=== PATIENT | female | born 1940 | race Caucasian/White ===

== ENCOUNTER 2016-07-13 15:08 | Emergency (ER) | payer MEDICARE ==
[~2016-07-13] VITALS: Ht 165.1 cm; Wt 66.0 kg
[~2016-07-13 15:08] MED LIST: AUGM875T PO; CALTTAB PO; CENTTAB9 PO; CYMB30CA PO; LEVA250T PO; LEVO50TA51 PO; METO50 PO; OXYC1SOL5 PO; PERC5TAB12 PO; PRED5PAK PO; ROBIACUDC PO
[2016-07-13 15:09] VITALS: BP 108/46; PULSE 79; RESP 15; TEMP 98.2; O2SAT 98
--- NOTE | 2016-07-13 16:03 | PD ---
HPI Chief Complaint: Injury Time Seen by Provider: 15:52 Travel History International Travel<30 days: No Contact w/Intl Traveler<30days: No Traveled to known affect area: No History of Present Illness HPI The patient is a 76-year-old female who presents to the emergency department for right arm pain. 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 The patient was getting out of shower last night, tripped and fell, landing on her right hip and injuring her right shoulder. The patient states she is sore over the lateral aspect of the right hip as well as painful over the right humerus. The patient states the pain radiates to the right shoulder down into the right mid humeral area, is worse with extension of the right shoulder, abduction of the right upper extremity, and supination/pronation. The patient is right-hand dominant. She denies any numbness or tingling of the right upper extremity. The patient is able to ambulate after falling, states she is sore to palpation of the lateral aspect of the right hip but is able to bear weight. The patient denies any loss of consciousness with the fall denies any current headache or neck pain. PFSH Past Medical History Cancer: Yes (UTERINE, OVARIAN) Cardiovascular Problems: Yes (LEAKY AORTIC VALVE) Chemotherapy: Yes (last chemo 05/04/15) Diabetes: No Diminished Hearing: No Endocrine: No Genitourinary: No Hepatitis: No Hiatal Hernia: No Hypertension: Yes Immune Disorder: No Musculoskeletal: No Neurologic: Yes (NEUROPATHY FEET AND HANDS, FOOT DROP FROM CHEMO, WEARS FOOT BRACES) Psychiatric: No Respiratory: No Immunizations Current: Yes Thyroid Disease: Yes (HYPOTHYROIDISM) Tetanus Vaccination: > 5 Years Influenza Vaccination: No ?: Not Menopausal: Yes Past Surgical History Abdominal Surgery: No Body Medical Devices: RIGHT EAR, RIGHT CHEST IMPLANTED PORT Cardiac Surgery: No Ear Surgery: Yes (RIGHT EAR STAINLESS STEEL -- REPLACED STIRRUP) Endocrine Surgery: No Eye Surgery: No Genitourinary Surgery: No Gynecologic Surgery: Yes (D AND C, LAPARSCOPIC BIOPSY OF PELVIC AND UTERINE MASS) Neurologic Surgery: Yes (LOWER BACK SURGERY WITH INSTRUMENTATION) Oral Surgery: No Pacemaker: No Thoracic Surgery: Yes (IMPLANTED PORT AND REMOVAL, IMPLANTED PORT) Other Surgery: Yes Social History Alcohol Use: Yes (1 PER DAY) Tobacco Use: No Substance Use: No Allergies-Medications (Allergen,Severity, Reaction): Coded Allergies: No Known Allergies (Unverified , 07/13/16) Reported Meds & Prescriptions Reported Meds & Active Scripts Active Sterapred 12 Day (Prednisone) 5 Mg Stevie 5 Mg PO DIRECTED USE DIRECTED Robitussin Ac Udc (Guaifenesin/Codeine Phosphate) 10 Ml Syrp 10 Ml PO Q6H PRN 5 Days Augmentin 875 mg Tab (Amoxicillin & Pot Clavulanate 875 mg Tab) 875 Mg Tab 875 Mg PO BID 6 Days Levaquin 250 Mg Tab (Levofloxacin) 250 Mg Tab 250 Mg PO DAILY 6 Days Oxycodone/Acetaminophen 5 mg/325 mg 1 Tab Tab 1 Tab PO Q4H PRN Reported Caltrate 600+D (Calcium Carbonate/Cholecalciferol) + Tab 1 Tab PO DAILY Centrum (Multivitamins) Tab 1 Tab PO DAILY Percocet 5-325 mg (Oxycodone/Acetaminophen) Oxycodone 5/325 Acetaminophen Tab 1 Tab PO Q4H PRN Cymbalta (Duloxetine HCl) 30 Mg Cap 60 Mg PO DAILY Lopressor (Metoprolol Tartrate) 50 Mg Tab 50 Mg PO HS Levoxyl (Levothyroxine Sodium) 50 Mcg Tab 50 Mcg PO DAILY Review of Systems Except as stated in HPI: all other systems reviewed are Neg HENT: No: Headaches, Neck Pain Cardiovascular: No: Chest Pain or Discomfort Respiratory: No: Shortness of Breath Gastrointestinal: No: Nausea, Vomiting Musculoskeletal: Positive: Pain Neurologic: Positive: Other (history of neuropathy, no acute numbness or tingling of the right upper extremity), No: Paresthesia, Sensory Disturbance Physical Exam Narrative GENERAL: Awake, alert, pleasant 76-year-old female who appears his stated age and is in no acute respiratory distress. SKIN: Focused skin assessment warm/dry. HEAD: Atraumatic. Normocephalic. EYES: No injection or drainage. ENT: No nasal bleeding or discharge. Mucous membranes pink and moist. NECK: Trachea midline. No JVD. MUSCULOSKELETAL: Mild tenderness of lateral aspect of the right hip. Patient is able fully flex and extend the right hip and right knee. Patient is able to bear weight and stand on the right leg alone. Patient has tenderness of the mid right humerus and lateral aspect of the right shoulder. She has limited ability to extend the right upper extremity as well as abduct secondary to pain. Nontender of the right clavicle. Intrinsic hand muscles the right hand are intact. Positive right radial pulse. She is able flex and extend the right wrist. She is able to supinate and pronate with limited range of motion the right forearm secondary to pain of the right shoulder. NEUROLOGICAL: Awake and alert. No obvious cranial nerve deficits. Motor grossly within normal limits. Normal speech. Sensation is intact over the radial, median, and ulnar distribution of the right hand. PSYCHIATRIC: Appropriate mood and affect; insight and judgment normal. Data Data Last Documented VS Vital Signs Date Time Temp Pulse Resp B/P Pulse Ox O2 Delivery O2 Flow Rate FiO2 07/13/16 15:09 98.2 79 15 108/46 98 Orders Humerus (Min 2vws) (07/13/16 ) Pelvis, Ap Only (Routine) (07/13/16 ) [facility] Medical Decision Making Medical Screen Exam Complete: Yes Emergency Medical Condition: Yes Medical Record Reviewed: Yes Interpretation(s) X-ray of the right humerus reveals no acute findings. No evidence of fracture or dislocation. X-ray of the pelvis reveals osteopenia. No acute fracture. Differential Diagnosis Differential diagnosis includes fracture, contusion, hematoma, pelvic fracture, hip fracture, proximal shoulder fracture, sprain, strain. Narrative Course X-ray of the right humerus and pelvic x-ray were obtained. X-ray the right humerus and pelvis are unremarkable. No evidence of fracture. The patient will be placed in a sling for, for, but is advised not to wear the sling continuously, to avoid a frozen shoulder. She is advised to have early range of motion, ice and/or heat to the affected area, and medications as directed. She will be provided a copy of her x-ray reports and is advised to follow-up with her primary physician. Diagnosis Primary Impression: Right arm pain Additional Impression: Contusion of right hip Qualified Code: S70.01XA - Contusion of right hip, initial encounter Patient Instructions: General Instructions Additional Instructions: Sling as needed. Early range of motion exercises. Motrin and Emmet as needed for pain. Elevate and/or ice as needed. Follow-up with your primary physician. Please provide the patient a copy of her x-ray report at discharge. Med/Other Pt SpecificInfo: Prescription(s) given Scripts Ibuprofen 400 Mg Hip889 Mg PO Q6H PRN (PAIN SCALE 1 TO 10) #20 TAB Ref 0 Prov:Speedy Thomas MD 07/13/16 Hydrocodone-Acetaminophen (Emmet)5-325 mg Tab1 Tab PO Q6H PRN (PAIN) #12 TAB Ref 0 Prov:Speedy Thoams MD 07/13/16 Disposition: 01 DISCHARGE HOME Condition: Stable Speedy Thomas MD Jul 13, 2016 16:03
--- NOTE | 2016-07-13 16:49 | RADHPO ---
EXAM DATE/TIME: 07/13/2016 16:17 [facility] COMPARISON: No previous studies available for comparison. INDICATIONS : Right hip pain post fall yesterday. MEDICAL HISTORY : None. SURGICAL HISTORY : Lumbar spine. ENCOUNTER: Initial ACUITY: 2 days PAIN SCORE: 7/10 LOCATION: Right hip. FINDINGS: A single frontal view of the pelvis demonstrates no evidence of fracture. The bones are osteopenic. S urgical hardware noted in the lower lumbar spine. Mild to moderate osteoarthritis of the hips. Degene rative change at the pubic symphysis and sacroiliac joints. CONCLUSION: 1. Osteopenia. No acute fracture. Margarito Alfaro MD on July 13, 2016 at 16:47 Board Certified Radiologist. This report was verified electronically.
--- NOTE | 2016-07-13 16:54 | RADHPO ---
EXAM DATE/TIME: 07/13/2016 16:16 [facility] COMPARISON: No previous studies available for comparison. INDICATIONS : Right arm pain post fall yesterday. MEDICAL HISTORY : None. SURGICAL HISTORY : None. ENCOUNTER: Initial ACUITY: 2 days PAIN SCORE: 7/10 LOCATION: Right humerus. FINDINGS: Two view examination of the right humerus demonstrates no evidence of fracture or dislocation. Bony mineralization is normal. The soft tissue structures are intact. CONCLUSION: 1. No acute findings. Margarito Alfaro MD on July 13, 2016 at 16:52 Board Certified Radiologist. This report was verified electronically.
[2016-07-13] MEDS ORDERED: IBUP400T20 PO (17:06)
[2016-07-13] MEDS ORDERED: NORC5TAB PO (17:06)
== END 2016-07-13 17:38 | disposition home or self-care (01) ==
LOC: PHEFT 15:08
DX: M79.601 Pain in right arm (principal); S70.01XA Contusion of right hip, initial encounter; I10 Essential (primary) hypertension; E03.9 Hypothyroidism, unspecified; Z86.69 Personal history of other diseases of the nervous system and sense organs; Z85.42 Personal history of malignant neoplasm of other parts of uterus; Z85.43 Personal history of malignant neoplasm of ovary; W01.0XXA Fall on same level from slipping, tripping and stumbling without subsequent striking against object, initial encounter; Y92.002 Bathroom of unspecified non-institutional (private) residence as the place of occurrence of the external cause
CPT/HCPCS: 72170; 73060; 99283

== ENCOUNTER 2017-05-26 13:49 | Emergency (ER) | payer MEDICARE ==
[~2017-05-26] VITALS: Ht 165.1 cm; Wt 65.0 kg
[~2017-05-26 13:49] MED LIST changes: +IBUP1TAB5 PO; +NORC5TAB PO
[2017-05-26 13:50] VITALS: BP 167/72; PULSE 76; RESP 18; TEMP 98.4; O2SAT 94
[2017-05-26] MEDS ORDERED: BACT800T5 PO (14:26)
[2017-05-26] MEDS ORDERED: MUPI2OIN TOPICAL (14:26)
[2017-05-26] MEDS ORDERED: SULFAMETHOXAZOLE-TRIMETHOPRIM DS 800-160 MG TAB PO ONE (14:30)
[2017-05-26] MEDS ORDERED: TETANUS/DIPHTHERIA TOXOID ADULT 0.5 ML VIAL IM ONE (14:30)
--- NOTE | 2017-05-26 14:32 | PD ---
HPI Chief Complaint: Laceration/Skin Injury Time Seen by Provider: 14:07 Travel History International Travel<30 days: No Contact w/Intl Traveler<30days: No Traveled to known affect area: No History of Present Illness HPI 77-year-old female that presents to the ED for evaluation of injury to her left arm. Patient reports that yesterday she accidentally fell and injured her left arm. Per patient she didn't think much of it. She has a skin tear to her left upper arm. She is able to move the arm fully. Denies any numbness, tingling, weakness. She was encouraged by her family to come here today to get evaluated. States having some discomfort in the area. Per patient the pain is 6 out of 10. Unknown of last tetanus booster. No urinary or bowel movement issues. Hasn't done anything for this other than some minor wound care. Has no allergies to medication. Other medical issues reported. Told to the arm fully. No other injuries reported. No head injury or loss of consciousness. Injury occurred yesterday around noon. PFSH Past Medical History Cancer: Yes (UTERINE, OVARIAN) Cardiovascular Problems: Yes (LEAKY AORTIC VALVE) Chemotherapy: Yes Diabetes: No Diminished Hearing: No Endocrine: No Genitourinary: No Hepatitis: No Hiatal Hernia: No Hypertension: Yes Immune Disorder: No Musculoskeletal: No Neurologic: Yes (NEUROPATHY FEET AND HANDS, FOOT DROP FROM CHEMO, WEARS FOOT BRACES) Psychiatric: No Respiratory: No Immunizations Current: Yes Thyroid Disease: Yes (HYPOTHYROIDISM) Tetanus Vaccination: > 5 Years Influenza Vaccination: No ?: Not Menopausal: Yes Past Surgical History Abdominal Surgery: No Body Medical Devices: RIGHT EAR, RIGHT CHEST IMPLANTED PORT Cardiac Surgery: No Ear Surgery: Yes (RIGHT EAR STAINLESS STEEL -- REPLACED STIRRUP) Endocrine Surgery: No Eye Surgery: No Genitourinary Surgery: No Gynecologic Surgery: Yes (D AND C, LAPARSCOPIC BIOPSY OF PELVIC AND UTERINE MASS) Hysterectomy: Yes (Partial ) Neurologic Surgery: Yes (LOWER BACK SURGERY WITH INSTRUMENTATION) Oral Surgery: No Pacemaker: No Thoracic Surgery: Yes (IMPLANTED PORT AND REMOVAL, IMPLANTED PORT) Other Surgery: Yes Social History Alcohol Use: Yes (1 PER DAY) Tobacco Use: No Substance Use: No Allergies-Medications (Allergen,Severity, Reaction): Coded Allergies: No Known Allergies (Unverified Adverse Reaction, Unknown, 05/26/17) Reported Meds & Prescriptions Reported Meds & Active Scripts Active Mupirocin Topical (Mupirocin) 2 % Oint 1 Applic TOPICAL BID Bactrim DS (Sulfamethoxazole-Trimethoprim) 800-160 Mg Tab 1 Tab PO BID 10 Days Ibuprofen 400 Mg Tab 400 Mg PO Q6H PRN [place] (Hydrocodone-Acetaminophen) 5-325 mg Tab 1 Tab PO Q6H PRN Sterapred 12 Day (Prednisone) 5 Mg Stevie 5 Mg PO DIRECTED USE DIRECTED Robitussin Ac Udc (Guaifenesin/Codeine Phosphate) 10 Ml Syrp 10 Ml PO Q6H PRN 5 Days Augmentin 875 mg Tab (Amoxicillin & Pot Clavulanate 875 mg Tab) 875 Mg Tab 875 Mg PO BID 6 Days Levaquin 250 Mg Tab (Levofloxacin) 250 Mg Tab 250 Mg PO DAILY 6 Days Oxycodone/Acetaminophen 5-325 mg/5Ml (Oxycodone W/ Acetaminophen) 1 Tab Tab 1 Tab PO Q4H PRN Reported Caltrate 600+D (Calcium Carbonate/Cholecalciferol) + Tab 1 Tab PO DAILY Centrum (Multivitamins) Tab 1 Tab PO DAILY Percocet 5-325 mg (Oxycodone/Acetaminophen) Oxycodone 5/325 Acetaminophen Tab 1 Tab PO Q4H PRN Cymbalta (Duloxetine HCl) 30 Mg Cap 60 Mg PO DAILY Lopressor (Metoprolol Tartrate) 50 Mg Tab 50 Mg PO HS Levoxyl (Levothyroxine Sodium) 50 Mcg Tab 50 Mcg PO DAILY Review of Systems Except as stated in HPI: all other systems reviewed are Neg Physical Exam Narrative GENERAL: SKIN: Warm and dry. HEAD: Atraumatic. Normocephalic. EYES: Pupils equal and round. No scleral icterus. No injection or drainage. ENT: No nasal bleeding or discharge. Mucous membranes pink and moist. Tongue is midline. No uvula deviation. NECK: Trachea midline. No JVD. CARDIOVASCULAR: Regular rate and rhythm. RESPIRATORY: No accessory muscle use. Clear to auscultation. Breath sounds equal bilaterally. GASTROINTESTINAL: Abdomen soft, non-tender, nondistended. Hepatic and splenic margins not palpable. MUSCULOSKELETAL: Extremities without clubbing, cyanosis, or edema. No obvious deformities. Full range of motion of the upper and lower extremities bilaterally. 2+ pulses bilaterally. Patient has a superficial skin tear on the left arm. About 5 cms in Diameter. Skin Still Present. Already Healing. Patient does have bruising and swelling on the area but appears to also have some erythema which is warm to the touch more distal to the wound. No purulence noted. No lymphadenopathy noted. Neurovascularly intact. NEUROLOGICAL: Awake and alert. No obvious cranial nerve deficits. Motor grossly within normal limits. Five out of 5 muscle strength in the arms and legs. Normal speech. PSYCHIATRIC: Appropriate mood and affect; insight and judgment normal. Data Data Last Documented VS Vital Signs Date Time Temp Pulse Resp B/P (MAP) Pulse Ox O2 Delivery O2 Flow Rate FiO2 05/26/17 13:50 98.4 76 18 167/72 (103) 94 Orders Orders Sulfamet-Trimeth Ds 800-160 Mg (Bactrim (05/26/17 14:30) Wound Care (05/26/17 14:24) Ed Discharge Order (05/26/17 14:24) Tetanus/Diphtheria Tox Adult (Tetanus/Di (05/26/17 14:30) MDM Medical Decision Making Medical Screen Exam Complete: Yes Emergency Medical Condition: Yes Medical Record Reviewed: Yes Differential Diagnosis Wound check versus skin tear versus infected skin. Narrative Course 77-year-old female that presents to the ED for evaluation of skin tear. Patient was properly examined and was found to have signs and symptoms consistent appears to be a already healing skin tear and possible infection from injury. Patient was given tetanus booster. Given prescription for Bactrim and mupirocin. Had wound care done here in the ED. However, close follow with PCP. Unfortunately because wound is more in 24 hours old I do not recommend any suturing. He underwent this appears to be a skin tear and sutures will likely not have been beneficial. This will have to heal by secondary intention. Patient was counseled on this. Follow with PCP. See ED worsening symptoms. Wound care endorsed Diagnosis Primary Impression: Skin tear of left upper extremity Additional Impression: Cellulitis Qualified Codes: L03.114 - Cellulitis of left upper limb Patient Instructions: General Instructions Additional Instructions: Take medication as prescribed. Follow with PCP. See ED worsening symptoms. Change dressings daily. Recheck in 48 hours if redness worsens Med/Other Pt SpecificInfo: Prescription(s) given, Wound Care Scripts Mupirocin Topical (Mupirocin Topical) 2 % Oint 1 APPLIC TOPICAL BID for Mgmt Bacterial Infection, #1 TUBE 0 Refills Prov: Brian Kulkarni MD 05/26/17 Sulfamethoxazole-Trimethoprim (Bactrim DS) 800-160 Mg Tab 1 TAB PO BID for Infection for 10 Days, #20 TAB 0 Refills Prov: Brian Kulkarni MD 05/26/17 Disposition: 01 DISCHARGE HOME Condition: Stable Manan Sorenson May 26, 2017 14:32
[2017-05-26] MEDS ORDERED: METO-309 PO (14:47)
[2017-05-26] MEDS ORDERED: CYMB30CA PO (14:47)
[2017-05-26] MEDS ORDERED: LEVO50TA53 PO (14:47)
[2017-05-26] MEDS ORDERED: OXYC1TAB63 PO (14:47)
== END 2017-05-26 14:55 | disposition home or self-care (01) ==
LOC: PHED 13:49 → PHEFT 14:55
DX: S41.112A Laceration without foreign body of left upper arm, initial encounter (principal); L03.114 Cellulitis of left upper limb; E03.9 Hypothyroidism, unspecified; W19.XXXA Unspecified fall, initial encounter; Z23 Encounter for immunization
CPT/HCPCS: 90471; 90714

== ENCOUNTER 2017-11-12 08:24 | Inpatient (IN) ==
[2017-11-12] MEDS ORDERED: Sod Chloride 0.9% Inj 1,000 ML IV.SIG ONE (10:08)
--- NOTE | 2017-11-12 10:13 | ED ---
HPI General Chief complaint: Nausea/Vomiting/Diarrhea Stated complaint: GI Time Seen by Provider: 11/12/17 10:00 History of Present Illness HPI Narrative: The patient was seen and examined in the presence of the nurse. This patient planes of abdominal pain. Is rather diffuse abdominal pain in all quadrants. Duration 5 days. Severity is moderate. After eating she gets nauseous but between meals is not. No fever. She is on chemotherapy orally for recurrent ovarian cancer. No alleviating factors. No exacerbating factors. Related Data Home Medications Medication Instructions Recorded Confirmed duloxetine [Cymbalta] 60 mg PO BID 10/07/17 11/12/17 oxycodone-acetaminophen 1 tab PO Q4HR PRN 10/17/17 11/12/17 apixaban [Eliquis] 5 mg PO BID 11/12/17 11/12/17 fluticasone [Flonase Allergy 2 spray INTRANASAL DAILY PRN 11/12/17 11/12/17 Relief] levothyroxine [Levoxyl] 50 mcg PO DAILY 11/12/17 11/12/17 metoprolol tartrate 50 mg PO DAILY 11/12/17 11/12/17 niraparib [Zejula] 100 mg PO QPM 11/12/17 11/12/17 ondansetron [Zofran ODT] 8 mg PO TID PRN 11/12/17 11/12/17 temazepam [Restoril] 15 mg PO HS 11/12/17 11/12/17 Allergies Allergy/AdvReac Type Severity Reaction Status Date / Time No Known Allergies Allergy Verified 10/25/17 08:36 Review of Systems ROS: all other systems reviewed are negative PMFSH Surgical History Surgical History History of back surgery (Acute) Social History Social History Substance History: No History of Abuse Second Hand Smoke Exposure: No Smoking Status: Never smoker How Often Do You Have a Drink Containing Alcohol: Never Recent Out of Country Travel within the Last 8 Weeks: No Immunization History Tetanus Immunization: <5 Years Hx Influenza Vaccine This Season: Yes Exam Narrative Exam Narrative: GENERAL: Well-nourished, well-developed patient in no apparent distress. SKIN: Focused skin assessment reveals no rash and nodules. Skin is Warm and dry. HEAD: Atraumatic. Normocephalic. EYES: Pupils equal and round. No scleral icterus. No injection or drainage. ENT: No nasal bleeding or discharge. Mucous membranes pink and moist. NECK: Trachea midline. No JVD. CARDIOVASCULAR: Regular rate and rhythm. No murmur appreciated. RESPIRATORY: No accessory muscle use. Clear to auscultation. Breath sounds equal bilaterally. GASTROINTESTINAL: Abdomen soft, non-tender, nondistended. Hepatic and splenic margins not palpable. MUSCULOSKELETAL: No obvious deformities. No clubbing. No cyanosis. No edema. NEUROLOGICAL: Awake and alert. No obvious cranial nerve deficits. Motor grossly within normal limits. Normal speech. PSYCHIATRIC: Appropriate mood and affect; insight and judgment normal. Course Initial Documented Vital Signs Temperature 98.7 F 11/12/17 08:29 Pulse Rate 104 H 11/12/17 08:29 Respiratory Rate 18 11/12/17 08:29 Blood Pressure 147/69 H 11/12/17 08:29 Pulse Oximetry 97 11/12/17 08:29 Last Documented Vital Signs Temperature 98.7 F 11/12/17 08:29 Pulse Rate 104 H 11/12/17 10:09 Respiratory Rate 17 11/12/17 10:09 Blood Pressure 121/60 11/12/17 10:09 Pulse Oximetry 95 11/12/17 10:09 Medical Decision Making MDM Narrative Medical decision making narrative: IV placed and labs sent. I gave her a liter of saline IV and a dose of Zofran CT of abdomen and pelvis Suggest small bowel obstruction and transition point in the right lower quadrant near the right adnexal mass. I reviewed with general surgeon Dr. England as well as medical wrote meds who will admit. Patient will be kept n.p.o. and blood thinner held. Medical Screen Exam Complete: Yes Emergency Medical Condition: Yes Medical Records Medical records reviewed: Yes I reviewed the patient's medical records. Reviewed her oncology consultation from 2 weeks ago. Lab Data Result diagrams: 11/12/17 10:20 11/12/17 10:20 Lab Results 11/12/17 11/12/17 Range/Units 10:20 10:20 WBC 13.7 H (4.0-11.0) th/mm3 RBC 3.98 L (4.00-5.30) mil/mm3 Hgb 13.3 (11.6-15.3) gm/dL Hct 37.8 (35.0-46.0) % MCV 94.9 (80.0-100.0) fL MCH 33.3 (27.0-34.0) pg MCHC 35.1 (32.0-36.0) % RDW 14.9 (11.6-17.2) % Plt Count 351 (150-450) th/mm3 MPV 7.9 (7.0-11.0) fL Neut % (Auto) 80.8 H (16.0-70.0) % Lymph % (Auto) 9.1 (9.0-44.0) % [place] % (Auto) 9.7 H (0.0-8.0) % Eos % (Auto) 0.1 (0.0-4.0) % Baso % (Auto) 0.3 (0.0-2.0) % Neut # (Auto) 11.1 H (1.8-7.7) th/mm3 Lymph # (Auto) 1.2 (1.0-4.8) th/mm3 [place] # (Auto) 1.3 H (0.0-0.9) th/mm3 Eos # (Auto) 0.0 (0.0-0.4) th/mm3 Baso # (Auto) 0.0 (0.0-0.2) th/mm3 WBC Differential . Differential Comment Auto diff final Sodium 133 L (136-145) meq/L Potassium 3.5 (3.5-5.1) meq/L Chloride 92 L (98-107) meq/L Carbon Dioxide 28.2 (21.0-32.0) meq/L Anion Gap 13 (5-15) meq/L BUN 26 H (7-18) mg/dL Creatinine 1.31 H (0.50-1.00) mg/dL Estimated GFR 39 L (>89) mL/min Random Glucose 94 (74-106) mg/dL Calcium 9.2 (8.5-10.1) mg/dL Total Bilirubin 1.3 H (0.2-1.0) mg/dL AST 26 (15-37) U/L ALT 26 (10-53) U/L Alkaline Phosphatase 109 (45-117) U/L Total Protein 8.3 H (6.4-8.2) g/dL Albumin 3.6 (3.4-5.0) g/dL Lipase 118 (73-393) U/L Imaging Data Radiologist's impression: Abdomen/Pelvis CT 11/12/17 10:08 CONCLUSION: 1. CT findings characteristic of a small bowel obstruction with a transition in the region of the right adnexa. A 4.5 cm cystic lesion in a 75-year-old could represent an ovarian mass. Bowel distal to this area is decompressed. In addition, there is soft tissue density in the expected location of the uterus. Patient reports hysterectomy. Findings may represent a partial hysterectomy. 2. Collateral venous channels in the retroperitoneum and anterior abdominal wall may be due to obstruction to the venous drainage in the right upper extremity. 3. Symmetric widening of the SI joints with some sclerosis on the sacral side of the same possibly representing chronic sacroiliitis. Discharge Plan Discharge Disposition Patient Disposition: 30 Still Patient Discharge Details Diagnosis: SBO (small bowel obstruction) Physicians Team ED Provider: Donovan Tony Primary Care Provider: Jamee Velasquez Rxs /Orders / Referrals /Forms Prescriptions: No Action duloxetine [Cymbalta] 30 mg Capsule,Delayed Release(Dr/Ec) 60 mg PO BID RF: 0 oxycodone-acetaminophen 5-325 mg Tablet 1 tab PO Q4HR PRN (Reason: Pain) RF: 0 ondansetron [Zofran ODT] 8 mg Tablet,Disintegrating 8 mg PO TID PRN (Reason: Nausea And Vomiting) RF: 0 temazepam [Restoril] 15 mg Capsule 15 mg PO HS RF: 0 levothyroxine [Levoxyl] 50 mcg Tablet 50 mcg PO DAILY RF: 0 metoprolol tartrate 50 mg Tablet 50 mg PO DAILY RF: 0 fluticasone [Flonase Allergy Relief] 50 mcg/actuation [place],Suspension 2 spray INTRANASAL DAILY PRN (Reason: Nasal Congestion) RF: 0 apixaban [Eliquis] 5 mg Tablet 5 mg PO BID RF: 0 niraparib [Zejula] 100 mg Capsule 100 mg PO QPM RF: 0 Discharge Interventions Interventions: Vital Signs Last Done: 11/12/17 10:09 Status ED Status: With Doctor
[2017-11-12 10:48] LABS: Baso % (Auto) 0.3 % (0.0-2.0); Eos % (Auto) 0.1 % (0.0-4.0); Hematocrit 37.8 % (35.0-46.0); Hemoglobin 13.3 gm/dL (11.6-15.3); Lymph # (Auto) 1.2 th/mm3 (1.0-4.8); Lymph % (Auto) 9.1 % (9.0-44.0); Mean Corpuscular HGB Conc 35.1 % (32.0-36.0); Mean Corpuscular Hemoglobin 33.3 pg (27.0-34.0); Mean Corpuscular Volume 94.9 fL (80.0-100.0); Mean Platelet Volume 7.9 fL (7.0-11.0); Mono # (Auto) 1.3 th/mm3 (0.0-0.9); Mono % (Auto) 9.7 % (0.0-8.0); Neut # (Auto) 11.1 th/mm3 (1.8-7.7); Neut % (Auto) 80.8 % (16.0-70.0); Platelet Count 351 th/mm3 (150-450); Red Blood Count 3.98 mil/mm3 (4.00-5.30); Red Cell Distribution Width 14.9 % (11.6-17.2); White Blood Count 13.7 th/mm3 (4.0-11.0)
[2017-11-12 11:06] LABS: Alanine Aminotransferase 26 U/L (10-53); Albumin 3.6 g/dL (3.4-5.0); Anion Gap 13 meq/L (5-15); Aspartate Aminotransferase 26 U/L (15-37); Blood Urea Nitrogen 26 mg/dL (7-18); Calcium 9.2 mg/dL (8.5-10.1); Carbon Dioxide 28.2 meq/L (21.0-32.0); Chloride 92 meq/L (98-107); Glomerular Filtration Rate 39 mL/min (>89); Glucose,Random 94 mg/dL (74-106); Lipase 118 U/L (73-393); Potassium 3.5 meq/L (3.5-5.1); Sodium 133 meq/L (136-145)
[2017-11-12 11:08] LABS: Alkaline Phosphatase 109 U/L (45-117); Total Protein 8.3 g/dL (6.4-8.2)
--- NOTE | 2017-11-12 12:03 | CT ---
EXAM DATE: 11/12/2017 11:41 AM EDT AGE/SEX: 77 years / Female INDICATIONS: Abdominal pain, nausea and vomiting for five days. CLINICAL DATA: This is the patient's initial encounter. Patient reports that signs and symptoms have been present for 4 - 6 days and indicates a pain score of 8/10. MEDICAL/SURGICAL HISTORY: Hypertension. Carcinoma, ovarian. Hysterectomy. ORAL CONTRAST: No oral contrast ingested. RADIATION DOSE: 5.07 CTDI (mGy) COMPARISON: [facility] – [place], [place] PULMONARY ANGIOGRAM, 05/19/2015. . TECHNIQUE: Multiple contiguous axial images were obtained through the abdomen and pelvis following b olus infusion of 96 ml Omnipaque 350 (iohexol) nonionic water-soluble contrast as a single exam dos e. No oral contrast ingested. Using automated exposure control and adjustment of the mA and/or kV ac cording to patient size, radiation dose was kept as low as reasonably achievable to obtain optimal di agnostic quality images. DICOM format image data is available electronically for review and comparis on. FINDINGS: Lower Lungs: Some atelectasis or scarring in the left lingula and right lung base. No confluent infil trate. Liver: Benign-appearing 1 cm cyst posteriorly in the right hepatic lobe. Some diminished hepatic atte nuation characteristic of fatty infiltration. Spleen: Homogeneous density without enlargement. Pancreas: Unremarkable without mass or calcification. Kidneys: Normal in size and shape. No evidence of mass or hydronephrosis. Adrenal Glands: Unremarkable. Aorta: The aorta and proximal iliac vessels are grossly unremarkable without aneurysmal dilation. Bowel/Mesentery: Dilation of small bowel loops a discrete transition in the right pelvis. This occur s adjacent to a right adnexal cystic lesion measuring approximately 4.5 cm in diameter. In a 77-year- old with concomitant bowel obstruction, this could represent an ovarian mass. The bowel distal to thi s location is decompressed. Abdominal Wall: There are prominent venous varicosities traversing through the anterior subcutaneous tissues of the right abdomen draining into the right common femoral vein. In addition, there is a pr ominent azygos vein as well as a prominent retroperitoneal collateral tracking posterior to the liver off the IVC and extending to the right lateral chest wall. Findings may represent collateral drainag e from an obstructed right upper extremity venous system. The left iliac system is diminutive but I d o not see any regional collaterals. Retroperitoneum: No evidence of adenopathy in the retrocrural, para-aortic, or deep pelvic regions. Bladder: Contours are smooth. Reproductive Organs: Again, 4.5 cm cystic lesion in the region of the right adnexa. Soft tissue dens ity in the expected location of the uterus but the patient does report hysterectomy. Inguinal: The inguinal region is unremarkable without evidence of adenopathy. Bony Structures: Symmetric widening of the SI joints bilaterally with some sclerosis particularly on the sacral side of the SI joints. Spinous process fixation of the lower lumbar spine. Post Contrast: No abnormal areas of enhancement seen. CONCLUSION: 1. CT findings characteristic of a small bowel obstruction with a transition in the region of the ri ght adnexa. A 4.5 cm cystic lesion in a 75-year-old could represent an ovarian mass. Bowel distal to this area is decompressed. In addition, there is soft tissue density in the expected location of the uterus. Patient reports hysterectomy. Findings may represent a partial hysterectomy. 2. Collateral venous channels in the retroperitoneum and anterior abdominal wall may be due to obstr uction to the venous drainage in the right upper extremity. 3. Symmetric widening of the SI joints with some sclerosis on the sacral side of the same possibly r epresenting chronic sacroiliitis. Electronically signed by: Martin Rosenberg MD 11/12/2017 12:02 PM EDT
[2017-11-12] MEDS ORDERED: Bisacodyl 10 MG Supp RECTAL PRN (13:48)
[2017-11-12] MEDS ORDERED: Acetaminophen 325 MG Tablet PO PRN (14:07)
--- NOTE | 2017-11-12 14:10 | P.HPFP ---
History of Present Illness Primary Care Physician: Jamee Velasquez MD <RonceverteGhislaine acosta - 11/13/17 12:58> Jamee Velasquez MD <Shaina Toribio V 11/12/17 14:10> Chief Complaint: abdominal pain <Shaina Toribio V 11/12/17 14:10> History of Present Illness: Patient is a 77-year-old female with a past medical history of right ovarian cancer who presents to the ED for abdominal pain. Patient states abdominal pain has been present for the last 5 days accompanied with nausea and vomiting. Around Friday afternoon patient noticed an intense stabbing pain on her lower right and left quadrants. She also has a mild pain on the upper quadrants. This pain has been periodic, coming in waves but has never completely resolved. Since Friday patient has been unable to tolerate meals. She has been vomiting about an hour after eating. She is able to tolerate liquids. She reports a similar episode about 6 weeks ago that was diagnosed as a partial bowel obstruction on [facility]. During that time patient was given bowel regimen and sent home, her symptoms resolved for about 5 weeks return last Friday. Patient is unsure if she is passing gas, but she has had a bowel movement every day until Friday. Patient has a known history of right ovarian cancer since 2011, is currently undergoing treatment with oral chemotherapy. 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 <Shaina Toribio V 11/12/17 20:52> - Diagnosis (1) SBO (small bowel obstruction) (2) Ovarian cancer on right (3) Hypertension (4) Neuropathic pain of both legs (5) History of back surgery (6) Hypothyroidism (7) Nutrition, metabolism, and development symptoms (8) DVT prophylaxis <Ghislaine Ray - 11/13/17 12:58> (1) SBO (small bowel obstruction) (2) Ovarian cancer on right (3) Hypertension (4) Neuropathic pain of both legs (5) History of back surgery (6) Hypothyroidism (7) Nutrition, metabolism, and development symptoms (8) DVT prophylaxis <Shaina Toribio V 11/12/17 20:53> Inpatient Certification: I certify that the inpatient services were ordered in accordance with Medicare regulations governing the order. This includes certification that hospital inpatient services are reasonable and necessary and in the case of services not specified as inpatient-only under 42 CFR 419.22(n), that they are appropriately provided as inpatient services in accordance to with the 2-midnight benchmark under 43 CFR 412.3(e) <Ghislaine Ray - 11/13/17 12:58> Review of Systems Constitutional: Reports fatigue, Reports lack of energy, Denies body ache(s), Denies chills, Denies fever(s) <Shaina Toribio V 11/12/17 17:19> Eyes: Denies blurry vision, Denies change in vision <Shaina Toribio V 11/12/17 17:19> Ears, Nose, Mouth, and Throat: Denies sinus pain, Denies sinus pressure, Denies sore throat <Emeka FloresRisa 11/12/17 17:19> Cardiovascular: Denies chest pain, Denies shortness of breath <Emeka Flores Risa 11/12/17 17:19> Respiratory: Denies chest congestion, Denies cough <Shaina Toribio V 17:19> Gastrointestinal: Reports abdominal pain, Reports change in bowel habits, Reports nausea, Reports vomiting, Denies black, tarry stools <Shaina Toribio V 11/12/17 17:19> Musculoskeletal: Reports back pain, Denies body aches <Emeka FloresRisa 11/12/17 17:19> Neurologic: Reports abnormal hearing (chronic on the R side), Reports abnormal walking (secondary to neuropathy), Reports numbness (Chronic, secondary to chemotherapy) <Shaina Toribio V 11/12/17 17:19> Hematologic/Lymphatic: Reports easy bruising (currently on eloquis) <Shaina Toribio V 11/12/17 17:19> Allergic/Immunologic: Denies seasonal runny nose, Denies wheezing <Shaina Toribio V 11/12/17 17:19> PMFSH - History History Provided By: Patient <Shaina Toribio V 11/12/17 14:10> - Medical History Medical History: Medical History (Last Reviewed 10/25/17 @ 11:13 by Nicol Maher) Port catheter in place (Acute) Hypertension (Chronic) Neuropathic pain of both legs (Chronic) Hypothyroidism (Chronic) Hx of hysterectomy (Acute) <Ghislaine Ray - 11/13/17 12:58> Medical History (Last Reviewed 10/25/17 @ 11:13 by Nicol Maher) Port catheter in place (Acute) Hypertension (Chronic) Neuropathic pain of both legs (Chronic) Hypothyroidism (Chronic) Hx of hysterectomy (Acute) <Shaina Toribio V 11/12/17 20:55> - Surgical History Surgical History: Surgical History (Last Updated 11/12/17 @ 17:03 by Shaina Flores MD, R1 ) History of back surgery (Chronic) H/O hysterectomy with unilateral oophorectomy <Ghislaine Ray - 11/13/17 12:58> Surgical History (Last Updated 11/12/17 @ 17:03 by Shaina Flores MD, R1 ) History of back surgery (Chronic) H/O hysterectomy with unilateral oophorectomy <Shaina Toribio V 11/12/17 17:20> - Tobacco History Second Hand Smoke Exposure: No <Shaina Toribio V 11/12/17 14:10> Smoking Status: Never smoker <Shaina Toribio V 11/12/17 14:10> - Alcohol History How Often Do You Have a Drink Containing Alcohol: Never <Shaina Toribio V 11/12/17 14:10> - Substance Use History Substance History: No History of Abuse <Shaina Toribio V 11/12/17 14:10 > - Travel History Recent Travel Out of the Country Within the Last 8 Weeks: No <Shaina Toribio V 11/12/17 14:10> - Immunization History Tetanus Immunization: <5 Years <Shaina Toribio V 11/12/17 14:10> Hx Influenza Vaccine This Season: Yes <Shaina Toribio V 11/12/17 14:10> Medications and Allergies Allergies Allergy/AdvReac Type Severity Reaction Status Date / Time No Known Allergies Allergy Verified 10/25/17 08:36 <Ghislaine Ray 11/13/17 12:58> Home Medications Medication Instructions Recorded Confirmed Type duloxetine [Cymbalta] 60 mg PO BID 10/07/17 11/12/17 History oxycodone-acetaminophen 1 tab PO Q4HR PRN 10/17/17 11/12/17 History apixaban [Eliquis] 5 mg PO BID 11/12/17 11/12/17 History fluticasone [Flonase Allergy 2 spray INTRANASAL DAILY PRN 11/12/17 11/12/17 History Relief] levothyroxine [Levoxyl] 50 mcg PO DAILY 11/12/17 11/12/17 History metoprolol tartrate 50 mg PO DAILY 11/12/17 11/12/17 History niraparib [Zejula] 100 mg PO QPM 11/12/17 11/12/17 History ondansetron [Zofran ODT] 8 mg PO TID PRN 11/12/17 11/12/17 History temazepam [Restoril] 15 mg PO HS 11/12/17 11/12/17 History <Ghislaine Ray - 11/13/17 12:58> Active Medications: Active Medications Acetaminophen (Tylenol) 650 mg PO Q4H PRN PRN Reason: BACK PAIN Al Hydroxide/Mg Hydroxide (Milk Of Magnesia Liq) 30 ml PO Q12H PRN PRN Reason: Mild Constipation Bisacodyl (Dulcolax Supp) 10 mg RECTAL DAILY PRN PRN Reason: SEVERE CONSITIPATION Duloxetine HCl (Cymbalta) 60 mg PO BID [facility] Last Admin: 11/13/17 09:49 Dose: 60 mg Fluticasone Propionate (Flonase Nasal [place]) 2 spray EACH NARE DAILY PRN PRN Reason: Nasal Congestion Heparin Sodium (Porcine) (Heparin Inj) 5,000 units SQ Q8HR [facility] Last Admin: 11/13/17 05:33 Dose: 5,000 units Dextrose/Sodium Chloride (D5w/Normal Saline Inj) 1,000 mls @ 100 mls/hr IV.CONT .Q10H [facility] Last Admin: 11/13/17 09:48 Dose: 100 mls/hr Lactulose (Lactulose Liq) 30 ml PO DAILY PRN PRN Reason: SEVERE CONSITIPATION Levothyroxine Sodium (Synthroid) 50 mcg PO DAILY@0600 [facility] Last Admin: 11/13/17 07:39 Dose: Not Given Metoprolol Tartrate (Lopressor) 50 mg PO HS [facility] Last Admin: 11/12/17 21:11 Dose: Not Given Ondansetron HCl (Zofran Inj) 4 mg IV.PUSH Q6H PRN PRN Reason: NAUSEA OR VOMITING Patient Own Medication (Patient Own Medication) 0 each PO QPM [facility] Last Admin: 11/13/17 07:39 Dose: Not Given Polyethylene Glycol (Miralax) 17 gm PO DAILY [facility] Last Admin: 11/13/17 09:49 Dose: 17 gm Sennosides (Senokot) 17.2 mg PO Q12H PRN PRN Reason: Moderate Constipation Sodium Chloride (Ns Flush) 2 ml IV.FLUSH PRN PRN PRN Reason: FLUSH AFTER USING IV ACCESS Temazepam (Restoril) 15 mg PO [facility] Last Admin: 11/12/17 21:11 Dose: Not Given <Ghislaine Ray - 11/13/17 12:58> Active Medications Acetaminophen (Tylenol) 650 mg PO Q4H PRN PRN Reason: BACK PAIN Al Hydroxide/Mg Hydroxide (Milk Of Magnesia Liq) 30 ml PO Q12H PRN PRN Reason: Mild Constipation Bisacodyl (Dulcolax Supp) 10 mg RECTAL DAILY PRN PRN Reason: SEVERE CONSITIPATION Duloxetine HCl (Cymbalta) 60 mg PO BID [facility] Fluticasone Propionate (Flonase Nasal [place]) 2 spray EACH NARE DAILY PRN PRN Reason: Nasal Congestion Sodium Chloride (Ns Inj) 1,000 mls @ 100 mls/hr IV.CONT .Q10H [facility] Lactulose (Lactulose Liq) 30 ml PO DAILY PRN PRN Reason: SEVERE CONSITIPATION Levothyroxine Sodium (Synthroid) 50 mcg PO DAILY [facility] Metoprolol Tartrate (Lopressor) 50 mg PO DAILY [facility] Non-Formulary Medication (Niraparib [Zejula]) 100 mg PO QPM [facility] Ondansetron HCl (Zofran Inj) 4 mg IV.PUSH Q6H PRN PRN Reason: NAUSEA OR VOMITING Polyethylene Glycol (Miralax) 17 gm PO DAILY [facility] Sennosides (Senokot) 17.2 mg PO Q12H PRN PRN Reason: Moderate Constipation Sodium Chloride (Ns Flush) 2 ml IV.FLUSH PRN PRN PRN Reason: FLUSH AFTER USING IV ACCESS Temazepam (Restoril) 15 mg PO HS [facility] <Shaina Toribio V - 11/12/17 14:10> Exam Vital signs: Vital Signs 11/12/17 15:30 11/12/17 20:00 11/13/17 00:00 Temperature 98.5 F 98.8 F 98.2 F Pulse Rate 111 H 99 H 115 H Respiratory Rate 19 18 18 Blood Pressure 131/67 121/57 L 155/89 H Pulse Oximetry 98 94 L 94 L 11/13/17 04:00 11/13/17 08:00 Temperature 98.2 F 98.7 F Pulse Rate 143 H 148 H Respiratory Rate 18 18 Blood Pressure 126/63 126/73 Pulse Oximetry 95 94 L Intake & Output 11/12/17 11/13/17 11/13/17 18:59 06:59 18:59 Intake Total 1000 / 1000 Balance 1000 / 1000 Weight 56.699 kg 58.9 kg Intake: IV 1000 / 1000 NS Inj 1,000 ML @ 100 mls/hr IV 1000 / 1000 .CONT .Q10H [facility] Rx#:[id number] Other: # Voids 3 Date of Last Bowel Movement 11/10/17 11/10/17 <Ghislaine Ray M - 11/13/17 12:58> Vital Signs 11/12/17 08:29 11/12/17 10:09 Temperature 98.7 F Pulse Rate 104 H 104 H Respiratory Rate 18 17 Blood Pressure 147/69 H 121/60 Pulse Oximetry 97 95 Intake & Output 11/11/17 11/12/17 11/12/17 18:59 06:59 18:59 Weight 56.699 kg Other: Date of Last Bowel Movement 11/10/17 <Shaina Toribio V - 11/12/17 14:10> Narrative: Patient is a 77-year-old female Constitutional: healthy-appearing, well-nourished, and well-developed. In NAD. Psychiatric: good judgement, normal mood and affect and active and alert. Head: normocephalic and atraumatic. Neck: supple and trachea midline. No cervical LAD. Lungs: Normal respiratory effort, no dyspnea. No wheezing, minimal RLL crackles , no rhonchi and breath sounds normal and good air movement. Cardiovascular: normal S1 and S2; no murmurs, rubs, or gallops; with regular rate and rythm. Abdomen: + BS in all quadrants. No tenderness, minimal guarding, no masses. Soft and non-distended. Musculoskeletal: normal movement of all extremities. No cyanosis or edema. Neurologic: Cranial Nerves: grossly intact. Skin: small bruises on bilateral UE, no rash, lesions, ulcer, or jaundice. <Shaina Toribio V - 11/12/17 17:19> Results - Labs Result diagrams: 11/13/17 04:15 11/13/17 04:15 <Ghislaine Ray - 11/13/17 12:58> Abnormal lab results 11/13/17 11/13/17 Range/Units 04:15 04:15 WBC 12.4 H (4.0-11.0) th/mm3 RBC 3.90 L (4.00-5.30) mil/mm3 Neut % (Auto) 75.2 H (16.0-70.0) % [place] % (Auto) 10.7 H (0.0-8.0) % Neut # (Auto) 9.3 H (1.8-7.7) th/mm3 [place] # (Auto) 1.3 H (0.0-0.9) th/mm3 Carbon Dioxide 19.5 L (21.0-32.0) meq/L Anion Gap 18 H (5-15) meq/L BUN 21 H (7-18) mg/dL Estimated GFR 61 L (>89) mL/min Random Glucose 67 L (74-106) mg/dL AST 54 H (15-37) U/L Alkaline Phosphatase 141 H (45-117) U/L Albumin 3.1 L (3.4-5.0) g/dL Short CBC 11/13/17 Range/Units 04:15 WBC 12.4 H (4.0-11.0) th/mm3 Hgb 12.5 (11.6-15.3) gm/dL Hct 37.6 (35.0-46.0) % Plt Count 321 (150-450) th/mm3 BMP 11/13/17 04:15 Sodium 137 Potassium 3.9 Chloride 100 D Carbon Dioxide 19.5 L BUN 21 H Creatinine 0.89 Calcium 8.8 Liver Function 11/13/17 Range/Units 04:15 Total Bilirubin 1.0 (0.2-1.0) mg/dL AST 54 H (15-37) U/L ALT 35 (10-53) U/L Alkaline Phosphatase 141 H (45-117) U/L Albumin 3.1 L (3.4-5.0) g/dL <Ghislaine Ray - 11/13/17 12:58> Abnormal lab results 11/12/17 11/12/17 Range/Units 10:20 10:20 WBC 13.7 H (4.0-11.0) th/mm3 RBC 3.98 L (4.00-5.30) mil/mm3 Neut % (Auto) 80.8 H (16.0-70.0) % [place] % (Auto) 9.7 H (0.0-8.0) % Neut # (Auto) 11.1 H (1.8-7.7) th/mm3 [place] # (Auto) 1.3 H (0.0-0.9) th/mm3 Sodium 133 L (136-145) meq/L Chloride 92 L (98-107) meq/L BUN 26 H (7-18) mg/dL Creatinine 1.31 H (0.50-1.00) mg/dL Estimated GFR 39 L (>89) mL/min Total Bilirubin 1.3 H (0.2-1.0) mg/dL Total Protein 8.3 H (6.4-8.2) g/dL Short CBC 11/12/17 Range/Units 10:20 WBC 13.7 H (4.0-11.0) th/mm3 Hgb 13.3 (11.6-15.3) gm/dL Hct 37.8 (35.0-46.0) % Plt Count 351 (150-450) th/mm3 BMP 11/12/17 10:20 Sodium 133 L Potassium 3.5 Chloride 92 L Carbon Dioxide 28.2 BUN 26 H Creatinine 1.31 H Calcium 9.2 Liver Function 11/12/17 Range/Units 10:20 Total Bilirubin 1.3 H (0.2-1.0) mg/dL AST 26 (15-37) U/L ALT 26 (10-53) U/L Alkaline Phosphatase 109 (45-117) U/L Albumin 3.6 (3.4-5.0) g/dL <Shaina Toribio V - 11/12/17 14:10> - Imaging Impressions Abdomen/Pelvis CT 11/12/17 10:08 CONCLUSION: 1. CT findings characteristic of a small bowel obstruction with a transition in the region of the right adnexa. A 4.5 cm cystic lesion in a 75-year-old could represent an ovarian mass. Bowel distal to this area is decompressed. In addition, there is soft tissue density in the expected location of the uterus. Patient reports hysterectomy. Findings may represent a partial hysterectomy. 2. Collateral venous channels in the retroperitoneum and anterior abdominal wall may be due to obstruction to the venous drainage in the right upper extremity. 3. Symmetric widening of the SI joints with some sclerosis on the sacral side of the same possibly representing chronic sacroiliitis. <Shaina Toribio V Maureen 11/12/17 14:10> Caprini VTE Risk Assessment Caprini VTE Risk Assessment: Moderate/High Risk (score >= 2) <Emeka Flores, Shaina Perez - 11/12/17 20:55> Caprini Risk Assessment Model: Point Value = 1 Point Value = 2 Point Value = 3 Point Value = 5 Age 41-60 Minor surgery BMI > 25 kg/m2 Swollen legs Varicose veins or History of unexplained or recurrent spontaneous Oral contraceptives or hormone replacement Sepsis (< 1 month) Serious lung disease, including pneumonia (< 1 month) Abnormal pulmonary function Acute myocardial infarction Congestive heart failure (< 1 month) History of inflammatory bowel disease Medical patient at bed rest Age 61-74 Arthroscopic surgery Major open surgery (> 45 min) Laparoscopic surgery (> 45 min) Malignancy Confined to bed (> 72 hours) Immobilizing plaster cast Central venous access Age >= 75 History of VTE Family history of VTE Factor V Leiden Prothrombin [id number] Lupus anticoagulant Anticardiolipin antibodies Elevated serum homocysteine Heparin-induced thrombocytopenia Other congenital or acquired thrombophilia Stroke (< 1 month) Elective arthroplasty Hip, pelvis, or leg fracture Acute spinal cord injury (< 1 month) <Ghislaine Ray - 11/13/17 12:58> Point Value = 1 Point Value = 2 Point Value = 3 Point Value = 5 Age 41-60 Minor surgery BMI > 25 kg/m2 Swollen legs Varicose veins or History of unexplained or recurrent spontaneous Oral contraceptives or hormone replacement Sepsis (< 1 month) Serious lung disease, including pneumonia (< 1 month) Abnormal pulmonary function Acute myocardial infarction Congestive heart failure (< 1 month) History of inflammatory bowel disease Medical patient at bed rest Age 61-74 Arthroscopic surgery Major open surgery (> 45 min) Laparoscopic surgery (> 45 min) Malignancy Confined to bed (> 72 hours) Immobilizing plaster cast Central venous access Age >= 75 History of VTE Family history of VTE Factor V Leiden Prothrombin [id number] Lupus anticoagulant Anticardiolipin antibodies Elevated serum homocysteine Heparin-induced thrombocytopenia Other congenital or acquired thrombophilia Stroke (< 1 month) Elective arthroplasty Hip, pelvis, or leg fracture Acute spinal cord injury (< 1 month) <Shaina Toribio V - 11/12/17 20:55> Prophylaxis Regimen: Total Risk Factor Score Risk Level Prophylaxis Regimen 0-1 Low Early ambulation 2 Moderate Order ONE of the following: *Sequential Compression Device (SCD) *Heparin 5000 units SQ BID 3-4 Higher Order ONE of the following medications: *Heparin 5000 units SQ TID *Enoxaparin/Lovenox 40 mg SQ daily (WT < 150 kg, CrCl > 30 mL/min) *Enoxaparin/Lovenox 30 mg SQ daily (WT < 150 kg, CrCl > 10-29 mL/min) *Enoxaparin/Lovenox 30 mg SQ BID (WT < 150 kg, CrCl > 30 mL/min) AND/OR *Sequential Compression Device (SCD) 5 or more Highest Order ONE of the following medications: *Heparin 5000 units SQ TID (Preferred with Epidurals) *Enoxaparin/Lovenox 40 mg SQ daily (WT < 150 kg, CrCl > 30 mL/min) *Enoxaparin/Lovenox 30 mg SQ daily (WT < 150 kg, CrCl > 10-29 mL/min) *Enoxaparin/Lovenox 30 mg SQ BID (WT < 150 kg, CrCl > 30 mL/min) AND *Sequential Compression Device (SCD) <Ghislaine Ray - 11/13/17 12:58> Total Risk Factor Score Risk Level Prophylaxis Regimen 0-1 Low Early ambulation 2 Moderate Order ONE of the following: *Sequential Compression Device (SCD) *Heparin 5000 units SQ BID 3-4 Higher Order ONE of the following medications: *Heparin 5000 units SQ TID *Enoxaparin/Lovenox 40 mg SQ daily (WT < 150 kg, CrCl > 30 mL/min) *Enoxaparin/Lovenox 30 mg SQ daily (WT < 150 kg, CrCl > 10-29 mL/min) *Enoxaparin/Lovenox 30 mg SQ BID (WT < 150 kg, CrCl > 30 mL/min) AND/OR *Sequential Compression Device (SCD) 5 or more Highest Order ONE of the following medications: *Heparin 5000 units SQ TID (Preferred with Epidurals) *Enoxaparin/Lovenox 40 mg SQ daily (WT < 150 kg, CrCl > 30 mL/min) *Enoxaparin/Lovenox 30 mg SQ daily (WT < 150 kg, CrCl > 10-29 mL/min) *Enoxaparin/Lovenox 30 mg SQ BID (WT < 150 kg, CrCl > 30 mL/min) AND *Sequential Compression Device (SCD) <Shaina Toribio V - 11/12/17 20:55> Assessment and Plan - Assessment (1) SBO (small bowel obstruction) Code(s): K56.609 - Unspecified intestinal obstruction, unspecified as to partial versus complete obstruction Status: Acute (2) Ovarian cancer on right Code(s): C56.1 - Malignant neoplasm of right ovary Status: Chronic (3) Hypertension Code(s): I10 - Essential (primary) hypertension Status: Chronic (4) Neuropathic pain of both legs Code(s): G57.91 - Unspecified mononeuropathy of right lower limb; G57.92 - Unspecified mononeuropathy of left lower limb Status: Chronic (5) History of back surgery Code(s): Z98.890 - Other specified postprocedural states Status: Chronic (6) Hypothyroidism Code(s): E03.9 - Hypothyroidism, unspecified Status: Chronic (7) Nutrition, metabolism, and development symptoms Code(s): R63.8 - Other symptoms and signs concerning food and fluid intake Status: Acute (8) DVT prophylaxis Status: Acute <Ghislaine Ray - 11/13/17 12:58> (1) SBO (small bowel obstruction) Code(s): K56.609 - Unspecified intestinal obstruction, unspecified as to partial versus complete obstruction Status: Acute Plan: 77-year-old female with abdominal pain, nausea, vomiting for the last 5 days found to have small bowel obstruction on the right side, possible due to her ovarian cancer. -Surgery consult for possible intervention NPO except for medicines Maintenance IV fluids at 100 ml/hr of normal saline Bowel regimen with MiraLAX 17 gm daily Zofran as needed for nausea 4mg IV (2) Ovarian cancer on right Code(s): C56.1 - Malignant neoplasm of right ovary Status: Chronic Plan: Patient with known ovarian cancer since 2011. Currently undergoing oral chemotherapy, with 2 more possible being the cause of bowel obstruction. Continue oral chemotherapy of niraparib (Zejula) 100 mg PO q PM Follow-up on surgery recommendations and possible resection. IV Zofran as needed for nausea (3) Hypertension Code(s): I10 - Essential (primary) hypertension Status: Chronic Plan: Patient with history of hypertension. Blood pressure on admission 131/67 Continue home medications: Metoprolol 50 mg PO daily Monitor for blood pressure elevation (4) Neuropathic pain of both legs Code(s): G57.91 - Unspecified mononeuropathy of right lower limb; G57.92 - Unspecified mononeuropathy of left lower limb Status: Chronic Plan: Patient with history of peripheral neuropathy due to history of chemotherapy agents. Pain controlled with duloxetine and Milfay at home. We will hold opiates for now due to side effects on bowel. We will continue duloxetine regimen of 60mg PO BID Added Tylenol 600 mg as needed (5) History of back surgery Code(s): Z98.890 - Other specified postprocedural states Status: Chronic Plan: History of back surgery in the past. Pain control at home with Milfay. Opiates on hold at this moment Tylenol 650 mg as needed (6) Hypothyroidism Code(s): E03.9 - Hypothyroidism, unspecified Status: Chronic Plan: History of hypothyroidism. Controlled on medications Continue home medication Levothyroxine 50 mcg PO Daily (7) Nutrition, metabolism, and development symptoms Code(s): R63.8 - Other symptoms and signs concerning food and fluid intake Status: Acute Plan: - Pt to remain NPO except for medications - IV fluids 100ml/hr NS - Monitor and replace electrolytes as needed - Ambulate as tolerated (8) DVT prophylaxis Status: Acute Plan: Pt currently taking Eliquis at home 5 mg PO BID. - Hold Eliquis due to possible surgery - Start Heparin 5,000 Units q8hrs (Oncology patient w/ history of DVT on R arm) <Shaina Toribio V - 11/12/17 20:53> - Assessment and Plan 69-year-old female with a past medical history for right ovarian cancer currently undergoing oral chemotherapy. Presented to the ED with abdominal pain , nausea, vomiting found to be at small bowel obstruction possible due to right ovarian mass. ED presentation patient was tachycardic and elevated WBC of 13.7. CT abdomen and pelvis with IV contrast demonstrated demonstrated a small bowel obstruction with a transition point in the region of the right adnexa as well as a 4.5 cm cystic lesion. During examination patient is stable. Surgery was consulted and we are awaiting recommendations. Patient has been placed on IV fluids, n.p.o., and a bowel regimen. On exam patient did not have an acute abdomen. We will continue to monitor abdominal pain every 4 hours. Patient did not have an elevated WBC, this moment antibiotics are not warranted. Approximate length of stay 2-3 days. Patient seen and discussed with Dr. Law Paz, Dr. Clemens, Dr. Mayer <Shaina Toribio V - 11/12/17 20:52> - Attending Attestation The exam, history, and the medical decision-making described in the above note were completed with the assistance of the resident physician. I reviewed and agree with the findings presented. I attest that I had a [id number] encounter with the patient on the same day, and personally performed and documented my assessment and findings in the medical record. She was seen on the day of admission and admitted with her resident team. <Ghislaine Ray M - 11/13/17 12:58> <Shaina Toribio V - Last Filed: 11/12/17 20:53> (3) Hypertension Qualifiers: Hypertension type: essential hypertension Qualified Code(s): I10 - Essential (primary) hypertension <Ghislaine Ray M - Last Filed: 11/13/17 12:58> (3) Hypertension Qualifiers: Hypertension type: essential hypertension Qualified Code(s): I10 - Essential (primary) hypertension (6) Hypothyroidism Qualifiers: Hypothyroidism type: acquired Qualified Code(s): E03.9 - Hypothyroidism, unspecified <Shaina Toribio V - Last Filed: 11/12/17 20:53> (3) Hypertension Qualifiers: Hypertension type: essential hypertension Qualified Code(s): I10 - Essential (primary) hypertension <RonceverteStephenGhislaine M - Last Filed: 11/13/17 12:58> (3) Hypertension Qualifiers: Hypertension type: essential hypertension Qualified Code(s): I10 - Essential (primary) hypertension (6) Hypothyroidism Qualifiers: Hypothyroidism type: acquired Qualified Code(s): E03.9 - Hypothyroidism, unspecified
[2017-11-12] MEDS: Polyethylene Glycol 3350 17 GM Packet PO SCH (15:33)
[2017-11-12] MEDS: Sod Chloride 0.9% Inj 1,000 ML IV.CONT SCH (15:33)
[2017-11-12] MEDS: Metoprolol Tartrate 50 MG Tablet PO SCH (21:11)
[2017-11-12] MEDS: Temazepam 15 MG Capsule PO SCH (21:11)
[2017-11-13] MEDS: Heparin - SQ 10,000 UNITS/ML Vial SQ SCH ×4 (03:38→21:58)
[2017-11-13 05:27] LABS: Baso # (Auto) 0.1 th/mm3 (0.0-0.2); Baso % (Auto) 0.4 % (0.0-2.0); Eos # (Auto) 0.1 th/mm3 (0.0-0.4); Eos % (Auto) 0.6 % (0.0-4.0); Hematocrit 37.6 % (35.0-46.0); Hemoglobin 12.5 gm/dL (11.6-15.3); Lymph # (Auto) 1.6 th/mm3 (1.0-4.8); Lymph % (Auto) 13.1 % (9.0-44.0); Mean Corpuscular HGB Conc 33.1 % (32.0-36.0); Mean Corpuscular Volume 96.5 fL (80.0-100.0); Mean Platelet Volume 8.3 fL (7.0-11.0); Mono # (Auto) 1.3 th/mm3 (0.0-0.9); Mono % (Auto) 10.7 % (0.0-8.0); Neut # (Auto) 9.3 th/mm3 (1.8-7.7); Neut % (Auto) 75.2 % (16.0-70.0); Platelet Count 321 th/mm3 (150-450); Red Cell Distribution Width 14.8 % (11.6-17.2); White Blood Count 12.4 th/mm3 (4.0-11.0)
[2017-11-13] MEDS: Sod Chloride 0.9% Inj 1,000 ML IV.CONT SCH (05:34)
[2017-11-13 05:51] LABS: Alanine Aminotransferase 35 U/L (10-53); Albumin 3.1 g/dL (3.4-5.0); Alkaline Phosphatase 141 U/L (45-117); Anion Gap 18 meq/L (5-15); Aspartate Aminotransferase 54 U/L (15-37); Blood Urea Nitrogen 21 mg/dL (7-18); Calcium 8.8 mg/dL (8.5-10.1); Carbon Dioxide 19.5 meq/L (21.0-32.0); Chloride 100 meq/L (98-107); Glomerular Filtration Rate 61 mL/min (>89); Glucose,Random 67 mg/dL (74-106); Potassium 3.9 meq/L (3.5-5.1); Sodium 137 meq/L (136-145); Total Protein 7.3 g/dL (6.4-8.2)
[2017-11-13] MEDS: Levothyroxine 50 MCG Tablet PO SCH (07:39)
--- NOTE | 2017-11-13 09:01 | P.HPFP ---
History of Present Illness Primary Care Physician: Jamee Velasquez MD Chief Complaint: abdominal pain History of Present Illness: Patient is a 77-year-old female with a past medical history of right ovarian cancer who presented to the ED for abdominal pain. Patient states abdominal pain has been present for the last 5 days accompanied with nausea and vomiting. Around Friday afternoon patient noticed an intense stabbing pain on her lower right and left quadrants. She also has a mild pain on the upper quadrants. This pain has been periodic, coming in waves but has never completely resolved. Since Friday patient has been unable to tolerate meals. She has been vomiting about an hour after eating. She is able to tolerate liquids. She reports a similar episode about 6 weeks ago that was diagnosed as a partial bowel obstruction in [facility]. During that time patient was given bowel regimen and sent home, her symptoms resolved for about 5 weeks, returned last Friday. Patient is unsure if she is passing gas, but she has had a bowel movement every day until Friday. Patient has a known history of right ovarian cancer since 2011, is currently undergoing treatment with oral chemotherapy. Her [facility] oncologist has contemplated surgery in the past due to the size of the tumor, but recommended against it. Overnight she has been stable though she has not had a bowel movement. Her [facility] oncologist is out of town at this time. However surgery was consulted to see if they would recommend any intervention but that would be the last recourse. - Diagnosis (1) SBO (small bowel obstruction) (2) Ovarian cancer on right (3) Hypertension (4) Neuropathic pain of both legs (5) History of back surgery (6) Hypothyroidism (7) Nutrition, metabolism, and development symptoms (8) DVT prophylaxis Inpatient Certification: I certify that the inpatient services were ordered in accordance with Medicare regulations governing the order. This includes certification that hospital inpatient services are reasonable and necessary and in the case of services not specified as inpatient-only under 42 CFR 419.22(n), that they are appropriately provided as inpatient services in accordance to with the 2-midnight benchmark under 43 CFR 412.3(e) Estimated Total Length of Stay (Days): 3 Plans for Post Hospital Care: Home Review of Systems Constitutional: Denies anorexia, Denies fever(s), Denies headache(s) Eyes: Denies loss of vision Ears, Nose, Mouth, and Throat: Denies abnormal hearing, Denies change in voice Cardiovascular: Denies chest pain, Denies chest pain with activity, Denies leg swelling, Denies shortness of breath Respiratory: Denies change in phlegm color, Denies chest congestion, Denies cough, Denies pain on inspiration Gastrointestinal: Reports abdominal pain, Reports constipation, Reports nausea, Denies belching, Denies bloating, Denies bright, red blood in stools, Denies constant urge to pass stool, Denies excessive passing of gas, Denies loose stools, Denies pain with swallowing, Denies vomiting Musculoskeletal: Denies abnormal walking, Denies decreased muscle mass, Denies joint pain, Denies joint swelling Skin/Breast: Denies changing lesions, Denies excessive hair growth, Denies sensitivity to light, Denies rash, Denies wounds Neurologic: Denies abnormal hearing, Denies abnormal speech, Denies abnormal walking, Denies fainting, Denies convulsions PMFSH - History History Provided By: Patient - Medical History Medical History: Medical History (Last Reviewed 10/25/17 @ 11:13 by Nicol Maher) Port catheter in place (Acute) Hypertension (Chronic) Neuropathic pain of both legs (Chronic) Hypothyroidism (Chronic) Hx of hysterectomy (Acute) - Surgical History Surgical History: Surgical History (Last Updated 11/12/17 @ 17:03 by Shaina Flores MD, R1 ) History of back surgery (Chronic) H/O hysterectomy with unilateral oophorectomy - Tobacco History Second Hand Smoke Exposure: No Smoking Status: Never smoker - Alcohol History How Often Do You Have a Drink Containing Alcohol: Never - Substance Use History Substance History: No History of Abuse - Travel History Recent Travel Out of the Country Within the Last 8 Weeks: No - Immunization History Tetanus Immunization: <5 Years Hx Influenza Vaccine This Season: Yes Medications and Allergies Active Medications: Active Medications Acetaminophen (Tylenol) 650 mg PO Q4H PRN PRN Reason: BACK PAIN Al Hydroxide/Mg Hydroxide (Milk Of Magnesia Liq) 30 ml PO Q12H PRN PRN Reason: Mild Constipation Bisacodyl (Dulcolax Supp) 10 mg RECTAL DAILY PRN PRN Reason: SEVERE CONSITIPATION Duloxetine HCl (Cymbalta) 60 mg PO BID [facility] Last Admin: 11/12/17 21:10 Dose: Not Given Fluticasone Propionate (Flonase Nasal [place]) 2 spray EACH NARE DAILY PRN PRN Reason: Nasal Congestion Heparin Sodium (Porcine) (Heparin Inj) 5,000 units SQ Q8HR [facility] Last Admin: 11/13/17 05:33 Dose: 5,000 units Dextrose/Sodium Chloride (D5w/Normal Saline Inj) 1,000 mls @ 100 mls/hr IV.CONT .Q10H [facility] Lactulose (Lactulose Liq) 30 ml PO DAILY PRN PRN Reason: SEVERE CONSITIPATION Levothyroxine Sodium (Synthroid) 50 mcg PO DAILY@0600 [facility] Last Admin: 11/13/17 07:39 Dose: Not Given Metoprolol Tartrate (Lopressor) 50 mg PO [facility] Last Admin: 11/12/17 21:11 Dose: Not Given Ondansetron HCl (Zofran Inj) 4 mg IV.PUSH Q6H PRN PRN Reason: NAUSEA OR VOMITING Patient Own Medication (Patient Own Medication) 0 each PO QPM [facility] Last Admin: 11/13/17 07:39 Dose: Not Given Polyethylene Glycol (Miralax) 17 gm PO DAILY [facility] Last Admin: 11/12/17 15:33 Dose: Not Given Sennosides (Senokot) 17.2 mg PO Q12H PRN PRN Reason: Moderate Constipation Sodium Chloride (Ns Flush) 2 ml IV.FLUSH PRN PRN PRN Reason: FLUSH AFTER USING IV ACCESS Temazepam (Restoril) 15 mg PO [facility] Last Admin: 11/12/17 21:11 Dose: Not Given Allergies Allergy/AdvReac Type Severity Reaction Status Date / Time No Known Allergies Allergy Verified 10/25/17 08:36 Home Medications Medication Instructions Recorded Confirmed Type duloxetine [Cymbalta] 60 mg PO BID 10/07/17 11/12/17 History oxycodone-acetaminophen 1 tab PO Q4HR PRN 10/17/17 11/12/17 History apixaban [Eliquis] 5 mg PO BID 11/12/17 11/12/17 History fluticasone [Flonase Allergy 2 spray INTRANASAL DAILY PRN 11/12/17 11/12/17 History Relief] levothyroxine [Levoxyl] 50 mcg PO DAILY 11/12/17 11/12/17 History metoprolol tartrate 50 mg PO DAILY 11/12/17 11/12/17 History niraparib [Zejula] 100 mg PO QPM 11/12/17 11/12/17 History ondansetron [Zofran ODT] 8 mg PO TID PRN 11/12/17 11/12/17 History temazepam [Restoril] 15 mg PO HS 11/12/17 11/12/17 History Exam Vital signs: Vital Signs 11/12/17 10:09 11/12/17 15:30 11/12/17 20:00 Temperature 98.5 F 98.8 F Pulse Rate 104 H 111 H 99 H Respiratory Rate 17 19 18 Blood Pressure 121/60 131/67 121/57 L Pulse Oximetry 95 98 94 L 11/13/17 00:00 11/13/17 04:00 Temperature 98.2 F 98.2 F Pulse Rate 115 H 143 H Respiratory Rate 18 18 Blood Pressure 155/89 H 126/63 Pulse Oximetry 94 L 95 Intake & Output 11/12/17 11/13/17 11/13/17 18:59 06:59 18:59 Intake Total 1000 / 1000 Balance 1000 / 1000 Weight 56.699 kg 58.9 kg Intake: IV 1000 / 1000 NS Inj 1,000 ML @ 100 mls/hr IV 1000 / 1000 .CONT .Q10H [facility] Rx#:[id number] Other: # Voids 3 Date of Last Bowel Movement 11/10/17 11/10/17 - Constitutional no acute distress, cooperative - Routine HEENT Exam Head: Present: normocephalic, atraumatic. Absent: facial swelling Eye: Present: EOMI, PERRL ENT: Present: mucous membranes dry. Absent: mucous membranes moist - Routine Neck Exam Present: supple, full ROM - Routine Respiratory Exam Present: CTA bilaterally, rales (few right base). Absent: accessory muscle use , prolonged expiratory phase - Routine Cardiovascular Exam Present: RRR. Absent: murmur, gallop, rubs - Routine Abdominal Exam Present: soft. Absent: tenderness, distended, rebound - Routine Extremities Exam Absent: cyanosis, clubbing, edema - Routine Skin Exam Present: intact. Absent: erythema, mottling, petechiae - Routine Neurological Exam Present: alert, oriented X3, CN II-XII intact, sensory deficit, moving all extremities. Absent: motor deficit, tremors Results - Labs Result diagrams: 11/13/17 04:15 11/13/17 04:15 Abnormal lab results 11/12/17 11/12/17 11/13/17 Range/Units 10:20 10:20 04:15 WBC 13.7 H 12.4 H (4.0-11.0) th/mm3 RBC 3.98 L 3.90 L (4.00-5.30) mil/mm3 Neut % (Auto) 80.8 H 75.2 H (16.0-70.0) % Frederick % (Auto) 9.7 H 10.7 H (0.0-8.0) % Neut # (Auto) 11.1 H 9.3 H (1.8-7.7) th/mm3 Frederick # (Auto) 1.3 H 1.3 H (0.0-0.9) th/mm3 Sodium 133 L (136-145) meq/L Chloride 92 L (98-107) meq/L Carbon Dioxide (21.0-32.0) meq/L Anion Gap (5-15) meq/L BUN 26 H (7-18) mg/dL Creatinine 1.31 H (0.50-1.00) mg/dL Estimated GFR 39 L (>89) mL/min Random Glucose (74-106) mg/dL Total Bilirubin 1.3 H (0.2-1.0) mg/dL AST (15-37) U/L Alkaline Phosphatase (45-117) U/L Total Protein 8.3 H (6.4-8.2) g/dL Albumin (3.4-5.0) g/dL 11/13/17 Range/Units 04:15 WBC (4.0-11.0) th/mm3 RBC (4.00-5.30) mil/mm3 Neut % (Auto) (16.0-70.0) % Frederick % (Auto) (0.0-8.0) % Neut # (Auto) (1.8-7.7) th/mm3 Frederick # (Auto) (0.0-0.9) th/mm3 Sodium (136-145) meq/L Chloride (98-107) meq/L Carbon Dioxide 19.5 L (21.0-32.0) meq/L Anion Gap 18 H (5-15) meq/L BUN 21 H (7-18) mg/dL Creatinine (0.50-1.00) mg/dL Estimated GFR 61 L (>89) mL/min Random Glucose 67 L (74-106) mg/dL Total Bilirubin (0.2-1.0) mg/dL AST 54 H (15-37) U/L Alkaline Phosphatase 141 H (45-117) U/L Total Protein (6.4-8.2) g/dL Albumin 3.1 L (3.4-5.0) g/dL Short CBC 11/12/17 11/13/17 Range/Units 10:20 04:15 WBC 13.7 H 12.4 H (4.0-11.0) th/mm3 Hgb 13.3 12.5 (11.6-15.3) gm/dL Hct 37.8 37.6 (35.0-46.0) % Plt Count 351 321 (150-450) th/mm3 BMP 11/12/17 11/13/17 10:20 04:15 Sodium 133 L 137 Potassium 3.5 3.9 Chloride 92 L 100 D Carbon Dioxide 28.2 19.5 L BUN 26 H 21 H Creatinine 1.31 H 0.89 Calcium 9.2 8.8 Liver Function 11/12/17 11/13/17 Range/Units 10:20 04:15 Total Bilirubin 1.3 H 1.0 (0.2-1.0) mg/dL AST 26 54 H (15-37) U/L ALT 26 35 (10-53) U/L Alkaline Phosphatase 109 141 H (45-117) U/L Albumin 3.6 3.1 L (3.4-5.0) g/dL - Imaging Impressions Abdomen/Pelvis CT 11/12/17 10:08 CONCLUSION: 1. CT findings characteristic of a small bowel obstruction with a transition in the region of the right adnexa. A 4.5 cm cystic lesion in a 75-year-old could represent an ovarian mass. Bowel distal to this area is decompressed. In addition, there is soft tissue density in the expected location of the uterus. Patient reports hysterectomy. Findings may represent a partial hysterectomy. 2. Collateral venous channels in the retroperitoneum and anterior abdominal wall may be due to obstruction to the venous drainage in the right upper extremity. 3. Symmetric widening of the SI joints with some sclerosis on the sacral side of the same possibly representing chronic sacroiliitis. Caprini VTE Risk Assessment Caprini VTE Risk Assessment: Moderate/High Risk (score >= 2) Caprini Risk Assessment Model: Point Value = 1 Point Value = 2 Point Value = 3 Point Value = 5 Age 41-60 Minor surgery BMI > 25 kg/m2 Swollen legs Varicose veins or History of unexplained or recurrent spontaneous Oral contraceptives or hormone replacement Sepsis (< 1 month) Serious lung disease, including pneumonia (< 1 month) Abnormal pulmonary function Acute myocardial infarction Congestive heart failure (< 1 month) History of inflammatory bowel disease Medical patient at bed rest Age 61-74 Arthroscopic surgery Major open surgery (> 45 min) Laparoscopic surgery (> 45 min) Malignancy Confined to bed (> 72 hours) Immobilizing plaster cast Central venous access Age >= 75 History of VTE Family history of VTE Factor V Leiden Prothrombin [id number] Lupus anticoagulant Anticardiolipin antibodies Elevated serum homocysteine Heparin-induced thrombocytopenia Other congenital or acquired thrombophilia Stroke (< 1 month) Elective arthroplasty Hip, pelvis, or leg fracture Acute spinal cord injury (< 1 month) Prophylaxis Regimen: Total Risk Factor Score Risk Level Prophylaxis Regimen 0-1 Low Early ambulation 2 Moderate Order ONE of the following: *Sequential Compression Device (SCD) *Heparin 5000 units SQ BID 3-4 Higher Order ONE of the following medications: *Heparin 5000 units SQ TID *Enoxaparin/Lovenox 40 mg SQ daily (WT < 150 kg, CrCl > 30 mL/min) *Enoxaparin/Lovenox 30 mg SQ daily (WT < 150 kg, CrCl > 10-29 mL/min) *Enoxaparin/Lovenox 30 mg SQ BID (WT < 150 kg, CrCl > 30 mL/min) AND/OR *Sequential Compression Device (SCD) 5 or more Highest Order ONE of the following medications: *Heparin 5000 units SQ TID (Preferred with Epidurals) *Enoxaparin/Lovenox 40 mg SQ daily (WT < 150 kg, CrCl > 30 mL/min) *Enoxaparin/Lovenox 30 mg SQ daily (WT < 150 kg, CrCl > 10-29 mL/min) *Enoxaparin/Lovenox 30 mg SQ BID (WT < 150 kg, CrCl > 30 mL/min) AND *Sequential Compression Device (SCD) Assessment and Plan - Assessment (1) SBO (small bowel obstruction) Code(s): K56.609 - Unspecified intestinal obstruction, unspecified as to partial versus complete obstruction Status: Acute Plan: 77-year-old female with abdominal pain, nausea, vomiting for the last 5 days found to have small bowel obstruction on the right side, possible due to her ovarian cancer. -Surgery consult for possible intervention NPO except for medicines Maintenance IV fluids at 100 ml/hr of normal saline will add D5 as she is taking and no calories and is not a diabetic. Bowel regimen with MiraLAX 17 gm daily. Will be sure she is tolerating the MiraLAX as most of the time if someone has a true small bowel obstruction they cannot handle any medication for constipation by mouth Zofran as needed for nausea 4mg IV (2) Ovarian cancer on right Code(s): C56.1 - Malignant neoplasm of right ovary Status: Chronic Plan: Patient with known ovarian cancer since 2011. Currently undergoing oral chemotherapy. Her ovarian cancer is the likely cause of bowel obstruction. Continue oral chemotherapy of niraparib (Zejula) 100 mg PO q PM Follow-up on surgery recommendations and possible resection. IV Zofran as needed for nausea (3) Hypertension Code(s): I10 - Essential (primary) hypertension Status: Chronic Plan: Patient with history of hypertension. Blood pressure on admission 131/67 Continue home medications: Metoprolol 50 mg PO daily Monitor for blood pressure elevation (4) Neuropathic pain of both legs Code(s): G57.91 - Unspecified mononeuropathy of right lower limb; G57.92 - Unspecified mononeuropathy of left lower limb Status: Chronic Plan: Patient with history of peripheral neuropathy due to history of chemotherapy agents. Pain controlled with duloxetine and Garrison at home. We will hold opiates for now due to side effects on bowel. We will continue duloxetine regimen of 60mg PO BID Added Tylenol 600 mg as needed. she is not having much pain today at all. (5) History of back surgery Code(s): Z98.890 - Other specified postprocedural states Status: Chronic Plan: History of back surgery in the past. Pain control at home with Garrison. Opiates on hold at this moment Tylenol 650 mg as needed (6) Hypothyroidism Code(s): E03.9 - Hypothyroidism, unspecified Status: Chronic Plan: History of hypothyroidism. Controlled on medications Continue home medication Levothyroxine 50 mcg PO Daily (7) Nutrition, metabolism, and development symptoms Code(s): R63.8 - Other symptoms and signs concerning food and fluid intake Status: Acute Plan: - Pt to remain NPO except for medications - IV fluids 100ml/hr NS - Monitor and replace electrolytes as needed - Ambulate as tolerated (8) DVT prophylaxis Status: Acute Plan: Pt currently taking Eliquis at home 5 mg PO BID. - Hold Eliquis due to possible surgery - Start Heparin 5,000 Units q8hrs (Oncology patient w/ history of DVT on R arm) - Assessment and Plan 69-year-old female with a past medical history for right ovarian cancer currently undergoing oral chemotherapy. Presented to the ED with abdominal pain , nausea, vomiting found to be at small bowel obstruction possible due to right ovarian mass. ED presentation patient was tachycardic and elevated WBC of 13.7. CT abdomen and pelvis with IV contrast demonstrated demonstrated a small bowel obstruction with a transition point in the region of the right adnexa as well as a 4.5 cm cystic lesion. During examination patient is stable. Surgery was consulted and we are awaiting recommendations. Patient has been placed on IV fluids, n.p.o., and a bowel regimen. On exam patient did not have an acute abdomen. We will continue to monitor abdominal pain every 4 hours. Patient did not have an elevated WBC, this moment antibiotics are not warranted. Approximate length of stay 2-3 days. Patient seen and discussed with Dr. Law Paz, Dr. Clemens, Dr. Mayer (3) Hypertension Qualifiers: Hypertension type: essential hypertension Qualified Code(s): I10 - Essential (primary) hypertension (6) Hypothyroidism Qualifiers: Hypothyroidism type: acquired Qualified Code(s): E03.9 - Hypothyroidism, unspecified
--- NOTE | 2017-11-13 09:30 | MB ---
cc: Chinmay England MD DATE: 11/12/2017 CHIEF COMPLAINT: Abdominal pain, bowel obstruction. HISTORY OF PRESENT ILLNESS: The patient is a 77-year-old female with a history of right ovarian cancer. She presents with acute onset of abdominal pain. She noted the pain lasts for about 5 days, associated with nausea and vomiting. The patient states the pain is stabbing, sharp, somewhat diffuse, but primarily right and left quadrants on the lower abdomen. She is worse with movement, better with lying still. She had decreased p.o. intake. She had a similar episode approximately 5 weeks ago with diagnosis of partial obstruction. Patient was given a bowel regimen and sent home with resolution until the last couple of weeks. She denies any passing gas. She did have a bowel movement several days ago. She has a known history of right ovarian cancer since 2011. She is currently on chemotherapy. PAST MEDICAL HISTORY: Ovarian cancer, hypertension, neuropathy, hypothyroidism. PAST SURGICAL HISTORY: Hysterectomy, back surgery. SOCIAL HISTORY: Denies smoking. Occasional ETOH. Denies IVDA. ALLERGIES: NO KNOWN DRUG ALLERGIES. MEDICATIONS: See EMR. FAMILY HISTORY: Denies diabetes or hypertension. REVIEW OF SYSTEMS: GENERAL: Denies fatigue or pain. HEENT: Denies eye pain, ear pain. NECK: Denies swelling or pain. LUNGS: Denies cough or wheeze. HEART: Denies palpitations or chest pain. ABDOMEN: Complains of nausea, vomiting, abdominal pain. GENITOURINARY: Denies dysuria or hematuria. ENDOCRINE: Denies polyuria or polydipsia. INTEGUMENT: Denies any masses or lesions. NEUROLOGIC: Denies numbness or tingling. PSYCHIATRIC: Denies change in psych or sensorium. PHYSICAL EXAMINATION: GENERAL: The patient in no acute distress. VITAL SIGNS: Temperature 98.5, pulse 111, respirations 19, blood pressure 131/67, saturation 93%. HEENT: Pupils equal, round, reactive. NECK: Supple. Trachea midline. LUNGS: Clear to auscultation, bilateral expansion. HEART: S1, S2, regular, tachycardic. ABDOMEN: Soft, mild distended. Positive tenderness to palpation bilateral lower quadrants. No peritoneal signs. EXTREMITIES: Warm and well perfused. NEUROLOGIC: 5/5 motor all extremities. GCS of 15. PSYCHIATRIC: Appropriate mood, appropriate insight. LABORATORY AND DIAGNOSTIC DATA: WBC 13.7, hemoglobin 13.3, hematocrit 37.8, platelets 351. Sodium 133, potassium 3.5, chloride 92, BUN 26, creatinine 1.3, total bilirubin 1.3, albumin 3.6. A CT reviewed by myself showing small-bowel obstruction, transition zone right, adnexa 4.5 cm cystic lesion, decompressed bowel distally. ASSESSMENT: The patient is a 77-year-old female with history of ovarian cancer, concern for malignant obstruction versus adhesion obstruction of small bowel. PLAN: After a full clinical, radiologic, and laboratory workup, the patient with the above-noted issues. At this point, the patient does have what appears to be a bowel obstruction. Concern due to a risk of ovary cancer. We will attempt medical management, nonoperative management. Abdominal exams, electrolyte correction, close monitoring. Consider NG tube if persistent vomiting. Continue pain control. We will continue to follow. Thank you for the consultation. MD SHIRLEY Singleton/tomás , 02:11 AM , 02:21 AM MTDD
[2017-11-13] MEDS: Dextrose 5%/NaCl 0.9% Inj 1,000 ML IV.CONT SCH ×2 (09:48→20:52)
[2017-11-13] MEDS: Polyethylene Glycol 3350 17 GM Packet PO SCH (09:49)
--- NOTE | 2017-11-13 13:01 | XR ---
EXAM DATE: 11/13/2017 12:56 PM EDT AGE/SEX: 77 years / Female INDICATIONS: Abdominal pain. CLINICAL DATA: This is the patient's subsequent encounter. Patient reports that signs and symptoms h ave been present for 2 weeks and indicates a pain score of 5/10. MEDICAL/SURGICAL HISTORY: Hypertension. Carcinoma, ovarian. Carcinoma, uterine. Hysterectomy. COMPARISON: [facility] [place] ABDOMEN & PELVIS W CONTRAST, 11/12/2017. . FINDINGS: Persistent diffuse air-filled distention of multiple small bowel loops. No significant pneumatosis. Paucity of air in the colon. No gross free air. Surgical hardware in the lower lumbar spine with dege nerative spondylosis. Osseous structures are intact. No abnormal calcifications. CONCLUSION: 1. Stable bowel gas pattern consistent with partial small bowel obstruction. Electronically signed by: Alberto Martinez MD 11/13/2017 12:59 PM EDT
--- NOTE | 2017-11-13 21:05 | P.PNGS ---
Subjective Patient reports: no new complaints, no flatus (no nausea ) Physical Exam Vital signs: Vital Signs 11/13/17 00:00 11/13/17 04:00 11/13/17 08:00 Temperature 98.2 F 98.2 F 98.7 F Pulse Rate 115 H 143 H 148 H Respiratory Rate 18 18 18 Blood Pressure 155/89 H 126/63 126/73 Pulse Oximetry 94 L 95 94 L 11/13/17 12:00 11/13/17 16:00 Temperature 98.2 F 98.3 F Pulse Rate 122 H 115 H Respiratory Rate 18 18 Blood Pressure 138/65 141/69 H Pulse Oximetry 98 94 L Intake & Output 11/13/17 11/13/17 11/14/17 06:59 18:59 06:59 Intake Total 1000 / 1000 1000 / 1000 Balance 1000 / 1000 1000 / 1000 Weight 58.9 kg Intake: IV 1000 / 1000 1000 / 1000 D5W/Normal Saline Inj 1,000 ML 1000 / 1000 @ 100 mls/hr IV.CONT .Q10H [facility] Rx#:[id number] NS Inj 1,000 ML @ 100 mls/hr IV 1000 / 1000 .CONT .Q10H [facility] Rx#:[id number] Other: # Voids 3 2 Date of Last Bowel Movement 11/10/17 - Constitutional no acute distress - Routine Abdominal Exam Present: soft, distended Assessment and Plan - Plan hx ovarian ca, malignant obstruction PLAN AXR Abdominal exams pain control SBFT tomorrow npo
[2017-11-13] MEDS: Temazepam 15 MG Capsule PO SCH (21:55)
[2017-11-13] MEDS: Metoprolol Tartrate 50 MG Tablet PO SCH (21:55)
[2017-11-13] MEDS ORDERED: Metoprolol Inj 5 MG/5 ML Vial IV.PUSH ONE (23:48)
[2017-11-14] MEDS ORDERED: Chlorhexidine Gluconate 2% 1 Pack (2 Cloths) TOPICAL SCH (05:15)
[2017-11-14] MEDS ORDERED: Sodium Chlor 0.9% Inj 500 ML IV.SIG SCH (06:00)
[2017-11-14] MEDS: Heparin - SQ 10,000 UNITS/ML Vial SQ SCH ×3 (06:24→22:11)
[2017-11-14] MEDS: Dextrose 5%/NaCl 0.9% Inj 1,000 ML IV.CONT SCH ×2 (06:24→16:27)
[2017-11-14 07:15] LABS: Baso # (Auto) 0.1 th/mm3 (0.0-0.2); Baso % (Auto) 0.8 % (0.0-2.0); Eos # (Auto) 0.1 th/mm3 (0.0-0.4); Eos % (Auto) 1.9 % (0.0-4.0); Hematocrit 35.3 % (35.0-46.0); Hemoglobin 11.8 gm/dL (11.6-15.3); Lymph # (Auto) 1.2 th/mm3 (1.0-4.8); Lymph % (Auto) 16.8 % (9.0-44.0); Mean Corpuscular HGB Conc 33.5 % (32.0-36.0); Mean Corpuscular Hemoglobin 31.8 pg (27.0-34.0); Mean Corpuscular Volume 94.8 fL (80.0-100.0); Mean Platelet Volume 7.5 fL (7.0-11.0); Mono # (Auto) 0.8 th/mm3 (0.0-0.9); Mono % (Auto) 11.9 % (0.0-8.0); Neut # (Auto) 4.7 th/mm3 (1.8-7.7); Neut % (Auto) 68.6 % (16.0-70.0); Platelet Count 298 th/mm3 (150-450); Red Blood Count 3.73 mil/mm3 (4.00-5.30); Red Cell Distribution Width 14.6 % (11.6-17.2); White Blood Count 6.9 th/mm3 (4.0-11.0)
[2017-11-14 07:47] LABS: Alanine Aminotransferase 26 U/L (10-53); Albumin 2.7 g/dL (3.4-5.0); Alkaline Phosphatase 107 U/L (45-117); Anion Gap 9 meq/L (5-15); Aspartate Aminotransferase 23 U/L (15-37); Blood Urea Nitrogen 12 mg/dL (7-18); Calcium 8.2 mg/dL (8.5-10.1); Carbon Dioxide 24.8 meq/L (21.0-32.0); Chloride 106 meq/L (98-107); Glomerular Filtration Rate 66 mL/min (>89); Glucose,Random 147 mg/dL (74-106); Sodium 140 meq/L (136-145); Total Protein 6.6 g/dL (6.4-8.2)
[2017-11-14] MEDS: Levothyroxine 50 MCG Tablet PO SCH (10:06)
[2017-11-14] MEDS: Polyethylene Glycol 3350 17 GM Packet PO SCH (10:07)
[2017-11-14] MEDS ORDERED: Diatrizoate Meglum/Diatrizoate Sod Liq 120 ML Bottle (for RAD diag) PO ONE (10:49)
--- NOTE | 2017-11-14 13:45 | FL ---
EXAM DATE: 11/14/2017 1:14 PM EDT AGE/SEX: 77 years / Female INDICATIONS: Abdomen pain, obstruction. CLINICAL DATA: This is the patient's subsequent encounter. Patient reports that signs and symptoms h ave been present for 2 weeks and indicates a pain score of 3/10. MEDICAL/SURGICAL HISTORY: . Hypertension. Carcinoma, ovarian. Carcinoma, uterine. . Hysterecto my. COMPARISON: [facility], ABDOMEN 1V KUB, 11/13/2017. . FLUORO TIME: 0 IMAGE COUNT: 11 CONTRAST: FINDINGS: Preliminary film reveals dilated small bowel loops. There is previous fusion in the lower lumbar spin e. No free air identified. Follow-through exam reveals dilated stomach and proximal and mid small bowel loops. Some contrast polk s reach the colon by 2 hours. Colon is relatively decompressed. CONCLUSION: Partial distal small bowel obstruction. No free air identified. Electronically signed by: Margarito Alfaro MD 11/14/2017 1:44 PM EDT
--- NOTE | 2017-11-14 14:14 | P.PNGS ---
Subjective Patient reports: no new complaints, no flatus Physical Exam Vital signs: Vital Signs 11/13/17 16:00 11/13/17 20:00 11/14/17 00:00 Temperature 98.3 F 98.8 F 98.3 F Pulse Rate 115 H 112 H 110 H Respiratory Rate 18 18 18 Blood Pressure 141/69 H 122/79 135/67 Pulse Oximetry 94 L 94 L 95 11/14/17 04:00 11/14/17 08:00 Temperature 98.3 F 99.2 F Pulse Rate 90 104 H Respiratory Rate 18 18 Blood Pressure 146/68 H 119/64 Pulse Oximetry 95 92 L Intake & Output 11/13/17 11/14/17 11/14/17 18:59 06:59 18:59 Intake Total 4000 / 4000 Balance 4000 / 4000 Intake: IV 4000 / 4000 D5W/Normal Saline Inj 1,000 ML 2000 / 2000 @ 100 mls/hr IV.CONT .Q10H [facility] Rx#:[id number] Other: # Voids 2 Date of Last Bowel Movement 11/10/17 - Routine Abdominal Exam Present: soft, distended Assessment and Plan - Plan hx ovarian ca, malignant obstruction PLAN AXR Abdominal exams pain control SBFT tomorrow npo Code Status: SBO hx ovarian cancer PLAN npo iv fluids await SBFT results attempt non op mgnt
--- NOTE | 2017-11-14 14:24 | P.PNFP ---
Subjective Interval history: Patient seen and examined this afternoon while in X-ray department. She states that she is doing ok. She is nauseous from drinking the contrast for her small bowel follow through study. No flatus, no BM as of yet. No abdominal pain. <Sharon Mayer - 11/14/17 14:24> Results - Labs Result diagrams: 11/14/17 06:48 11/14/17 06:48 <Ghislaine Ray - 11/15/17 10:18> Abnormal lab results 11/14/17 11/14/17 Range/Units 06:48 06:48 RBC 3.73 L (4.00-5.30) mil/mm3 [place] % (Auto) 11.9 H (0.0-8.0) % Potassium 3.0 L D (3.5-5.1) meq/L Estimated GFR 66 L (>89) mL/min Random Glucose 147 H (74-106) mg/dL Calcium 8.2 L (8.5-10.1) mg/dL Albumin 2.7 L (3.4-5.0) g/dL Short CBC 11/14/17 Range/Units 06:48 WBC 6.9 (4.0-11.0) th/mm3 Hgb 11.8 (11.6-15.3) gm/dL Hct 35.3 (35.0-46.0) % Plt Count 298 (150-450) th/mm3 BMP 11/14/17 06:48 Sodium 140 Potassium 3.0 L D Chloride 106 Carbon Dioxide 24.8 BUN 12 Creatinine 0.84 Calcium 8.2 L Liver Function 11/14/17 Range/Units 06:48 Total Bilirubin 0.7 (0.2-1.0) mg/dL AST 23 (15-37) U/L ALT 26 (10-53) U/L Alkaline Phosphatase 107 (45-117) U/L Albumin 2.7 L (3.4-5.0) g/dL <Sharon Mayer - 11/14/17 14:24> - Imaging Impressions Small Bowel X-Ray 11/14/17 08:00 CONCLUSION: Partial distal small bowel obstruction. No free air identified. Abdomen X-Ray 11/15/17 08:00 CONCLUSION: Contrast no longer seen in the bowel. Slight decrease in gaseous small bowel distention. <Ghislaine Ray M - 11/15/17 10:18> Impressions Small Bowel X-Ray 11/14/17 08:00 CONCLUSION: Partial distal small bowel obstruction. No free air identified. <Sharon Mayer G - 11/14/17 14:24> Physical Exam Vital signs: Vital Signs 11/14/17 16:00 11/14/17 20:00 11/15/17 00:00 Temperature 97.8 F 98.4 F 98.2 F Pulse Rate 113 H 111 H 98 H Respiratory Rate 18 19 17 Blood Pressure 133/75 140/69 128/72 Pulse Oximetry 93 L 98 98 11/15/17 02:00 11/15/17 04:00 11/15/17 05:00 Temperature 98.3 F Pulse Rate 102 H 101 H 83 Respiratory Rate 17 Blood Pressure 130/68 Pulse Oximetry 98 Intake & Output 11/14/17 11/15/17 11/15/17 18:59 06:59 18:59 Intake Total 740 / 740 1999 Balance 740 / 740 1999 Weight 61.6 kg Intake: IV 1999 D5W/NS + KCL 20 mEq Inj 1,000 1000 / 1000 ML @ 100 mls/hr IV.CONT .Q10H [facility] Rx#:[id number] Oral 740 / 740 Other: # Voids 2 Date of Last Bowel Movement 11/15/17 # Bowel Movements 5 <Ghislaine Ray M - 11/15/17 10:18> Vital Signs 11/13/17 16:00 11/13/17 20:00 11/14/17 00:00 Temperature 98.3 F 98.8 F 98.3 F Pulse Rate 115 H 112 H 110 H Respiratory Rate 18 18 18 Blood Pressure 141/69 H 122/79 135/67 Pulse Oximetry 94 L 94 L 95 11/14/17 04:00 11/14/17 08:00 Temperature 98.3 F 99.2 F Pulse Rate 90 104 H Respiratory Rate 18 18 Blood Pressure 146/68 H 119/64 Pulse Oximetry 95 92 L Intake & Output 11/13/17 11/14/17 11/14/17 18:59 06:59 18:59 Intake Total 4000 / 4000 Balance 4000 / 4000 Intake: IV 4000 / 4000 D5W/Normal Saline Inj 1,000 ML 1999 @ 100 mls/hr IV.CONT .Q10H [facility] Rx#:[id number] Other: # Voids 2 Date of Last Bowel Movement 11/10/17 <Sharon Mayer - 11/14/17 14:24> Narrative: GENERAL: elderly female laying on stretcher, in no acute distress SKIN: Warm and dry. HEAD: Atraumatic. Normocephalic. EYES: Pupils equal and round. No scleral icterus. No injection or drainage. ENT: No nasal bleeding or discharge. Mucous membranes pink and moist. NECK: Trachea midline. No JVD. CARDIOVASCULAR: Regular rate and rhythm. RESPIRATORY: No accessory muscle use. Clear to auscultation. Breath sounds equal bilaterally. GASTROINTESTINAL: Abdomen soft, nontender, distended. No bowel sounds appreciated MUSCULOSKELETAL: Extremities without clubbing, cyanosis, or edema. No obvious deformities. NEUROLOGICAL: Awake and alert. No obvious cranial nerve deficits. Motor grossly within normal limits. Normal speech. PSYCHIATRIC: Appropriate mood and affect; insight and judgment normal. <Sharon Mayer - 11/14/17 14:24> Assessment and Plan - Assessment (1) SBO (small bowel obstruction) Code(s): K56.609 - Unspecified intestinal obstruction, unspecified as to partial versus complete obstruction Status: Acute (2) Ovarian cancer on right Code(s): C56.1 - Malignant neoplasm of right ovary Status: Chronic (3) Hypertension Code(s): I10 - Essential (primary) hypertension Status: Chronic (4) Neuropathic pain of both legs Code(s): G57.91 - Unspecified mononeuropathy of right lower limb; G57.92 - Unspecified mononeuropathy of left lower limb Status: Chronic (5) History of back surgery Code(s): Z98.890 - Other specified postprocedural states Status: Chronic (6) Hypothyroidism Code(s): E03.9 - Hypothyroidism, unspecified Status: Chronic (7) Nutrition, metabolism, and development symptoms Code(s): R63.8 - Other symptoms and signs concerning food and fluid intake Status: Acute (8) DVT prophylaxis Status: Acute <Ghislaine Ray - 11/15/17 10:18> (1) SBO (small bowel obstruction) Code(s): K56.609 - Unspecified intestinal obstruction, unspecified as to partial versus complete obstruction Status: Acute Plan: 77-year-old female with abdominal pain, nausea, vomiting for the last 5 days found to have small bowel obstruction on the right side, possible due to her ovarian cancer. Small bowel follow through on 11/14 shows partial distal small bowel obstruction. No free air identified. General Surgery consulted, appreciate recommendations NPO D5W-NS at 100 ml/hr Zofran as needed for nausea 4mg IV (2) Ovarian cancer on right Code(s): C56.1 - Malignant neoplasm of right ovary Status: Chronic Plan: Patient with known ovarian cancer since 2011. Currently undergoing oral chemotherapy. Her ovarian cancer is the likely cause of bowel obstruction. Continue oral chemotherapy of niraparib (Zejula) 100 mg PO q PM Follow-up on surgery recommendations IV Zofran as needed for nausea (3) Hypertension Code(s): I10 - Essential (primary) hypertension Status: Chronic Plan: Patient with history of hypertension. Blood pressure on admission 131/67 Continue home medications: Metoprolol 50 mg PO daily Monitor for blood pressure elevation (4) Neuropathic pain of both legs Code(s): G57.91 - Unspecified mononeuropathy of right lower limb; G57.92 - Unspecified mononeuropathy of left lower limb Status: Chronic Plan: Patient with history of peripheral neuropathy due to history of chemotherapy agents. Pain controlled with duloxetine and [place] at home. We will hold opiates for now due to side effects on bowel. We will continue duloxetine regimen of 60mg PO BID Added Tylenol 600 mg as needed. she is not having much pain today at all. (5) History of back surgery Code(s): Z98.890 - Other specified postprocedural states Status: Chronic Plan: History of back surgery in the past. Pain control at home with Crescent. Opiates on hold at this moment Tylenol 650 mg as needed (6) Hypothyroidism Code(s): E03.9 - Hypothyroidism, unspecified Status: Chronic Plan: History of hypothyroidism. Controlled on medications Continue home medication Levothyroxine 50 mcg PO Daily (7) Nutrition, metabolism, and development symptoms Code(s): R63.8 - Other symptoms and signs concerning food and fluid intake Status: Acute Plan: - Pt to remain NPO except for medications - IV fluids 100ml/hr NS - Monitor and replace electrolytes as needed - Ambulate as tolerated (8) DVT prophylaxis Status: Acute Plan: Pt currently taking Eliquis at home 5 mg PO BID. - Hold Eliquis due to possible surgery - Start Heparin 5,000 Units q8hrs (Oncology patient w/ history of DVT of R arm) <Sharon Mayer - 11/14/17 13:47> - Assessment and Plan 69-year-old female with a past medical history for right ovarian cancer currently undergoing oral chemotherapy. Presented to the ED with abdominal pain , nausea, vomiting found to be at small bowel obstruction possible due to right ovarian mass. ED presentation patient was tachycardic and elevated WBC of 13.7. CT abdomen and pelvis with IV contrast demonstrated demonstrated a small bowel obstruction with a transition point in the region of the right adnexa as well as a 4.5 cm cystic lesion. During examination patient is stable. Surgery was consulted and a SBFT was ordered showing partial SBO. Patient is still on IV fluids and n.p.o. On exam patient did not have an acute abdomen. We will continue to monitor abdominal pain every 4 hours. Patient did not have an elevated WBC, this moment antibiotics are not warranted. Approximate length of stay 2-3 days. <MorenoSharon Ericka - 11/14/17 14:24> Discussed Condition With: Dr. Ray <Davon Mayerin Ericka - 11/14/17 14:24> Discharge Planning: pending clinical course and General Surgery clearance <Sharon Mayer - 11/14/17 14:24> - Attending Attestation The exam, history, and the medical decision-making described in the above note were completed with the assistance of the resident physician. I reviewed and agree with the findings presented. I attest that I had a [id number] encounter with the patient on the same day, and personally performed and documented my assessment and findings in the medical record. A poor woman felt very uncomfortable doing her study and had some vomiting but was doing well and we saw her <Ghislaine Ray M - 11/15/17 10:18> <Sharon Mayer G - Last Filed: 11/14/17 13:47> (3) Hypertension Qualifiers: Hypertension type: essential hypertension Qualified Code(s): I10 - Essential (primary) hypertension (6) Hypothyroidism Qualifiers: Hypothyroidism type: acquired Qualified Code(s): E03.9 - Hypothyroidism, unspecified <Ghislaine Ray M - Last Filed: 11/15/17 10:18> (3) Hypertension Qualifiers: Hypertension type: essential hypertension Qualified Code(s): I10 - Essential (primary) hypertension (6) Hypothyroidism Qualifiers: Hypothyroidism type: acquired Qualified Code(s): E03.9 - Hypothyroidism, unspecified <Sharon Mayer G - Last Filed: 11/14/17 13:47> (3) Hypertension Qualifiers: Hypertension type: essential hypertension Qualified Code(s): I10 - Essential (primary) hypertension (6) Hypothyroidism Qualifiers: Hypothyroidism type: acquired Qualified Code(s): E03.9 - Hypothyroidism, unspecified <Ghislaine Ray M - Last Filed: 11/15/17 10:18> (3) Hypertension Qualifiers: Hypertension type: essential hypertension Qualified Code(s): I10 - Essential (primary) hypertension (6) Hypothyroidism Qualifiers: Hypothyroidism type: acquired Qualified Code(s): E03.9 - Hypothyroidism, unspecified
[2017-11-14] MEDS: KCL 20 mEq/D5W/NaCl 0.9% Inj 1,000 ML IV.CONT SCH ×2 (15:00→16:08)
[2017-11-14] MEDS: Metoprolol Tartrate 50 MG Tablet PO SCH (22:11)
[2017-11-14] MEDS: Temazepam 15 MG Capsule PO SCH (22:11)
[2017-11-15] MEDS: KCL 20 mEq/D5W/NaCl 0.9% Inj 1,000 ML IV.CONT SCH (01:53)
[2017-11-15] MEDS: Levothyroxine 50 MCG Tablet PO SCH (06:31)
[2017-11-15] MEDS: Heparin - SQ 10,000 UNITS/ML Vial SQ SCH ×3 (06:51→22:06)
--- NOTE | 2017-11-15 09:11 | XR ---
EXAM DATE: 11/15/2017 8:52 AM EDT AGE/SEX: 77 years / Female INDICATIONS: Distal small bowel obstruction. CLINICAL DATA: This is the patient's subsequent encounter. Patient reports that signs and symptoms h ave been present for 2 weeks and indicates a pain score of 0/10. MEDICAL/SURGICAL HISTORY: . Hypertension. Carcinoma, ovarian. Carcinoma, uterine. . Hysterect lexii. COMPARISON: [facility], SMALL BOWEL W GASTROGRAFIN, 11/14/2017. . FINDINGS: Single supine AP view of the abdomen. Multiple distended air-filled loops of small bowel again seen. Contrast is no longer seen in the bowel. The degree of small bowel distention has decreased slightly with maximum diameter of 3.6 cm compared to 4.1 cm on the prior study. CONCLUSION: Contrast no longer seen in the bowel. Slight decrease in gaseous small bowel distention. Electronically signed by: Naga Kelly MD 11/15/2017 9:09 AM EDT
[2017-11-15] MEDS: Dextrose 5%/NaCl 0.9% Inj 1,000 ML IV.CONT SCH (10:11)
--- NOTE | 2017-11-15 11:06 | P.PNGS ---
Subjective Patient reports: feels better, pain is less, tolerating liquids well, diarrhea ( no emesis, feels much better) Physical Exam Vital signs: Vital Signs 11/14/17 16:00 11/14/17 20:00 11/15/17 00:00 Temperature 97.8 F 98.4 F 98.2 F Pulse Rate 113 H 111 H 98 H Respiratory Rate 18 19 17 Blood Pressure 133/75 140/69 128/72 Pulse Oximetry 93 L 98 98 11/15/17 02:00 11/15/17 04:00 11/15/17 05:00 Temperature 98.3 F Pulse Rate 102 H 101 H 83 Respiratory Rate 17 Blood Pressure 130/68 Pulse Oximetry 98 11/15/17 08:00 Temperature 97.9 F Pulse Rate 95 H Respiratory Rate 20 Blood Pressure 149/71 H Pulse Oximetry 95 Intake & Output 11/14/17 11/15/17 11/15/17 18:59 06:59 18:59 Intake Total 740 / 740 1999 Output Total / Balance 740 / 740 1999 -6 / -6 Weight 61.6 kg Intake: IV 1999 D5W/NS + KCL 20 mEq Inj 1,000 1000 / 1000 ML @ 100 mls/hr IV.CONT .Q10H [facility] Rx#:[id number] Oral 740 / 740 Output: Urine 3 / 3 Stool 3 / 3 Other: # Voids 2 Date of Last Bowel Movement 11/15/17 11/15/17 # Bowel Movements 5 - Routine Abdominal Exam Present: soft Assessment and Plan - Assessment (1) SBO (small bowel obstruction) Code(s): K56.609 - Unspecified intestinal obstruction, unspecified as to partial versus complete obstruction Status: Acute - Plan advance diet as tolerated.
[2017-11-15 13:57] LABS: Baso % (Auto) 0.8 % (0.0-2.0); Eos # (Auto) 0.1 th/mm3 (0.0-0.4); Eos % (Auto) 2.5 % (0.0-4.0); Hematocrit 35.6 % (35.0-46.0); Hemoglobin 11.8 gm/dL (11.6-15.3); Lymph # (Auto) 1.3 th/mm3 (1.0-4.8); Lymph % (Auto) 21.9 % (9.0-44.0); Mean Corpuscular HGB Conc 33.2 % (32.0-36.0); Mean Corpuscular Volume 96.4 fL (80.0-100.0); Mean Platelet Volume 7.6 fL (7.0-11.0); Mono # (Auto) 0.6 th/mm3 (0.0-0.9); Mono % (Auto) 10.6 % (0.0-8.0); Neut # (Auto) 3.9 th/mm3 (1.8-7.7); Neut % (Auto) 64.2 % (16.0-70.0); Platelet Count 332 th/mm3 (150-450); Red Blood Count 3.69 mil/mm3 (4.00-5.30)
[2017-11-15 14:13] LABS: Calcium 8.9 mg/dL (8.5-10.1); Carbon Dioxide 23.5 meq/L (21.0-32.0); Potassium 3.5 meq/L (3.5-5.1)
--- NOTE | 2017-11-15 14:13 | P.PNFP ---
Subjective Interval history: Pt reports having several episodes of watery diarrhea starting yesterday evening. Pt was able to tolerate liquid diet without emesis or nausea. She feels better and is relieved she does not need surgery at the moment. She denies fever, shortness of breath, chest pain. Otherwise has no complains. Discussed possibility to going home tomorrow and advancing her diet today. <Shaina Toribio V - 11/15/17 14:12> Results - Labs Result diagrams: 11/16/17 08:40 11/16/17 10:50 <Ghislaine Ray - 11/17/17 12:18> Abnormal lab results 11/15/17 Range/Units 13:01 RBC 3.69 L (4.00-5.30) mil/mm3 [place] % (Auto) 10.6 H (0.0-8.0) % Short CBC 11/15/17 Range/Units 13:01 WBC 6.0 (4.0-11.0) th/mm3 Hgb 11.8 (11.6-15.3) gm/dL Hct 35.6 (35.0-46.0) % Plt Count 332 (150-450) th/mm3 <Shaina Toribio V - 11/15/17 14:12> - Imaging Impressions Abdomen X-Ray 11/15/17 08:00 CONCLUSION: Contrast no longer seen in the bowel. Slight decrease in gaseous small bowel distention. <Shaina Toribio V - 11/15/17 14:12> Physical Exam Vital signs: Vital Signs 11/16/17 14:20 11/16/17 16:00 Temperature 98.1 F Pulse Rate 85 94 H Respiratory Rate 20 Blood Pressure 141/88 H Pulse Oximetry 98 Intake & Output 11/16/17 11/17/17 11/17/17 18:59 06:59 18:59 Other: Date of Last Bowel Movement 11/16/17 <Ghislaine Ray - 11/17/17 12:18> Vital Signs 11/14/17 16:00 11/14/17 20:00 11/15/17 00:00 Temperature 97.8 F 98.4 F 98.2 F Pulse Rate 113 H 111 H 98 H Respiratory Rate 18 19 17 Blood Pressure 133/75 140/69 128/72 Pulse Oximetry 93 L 98 98 11/15/17 02:00 11/15/17 04:00 11/15/17 05:00 Temperature 98.3 F Pulse Rate 102 H 101 H 83 Respiratory Rate 17 Blood Pressure 130/68 Pulse Oximetry 98 11/15/17 08:00 11/15/17 09:00 11/15/17 12:00 Temperature 97.9 F 98.5 F Pulse Rate 95 H 86 92 H Respiratory Rate 20 20 Blood Pressure 149/71 H 140/72 Pulse Oximetry 95 95 Intake & Output 11/14/17 11/15/17 11/15/17 18:59 06:59 18:59 Intake Total 740 / 740 1999 Output Total Balance 740 / 740 1999 -6 / -6 Weight 61.6 kg Intake: IV 1999 D5W/NS + KCL 20 mEq Inj 1,000 1000 / 1000 ML @ 100 mls/hr IV.CONT .Q10H [facility] Rx#:[id number] Oral 740 / 740 Output: Urine 3 / 3 Stool 3 / 3 Other: # Voids 2 Date of Last Bowel Movement 11/15/17 11/15/17 # Bowel Movements 5 <Shaina Toribio V - 11/15/17 14:12> Narrative: GENERAL: elderly female laying on stretcher, in no acute distress SKIN: Warm and dry. HEAD: Atraumatic. Normocephalic. EYES: Pupils equal and round. No scleral icterus. No injection or drainage. ENT: No nasal bleeding or discharge. Mucous membranes pink and moist. NECK: Trachea midline. No JVD. CARDIOVASCULAR: Regular rate and rhythm. RESPIRATORY: No accessory muscle use. Clear to auscultation. Breath sounds equal bilaterally. GASTROINTESTINAL: Abdomen soft, nontender, distended. Present bowel sounds MUSCULOSKELETAL: Extremities without clubbing, cyanosis, or edema. No obvious deformities. NEUROLOGICAL: Awake and alert. No obvious cranial nerve deficits. Motor grossly within normal limits. Normal speech. PSYCHIATRIC: Appropriate mood and affect; insight and judgment normal. <Shaina Toribio V - 11/15/17 14:12> Assessment and Plan - Assessment (1) SBO (small bowel obstruction) Code(s): K56.609 - Unspecified intestinal obstruction, unspecified as to partial versus complete obstruction Status: Acute (2) Ovarian cancer on right Code(s): C56.1 - Malignant neoplasm of right ovary Status: Chronic (3) Hypertension Code(s): I10 - Essential (primary) hypertension Status: Chronic (4) Neuropathic pain of both legs Code(s): G57.91 - Unspecified mononeuropathy of right lower limb; G57.92 - Unspecified mononeuropathy of left lower limb Status: Chronic (5) History of back surgery Code(s): Z98.890 - Other specified postprocedural states Status: Chronic (6) Hypothyroidism Code(s): E03.9 - Hypothyroidism, unspecified Status: Chronic (7) Nutrition, metabolism, and development symptoms Code(s): R63.8 - Other symptoms and signs concerning food and fluid intake Status: Acute (8) DVT prophylaxis Status: Acute <Ghislaine Ray - 11/17/17 12:18> (1) SBO (small bowel obstruction) Code(s): K56.609 - Unspecified intestinal obstruction, unspecified as to partial versus complete obstruction Status: Acute Plan: 77-year-old female with abdominal pain, nausea, vomiting for the last 5 days found to have small bowel obstruction on the right side, possible due to her ovarian cancer. Small bowel follow through on 11/14 shows partial distal small bowel obstruction. No free air identified. General Surgery consulted, appreciate recommendations Zofran as needed for nausea 4mg IV Regular diet today DC all IV fluids Possible DC home tomorrow (2) Ovarian cancer on right Code(s): C56.1 - Malignant neoplasm of right ovary Status: Chronic Plan: Patient with known ovarian cancer since 2011. Currently undergoing oral chemotherapy. Her ovarian cancer is the likely cause of bowel obstruction. Continue oral chemotherapy of niraparib (Zejula) 100 mg PO q PM IV Zofran as needed for nausea (3) Hypertension Code(s): I10 - Essential (primary) hypertension Status: Chronic Plan: Patient with history of hypertension. Blood pressure on admission 131/67 Continue home medications: Metoprolol 50 mg PO daily Monitor for blood pressure elevation (4) Neuropathic pain of both legs Code(s): G57.91 - Unspecified mononeuropathy of right lower limb; G57.92 - Unspecified mononeuropathy of left lower limb Status: Chronic Plan: Patient with history of peripheral neuropathy due to history of chemotherapy agents. Pain controlled with duloxetine and [place] at home. We will hold opiates for now due to side effects on bowel. We will continue duloxetine regimen of 60mg PO BID Added Tylenol 600 mg as needed. she is not having much pain today at all. (5) History of back surgery Code(s): Z98.890 - Other specified postprocedural states Status: Chronic Plan: History of back surgery in the past. Pain control at home with [place]. Opiates on hold at this moment Tylenol 650 mg as needed (6) Hypothyroidism Code(s): E03.9 - Hypothyroidism, unspecified Status: Chronic Plan: History of hypothyroidism. Controlled on medications Continue home medication Levothyroxine 50 mcg PO Daily (7) Nutrition, metabolism, and development symptoms Code(s): R63.8 - Other symptoms and signs concerning food and fluid intake Status: Acute Plan: - Advance diet to regular - DC IV fluids - Monitor and replace electrolytes as needed - Ambulate as tolerated (8) DVT prophylaxis Status: Acute Plan: Pt currently taking Eliquis at home 5 mg PO BID. - Hold Eliquis due to possible surgery - Continue Heparin 5,000 Units q8hrs (Oncology patient w/ history of DVT of R arm) <Shaina Toribio V - 11/15/17 14:01> - Assessment and Plan 69-year-old female with a past medical history for right ovarian cancer currently undergoing oral chemotherapy. Presented to the ED with abdominal pain , nausea, vomiting found to be at small bowel obstruction possible due to right ovarian mass. ED presentation patient was tachycardic and elevated WBC of 13.7. CT abdomen and pelvis with IV contrast demonstrated demonstrated a small bowel obstruction with a transition point in the region of the right adnexa as well as a 4.5 cm cystic lesion. During examination patient is stable. Pt had several bowel movements yesterday and tolerated liquid diet, she will advance to a regular diet today. On exam patient did not have an acute abdomen. Pt might be discharged home tomorrow <Shaina Toribio V - 11/15/17 14:12> - Attending Attestation The exam, history, and the medical decision-making described in the above note were completed with the assistance of the resident physician. I reviewed and agree with the findings presented. I attest that I had a [id number] encounter with the patient on the same day, and personally performed and documented my assessment and findings in the medical record. Thankfully she continues to improve with her diarrhea. And it is a good sign after the obstruction to have her bowels moving. <Ghislaine Ray M - 11/17/17 12:18> <Shaina Toribio V - Last Filed: 11/15/17 14:01> (3) Hypertension Qualifiers: Hypertension type: essential hypertension (6) Hypothyroidism Qualifiers: Hypothyroidism type: acquired Qualified Code(s): E03.9 - Hypothyroidism, unspecified <Ghislaine Ray M - Last Filed: 11/17/17 12:18> (3) Hypertension Qualifiers: Hypertension type: essential hypertension Qualified Code(s): I10 - Essential (primary) hypertension (6) Hypothyroidism Qualifiers: Hypothyroidism type: acquired Qualified Code(s): E03.9 - Hypothyroidism, unspecified <Shaina Toribio V - Last Filed: 11/15/17 14:01> (3) Hypertension Qualifiers: Hypertension type: essential hypertension (6) Hypothyroidism Qualifiers: Hypothyroidism type: acquired Qualified Code(s): E03.9 - Hypothyroidism, unspecified <Ghislaine Ray - Last Filed: 11/17/17 12:18> (3) Hypertension Qualifiers: Hypertension type: essential hypertension Qualified Code(s): I10 - Essential (primary) hypertension (6) Hypothyroidism Qualifiers: Hypothyroidism type: acquired Qualified Code(s): E03.9 - Hypothyroidism, unspecified
[2017-11-15] MEDS: Temazepam 15 MG Capsule PO SCH (20:35)
[2017-11-15] MEDS: Metoprolol Tartrate 50 MG Tablet PO SCH (20:36)
[2017-11-15] MEDS: Famotidine 20 MG Tablet PO SCH (20:36)
[2017-11-16] MEDS: Heparin - SQ 10,000 UNITS/ML Vial SQ SCH ×2 (06:17→13:03)
[2017-11-16] MEDS: Levothyroxine 50 MCG Tablet PO SCH (06:17)
[2017-11-16] MEDS: Famotidine 20 MG Tablet PO SCH (08:03)
[2017-11-16 09:10] LABS: Hematocrit 39.2 % (35.0-46.0); Hemoglobin 12.9 gm/dL (11.6-15.3); Mean Corpuscular HGB Conc 32.8 % (32.0-36.0); Mean Corpuscular Hemoglobin 31.8 pg (27.0-34.0); Mean Corpuscular Volume 96.8 fL (80.0-100.0); Mean Platelet Volume 7.4 fL (7.0-11.0); Platelet Count 346 th/mm3 (150-450); Red Blood Count 4.05 mil/mm3 (4.00-5.30); Red Cell Distribution Width 14.8 % (11.6-17.2); White Blood Count 7.3 th/mm3 (4.0-11.0)
--- NOTE | 2017-11-16 10:49 | P.PNFP ---
Subjective Interval history: Pt doing well today. She was able to eat a regular lunch and dinner yesterday. She had her last BM last night. She was having some acid reflux after dinner but was resolved with pepcid. She also mentioned a small area of erythema/ swelling of her R inside biceps, were her IV was placed. Discussed that is possible it was infiltrated and that's why it was switched. She would like to go home today. Her daughter was present and discussed plans with her as well. Pt denies any fevers, chills, nausea, vomiting, shortness of breath or chest pain. Results - Labs Result diagrams: 11/16/17 08:40 11/16/17 10:50 Abnormal lab results 11/15/17 11/15/17 Range/Units 13:01 13:01 RBC 3.69 L (4.00-5.30) mil/mm3 [place]itus % (Auto) 10.6 H (0.0-8.0) % Chloride 110 H (98-107) meq/L Estimated GFR 65 L (>89) mL/min Short CBC 11/15/17 11/16/17 Range/Units 13:01 08:40 WBC 6.0 7.3 (4.0-11.0) th/mm3 Hgb 11.8 12.9 (11.6-15.3) gm/dL Hct 35.6 39.2 (35.0-46.0) % Plt Count 332 346 (150-450) th/mm3 BMP 11/15/17 13:01 Sodium 143 Potassium 3.5 Chloride 110 H Carbon Dioxide 23.5 BUN 9 Creatinine 0.85 Calcium 8.9 Physical Exam Vital signs: Vital Signs 11/15/17 12:00 11/15/17 16:00 11/15/17 20:00 Temperature 98.5 F 98.5 F 98.5 F Pulse Rate 92 H 96 H 98 H Respiratory Rate 20 20 18 Blood Pressure 140/72 134/74 158/79 H Pulse Oximetry 95 96 98 11/16/17 00:00 11/16/17 00:56 11/16/17 04:00 Temperature 98.4 F 97.9 F Pulse Rate 87 97 H 83 Respiratory Rate 18 18 Blood Pressure 165/82 H 170/88 H Pulse Oximetry 96 95 11/16/17 04:02 11/16/17 08:00 Temperature 98.7 F Pulse Rate 84 Respiratory Rate 20 Blood Pressure 134/80 Pulse Oximetry 95 Intake & Output 11/15/17 11/16/17 11/16/17 18:59 06:59 18:59 Intake Total 3480 / 3480 Output Total Balance 3471 / 3471 Weight 62.1 kg Intake: IV 3000 / 3000 D5W/Normal Saline Inj 1,000 ML 1000 / 1000 @ 100 mls/hr IV.CONT .Q10H [facility] Rx#:[id number] D5W/NS + KCL 20 mEq Inj 1,000 1000 / 1000 ML @ 100 mls/hr IV.CONT .Q10H [facility] Rx#:[id number] LR 1000 mL Inj 1,000 ML @ 30 1000 / 1000 mls/hr IV.SIG .Q24H [facility] Rx#: [id number] Oral 480 / 480 Output: Urine 6 / 6 Stool 3 / 3 Other: # Voids 2 Date of Last Bowel Movement 11/15/17 11/15/17 # Bowel Movements 1 Narrative: GENERAL: elderly female laying on stretcher, in no acute distress SKIN: Warm and dry. HEAD: Atraumatic. Normocephalic. EYES: Pupils equal and round. No scleral icterus. No injection or drainage. ENT: No nasal bleeding or discharge. Mucous membranes pink and moist. NECK: Trachea midline. No JVD. CARDIOVASCULAR: Regular rate and rhythm. RESPIRATORY: No accessory muscle use. Clear to auscultation. Breath sounds equal bilaterally. GASTROINTESTINAL: Abdomen soft, mild tenderness to palpation on epigastric region . minimally distended. Positive bowel sounds in all quadrants MUSCULOSKELETAL: Area of infiltration present on R lower biceps, warm to palpation, minimal induration. Does not look infectious in etiology. No pus. No hematoma. NEUROLOGICAL: Awake and alert. No obvious cranial nerve deficits. Motor grossly within normal limits. Normal speech. PSYCHIATRIC: Appropriate mood and affect; insight and judgment normal. Assessment and Plan - Assessment (1) SBO (small bowel obstruction) Code(s): K56.609 - Unspecified intestinal obstruction, unspecified as to partial versus complete obstruction Status: Acute Plan: 77-year-old female with abdominal pain, nausea, vomiting for the last 5 days found to have small bowel obstruction on the right side, possible due to her ovarian cancer. Small bowel follow through on 11/14 shows partial distal small bowel obstruction. No free air identified. General Surgery consulted, appreciate recommendations Zofran as needed for nausea 4mg IV Continue regular diet as tolerated (2) Ovarian cancer on right Code(s): C56.1 - Malignant neoplasm of right ovary Status: Chronic Plan: Patient with known ovarian cancer since 2011. Currently undergoing oral chemotherapy. Her ovarian cancer is the likely cause of bowel obstruction. Continue oral chemotherapy of niraparib ([place]) 100 mg PO q PM IV Zofran as needed for nausea (3) Hypertension Code(s): I10 - Essential (primary) hypertension Status: Chronic Plan: Patient with history of hypertension. Blood pressure on admission 131/67 Continue home medications: Metoprolol 50 mg PO daily Monitor for blood pressure elevation (4) Neuropathic pain of both legs Code(s): G57.91 - Unspecified mononeuropathy of right lower limb; G57.92 - Unspecified mononeuropathy of left lower limb Status: Chronic Plan: Patient with history of peripheral neuropathy due to history of chemotherapy agents. Pain controlled with duloxetine and [place] at home. We will hold opiates for now due to side effects on bowel. We will continue duloxetine regimen of 60mg PO BID Tylenol 600 mg as needed. (5) History of back surgery Code(s): Z98.890 - Other specified postprocedural states Status: Chronic Plan: History of back surgery in the past. Pain control at home with [place]. Opiates on hold at this moment Tylenol 650 mg as needed (6) Hypothyroidism Code(s): E03.9 - Hypothyroidism, unspecified Status: Chronic Plan: History of hypothyroidism. Controlled on medications Continue home medication Levothyroxine 50 mcg PO Daily (7) Nutrition, metabolism, and development symptoms Code(s): R63.8 - Other symptoms and signs concerning food and fluid intake Status: Acute Plan: - Continue regular diet as tolerated - Monitor and replace electrolytes as needed - Ambulate as tolerated (8) DVT prophylaxis Status: Acute Plan: Pt currently taking Eliquis at home 5 mg PO BID. - Hold Eliquis due to possible surgery - Continue Heparin 5,000 Units q8hrs (Oncology patient w/ history of DVT of R arm) - Assessment and Plan 69-year-old female with a past medical history for right ovarian cancer currently undergoing oral chemotherapy. Presented to the ED with abdominal pain , nausea, vomiting found to be at small bowel obstruction possible due to right ovarian mass. ED presentation patient was tachycardic and elevated WBC of 13.7. CT abdomen and pelvis with IV contrast demonstrated demonstrated a small bowel obstruction with a transition point in the region of the right adnexa as well as a 4.5 cm cystic lesion. During examination patient is stable. Pt continues to have BMs and is tolerating a regular diet. On exam patient did not have an acute abdomen. Pt might be discharged home today (3) Hypertension Qualifiers: Hypertension type: essential hypertension Qualified Code(s): I10 - Essential (primary) hypertension (6) Hypothyroidism Qualifiers: Hypothyroidism type: acquired Qualified Code(s): E03.9 - Hypothyroidism, unspecified
[2017-11-16 11:48] LABS: Albumin 2.9 g/dL (3.4-5.0); Anion Gap 12 meq/L (5-15); Aspartate Aminotransferase 20 U/L (15-37); Blood Urea Nitrogen 8 mg/dL (7-18); Calcium 8.9 mg/dL (8.5-10.1); Carbon Dioxide 21.4 meq/L (21.0-32.0); Chloride 107 meq/L (98-107); Glomerular Filtration Rate 64 mL/min (>89); Glucose,Random 111 mg/dL (74-106); Potassium 3.5 meq/L (3.5-5.1); Sodium 140 meq/L (136-145)
[2017-11-16 11:49] LABS: Alanine Aminotransferase 22 U/L (10-53)
[2017-11-16 11:51] LABS: Alkaline Phosphatase 100 U/L (45-117); Total Protein 7.3 g/dL (6.4-8.2)
--- NOTE | 2017-11-16 15:04 | P.PNGS ---
Subjective Patient reports: feels better, tolerating a regular diet, bowel movement, diarrhea ( DAILY PROGRESS NOTE FOR SURGICAL ATTENDING, DR. JOHNY ISBELL ----) Physical Exam Vital signs: Vital Signs 11/15/17 16:00 11/15/17 20:00 11/16/17 00:00 Temperature 98.5 F 98.5 F 98.4 F Pulse Rate 96 H 98 H 87 Respiratory Rate 20 18 18 Blood Pressure 134/74 158/79 H 165/82 H Pulse Oximetry 96 98 96 11/16/17 00:56 11/16/17 04:00 11/16/17 04:02 Temperature 97.9 F Pulse Rate 97 H 83 84 Respiratory Rate 18 Blood Pressure 170/88 H Pulse Oximetry 95 11/16/17 08:00 11/16/17 12:00 11/16/17 14:20 Temperature 98.7 F 97.8 F Pulse Rate 90 85 Respiratory Rate 20 20 Blood Pressure 134/80 126/61 Pulse Oximetry 95 99 Intake & Output 11/15/17 11/16/17 11/16/17 18:59 06:59 18:59 Intake Total 3480 / 3480 Output Total Balance 3471 / 3471 Weight 62.1 kg Intake: IV 3000 / 3000 D5W/Normal Saline Inj 1,000 ML 1000 / 1000 @ 100 mls/hr IV.CONT .Q10H [facility] Rx#:[id number] D5W/NS + KCL 20 mEq Inj 1,000 1000 / 1000 ML @ 100 mls/hr IV.CONT .Q10H [facility] Rx#:[id number] LR 1000 mL Inj 1,000 ML @ 30 1000 / 1000 mls/hr IV.SIG .Q24H [facility] Rx#: [id number] Oral 480 / 480 Output: Urine 6 / 6 Stool 3 / 3 Other: # Voids 2 Date of Last Bowel Movement 11/15/17 11/15/17 11/16/17 # Bowel Movements 1 Narrative: pt abbi diet doingf well no n or v pos BM ready to go Assessment and Plan - Assessment (1) SBO (small bowel obstruction) Code(s): K56.609 - Unspecified intestinal obstruction, unspecified as to partial versus complete obstruction Status: Acute - Plan Patient tolerating diet Having bowel activity Abdomen soft No more nausea vomiting Patient ready to go home ok to DIscharge home - Attending Attestation NOTE FOR SURGICAL ATTENDING, DR. JOHNY ISBELL I attest that I had a [id number] encounter with the patient on the same day, and personally performed and documented my assessment and findings in the medical record. The following services were provided during this hospital visit: Chart data review, vital sign assessments/reviewing monitor data Review of consultations notes if present. Medication orders/review and/or management Ordering and/or reviewing lab tests Ordering and/or interpreting/reviewing x-rays and/or diagnostic studies Care of the patient and discussion of the patient with the care team Documentation time To help prompt me to consider important information that might be impacting today's encounter and assessment, Information from prior notes written by myself or my colleagues may have been "brought forward/copy and pasted" into today's note.
--- NOTE | 2017-11-22 15:06 | P.DS ---
Date of admission: 11/12/17 14:12 Primary care physician: Jamee Velasquez MD Brief History from admission: Patient is a 77-year-old female with a past medical history of right ovarian cancer who presented to the ED for abdominal pain. Patient states abdominal pain has been present for the last 5 days accompanied with nausea and vomiting. Around Friday afternoon patient noticed an intense stabbing pain on her lower right and left quadrants. She also has a mild pain on the upper quadrants. This pain has been periodic, coming in waves but has never completely resolved. Since Friday patient has been unable to tolerate meals. She has been vomiting about an hour after eating. She is able to tolerate liquids. She reports a similar episode about 6 weeks ago that was diagnosed as a partial bowel obstruction in [place] ED. During that time patient was given bowel regimen and sent home, her symptoms resolved for about 5 weeks, returned last Friday. Patient is unsure if she is passing gas, but she has had a bowel movement every day until Friday. Patient has a known history of right ovarian cancer since 2011, is currently undergoing treatment with oral chemotherapy. Her MOLECULAR GENETICIST oncologist has contemplated surgery in the past due to the size of the tumor, but recommended against it. Overnight she has been stable though she has not had a bowel movement. Her MOLECULAR GENETICIST oncologist is out of town at this time. However surgery was consulted to see if they would recommend any intervention but that would be the last recourse. DS: Diagnosis - Discharge Diagnosis (1) SBO (small bowel obstruction) Status: Acute (2) Ovarian cancer on right Status: Chronic (3) Hypertension Status: Chronic (4) Neuropathic pain of both legs Status: Chronic (5) History of back surgery Status: Chronic (6) Hypothyroidism Status: Chronic (7) Nutrition, metabolism, and development symptoms Status: Acute (8) DVT prophylaxis Status: Acute DS: Summary Hospital Course: 77-year-old female with past medical history of right ovarian cancer, currently undergoing oral chemotherapy. Presented to the ED with a 5 day history of abdominal pain, nausea and vomiting. CT scan and x-rays shown to have a partial small bowel obstruction. General surgery was consulted due to the possibility of surgery. It was thought that is the right ovarian mass that is causing a compression on the small intestines. Patient was kept n.p.o. for several days without having a bowel movement. Her abdominal pain however had improved significantly. 2 days after hospitalizations a small bowel follow- through exam was performed which demonstrated obstruction of the small bowel, partial in nature. After this imaging was performed, patient started having bowel movements. Patient had over 6 bowel movements that same day. The following day patient's diet was advanced to clear liquids, and the following evening to full diet. Patient tolerated diet perfectly without nausea and vomiting, continue to have regular bowel movements. Patient was discharged home stable with return precautions. Patient is well aware that the possible cause of her small bowel obstruction is either her 2 more pressing on the intestines, or adhesions from previous surgeries, patient has a history of a hysterectomy with unilateral oophorectomy. Patient instructed to follow-up with her primary care physician, as well as her gynecology oncology doctor. - Time Spent with Patient Total time spent providing and/or coordinating discharge services: Less than 30 minutes Exam Vital signs: 98.7F, p 84, RR20, BP 134/80 Narrative: GENERAL: elderly female laying on stretcher, in no acute distress SKIN: Warm and dry. HEAD: Atraumatic. Normocephalic. EYES: Pupils equal and round. No scleral icterus. No injection or drainage. ENT: No nasal bleeding or discharge. Mucous membranes pink and moist. NECK: Trachea midline. No JVD. CARDIOVASCULAR: Regular rate and rhythm. RESPIRATORY: No accessory muscle use. Clear to auscultation. Breath sounds equal bilaterally. GASTROINTESTINAL: Abdomen soft, mild tenderness to palpation on epigastric region .Non distended. Positive bowel sounds in all quadrants NEUROLOGICAL: Awake and alert. No obvious cranial nerve deficits. Motor grossly within normal limits. Normal speech. PSYCHIATRIC: Appropriate mood and affect; insight and judgment normal. Results Procedures completed during hospitalization: Small bowel Follow through (imaging) - Impressions ITS Impressions Abdomen/Pelvis CT 11/12/17 10:08 CONCLUSION: 1. CT findings characteristic of a small bowel obstruction with a transition in the region of the right adnexa. A 4.5 cm cystic lesion in a 75-year-old could represent an ovarian mass. Bowel distal to this area is decompressed. In addition, there is soft tissue density in the expected location of the uterus. Patient reports hysterectomy. Findings may represent a partial hysterectomy. 2. Collateral venous channels in the retroperitoneum and anterior abdominal wall may be due to obstruction to the venous drainage in the right upper extremity. 3. Symmetric widening of the SI joints with some sclerosis on the sacral side of the same possibly representing chronic sacroiliitis. Small Bowel X-Ray 11/14/17 08:00 CONCLUSION: Partial distal small bowel obstruction. No free air identified. Abdomen X-Ray 11/15/17 08:00 CONCLUSION: Contrast no longer seen in the bowel. Slight decrease in gaseous small bowel distention. Discharge Plan - Discharge Disposition Patient Disposition: 01 Discharge Home - Discharge Condition Condition: Stable - Discharge Order Discharge Orders: Discharge Order (Routine); Ordered 11/16/17 Ordered By: Sharon Mayer General Surgery Clear for Discharge (Routine); Ordered 11/16/17 Ordered By: Margarito Araiza - Physicians Team Primary Care Provider: Jamee Vealsquez Attending Provider: Ghislaine Ray Other Providers: [employer],Insurance ; Surgeons,[facility] ; Chinmay England MD
== END 2017-11-16 18:23 | disposition home or self-care (01) ==
LOC: NEPE 08:24 → NEDA 14:12 → N05 19:15
PROVIDERS: ADMIT Family Medicine; ATTEND Family Medicine

== ENCOUNTER 2017-11-27 09:02 | Inpatient (IN) ==
--- NOTE | 2017-11-27 10:09 | XR ---
EXAM DATE: 11/27/2017 10:04 AM EDT AGE/SEX: 77 years / Female INDICATIONS: Chest discomfort; vomiting. CLINICAL DATA: This is the patient's sequela encounter. Patient reports that signs and symptoms have been present for 2 weeks and indicates a pain score of 5/10. MEDICAL/SURGICAL HISTORY: Hypertension. None. COMPARISON: [facility], CHEST 2V PA&LAT, 10/07/2017. . FINDINGS: The cardiac silhouette is enlarged in transverse diameter. The lungs are free of acute parenchymal op acity. No pulmonary nodules or pleural effusions are identified. There is parenchymal scarring on th e left. CONCLUSION: Cardiomegaly. No acute pulmonary disease. Electronically signed by: Scott Mitchell MD 11/27/2017 10:08 AM EDT
--- NOTE | 2017-11-27 10:16 | XR ---
EXAM DATE: 11/27/2017 10:02 AM EDT AGE/SEX: 77 years / Female INDICATIONS: Vomiting and abdominal pain. CLINICAL DATA: This is the patient's sequela encounter. Patient reports that signs and symptoms have been present for 2 weeks and indicates a pain score of 8/10. MEDICAL/SURGICAL HISTORY: None. None. COMPARISON: [facility] – [place], CT ABDOMEN & PELVIS W CONTRAST, 11/12/2017. C, ABDOMEN 1V KUB, 11/13/2017. [facility], ABDOMEN 1V KUB, 11/15/2017. . FINDINGS: On today's upright study there continue to be moderately dilated loops of small bowel with air-fluid levels. The dilated loops were present on patient's prior studies consistent with a distal partial sm all bowel obstruction. There is no evidence of free air. The lung bases are grossly clear. The bony s tructures are stable. CONCLUSION: There continues to be moderately dilated loops of small bowel with air-fluid levels in the mid and up per abdomen. This is not significantly changed compared to the prior studies. No evidence of free air. Electronically signed by: Javy Singh MD 11/27/2017 10:14 AM EDT
[2017-11-27 10:45] LABS: Baso # (Auto) 0.1 th/mm3 (0.0-0.2); Baso % (Auto) 0.6 % (0.0-2.0); Eos # (Auto) 0.1 th/mm3 (0.0-0.4); Hematocrit 35.6 % (35.0-46.0); Lymph # (Auto) 1.2 th/mm3 (1.0-4.8); Lymph % (Auto) 11.7 % (9.0-44.0); Mean Corpuscular HGB Conc 33.8 % (32.0-36.0); Mean Corpuscular Hemoglobin 31.6 pg (27.0-34.0); Mean Corpuscular Volume 93.3 fL (80.0-100.0); Mean Platelet Volume 7.4 fL (7.0-11.0); Mono # (Auto) 0.9 th/mm3 (0.0-0.9); Mono % (Auto) 8.7 % (0.0-8.0); Platelet Count 467 th/mm3 (150-450); Red Blood Count 3.81 mil/mm3 (4.00-5.30); Red Cell Distribution Width 14.6 % (11.6-17.2); White Blood Count 10.3 th/mm3 (4.0-11.0)
[2017-11-27 10:57] LABS: Bacteria,Urine Occasional /hpf; Clarity,Urine Hazy (Clear); Color,Urine Amber (Yellw/Straw); Glucose,Urine (UA) Negative (Negative); Hyaline Casts,Urine 4 /lpf (0-3); Leukocyte Esterase,Urine Trace (Negative); Mucus,Urine Moderate /lpf (Occasional); Nitrite,Urine Negative (Negative); Specific Gravity,Urine 1.028 (1.002-1.035); Squamous Epithelial Cell,Urine 1 /hpf (0-5); Urobilinogen,Urine 4 or Greater mg/dL (Less than 2)
[2017-11-27 11:01] LABS: Bilirubin,Urine Negative (Negative)
[2017-11-27 11:21] LABS: Alanine Aminotransferase 22 U/L (10-53); Albumin 3.1 g/dL (3.4-5.0); Alkaline Phosphatase 93 U/L (45-117); Anion Gap 12 meq/L (5-15); Aspartate Aminotransferase 22 U/L (15-37); Blood Urea Nitrogen 18 mg/dL (7-18); Calcium 8.4 mg/dL (8.5-10.1); Carbon Dioxide 26.2 meq/L (21.0-32.0); Chloride 101 meq/L (98-107); Creatine Kinase 51 U/L (26-192); Glomerular Filtration Rate 56 mL/min (>89); Glucose,Random 95 mg/dL (74-106); Lipase 158 U/L (73-393); Potassium 4.3 meq/L (3.5-5.1); Sodium 139 meq/L (136-145); Total Protein 7.5 g/dL (6.4-8.2)
--- NOTE | 2017-11-27 11:29 | ED ---
HPI General Chief Complaint: Abdominal Pain Stated Complaint: Blockage Time Seen by Provider: 11/27/17 09:20 History of Present Illness HPI narrative: This is a 77-year-old female with a history of metastatic ovarian cancer, hypertension, previous bowel obstructions, presents today with complaints of abdominal pain with distention. Patient reports that it started 3 weeks ago. She has had intermittent episodes where she has had come into the hot for partial bowel obstruction. She has not had any previous complete bowel obstructions. The times that she has been admitted her bowels have reversed and she has not required any type of surgical procedure. The patient states she has had increased discomfort and she recently had a PET scan to rule out recurrence of her metastatic disease. She also reports having loose watery stools. She denies any fevers, chills. She does report that she had Related Data Home Medications Medication Instructions Recorded Confirmed duloxetine [Cymbalta] 60 mg PO BID 10/07/17 11/12/17 oxycodone-acetaminophen 1 tab PO Q4HR PRN 10/17/17 11/12/17 apixaban [Eliquis] 5 mg PO BID 11/12/17 11/12/17 fluticasone [Flonase Allergy 2 spray INTRANASAL DAILY PRN 11/12/17 11/12/17 Relief] levothyroxine [Levoxyl] 50 mcg PO DAILY 11/12/17 11/12/17 metoprolol tartrate 50 mg PO DAILY 11/12/17 11/12/17 niraparib [Zejula] 100 mg PO QPM 11/12/17 11/12/17 ondansetron [Zofran ODT] 8 mg PO TID PRN 11/12/17 11/12/17 temazepam [Restoril] 15 mg PO HS 11/12/17 11/12/17 Allergies Allergy/AdvReac Type Severity Reaction Status Date / Time No Known Allergies Allergy Verified 10/25/17 08:36 Review of Systems ROS: all other systems reviewed are negative Constitutional Denies chills and Denies fever(s) Eyes Reports system reviewed and no additional complaints, except as docu ENT Reports system reviewed and no additional complaints, except as docu Cardiovascular Denies chest pain and Denies dyspnea Respiratory Denies cough and Denies dyspnea Gastrointestinal Reports abdominal pain, Reports bloating, Reports heartburn, Denies nausea and Reports vomiting Genitourinary Reports system reviewed and no additional complaints, except as docu, Denies urinary frequency and Denies dysuria Musculoskeletal Reports system reviewed and no additional complaints, except as docu Neurologic Reports system reviewed and no additional complaints, except as docu Hematologic/Lymphatic Reports system reviewed and no additional complaints, except as docu PMFSH Medical History Medical History Port catheter in place (Acute) Hypertension (Chronic) Neuropathic pain of both legs (Chronic) Hypothyroidism (Chronic) Hx of hysterectomy (Acute) Cancer (Acute) Surgical History Surgical History History of back surgery (Chronic) H/O hysterectomy with unilateral oophorectomy (Acute) Family History Family History Other Heart attack Stomach cancer Social History Social History Substance History: No History of Abuse Second Hand Smoke Exposure: No Smoking Status: Never smoker How Often Do You Have a Drink Containing Alcohol: Never Recent Travel in [facility] [place] within the Last 8 Weeks: No Recent Out of Country Travel within the Last 8 Weeks: No Immunization History Tetanus Immunization: <5 Years Hx Influenza Vaccine This Season: No Exam Narrative Exam Narrative: GENERAL: Well-developed well-nourished female in no acute respiratory distress. SKIN: Focused skin assessment warm/dry. HEAD: Atraumatic. Normocephalic. EYES: No scleral icterus. No injection or drainage. ENT: No nasal bleeding or discharge. Mucous membranes pink and moist. NECK: Trachea midline. Supple. CARDIOVASCULAR: Regular rate and rhythm. No murmur appreciated. RESPIRATORY: No accessory muscle use. Clear to auscultation. Breath sounds equal bilaterally. GASTROINTESTINAL: Abdomen soft, slightly distended. Patient has discomfort to palpation in her left lateral upper abdominal area. No rebound or guarding. MUSCULOSKELETAL: No obvious deformities. No clubbing. No cyanosis. No edema. NEUROLOGICAL: Awake and alert. No obvious cranial nerve deficits. Motor grossly within normal limits. Normal speech. Course Initial Documented Vital Signs Temperature 98.1 F 11/27/17 09:05 Pulse Rate 94 H 11/27/17 09:05 Respiratory Rate 16 11/27/17 09:05 Blood Pressure 136/63 11/27/17 09:05 Pulse Oximetry 97 11/27/17 09:05 Last Documented Vital Signs Temperature 98.1 F 11/27/17 09:05 Pulse Rate 89 11/27/17 13:11 Respiratory Rate 15 08/30/18 13:11 Blood Pressure 118/55 L 11/27/17 13:11 Pulse Oximetry 97 11/27/17 13:11 Medical Decision Making MDM Narrative Medical decision making narrative: 77-year-old female history of ovarian cancer , presents today with complaints of nausea vomiting and abdominal distention and swelling. Patient has a history of recurrent cancer. She has metastatic disease. She has been seen 3 times for the same thing and has been sent home after decompression. The patient again has what appears to be partial small bowel obstruction with loops of bowel. She is passing gas so this is certainly not a complete obstruction. I reviewed her PET scan results from last week which show increased metastatic disease involving her retroperitoneum as well as her uterus. [facility] She has had an NG placed here for decompression. [facility] and their agreeable to [facility]. There will also be a consult with Dr. Diana Girard, gynecology oncologist. Medical Screen Exam Complete: Yes Emergency Medical Condition: Yes Differential Diagnosis Differential Diagnosis: complete bowel obstruction versus partial bowel obstruction versus recurrent tumor versus metabolic derangement Lab Data Result diagrams: 11/27/17 10:10 11/27/17 10:10 Lab Results 11/27/17 11/27/17 11/27/17 Range/Units 09:50 10:10 10:10 WBC 10.3 (4.0-11.0) th/mm3 RBC 3.81 L (4.00-5.30) mil/mm3 Hgb 12.0 (11.6-15.3) gm/dL Hct 35.6 (35.0-46.0) % MCV 93.3 (80.0-100.0) fL MCH 31.6 (27.0-34.0) pg MCHC 33.8 (32.0-36.0) % RDW 14.6 (11.6-17.2) % Plt Count 467 H D (150-450) th/mm3 MPV 7.4 (7.0-11.0) fL Neut % (Auto) 78.0 H (16.0-70.0) % Lymph % (Auto) 11.7 (9.0-44.0) % Bennett % (Auto) 8.7 H (0.0-8.0) % Eos % (Auto) 1.0 (0.0-4.0) % Baso % (Auto) 0.6 (0.0-2.0) % Neut # (Auto) 8.0 H (1.8-7.7) th/mm3 Lymph # (Auto) 1.2 (1.0-4.8) th/mm3 Bennett # (Auto) 0.9 (0.0-0.9) th/mm3 Eos # (Auto) 0.1 (0.0-0.4) th/mm3 Baso # (Auto) 0.1 (0.0-0.2) th/mm3 WBC Differential . Differential Comment Auto diff final Sodium 139 (136-145) meq/L Potassium 4.3 (3.5-5.1) meq/L Chloride 101 (98-107) meq/L Carbon Dioxide 26.2 (21.0-32.0) meq/L Anion Gap 12 (5-15) meq/L BUN 18 (7-18) mg/dL Creatinine 0.96 (0.50-1.00) mg/dL Estimated GFR 56 L (>89) mL/min Random Glucose 95 (74-106) mg/dL Calcium 8.4 L (8.5-10.1) mg/dL Total Bilirubin 0.7 (0.2-1.0) mg/dL AST 22 (15-37) U/L ALT 22 (10-53) U/L Alkaline Phosphatase 93 (45-117) U/L Total Creatine Kinase 51 (26-192) U/L Troponin I Less than 0.02 L (0.02-0.05) ng/mL Total Protein 7.5 (6.4-8.2) g/dL Albumin 3.1 L (3.4-5.0) g/dL Lipase 158 (73-393) U/L Urine Color Bernice (Yellw/Straw) Urine Clarity Hazy H (Clear) Urine pH 5.0 (5.0-8.5) Ur Specific R[place]el 1.028 (1.002-1.035) Urine Protein 30 H (Neg-Trace) mg/dL Urine Glucose (UA) Negative (Negative) mg/dL Urine Ketones 20 (Negative) mg/dL Urine Occult Blood Small H (Negative) Urine Nitrate Negative (Negative) Urine Bilirubin Negative (Negative) Urine Urobilinogen 4 or greater (Less than 2) mg/dL Ur Leukocyte Esterase Trace H (Negative) Urine RBC 8 H (0-3) /hpf Urine WBC 4 (0-5) /hpf Ur Squamous Epith Cells 1 (0-5) /hpf Urine Bacteria Occasional H (None) /hpf Hyaline Casts 4 (0-3) /lpf Urine Mucus Moderate H (Occasional) /lpf Micro UA Comment Culture not ind Ur Microscopic Review Not Reportable Urine Culture Comments Culture not ind Imaging Data Radiologist's impression: Abdomen X-Ray 11/27/17 09:36 CONCLUSION: There continues to be moderately dilated loops of small bowel with air-fluid levels in the mid and upper abdomen. This is not significantly changed compared to the prior studies. No evidence of free air. Chest X-Ray 11/27/17 09:36 CONCLUSION: Cardiomegaly. No acute pulmonary disease. Abdomen X-Ray 11/27/17 12:34 CONCLUSION: The NG tube is in the stomach. Discharge Plan Discharge Disposition Patient Disposition: 30 Still Patient Discharge Details Diagnosis: SBO (small bowel obstruction), Ovarian cancer on right, Hypothyroidism, Hypertension Physicians Team ED Provider: Greg Pan Primary Care Provider: UNKNOWN, Attending Provider: Cj Isaac Discharge Interventions Interventions: Vital Signs Last Done: 11/27/17 13:11 Status ED Status: Admitted Patient
[2017-11-27] MEDS ORDERED: Lidocaine 2% Jelly 5 ML Syringe ONE (12:15)
[2017-11-27] MEDS ORDERED: Lidocaine 2% Jelly 5 ML Syringe TOPICAL ONE (12:15)
--- NOTE | 2017-11-27 13:49 | XR ---
EXAM DATE: 11/27/2017 12:52 PM EDT AGE/SEX: 77 years / Female INDICATIONS: Evaluate NG tube placement. CLINICAL DATA: This is the patient's initial encounter. Patient reports that signs and symptoms have been present for 1 day and indicates a pain score of 0/10. MEDICAL/SURGICAL HISTORY: None. None. COMPARISON: [facility] [place]EN [place]PRIGHT ONLY, 11/27/2017. . FINDINGS: Status post placement of an NG tube. The NG tube appears to be in the stomach. The lung bases are cynthia ssly clear. CONCLUSION: The NG tube is in the stomach. Electronically signed by: Javy Singh MD 11/27/2017 1:47 PM EDT
[2017-11-27] MEDS ORDERED: Acetaminophen 325 MG Tablet PO PRN (13:52)
--- NOTE | 2017-11-27 14:07 | P.HP ---
History of Present Illness Primary Care Physician: UNKNOWN History of Present Illness: 77-year-old female with a history of hypertension, hypothyroidism, neuropathy, ovarian cancer. She presents to the ER today with her third episode of partial small bowel obstruction in the last 3 weeks. Onset was as it was previously, she experienced abdominal pain with nausea vomiting and an increase of peristalsis inducing diarrhea followed by silence, increased pain and bloating of her abdomen. She is currently undergoing updated staging of her ovarian cancer with metastases. She was treated for ovarian cancer a few years ago and had ongoing chemotherapy, but she decided to give chemotherapy a break in for a while had no issues with her cancer. There is a recent PET scan which results I have not reviewed but it has been indicated to me that the cancer may be worsening and that the bowel obstruction may be related to this. She is currently nauseous from the NG tube which was placed, she admits to anxiety and requesting anxiety medication via IV. She denies any chest pain, shortness of breath, swelling. She denies any headaches, cough, or other symptoms of an upper respiratory infection. Inpatient Certification: I certify that the inpatient services were ordered in accordance with Medicare regulations governing the order. This includes certification that hospital inpatient services are reasonable and necessary and in the case of services not specified as inpatient-only under 42 CFR 419.22(n), that they are appropriately provided as inpatient services in accordance to with the 2-midnight benchmark under 43 CFR 412.3(e) Estimated Total Length of Stay (Days): 7 Plans for Post Hospital Care: Home Review of Systems All other systems reviewed negative except as stated in HPI PMFSH - History History Provided By: Patient - Medical History Medical History: Medical History (Last Updated 11/27/17 @ 09:35 by Emerita Moe RN) Port catheter in place (Acute) Hypertension (Chronic) Neuropathic pain of both legs (Chronic) Hypothyroidism (Chronic) Hx of hysterectomy (Acute) Cancer - Surgical History Surgical History: Surgical History (Last Updated 11/12/17 @ 17:03 by Shaina Flores MD, R1 ) History of back surgery (Chronic) H/O hysterectomy with unilateral oophorectomy - Family History Family History: Family History (Last Updated 11/27/17 @ 14:02 by Cj Isaac MD) Other Heart attack Stomach cancer - Tobacco History Second Hand Smoke Exposure: No Smoking Status: Never smoker - Alcohol History How Often Do You Have a Drink Containing Alcohol: Never - Substance Use History Substance History: No History of Abuse - Travel History Recent Travel in the [place] Within the Last 8 Weeks: No Recent Travel Out of the Country Within the Last 8 Weeks: No - Immunization History Tetanus Immunization: <5 Years Hx Influenza Vaccine This Season: No Medications and Allergies Active Medications: Active Medications Acetaminophen (Tylenol) 650 mg PO Q4H PRN PRN Reason: Temp > 100.4 Al Hydroxide/Mg Hydroxide (Milk Of Anika Liq) 30 ml PO Q12H PRN PRN Reason: Mild Constipation Duloxetine HCl (Cymbalta) 60 mg PO BID MATTEO Enoxaparin Sodium (Lovenox Inj) 40 mg SQ DAILY MATTEO Sodium Chloride (Ns Inj) 1,000 mls @ 100 mls/hr IV.CONT .Q10H MATTEO Levothyroxine Sodium (Synthroid) 50 mcg PO DAILY MATTEO Lorazepam (Ativan Inj) 0.5 mg IV.PUSH Q6H PRN PRN Reason: ANXIETY Metoprolol Tartrate (Lopressor) 50 mg PO DAILY MATTEO Morphine Sulfate (Morphine Inj) 2 mg IV.PUSH Q4H PRN PRN Reason: PAIN SCALE 6 TO 10 Ondansetron HCl (Zofran Inj) 4 mg IV.PUSH Q6H PRN PRN Reason: NAUSEA OR VOMITING Sodium Chloride (Ns Flush) 2 ml IV.FLUSH PRN PRN PRN Reason: FLUSH AFTER USING IV ACCESS Last Admin: 11/27/17 10:31 Dose: 2 ml Allergies Allergy/AdvReac Type Severity Reaction Status Date / Time No Known Allergies Allergy Verified 10/25/17 08:36 Home Medications Medication Instructions Recorded Confirmed Type duloxetine [Cymbalta] 60 mg PO BID 10/07/17 11/12/17 History oxycodone-acetaminophen 1 tab PO Q4HR PRN 10/17/17 11/12/17 History apixaban [Eliquis] 5 mg PO BID 11/12/17 11/12/17 History fluticasone [Flonase Allergy 2 spray INTRANASAL DAILY PRN 11/12/17 11/12/17 History Relief] levothyroxine [Levoxyl] 50 mcg PO DAILY 11/12/17 11/12/17 History metoprolol tartrate 50 mg PO DAILY 11/12/17 11/12/17 History niraparib [Zejula] 100 mg PO QPM 11/12/17 11/12/17 History ondansetron [Zofran ODT] 8 mg PO TID PRN 11/12/17 11/12/17 History temazepam [Restoril] 15 mg PO HS 11/12/17 11/12/17 History Exam Vital signs: Vital Signs 11/27/17 09:05 11/27/17 09:11 11/27/17 13:11 Temperature 98.1 F Pulse Rate 94 H 90 89 Respiratory Rate 16 16 15 Blood Pressure 136/63 118/59 L 118/55 L Pulse Oximetry 97 96 97 Intake & Output 11/26/17 11/27/17 11/27/17 18:59 06:59 18:59 Weight 56.699 kg Narrative: GENERAL: AAOx3, gagging from NG tube, adequate nutrition SKIN: Warm and dry, no rashes. HEAD: Atraumatic. Normocephalic. EYES: Pupils equal, round, reactive to light. No scleral icterus. No injection or drainage. ENT: No nasal bleeding or discharge. Moist mucous membranes. Nonerythematous oropharynx. NG tube in place NECK: Trachea midline. No JVD. Thyroid size within normal limits. CARDIOVASCULAR: Regular rate and rhythm. No murmur, no gallops, no rubs. RESPIRATORY: Clear and equal to auscultation bilaterally. No crackles, no wheezes. No accessory muscle use. GASTROINTESTINAL: Abdomen bloated, no apparent bowel sounds, moderate diffuse tenderness. Hepatic and splenic margins not palpable. MUSCULOSKELETAL: Extremities without clubbing or cyanosis. No obvious deformities. No edema. NEUROLOGICAL: Awake and alert. No obvious cranial nerve deficits. Motor grossly within normal limits. No focal deficits. Five out of 5 muscle strength in the arms and legs. Normal speech. PSYCHIATRIC: Appropriate mood and affect; insight and judgment normal. Results - Labs CBC & Chem 7: 11/27/17 10:10 11/27/17 10:10 Labs: Laboratory Results - last 24 hr 11/27/17 11/27/17 11/27/17 09:50 10:10 10:10 WBC 10.3 RBC 3.81 L Hgb 12.0 Hct 35.6 MCV 93.3 MCH 31.6 MCHC 33.8 RDW 14.6 Plt Count 467 H D MPV 7.4 Neut % (Auto) 78.0 H Lymph % (Auto) 11.7 Dickey % (Auto) 8.7 H Eos % (Auto) 1.0 Baso % (Auto) 0.6 Neut # (Auto) 8.0 H Lymph # (Auto) 1.2 Dickey # (Auto) 0.9 Eos # (Auto) 0.1 Baso # (Auto) 0.1 WBC Differential . Differential Comment Auto diff final Sodium 139 Potassium 4.3 Chloride 101 Carbon Dioxide 26.2 Anion Gap 12 BUN 18 Creatinine 0.96 Estimated GFR 56 L Random Glucose 95 Calcium 8.4 L Total Bilirubin 0.7 AST 22 ALT 22 Alkaline Phosphatase 93 Total Creatine Kinase 51 Troponin I Less than 0.02 L Total Protein 7.5 Albumin 3.1 L Lipase 158 Urine Color Bernice Urine Clarity Hazy H Urine pH 5.0 Ur Specific [place]romas 1.028 Urine Protein 30 H Urine Glucose (UA) Negative Urine Ketones 20 Urine Occult Blood Small H Urine Nitrate Negative Urine Bilirubin Negative Urine Urobilinogen 4 or greater Ur Leukocyte Esterase Trace H Urine RBC 8 H Urine WBC 4 Ur Squamous Epith Cells 1 Urine Bacteria Occasional H Hyaline Casts 4 Urine Mucus Moderate H Micro UA Comment Culture not ind Ur Microscopic Review Not Reportable Urine Culture Comments Culture not ind - Imaging Impressions Abdomen X-Ray 11/27/17 09:36 CONCLUSION: There continues to be moderately dilated loops of small bowel with air-fluid levels in the mid and upper abdomen. This is not significantly changed compared to the prior studies. No evidence of free air. Chest X-Ray 11/27/17 09:36 CONCLUSION: Cardiomegaly. No acute pulmonary disease. Abdomen X-Ray 11/27/17 12:34 CONCLUSION: The NG tube is in the stomach. Caprini VTE Risk Assessment Caprini VTE Risk Assessment: Moderate/High Risk (score >= 2) Caprini Risk Assessment Model: Point Value = 1 Point Value = 2 Point Value = 3 Point Value = 5 Age 41-60 Minor surgery BMI > 25 kg/m2 Swollen legs Varicose veins or History of unexplained or recurrent spontaneous Oral contraceptives or hormone replacement Sepsis (< 1 month) Serious lung disease, including pneumonia (< 1 month) Abnormal pulmonary function Acute myocardial infarction Congestive heart failure (< 1 month) History of inflammatory bowel disease Medical patient at bed rest Age 61-74 Arthroscopic surgery Major open surgery (> 45 min) Laparoscopic surgery (> 45 min) Malignancy Confined to bed (> 72 hours) Immobilizing plaster cast Central venous access Age >= 75 History of VTE Family history of VTE Factor V Leiden Prothrombin [id number] Lupus anticoagulant Anticardiolipin antibodies Elevated serum homocysteine Heparin-induced thrombocytopenia Other congenital or acquired thrombophilia Stroke (< 1 month) Elective arthroplasty Hip, pelvis, or leg fracture Acute spinal cord injury (< 1 month) Prophylaxis Regimen: Total Risk Factor Score Risk Level Prophylaxis Regimen 0-1 Low Early ambulation 2 Moderate Order ONE of the following: *Sequential Compression Device (SCD) *Heparin 5000 units SQ BID 3-4 Higher Order ONE of the following medications: *Heparin 5000 units SQ TID *Enoxaparin/Lovenox 40 mg SQ daily (WT < 150 kg, CrCl > 30 mL/min) *Enoxaparin/Lovenox 30 mg SQ daily (WT < 150 kg, CrCl > 10-29 mL/min) *Enoxaparin/Lovenox 30 mg SQ BID (WT < 150 kg, CrCl > 30 mL/min) AND/OR *Sequential Compression Device (SCD) 5 or more Highest Order ONE of the following medications: *Heparin 5000 units SQ TID (Preferred with Epidurals) *Enoxaparin/Lovenox 40 mg SQ daily (WT < 150 kg, CrCl > 30 mL/min) *Enoxaparin/Lovenox 30 mg SQ daily (WT < 150 kg, CrCl > 10-29 mL/min) *Enoxaparin/Lovenox 30 mg SQ BID (WT < 150 kg, CrCl > 30 mL/min) AND *Sequential Compression Device (SCD) Assessment and Plan - Plan Partial small bowel obstruction Third admission for this in the last 3 weeks Consider worsening of ovarian cancer with metastasis causing bowel irritation and frozen bowel Patient is currently comfortable, not taking pain medication Consult [employer]-Onc (Dr. Girard) to assist with larger picture of ovarian cancer Consider consulting general surgery if pain worsens or fails to respond to standard therapy Continue IV fluids, morphine for pain control, n.p.o., NG tube Anxiety Patient requests IV anxiolytic Ativan 0.5 mg IV every 6 hours ordered Hypertension Resume home meds when p.o. resumed Hypothyroidism Resume home meds when p.o. resumed Peripheral neuropathy Induced by chemotherapy Resume home meds when p.o. resumed DVT prophylaxis Patient usually takes Eliquis but is currently n.p.o. Lovenox written as replacement, to begin tomorrow Patient may resume her Eliquis and DC Lovenox when p.o. status is resumed
[2017-11-27] MEDS: Sod Chloride 0.9% Inj 1,000 ML IV.CONT SCH (14:35)
--- NOTE | 2017-11-27 17:38 | MB ---
cc: Diana Girard MD, Samuel DATE: 11/27/2017 DATE OF CONSULTATION: 11/27/2017 PHYSICIAN REQUESTING CONSULT: Dr. Greg Pan and Dr. Cj Isaac. REASON FOR CONSULTATION: The patient known to us with recurrent ovarian cancer. REASON FOR ADMISSION: Signs and symptoms of small-bowel obstruction. HISTORY OF PRESENT ILLNESS: A 77-year-old female who has been under our care for a number of years. 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 Her diagnosis is most consistent with stage IIIC bilateral ovarian cancer with recurrence. 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 In September, she started to have some more bleeding and pain, felt some increasing abdominal distention and was counseled and she was to the point where she wanted to restart treatment for the underlying disease. Accordingly, she was started on an oral PARP inhibitor (Zejula) 200 mg per day. She reports that she tolerated this medication without any adverse effect and took it for approximately 4 weeks. However, in early October, she started having nausea, some vomiting, some cramp-like pain, intermittent bowel function. She had previously been seen and evaluated in the hospital where signs and symptoms of small-bowel obstruction where she was given supportive care, IV fluids, bowel rest, and she recovered by conservative methods. However, she presented again to the emergency room because of very intense cramp-like pain across the right and left upper abdomen associated with nausea and vomiting, although she did have fairly active diarrhea as well and then no bowel function after this morning. She denies any fevers or chills. No one else in the family has been sick. She is seen now in the emergency room. A nasogastric tube has been placed. I met with her and updated her on her recent PET/CT scan. The PET/CT scan was done on 11/19/2017. When I explained the results to her, I reminded her that the comparison film was back in July 2016 such that it was approximately 15 months ago, and it was during that time where she was not on treatment such that progression was not unexpected. The synopsis was that there has been overall progression of disease. There is new adenopathy, hypermetabolic in the left supraclavicular area, mediastinum, pericardial regions, periaortic and left pelvic lymph nodes, hypermetabolic. There is diffuse hypermetabolic activity in what they call the uterus, but in fact, she has had a hysterectomy and that is the known central pelvic tumor and some nonspecific changes in the lung. In discussion with Brenda Diop, I reviewed these findings and emphasized that she was recently started on the new medication and is too soon to tell whether or not it will be effective. Certainly it is difficult for her to maintain compliance and get adequate dosing when her gastrointestinal system is so upset. It is hoped that we can get her feeling better, get her back on the Zejula to give an earnest assessment regarding its effectiveness. If she cannot tolerate the Zejula, we may need to consider reinitiating IV chemotherapy and her treatment history was summarized and reviewed, and there are options available for considering chemotherapy if we cannot get her back effectively on the oral therapy. Discussion ensued. Questions were asked and answered. As always, she is very gracious and very grateful for the care provided. I am sorry she is feeling poorly. Objective findings are the PET scan that was done as an outpatient recently. Abdominal x-ray done today shows nasogastric tube to be in the stomach. The lung bases are clear with findings consistent with earlier film which shows multiple dilated loops of small bowel. Most noted in the left upper quadrant with a paucity of gas distally. Chest x-ray shows no acute pulmonary disease. LABORATORY DATA: White count 10.3, H and H 12 and 35.6, platelets 467. Electrolytes showed preserved renal function, BUN and creatinine 18 and 0.96, potassium 4.3. Transaminases normal. Serum albumin low at 3.1. PAST MEDICAL HISTORY: Includes ovarian cancer as described above, hypertension. She has a neuropathy with some weakness, bilateral foot drop for which she wears braces to assist in ambulation, hypothyroidism. REVIEW OF SYSTEMS: As per history of present illness. PAST SURGICAL HISTORY: She has had her candidacy for surgical, now estimated 3 years ago. She has had 4 previous lines of chemotherapy and currently on the 5th line of oral medication. FAMILY HISTORY: Notable for cardiac disease and gastric cancer. ALLERGIES: LISTED IN THE CHART AND REVIEWED. REVIEW OF SYSTEMS: No additional information to add. PHYSICAL EXAMINATION: VITAL SIGNS: Afebrile, pulse 89, respirations 16, blood pressure 118/55, O2 saturations 96% to 97% on room air. GENERAL: She is resting reasonably comfortable and states that she is already feeling much better than she did earlier this morning. HEENT: Pupils equal, round, reactive to light. Extraocular movements intact. Mucous membranes are a bit dry. Nasogastric tube is intact appears to be approximately 200 mL of dark material in the canister. LYMPH NODES: I cannot palpate the radiographically detected supraclavicular lymph nodes. LUNGS: Clear. Scant basilar rales. CARDIOVASCULAR: Regular rate and rhythm. BACK: No CVA tenderness or spinal point tenderness. ABDOMEN: Mildly distended, but compressible soft. She tolerates exam in all 4 quadrants. The bowel sounds are quite hypoactive. She has well-healed surgical incisions. PELVIC: Deferred given recent office pelvic exam and as noted above, there is known central tumor with erosion through the vaginal apex. EXTREMITIES: Neuromuscular weakness with the neuropathic changes, some peripheral muscular wasting and decreased strength and foot drop and peripheral neuropathy all requiring supportive boots. More questions were asked and answered. She expressed good understanding. We hope she gets feeling better. She is philosophically still in favor of continuing treatment and is hopeful to give the current medication an adequate trial with the understanding that if she keeps having these issues with her small bowel, we may need to change to an IV regimen. It is hoped that we can resolve her intermittent small-bowel obstruction with conservative measures and try to avoid surgery if possible. She also understands there are certain circumstances where surgery may be necessary. Discussion ensued. Questions were asked and answered. She expressed good understanding. ASSESSMENT AND PLAN: 1. Recurrent stage IIIC bilateral ovarian cancer. 2. Signs and symptoms of small-bowel obstruction with a couple of previous recent similar bouts. 3. Recent reinitiation of treatment after a 15-month hiatus despite known immeasurable disease. 4. Currently on a 5th line with Zejula (oral PARP inhibitor), which she was tolerating well during the first 4 weeks of medication. 5. Extensive discussion. PLAN: 1. I am grateful for the excellent medical care. I agree with continued nasogastric decompression, IV fluids, hydration, correction of electrolytes, symptomatic management and supportive care. 2. Would be conservative and await for consistent return of flatus, return of bowel function, followed by trial of clamping the NG tube with a trial of clear liquids and only consider removal of the NG tube after she tolerates the aforementioned steps without difficulty. 3. The overall plan of care from an oncology standpoint when she is able, we will reinitiate Zejula which is a daily medication 200 mg in the hopes of seeing good response to the underlying tumor. She understands the underlying tumor is either directly or indirectly contributing to her symptoms and the intermittent small-bowel obstruction and in order to make significant progress in that regard we will need to see a good response to treatment. Thank you for the consultation. We will follow along in her care. MD LARRY PerlaM/lori , 04:27 PM , 04:46 PM
[2017-11-28] MEDS: Sod Chloride 0.9% Inj 1,000 ML IV.CONT SCH ×2 (03:37→14:00)
[2017-11-28 07:35] LABS: Hematocrit 33.1 % (35.0-46.0); Hemoglobin 11.4 gm/dL (11.6-15.3); Mean Corpuscular HGB Conc 34.4 % (32.0-36.0); Mean Corpuscular Hemoglobin 32.1 pg (27.0-34.0); Mean Corpuscular Volume 93.4 fL (80.0-100.0); Mean Platelet Volume 7.4 fL (7.0-11.0); Platelet Count 384 th/mm3 (150-450); Red Blood Count 3.54 mil/mm3 (4.00-5.30); Red Cell Distribution Width 14.6 % (11.6-17.2)
[2017-11-28] MEDS: Levothyroxine 50 MCG Tablet PO SCH (08:00)
[2017-11-28 08:22] LABS: Calcium 8.2 mg/dL (8.5-10.1); Carbon Dioxide 23.8 meq/L (21.0-32.0); Potassium 3.3 meq/L (3.5-5.1); Thyroid Stimulating Hormone 1.03 uIU/mL (0.358-3.740)
[2017-11-28] MEDS: Metoprolol Tartrate 50 MG Tablet PO SCH (09:07)
[2017-11-28] MEDS: Enoxaparin Inj 40 MG/0.4 ML Syringe SQ SCH (09:08)
--- NOTE | 2017-11-28 10:55 | P.PN ---
Subjective Interval history: Follow-up small bowel obstruction November 28, 2017-patient seen and examined still n.p.o. with NG tube in place, denies any significant abdominal pain today. No nausea. Physical Exam Vital signs: Vital Signs 11/27/17 13:11 11/27/17 17:10 11/27/17 18:00 Temperature Pulse Rate 89 88 102 H Respiratory Rate 15 16 Blood Pressure 118/55 L 110/53 L Pulse Oximetry 97 97 11/27/17 18:51 11/27/17 19:00 11/27/17 20:00 Temperature 99.2 F 98.5 F Pulse Rate 107 H 103 H 104 H Respiratory Rate 16 20 Blood Pressure 134/70 146/73 H Pulse Oximetry 96 95 11/28/17 00:00 11/28/17 04:00 11/28/17 07:59 Temperature 98.0 F Pulse Rate 106 H 104 H 109 H Respiratory Rate 16 16 16 Blood Pressure 148/79 H 150/81 H Pulse Oximetry 96 95 97 Intake & Output 11/27/17 11/28/17 11/28/17 18:59 06:59 18:59 Intake Total 1000 / 1000 Output Total 50 / 50 200 / 200 Balance -50 / -50 800 / 800 Weight 56.699 kg 55.7 kg Intake: IV 1000 / 1000 NS Inj 1,000 ML @ 100 mls/hr IV 1000 / 1000 .CONT .Q10H MATTEO Rx#:[id number] Output: Urine 100 / 100 Gastric Drainage 50 / 50 100 / 100 Right Nare Nasogastric Tube 50 / 50 100 / 100 Other: # Voids 1 Date of Last Bowel Movement 11/27/17 11/27/17 11/27/17 Narrative: GENERAL: NAD with NGT in place SKIN: Warm and dry. HEAD: Normocephalic. EYES: No scleral icterus. No injection or drainage. NECK: Supple, trachea midline. No JVD or lymphadenopathy. CARDIOVASCULAR: Regular rate and rhythm without murmurs, gallops, or rubs. RESPIRATORY: Breath sounds equal bilaterally. No accessory muscle use. GASTROINTESTINAL: Abdomen soft, non-tender, nondistended. Hypoactive bowel sounds MUSCULOSKELETAL: No cyanosis, or edema. BACK: Nontender without obvious deformity. No CVA tenderness. Results - Labs CBC & Chem 7: 11/28/17 07:04 11/28/17 07:04 Laboratory Results - last 24 hr 11/27/17 11/27/17 11/28/17 09:50 10:10 07:04 WBC 8.0 RBC 3.54 L Hgb 11.4 L Hct 33.1 L MCV 93.4 MCH 32.1 MCHC 34.4 RDW 14.6 Plt Count 384 MPV 7.4 Sodium 139 Potassium 4.3 Chloride 101 Carbon Dioxide 26.2 Anion Gap 12 BUN 18 Creatinine 0.96 Estimated GFR 56 L Random Glucose 95 Calcium 8.4 L Total Bilirubin 0.7 AST 22 ALT 22 Alkaline Phosphatase 93 Total Creatine Kinase 51 Troponin I Less than 0.02 L Total Protein 7.5 Albumin 3.1 L Lipase 158 TSH Urine Color Bernice Urine Clarity Hazy H Urine pH 5.0 Ur Specific Eidson 1.028 Urine Protein 30 H Urine Glucose (UA) Negative Urine Ketones 20 Urine Occult Blood Small H Urine Nitrate Negative Urine Bilirubin Negative Urine Urobilinogen 4 or greater Ur Leukocyte Esterase Trace H Urine RBC 8 H Urine WBC 4 Ur Squamous Epith Cells 1 Urine Bacteria Occasional H Hyaline Casts 4 Urine Mucus Moderate H Micro UA Comment Culture not ind Ur Microscopic Review Not Reportable Urine Culture Comments Culture not ind 11/28/17 07:04 WBC RBC Hgb Hct MCV MCH MCHC RDW Plt Count MPV Sodium 140 Potassium 3.3 L D Chloride 104 Carbon Dioxide 23.8 Anion Gap 12 BUN 14 Creatinine 0.69 Estimated GFR 82 L Random Glucose 73 L Calcium 8.2 L Total Bilirubin AST ALT Alkaline Phosphatase Total Creatine Kinase Troponin I Total Protein Albumin Lipase TSH 1.030 Urine Color Urine Clarity Urine pH Ur Specific Eidson Urine Protein Urine Glucose (UA) Urine Ketones Urine Occult Blood Urine Nitrate Urine Bilirubin Urine Urobilinogen Ur Leukocyte Esterase Urine RBC Urine WBC Ur Squamous Epith Cells Urine Bacteria Hyaline Casts Urine Mucus Micro UA Comment Ur Microscopic Review Urine Culture Comments - Imaging Impressions Abdomen X-Ray 11/27/17 12:34 CONCLUSION: The NG tube is in the stomach. Assessment and Plan - Plan 77-year-old female with Partial small bowel obstruction Consider worsening of ovarian cancer with metastasis Appreciate input from [facility] Continue IV fluids, morphine for pain control, n.p.o., NG tube However since this is patient's third admission's, will consult general surgery for evaluation Check daily flat and upright x-ray Anxiety Ativan 0.5 mg IV every 6 hours ordered Hypertension Resume home meds when p.o. resumed Hypothyroidism Resume home meds when p.o. resumed Peripheral neuropathy Induced by chemotherapy Resume home meds when p.o. resumed DVT prophylaxis Patient usually takes Eliquis but is currently n.p.o. Lovenox written as replacement
--- NOTE | 2017-11-28 14:00 | P.PN ---
Subjective Interval history: Resting. Comfortable overnight. No additional emesis, nausea reduced . NGT in place. Physical Exam Vital signs: Vital Signs 11/27/17 17:10 11/27/17 18:00 11/27/17 18:51 Temperature 99.2 F Pulse Rate 88 102 H 107 H Respiratory Rate 16 16 Blood Pressure 110/53 L 134/70 Pulse Oximetry 97 96 11/27/17 19:00 11/27/17 20:00 11/28/17 00:00 Temperature 98.5 F Pulse Rate 103 H 104 H 106 H Respiratory Rate 20 16 Blood Pressure 146/73 H Pulse Oximetry 95 96 11/28/17 04:00 11/28/17 07:59 11/28/17 12:06 Temperature 98.0 F 98.3 F Pulse Rate 104 H 109 H 81 Respiratory Rate 16 16 16 Blood Pressure 148/79 H 150/81 H 130/68 Pulse Oximetry 95 97 95 Intake & Output 11/27/17 11/28/17 11/28/17 18:59 06:59 18:59 Intake Total 1000 / 1000 Output Total 50 / 50 200 / 200 Balance -50 / -50 800 / 800 Weight 56.699 kg 55.7 kg Intake: IV 1000 / 1000 NS Inj 1,000 ML @ 100 mls/hr IV 1000 / 1000 .CONT .Q10H [facility]TEO Rx#:[id number] Output: Urine 100 / 100 Gastric Drainage 50 / 50 100 / 100 Right Nare Nasogastric Tube 50 / 50 100 / 100 Other: # Voids 1 Date of Last Bowel Movement 11/27/17 11/27/17 11/27/17 - Constitutional no acute distress - Routine Abdominal Exam Present: soft, distended (no significant change in exam since yesterday) Results - Labs CBC & Chem 7: 11/29/17 05:56 11/30/17 04:06 Laboratory Results - last 24 hr 11/28/17 11/28/17 07:04 07:04 WBC 8.0 RBC 3.54 L Hgb 11.4 L Hct 33.1 L MCV 93.4 MCH 32.1 MCHC 34.4 RDW 14.6 Plt Count 384 MPV 7.4 Sodium 140 Potassium 3.3 L D Chloride 104 Carbon Dioxide 23.8 Anion Gap 12 BUN 14 Creatinine 0.69 Estimated GFR 82 L Random Glucose 73 L Calcium 8.2 L TSH 1.030 Assessment and Plan - Plan HD#2 Recurrent ovarian cancer SBO, stable overnight CPM of NGT decompression, IVF, supportive care Hopeful resolution with conservative measures.
--- NOTE | 2017-11-28 16:02 | P.CONGS ---
[facility] Gen Surgery Consult Note Consult date: 11/28/17 Reason for consult: abdominal pain Requesting physician: Yinka Shoemaker Narrative: This is a 77 year old female with a past medical history of recurrent metastatic ovarian cancer, hypertension, recurrent SBO and neuropathy who presented to the ED yesterday morning with increased abdominal pain and distention. She does report associated nausea. She reports that it started about three weeks. She does have a recent hospitalization about two weeks ago for a similar episode and was seen by Dr. England. She had a small bowel follow through, her bowels began to work and she was able to tolerate a regular diet. She was DCed home. Currently, she is not passing any flatus but did have diarrhea this morning. A KUB was done this AM which shows moderately dilated loops of small bowel with air fluid levels. An NGT has been placed for decompression. A General Surgery consultation has been requested. Review of Systems All other systems reviewed negative except as stated in [facility] - History History Provided By: Patient - Medical History Medical History: Medical History (Last Updated 11/28/17 @ 17:27 by ARTUR Zazueta) Port catheter in place (Acute) Hypertension (Chronic) Neuropathic pain of both legs (Chronic) Hypothyroidism (Chronic) Hx of hysterectomy (Acute) Cancer Encounter for diagnostic procedure - Surgical History Surgical History: Surgical History (Last Reviewed 11/28/17 @ 17:27 by ARTUR Zazueta) History of back surgery (Chronic) H/O hysterectomy with unilateral oophorectomy - Family History Family History: Family History (Last Updated 11/27/17 @ 14:02 by Cj Isaac MD) Other Heart attack Stomach cancer - Tobacco History Second Hand Smoke Exposure: No Smoking Status: Never smoker - Alcohol History How Often Do You Have a Drink Containing Alcohol: Never - Substance Use History Substance History: No History of Abuse - Travel History Recent Travel in the [place] Within the Last 8 Weeks: No Recent Travel Out of the Country Within the Last 8 Weeks: No - Immunization History Tetanus Immunization: <5 Years Hx Influenza Vaccine This Season: No Medications and Allergies Allergies Allergy/AdvReac Type Severity Reaction Status Date / Time No Known Allergies Allergy Verified 10/25/17 08:36 Home Medications Medication Instructions Recorded Confirmed Type duloxetine [Cymbalta] 60 mg PO BID 10/07/17 11/12/17 History oxycodone-acetaminophen 1 tab PO Q4HR PRN 10/17/17 11/12/17 History apixaban [Eliquis] 5 mg PO BID 11/12/17 11/12/17 History fluticasone [Flonase Allergy 2 spray INTRANASAL DAILY PRN 11/12/17 11/12/17 History Relief] levothyroxine [Levoxyl] 50 mcg PO DAILY 11/12/17 11/12/17 History metoprolol tartrate 50 mg PO DAILY 11/12/17 11/12/17 History niraparib [Zejula] 100 mg PO QPM 11/12/17 11/12/17 History ondansetron [Zofran ODT] 8 mg PO TID PRN 11/12/17 11/12/17 History temazepam [Restoril] 15 mg PO HS 11/12/17 11/12/17 History Active Medications: Active Medications Acetaminophen (Tylenol) 650 mg PO Q4H PRN PRN Reason: Temp > 100.4 Al Hydroxide/Mg Hydroxide (Milk Of ItsPlatonic) 30 ml PO Q12H PRN PRN Reason: Mild Constipation Duloxetine HCl (Cymbalta) 60 mg PO BID [facility] Last Admin: 11/28/17 09:07 Dose: 60 mg Enoxaparin Sodium (Lovenox Inj) 40 mg SQ DAILY [facility] Last Admin: 11/28/17 09:08 Dose: 40 mg Potassium Chloride 30 meq/ (Sodium Chloride) 1,015 mls @ 84 mls/hr IV.CONT .Q12H5M [facility] Levothyroxine Sodium (Synthroid) 50 mcg PO DAILY@0600 [facility] Last Admin: 11/28/17 08:00 Dose: Not Given Lorazepam (Ativan Inj) 0.5 mg IV.PUSH Q6H PRN PRN Reason: ANXIETY Last Admin: 11/28/17 03:38 Dose: 0.5 mg Metoprolol Tartrate (Lopressor) 50 mg PO DAILY [facility] Last Admin: 11/28/17 09:07 Dose: 50 mg Morphine Sulfate (Morphine Inj) 2 mg IV.PUSH Q4H PRN PRN Reason: PAIN SCALE 6 TO 10 Ondansetron HCl (Zofran Inj) 4 mg IV.PUSH Q6H PRN PRN Reason: NAUSEA OR VOMITING Sodium Chloride (Ns Flush) 2 ml IV.FLUSH PRN PRN PRN Reason: FLUSH AFTER USING IV ACCESS Last Admin: 11/27/17 10:31 Dose: 2 ml Exam Vital signs: Vital Signs 11/27/17 17:10 11/27/17 18:00 11/27/17 18:51 Temperature 99.2 F Pulse Rate 88 102 H 107 H Respiratory Rate 16 16 Blood Pressure 110/53 L 134/70 Pulse Oximetry 97 96 11/27/17 19:00 11/27/17 20:00 11/28/17 00:00 Temperature 98.5 F Pulse Rate 103 H 104 H 106 H Respiratory Rate 20 16 Blood Pressure 146/73 H Pulse Oximetry 95 96 11/28/17 04:00 11/28/17 07:59 11/28/17 12:06 Temperature 98.0 F 98.3 F Pulse Rate 104 H 109 H 81 Respiratory Rate 16 16 16 Blood Pressure 148/79 H 150/81 H 130/68 Pulse Oximetry 95 97 95 Intake & Output 11/27/17 11/28/17 11/28/17 18:59 06:59 18:59 Intake Total 1000 / 1000 1000 / 1000 Output Total 50 / 50 200 / 200 Balance -50 / -50 800 / 800 1000 / 1000 Weight 56.699 kg 55.7 kg Intake: IV 1000 / 1000 1000 / 1000 NS Inj 1,000 ML @ 100 mls/hr IV 1000 / 1000 1000 / 1000 .CONT .Q10H [facility] Rx#:[id number] Output: Urine 100 / 100 Gastric Drainage 50 / 50 100 / 100 Right Nare Nasogastric Tube 50 / 50 100 / 100 Other: # Voids 1 Date of Last Bowel Movement 11/27/17 11/27/17 11/27/17 Narrative: GENERAL: Pleasant 77 year old female up to a chair; she is no acute distress. SKIN: Warm and dry. HEAD: Atraumatic. Normocephalic. EYES: Pupils equal and round. No scleral icterus. No injection or drainage. ENT: No nasal bleeding or discharge. Mucous membranes dry. NECK: Trachea midline. CARDIOVASCULAR: Regular rate and rhythm. RESPIRATORY: No accessory muscle use. Clear to auscultation. Breath sounds equal bilaterally. GASTROINTESTINAL: Abdomen soft, non-tender, nondistended. No audible bowel sounds. NGT in place with brown drainage. MUSCULOSKELETAL: Extremities without clubbing, cyanosis, or edema. No obvious deformities. She has a tattoo on her RIGHT lower leg. NEUROLOGICAL: Awake and alert. No obvious cranial nerve deficits. Motor grossly within normal limits. Five out of 5 muscle strength in the arms and legs. Normal speech. PSYCHIATRIC: Appropriate mood and affect; insight and judgment normal. Results - Labs 11/29/17 05:56 11/30/17 04:06 Laboratory Results WBC 8.0 th/mm3 (4.0-11.0) 11/28/17 07:04 RBC 3.54 mil/mm3 (4.00-5.30) L 11/28/17 07:04 Hgb 11.4 gm/dL (11.6-15.3) L 11/28/17 07:04 Hct 33.1 % (35.0-46.0) L 11/28/17 07:04 MCV 93.4 fL (80.0-100.0) 11/28/17 07:04 MCH 32.1 pg (27.0-34.0) 11/28/17 07:04 MCHC 34.4 % (32.0-36.0) 11/28/17 07:04 RDW 14.6 % (11.6-17.2) 11/28/17 07:04 Plt Count 384 th/mm3 (150-450) 11/28/17 07:04 MPV 7.4 fL (7.0-11.0) 11/28/17 07:04 Neut % (Auto) 78.0 % (16.0-70.0) H 11/27/17 10:10 Lymph % (Auto) 11.7 % (9.0-44.0) 11/27/17 10:10 [place] % (Auto) 8.7 % (0.0-8.0) H 11/27/17 10:10 Eos % (Auto) 1.0 % (0.0-4.0) 11/27/17 10:10 Baso % (Auto) 0.6 % (0.0-2.0) 11/27/17 10:10 Neut # (Auto) 8.0 th/mm3 (1.8-7.7) H 11/27/17 10:10 Lymph # (Auto) 1.2 th/mm3 (1.0-4.8) 11/27/17 10:10 [place] # (Auto) 0.9 th/mm3 (0.0-0.9) 11/27/17 10:10 Eos # (Auto) 0.1 th/mm3 (0.0-0.4) 11/27/17 10:10 Baso # (Auto) 0.1 th/mm3 (0.0-0.2) 11/27/17 10:10 WBC Differential . 11/27/17 10:10 Differential Comment Auto diff final 11/27/17 10:10 Sodium 140 meq/L (136-145) 11/28/17 07:04 Potassium 3.3 meq/L (3.5-5.1) L D 11/28/17 07:04 Chloride 104 meq/L (98-107) 11/28/17 07:04 Carbon Dioxide 23.8 meq/L (21.0-32.0) 11/28/17 07:04 Anion Gap 12 meq/L (5-15) 11/28/17 07:04 BUN 14 mg/dL (7-18) 11/28/17 07:04 Creatinine 0.69 mg/dL (0.50-1.00) 11/28/17 07:04 Estimated GFR 82 mL/min (>89) L 11/28/17 07:04 Random Glucose 73 mg/dL (74-106) L 11/28/17 07:04 Calcium 8.2 mg/dL (8.5-10.1) L 11/28/17 07:04 Total Bilirubin 0.7 mg/dL (0.2-1.0) 11/27/17 10:10 AST 22 U/L (15-37) 11/27/17 10:10 ALT 22 U/L (10-53) 11/27/17 10:10 Alkaline Phosphatase 93 U/L (45-117) 11/27/17 10:10 Total Creatine Kinase 51 U/L (26-192) 11/27/17 10:10 Troponin I Less than 0.02 ng/mL (0.02-0.05) L 11/27/17 10:10 Total Protein 7.5 g/dL (6.4-8.2) 11/27/17 10:10 Albumin 3.1 g/dL (3.4-5.0) L 11/27/17 10:10 Lipase 158 U/L (73-393) 11/27/17 10:10 TSH 1.030 uIU/mL (0.358-3.740) 11/28/17 07:04 Urine Color Bernice (Yellw/Straw) 11/27/17 09:50 Urine Clarity Hazy (Clear) H 11/27/17 09:50 Urine pH 5.0 (5.0-8.5) 11/27/17 09:50 Ur Specific [place] 1.028 (1.002-1.035) 11/27/17 09:50 Urine Protein 30 mg/dL (Neg-Trace) H 11/27/17 09:50 Urine Glucose (UA) Negative mg/dL (Negative) 11/27/17 09:50 Urine Ketones 20 mg/dL (Negative) 11/27/17 09:50 Urine Occult Blood Small (Negative) H 11/27/17 09:50 Urine Nitrate Negative (Negative) 11/27/17 09:50 Urine Bilirubin Negative (Negative) 11/27/17 09:50 Urine Urobilinogen 4 or greater mg/dL (Less than 2) 11/27/17 09:50 Ur Leukocyte Esterase Trace (Negative) H 11/27/17 09:50 Urine RBC 8 /hpf (0-3) H 11/27/17 09:50 Urine WBC 4 /hpf (0-5) 11/27/17 09:50 Ur Squamous Epith Cells 1 /hpf (0-5) 11/27/17 09:50 Urine Bacteria Occasional /hpf (None) H 11/27/17 09:50 Hyaline Casts 4 /lpf (0-3) 11/27/17 09:50 Urine Mucus Moderate /lpf (Occasional) H 11/27/17 09:50 Micro UA Comment Culture not ind 11/27/17 09:50 Ur Microscopic Review Not Reportable 11/27/17 09:50 Urine Culture Comments Culture not ind 11/27/17 09:50 Impressions Chest X-Ray 11/27/17 09:36 CONCLUSION: Cardiomegaly. No acute pulmonary disease. Abdomen X-Ray 11/28/17 00:00 CONCLUSION: Small bowel dilatation consistent with ileus or obstruction unchanged from the prior study. Followup examination is recommended if clinically indicated. Nasogastric tube as above - Imaging Abdominal x-ray: image reviewed Assessment and Plan - Assessment (1) SBO (small bowel obstruction) Code(s): K56.609 - Unspecified intestinal obstruction, unspecified as to partial versus complete obstruction Status: Acute Plan: 77 year old female with ovarian cancer; recurrent small bowel obstructions; RUE DVT on OAC -Discussed that if patient does not progress can plan for diagnostic laparoscopy Friday -Continue Lovenox for now; hold after Friday evening -NGT to LIWS -OOB and mobilize -IVF -Discussed in detail with patient -Thank you for this consult; We will continue to follow - Plan Discussed Condition With: Dr. Mani Randle MS3 Ms. Diop - Attending Attestation I personally evaluated the patient on November 28, 2017 in room 2 5 in the presence of her nurse, Katey Jackson, and Razia Moore MS3. She has had several episodes of partial small bowel obstructions that resolved with nonoperative management. She goes home is able to tolerate liquids for a few days and progresses to solid foods and then begins having daily emesis of what she has eaten. She develops pain and is unable to maintain adequate nutrition and hydration and comes back to the hospital. Imaging was reviewed in detail which appears to show findings consistent with partial small bowel obstruction. I discussed her case with Dr. Girard by phone and offered diagnostic laparoscopy laparoscopic adhesiolysis possible open surgery possible small bowel resection on December 02. I discussed her case with Dr. Chinmay England who saw the patient previously in consultation and we will attempt to add her surgery on her Friday when the operating room can accommodate her. Her abdominal exam on 11/28/2017 demonstrated a soft relatively nontender abdomen with mild protuberance. She has healed laparoscopic scars from my presume laparoscopic robotic surgery by Dr. Girard. There are no obvious hernias. The exam, history, and the medical decision-making described in the above note were completed with the assistance of the mid-level provider. I reviewed and agree with the findings presented. I attest that I had a [id number] encounter with the patient on the same day, and personally performed and documented my assessment and findings in the medical record.
--- NOTE | 2017-11-28 16:23 | XR ---
EXAM DATE: 11/28/2017 4:10 PM EDT AGE/SEX: 77 years / Female INDICATIONS: Patient complains of abdominal pain. CLINICAL DATA: This is the patient's subsequent encounter. Patient reports that signs and symptoms h ave been present for 2 weeks and indicates a pain score of 4/10. MEDICAL/SURGICAL HISTORY: None. None. COMPARISON: [facility] [place], ABDOMEN UPRIGHT ONLY, 11/27/2017. . FINDINGS: Examination of the abdomen demonstrates gaseous distention of the small bowel with air fluid levels w hich may reflect ileus or obstruction. No free air is identified. No organomegaly is evident. The fin dings are similar to the prior exam. Nasogastric tube is in the stomach with the proximal sidehole at the gastroesophageal junction. This could be advanced 5 cm. Postsurgical changes are present in the lumbar spine. CONCLUSION: Small bowel dilatation consistent with ileus or obstruction unchanged from the prior study. Followup examination is recommended if clinically indicated. Nasogastric tube as above Electronically signed by: Scott Mitchell MD 11/28/2017 4:22 PM EDT
[2017-11-28] MEDS: Potassium Chloride Inj 30 MEQ in Sod Chloride 0.9% Inj 1,000 ML IV.CONT SCH (17:09)
[2017-11-29] MEDS: Potassium Chloride Inj 30 MEQ in Sod Chloride 0.9% Inj 1,000 ML IV.CONT SCH ×3 (06:00→21:04)
[2017-11-29] MEDS: Levothyroxine 50 MCG Tablet PO SCH (06:01)
[2017-11-29 06:29] LABS: Alanine Aminotransferase 19 U/L (10-53); Albumin 2.8 g/dL (3.4-5.0); Anion Gap 16 meq/L (5-15); Aspartate Aminotransferase 21 U/L (15-37); Blood Urea Nitrogen 11 mg/dL (7-18); Calcium 8.2 mg/dL (8.5-10.1); Carbon Dioxide 21.9 meq/L (21.0-32.0); Chloride 103 meq/L (98-107); Glomerular Filtration Rate Greater Than 89 mL/min (>89); Glucose,Random 65 mg/dL (74-106); Potassium 4.1 meq/L (3.5-5.1)
[2017-11-29 06:31] LABS: Alkaline Phosphatase 95 U/L (45-117); Total Protein 6.8 g/dL (6.4-8.2)
[2017-11-29 06:46] LABS: Sodium 141 meq/L (136-145)
[2017-11-29 06:51] LABS: Baso # (Auto) 0.1 th/mm3 (0.0-0.2); Eos # (Auto) 0.2 th/mm3 (0.0-0.4); Eos % (Auto) 2.1 % (0.0-4.0); Hematocrit 34.7 % (35.0-46.0); Hemoglobin 11.6 gm/dL (11.6-15.3); Lymph # (Auto) 1.4 th/mm3 (1.0-4.8); Lymph % (Auto) 14.3 % (9.0-44.0); Mean Corpuscular HGB Conc 33.5 % (32.0-36.0); Mean Corpuscular Hemoglobin 31.7 pg (27.0-34.0); Mean Corpuscular Volume 94.8 fL (80.0-100.0); Mean Platelet Volume 7.9 fL (7.0-11.0); Mono # (Auto) 1.1 th/mm3 (0.0-0.9); Mono % (Auto) 11.6 % (0.0-8.0); Neut # (Auto) 6.9 th/mm3 (1.8-7.7); Platelet Count 336 th/mm3 (150-450); Red Blood Count 3.66 mil/mm3 (4.00-5.30); Red Cell Distribution Width 15.1 % (11.6-17.2); White Blood Count 9.8 th/mm3 (4.0-11.0)
[2017-11-29] MEDS: Enoxaparin Inj 40 MG/0.4 ML Syringe SQ SCH (08:29)
[2017-11-29] MEDS: Metoprolol Tartrate 50 MG Tablet PO SCH (08:29)
[2017-11-29] MEDS ORDERED: hydrALAZINE 25 MG Tablet PO PRN (12:06)
--- NOTE | 2017-11-29 12:09 | P.PN ---
Subjective Interval history: Follow-up small bowel obstruction November 28, 2017-patient seen and examined still n.p.o. with NG tube in place, denies any significant abdominal pain today. No nausea. November 29, 2017-patient seen and examined, denies any significant abdominal pain. No acute event overnight. Physical Exam Vital signs: Vital Signs 11/28/17 15:00 11/28/17 16:00 11/28/17 18:03 Temperature 98.0 F Pulse Rate 90 90 Respiratory Rate 16 18 Blood Pressure 148/78 H Pulse Oximetry 96 11/28/17 19:55 11/28/17 20:00 11/29/17 00:00 Temperature 97.1 F L 98.3 F Pulse Rate 86 89 96 H Respiratory Rate 18 16 16 Blood Pressure 147/79 H 149/90 H Pulse Oximetry 96 95 11/29/17 04:00 11/29/17 07:00 11/29/17 08:00 Temperature 97.6 F 97.7 F Pulse Rate 103 H 105 H 117 H Respiratory Rate 16 18 Blood Pressure 145/80 H 144/79 H Pulse Oximetry 95 Intake & Output 11/28/17 11/29/17 11/29/17 18:59 06:59 18:59 Intake Total 1200 / 1200 1455 / 1455 Output Total 155 / 155 475 / 475 Balance 1045 / 1045 980 / 980 Weight 74.5 kg Intake: IV 1200 / 1200 1015 / 1015 KCl Inj 30 MEQ In NS Inj 1,000 1015 / 1015 ML @ 84 mls/hr IV.CONT .Q12H5M [facility] Rx#:[id number] NS Inj 1,000 ML @ 100 mls/hr IV 1200 / 1200 .CONT .Q10H [facility] Rx#:[id number] Oral 0 / 0 440 / 440 Output: Urine 450 / 450 Gastric Drainage 155 / 155 25 / 25 Right Nare Nasogastric Tube 155 / 155 25 / 25 Other: # Voids 3 Date of Last Bowel Movement 11/27/17 11/27/17 Narrative: GENERAL: NAD with NGT in place SKIN: Warm and dry. HEAD: Normocephalic. EYES: No scleral icterus. No injection or drainage. NECK: Supple, trachea midline. No JVD or lymphadenopathy. CARDIOVASCULAR: Regular rate and rhythm without murmurs, gallops, or rubs. RESPIRATORY: Breath sounds equal bilaterally. No accessory muscle use. GASTROINTESTINAL: Abdomen soft, non-tender, nondistended. Hyperactive bowel sounds MUSCULOSKELETAL: No cyanosis, or edema. BACK: Nontender without obvious deformity. No CVA tenderness. Results - Labs CBC & Chem 7: 11/29/17 05:56 11/29/17 05:56 Laboratory Results - last 24 hr 11/29/17 11/29/17 05:56 05:56 WBC 9.8 RBC 3.66 L Hgb 11.6 Hct 34.7 L MCV 94.8 MCH 31.7 MCHC 33.5 RDW 15.1 Plt Count 336 MPV 7.9 Neut % (Auto) 71.0 H Lymph % (Auto) 14.3 [place] % (Auto) 11.6 H Eos % (Auto) 2.1 Baso % (Auto) 1.0 Neut # (Auto) 6.9 Lymph # (Auto) 1.4 [place] # (Auto) 1.1 H Eos # (Auto) 0.2 Baso # (Auto) 0.1 WBC Differential . Differential Comment Auto diff final Hematology Comments Sodium 141 Potassium 4.1 D Chloride 103 Carbon Dioxide 21.9 Anion Gap 16 H BUN 11 Creatinine 0.59 Estimated GFR Greater than 89 Random Glucose 65 L Calcium 8.2 L Total Bilirubin 0.9 AST 21 ALT 19 Alkaline Phosphatase 95 Total Protein 6.8 D Albumin 2.8 L - Imaging Impressions Abdomen X-Ray 11/28/17 00:00 CONCLUSION: Small bowel dilatation consistent with ileus or obstruction unchanged from the prior study. Followup examination is recommended if clinically indicated. Nasogastric tube as above Assessment and Plan - Plan 77-year-old female with Partial small bowel obstruction Consider worsening of ovarian cancer with metastasis Appreciate input from AGENCY MANAGER ONC Continue IV fluids, morphine for pain control, n.p.o., NG tube Appreciate input from general surgery and plan for expiratory laparotomy possible next Sunday, December 03, 2017 Check daily flat and upright x-ray Anxiety Ativan 0.5 mg IV every 6 hours ordered Hypertension Continue Lopressor Hypothyroidism Continue Synthroid Peripheral neuropathy Induced by chemotherapy Resume home meds DVT prophylaxis Patient usually takes Eliquis but is currently n.p.o. Lovenox written as replacement
--- NOTE | 2017-11-29 18:06 | P.PN ---
Subjective Interval history: No nausea or emesis. Is not having any abdominal pain. NG output was approximately 200 mls since last night Physical Exam Vital signs: Vital Signs 11/28/17 18:03 11/28/17 19:55 11/28/17 20:00 Temperature 98.0 F 97.1 F L Pulse Rate 90 86 89 Respiratory Rate 18 18 16 Blood Pressure 148/78 H 147/79 H Pulse Oximetry 96 96 11/29/17 00:00 11/29/17 04:00 11/29/17 07:00 Temperature 98.3 F 97.6 F Pulse Rate 96 H 103 H 105 H Respiratory Rate 16 16 Blood Pressure 149/90 H 145/80 H Pulse Oximetry 95 95 11/29/17 08:00 11/29/17 11:00 11/29/17 12:00 Temperature 97.7 F 97.5 F L Pulse Rate 117 H 77 79 Respiratory Rate 18 18 Blood Pressure 144/79 H 145/78 H Pulse Oximetry 11/29/17 15:00 11/29/17 16:00 Temperature 97.6 F Pulse Rate 94 H 97 H Respiratory Rate 18 Blood Pressure 164/87 H Pulse Oximetry Intake & Output 11/28/17 11/29/17 11/29/17 18:59 06:59 18:59 Intake Total 1200 / 1200 1455 / 1455 Output Total 155 / 155 475 / 475 Balance 1045 / 1045 980 / 980 Weight 74.5 kg Intake: IV 1200 / 1200 1015 / 1015 KCl Inj 30 MEQ In NS Inj 1,000 1015 / 1015 ML @ 84 mls/hr IV.CONT .Q12H5M [facility] Rx#:[id number] NS Inj 1,000 ML @ 100 mls/hr IV 1200 / 1200 .CONT .Q10H [facility] Rx#:[id number] Oral 0 / 0 440 / 440 Output: Urine 450 / 450 Gastric Drainage 155 / 155 25 / 25 Right Nare Nasogastric Tube 155 / 155 25 / 25 Other: # Voids 3 Date of Last Bowel Movement 11/27/17 11/27/17 - Constitutional no acute distress - Routine Respiratory Exam Present: CTA bilaterally - Routine Cardiovascular Exam Present: RRR - Routine Abdominal Exam Present: soft, normoactive bowel sounds Comments: Nondistended nontender. No masses noted. Results - Labs CBC & Chem 7: 11/29/17 05:56 11/29/17 05:56 Laboratory Results - last 24 hr 11/29/17 11/29/17 05:56 05:56 WBC 9.8 RBC 3.66 L Hgb 11.6 Hct 34.7 L MCV 94.8 MCH 31.7 MCHC 33.5 RDW 15.1 Plt Count 336 MPV 7.9 Neut % (Auto) 71.0 H Lymph % (Auto) 14.3 [place] % (Auto) 11.6 H Eos % (Auto) 2.1 Baso % (Auto) 1.0 Neut # (Auto) 6.9 Lymph # (Auto) 1.4 [place] # (Auto) 1.1 H Eos # (Auto) 0.2 Baso # (Auto) 0.1 WBC Differential . Differential Comment Auto diff final Hematology Comments Sodium 141 Potassium 4.1 D Chloride 103 Carbon Dioxide 21.9 Anion Gap 16 H BUN 11 Creatinine 0.59 Estimated GFR Greater than 89 Random Glucose 65 L Calcium 8.2 L Total Bilirubin 0.9 AST 21 ALT 19 Alkaline Phosphatase 95 Total Protein 6.8 D Albumin 2.8 L Assessment and Plan - Assessment (1) SBO (small bowel obstruction) Code(s): K56.609 - Unspecified intestinal obstruction, unspecified as to partial versus complete obstruction Status: Acute - Plan Partial small bowel obstruction likely due to metastatic disease. Patient reports PET scan this earlier this week demonstrated some progression of disease. She will likely require exploration. Will trial clamping NG tube to see whether she can tolerate this. Discussed Condition With: Patient Nurse - Attending Attestation I attest that I had a [id number] encounter with the patient on the same day, and personally performed and documented my assessment and findings in the medical record. The following services were provided during this hospital visit: Chart data review, vital sign assessments/reviewing monitor data Review of consultation notes if present Medication orders/review and/or management Ordering and/or reviewing lab tests Ordering and/or interpreting/reviewing x-rays and/or diagnostic studies Care of the patient and discussion of the patient with the care team Documentation time To help prompt me to consider important information that might be impacting today's encounter and assessment, Information from prior notes written by myself or my colleagues may have been "brought forward/copy and pasted" into today's note.
[2017-11-29] MEDS ORDERED: NIRAPARIB TOSYLATE 100 MG PO SCH (21:00)
[2017-11-30 05:14] LABS: Anion Gap 16 meq/L (5-15); Blood Urea Nitrogen 9 mg/dL (7-18); Calcium 8.8 mg/dL (8.5-10.1); Carbon Dioxide 19.9 meq/L (21.0-32.0); Chloride 101 meq/L (98-107); Glomerular Filtration Rate Greater Than 89 mL/min (>89); Glucose,Random 64 mg/dL (74-106); Potassium 4.8 meq/L (3.5-5.1)
[2017-11-30 05:15] LABS: Sodium 137 meq/L (136-145)
[2017-11-30] MEDS: Levothyroxine 50 MCG Tablet PO SCH (05:25)
[2017-11-30] MEDS: Enoxaparin Inj 40 MG/0.4 ML Syringe SQ SCH (08:10)
[2017-11-30] MEDS: Metoprolol Tartrate 50 MG Tablet PO SCH (08:10)
--- NOTE | 2017-11-30 08:35 | P.DIET ---
Nutritional Evaluation Type of nutrition evaluation: initial Screening comments: NPO SCREEN Objective - Diagnosis Partial Bowel Obstruction, Metastatic - Objective Dietitian Reviewed in Medical Record: Current diet, Intake & Output, Labs, Medical history Assessment Assessment: NPO Screen. Pt has been NPO x 3-Days. Please Consult RD if Needed. Recommendations: 1. NPO x 3-Days 2. Please Consult RD if Needed
[2017-11-30] MEDS: Potassium Chloride Inj 30 MEQ in Sod Chloride 0.9% Inj 1,000 ML IV.CONT SCH (09:58)
--- NOTE | 2017-11-30 10:45 | P.PN ---
Subjective Interval history: Follow-up small bowel obstruction November 28, 2017-patient seen and examined still n.p.o. with NG tube in place, denies any significant abdominal pain today. No nausea. November 29, 2017-patient seen and examined, denies any significant abdominal pain. No acute event overnight. November 30, 2017-patient seen and examined, NGT is clamped and patient denies any nausea or abdominal pain. Afebrile Physical Exam Vital signs: Vital Signs 11/29/17 11:00 11/29/17 12:00 11/29/17 15:00 Temperature 97.5 F L Pulse Rate 77 79 94 H Respiratory Rate 18 Blood Pressure 145/78 H Pulse Oximetry 11/29/17 16:00 11/29/17 19:00 11/29/17 20:00 Temperature 97.6 F 98.2 F Pulse Rate 97 H 95 H 98 H Respiratory Rate 18 18 Blood Pressure 164/87 H 153/75 H Pulse Oximetry 97 11/29/17 23:00 11/30/17 00:30 11/30/17 03:00 Temperature 97.8 F Pulse Rate 105 H 104 H 100 H Respiratory Rate 18 Blood Pressure 159/81 H Pulse Oximetry 99 11/30/17 04:39 11/30/17 07:00 11/30/17 08:00 Temperature 98.0 F 98.5 F Pulse Rate 100 H 103 H 106 H Respiratory Rate 18 18 Blood Pressure 150/79 H 145/89 H Pulse Oximetry 95 Intake & Output 11/29/17 11/30/17 11/30/17 18:59 06:59 18:59 Intake Total 920 / 920 255 / 255 1000 / 1000 Output Total 550 / 550 450 / 450 Balance 370 / 370 -195 / -195 1000 / 1000 Weight 57.7 kg Intake: IV 800 / 800 215 / 215 1000 / 1000 KCl Inj 30 MEQ In NS Inj 1,000 800 / 800 215 / 215 1000 / 1000 ML @ 84 mls/hr IV.CONT .Q12H5[facility] Rx#:[id number] Oral 120 / 120 40 / 40 Output: Urine 550 / 550 450 / 450 Other: Date of Last Bowel Movement 11/28/17 Narrative: GENERAL: NAD with NGT clamped SKIN: Warm and dry. HEAD: Normocephalic. EYES: No scleral icterus. No injection or drainage. NECK: Supple, trachea midline. No JVD or lymphadenopathy. CARDIOVASCULAR: Regular rate and rhythm without murmurs, gallops, or rubs. RESPIRATORY: Breath sounds equal bilaterally. No accessory muscle use. GASTROINTESTINAL: Abdomen soft, non-tender, nondistended. Hypoactive bowel sounds MUSCULOSKELETAL: No cyanosis, or edema. BACK: Nontender without obvious deformity. No CVA tenderness. Results - Labs CBC & Chem 7: 11/29/17 05:56 11/30/17 04:06 Laboratory Results - last 24 hr 11/30/17 04:06 Sodium 137 Potassium 4.8 Chloride 101 Carbon Dioxide 19.9 L Anion Gap 16 H BUN 9 Creatinine 0.63 Estimated GFR Greater than 89 Random Glucose 64 L Calcium 8.8 Assessment and Plan - Plan 77-year-old female with Partial small bowel obstruction Consider worsening of ovarian cancer with metastasis Appreciate input from EMERGENCY SERVICES PROFESSIONAL ONC Continue IV fluids, morphine for pain control, n.p.o., NG tube is clamped Appreciate input from general surgery and plan for possible expiratory laparotomy next week Check daily flat and upright x-ray Anxiety Ativan 0.5 mg IV every 6 hours ordered Hypertension Continue Lopressor Hypothyroidism Continue Synthroid Peripheral neuropathy Induced by chemotherapy Resume home meds DVT prophylaxis Patient usually takes Eliquis but is currently n.p.o. Lovenox written as replacement
--- NOTE | 2017-11-30 18:48 | P.PNGS ---
Subjective Patient reports: feels better, bowel movement Physical Exam Vital signs: Vital Signs 11/29/17 19:00 11/29/17 20:00 11/29/17 23:00 Temperature 98.2 F Pulse Rate 95 H 98 H 105 H Respiratory Rate 18 Blood Pressure 153/75 H Pulse Oximetry 97 11/30/17 00:30 11/30/17 03:00 11/30/17 04:39 Temperature 97.8 F 98.0 F Pulse Rate 104 H 100 H 100 H Respiratory Rate 18 18 Blood Pressure 159/81 H 150/79 H Pulse Oximetry 99 95 11/30/17 07:00 11/30/17 08:00 11/30/17 11:00 Temperature 98.5 F Pulse Rate 103 H 106 H 84 Respiratory Rate 18 Blood Pressure 145/89 H Pulse Oximetry 11/30/17 12:00 11/30/17 15:00 11/30/17 16:00 Temperature 98.3 F 97.8 F Pulse Rate 85 75 82 Respiratory Rate 18 18 Blood Pressure 132/78 133/81 Pulse Oximetry Intake & Output 11/29/17 11/30/17 11/30/17 18:59 06:59 18:59 Intake Total 920 / 920 255 / 255 1240 / 1240 Output Total 550 / 550 450 / 450 Balance 370 / 370 -195 / -195 1240 / 1240 Weight 57.7 kg Intake: IV 800 / 800 215 / 215 1000 / 1000 KCl Inj 30 MEQ In NS Inj 1,000 800 / 800 215 / 215 1000 / 1000 ML @ 84 mls/hr IV.CONT .Q12H5M [facility] Rx#:[id number] Oral 120 / 120 40 / 40 240 / 240 Output: Urine 550 / 550 450 / 450 Other: # Voids 4 Date of Last Bowel Movement 11/30/17 # Bowel Movements 2 - Constitutional no acute distress - Routine Abdominal Exam Present: soft Comments: non tender Assessment and Plan - Assessment (1) SBO (small bowel obstruction) Code(s): K56.609 - Unspecified intestinal obstruction, unspecified as to partial versus complete obstruction Status: Acute Plan: 77 year old female with ovarian cancer; recurrent small bowel obstructions; RUE DVT on OAC -SBO, resolved, NG out, +BM, no pain - clears advance to full liquids
[2017-11-30] MEDS: Dextrose 5%/NaCl 0.45% Inj 1,000 ML IV.CONT SCH ×2 (21:30→22:30)
[2017-12-01] MEDS: Levothyroxine 50 MCG Tablet PO SCH (05:36)
[2017-12-01] MEDS: Metoprolol Tartrate 50 MG Tablet PO SCH (08:39)
--- NOTE | 2017-12-01 10:18 | P.PN ---
Subjective Interval history: Follow-up small bowel obstruction November 28, 2017-patient seen and examined still n.p.o. with NG tube in place, denies any significant abdominal pain today. No nausea. November 29, 2017-patient seen and examined, denies any significant abdominal pain. No acute event overnight. November 30, 2017-patient seen and examined, NGT is clamped and patient denies any nausea or abdominal pain. Afebrile December 01, 2017-patient seen and examined, NG tube was removed yesterday and tolerated liquid diet and currently on full liquid now. Denies any abdominal pain. No nausea and vomiting. Looking forward going home today Physical Exam Vital signs: Vital Signs 11/30/17 11:00 11/30/17 12:00 11/30/17 15:00 Temperature 98.3 F Pulse Rate 84 85 75 Respiratory Rate 18 Blood Pressure 132/78 Pulse Oximetry 11/30/17 16:00 11/30/17 19:00 11/30/17 19:57 Temperature 97.8 F 97.6 F Pulse Rate 82 92 H 93 H Respiratory Rate 18 20 Blood Pressure 133/81 121/71 Pulse Oximetry 97 11/30/17 20:00 11/30/17 21:00 11/30/17 22:00 Temperature Pulse Rate 90 100 H 92 H Respiratory Rate Blood Pressure Pulse Oximetry 11/30/17 23:00 11/30/17 23:45 12/01/17 00:00 Temperature 97.9 F Pulse Rate 96 H 102 H 96 H Respiratory Rate 18 Blood Pressure 139/80 Pulse Oximetry 98 12/01/17 01:00 12/01/17 02:00 12/01/17 03:00 Temperature Pulse Rate 102 H 106 H 105 H Respiratory Rate Blood Pressure Pulse Oximetry 12/01/17 04:00 12/01/17 05:00 12/01/17 06:00 Temperature 98.4 F Pulse Rate 106 H 106 H 107 H Respiratory Rate 18 Blood Pressure 131/68 Pulse Oximetry 96 12/01/17 07:00 12/01/17 08:00 Temperature 98.2 F Pulse Rate 106 H 113 H Respiratory Rate 18 Blood Pressure 131/69 Pulse Oximetry Intake & Output 11/30/17 12/01/17 12/01/17 18:59 06:59 18:59 Intake Total 1240 / 1240 1255 / 1255 Output Total 250 / 250 Balance 1240 / 1240 1005 / 1005 Weight 57.6 kg Intake: IV 1000 / 1000 1015 / 1015 KCl Inj 30 MEQ In NS Inj 1,000 1000 / 1000 1015 / 1015 ML @ 84 mls/hr IV.CONT .Q12H5M [facility] Rx#:[id number] Oral 240 / 240 240 / 240 Output: Urine 250 / 250 Other: # Voids 4 Date of Last Bowel Movement 11/30/17 11/30/17 11/30/17 # Bowel Movements 2 Narrative: GENERAL: NAD SKIN: Warm and dry. HEAD: Normocephalic. EYES: No scleral icterus. No injection or drainage. NECK: Supple, trachea midline. No JVD or lymphadenopathy. CARDIOVASCULAR: Regular rate and rhythm without murmurs, gallops, or rubs. RESPIRATORY: Breath sounds equal bilaterally. No accessory muscle use. GASTROINTESTINAL: Abdomen soft, non-tender, nondistended. Normal bowel sounds MUSCULOSKELETAL: No cyanosis, or edema. BACK: Nontender without obvious deformity. No CVA tenderness. Results - Labs CBC & Chem 7: 11/29/17 05:56 11/30/17 04:06 - Procedures None Assessment and Plan - Assessment (1) SBO (small bowel obstruction) Code(s): K56.609 - Unspecified intestinal obstruction, unspecified as to partial versus complete obstruction Status: Acute - Plan 77-year-old female with Partial small bowel obstruction-resolved Appreciate input from [employer] DIRECT[employer] as general surgery NG tube was discontinued yesterday November 30, 2017 Continue IV fluids, morphine for pain control Continue with full liquid diet Anxiety Ativan 0.5 mg IV every 6 hours ordered Hypertension Continue Lopressor Hypothyroidism Continue Synthroid Peripheral neuropathy Induced by chemotherapy Continue home meds DVT prophylaxis Resume Eliquis
--- NOTE | 2017-12-01 10:25 | P.DS ---
Date of admission: 11/27/17 12:50 Primary care physician: UNKNOWN Anticipated date of discharge: 12/01/17 Brief History from admission: 77-year-old female with a history of hypertension, hypothyroidism, neuropathy, ovarian cancer. She presents to the ER today with her third episode of partial small bowel obstruction in the last 3 weeks. Onset was as it was previously, she experienced abdominal pain with nausea vomiting and an increase of peristalsis inducing diarrhea followed by silence, increased pain and bloating of her abdomen. She is currently undergoing updated staging of her ovarian cancer with metastases. She was treated for ovarian cancer a few years ago and had ongoing chemotherapy, but she decided to give chemotherapy a break in for a while had no issues with her cancer. There is a recent PET scan which results I have not reviewed but it has been indicated to me that the cancer may be worsening and that the bowel obstruction may be related to this. She is currently nauseous from the NG tube which was placed, she admits to anxiety and requesting anxiety medication via IV. She denies any chest pain, shortness of breath, swelling. She denies any headaches, cough, or other symptoms of an upper respiratory infection. DS: Diagnosis - Discharge Diagnosis (1) SBO (small bowel obstruction) Status: Acute DS: Summary Hospital Course: While in hospital, patient was treated for: Partial small bowel obstruction-for which NG tube was placed initially and patient kept n.p.o. and provide IV fluid hydration with consultation to general surgery. Subsequently NG tube was clamped and discontinued. A liquid diet was started which was advanced accordingly. Patient was continued on the treatment for other chronic medical conditions. Prior to discharge, patient's condition improved and vitals remained stable. DVT prophylaxis were provided. - Time Spent with Patient Total time spent providing and/or coordinating discharge services: Less than 30 minutes Exam Vital signs: Vital Signs 11/30/17 11:00 11/30/17 12:00 11/30/17 15:00 Temperature 98.3 F Pulse Rate 84 85 75 Respiratory Rate 18 Blood Pressure 132/78 Pulse Oximetry 11/30/17 16:00 11/30/17 19:00 11/30/17 19:57 Temperature 97.8 F 97.6 F Pulse Rate 82 92 H 93 H Respiratory Rate 18 20 Blood Pressure 133/81 121/71 Pulse Oximetry 97 11/30/17 20:00 11/30/17 21:00 11/30/17 22:00 Temperature Pulse Rate 90 100 H 92 H Respiratory Rate Blood Pressure Pulse Oximetry 11/30/17 23:00 11/30/17 23:45 12/01/17 00:00 Temperature 97.9 F Pulse Rate 96 H 102 H 96 H Respiratory Rate 18 Blood Pressure 139/80 Pulse Oximetry 98 12/01/17 01:00 12/01/17 02:00 12/01/17 03:00 Temperature Pulse Rate 102 H 106 H 105 H Respiratory Rate Blood Pressure Pulse Oximetry 12/01/17 04:00 12/01/17 05:00 12/01/17 06:00 Temperature 98.4 F Pulse Rate 106 H 106 H 107 H Respiratory Rate 18 Blood Pressure 131/68 Pulse Oximetry 96 12/01/17 07:00 12/01/17 08:00 Temperature 98.2 F Pulse Rate 106 H 113 H Respiratory Rate 18 Blood Pressure 131/69 Pulse Oximetry Intake & Output 11/30/17 12/01/17 12/01/17 18:59 06:59 18:59 Intake Total 1240 / 1240 1255 / 1255 Output Total 250 / 250 Balance 1240 / 1240 1005 / 1005 Weight 57.6 kg Intake: IV 1000 / 1000 1015 / 1015 KCl Inj 30 MEQ In NS Inj 1,000 1000 / 1000 1015 / 1015 ML @ 84 mls/hr IV.CONT .Q12H5M [facility] Rx#:[id number] Oral 240 / 240 240 / 240 Output: Urine 250 / 250 Other: # Voids 4 Date of Last Bowel Movement 11/30/17 11/30/17 11/30/17 # Bowel Movements 2 Narrative: GENERAL: NAD SKIN: Warm and dry. HEAD: Atraumatic. Normocephalic. EYES: Pupils equal and round. No scleral icterus. No injection or drainage. ENT: No nasal bleeding or discharge. Mucous membranes pink and moist. NECK: Trachea midline. No JVD. CARDIOVASCULAR: Regular rate and rhythm. RESPIRATORY: No accessory muscle use. Clear to auscultation. Breath sounds equal bilaterally. GASTROINTESTINAL: Abdomen soft, non-tender, nondistended. Hepatic and splenic margins not palpable. MUSCULOSKELETAL: Extremities without clubbing, cyanosis, or edema. No obvious deformities. NEUROLOGICAL: Awake and alert. No obvious cranial nerve deficits. Motor grossly within normal limits. Five out of 5 muscle strength in the arms and legs. Normal speech. PSYCHIATRIC: Appropriate mood and affect; insight and judgment normal. Results Procedures completed during hospitalization: None - Impressions ITS Impressions Chest X-Ray 11/27/17 09:36 CONCLUSION: Cardiomegaly. No acute pulmonary disease. Abdomen X-Ray 11/28/17 00:00 CONCLUSION: Small bowel dilatation consistent with ileus or obstruction unchanged from the prior study. Followup examination is recommended if clinically indicated. Nasogastric tube as above Discharge Plan - Discharge Disposition Patient Disposition: 01 Discharge Home - Discharge Condition Condition: Good - Discharge Order Discharge Orders: Discharge Order (Routine); Ordered 12/01/17 Ordered By: Yinka Shoemaker - Physicians Team Primary Care Provider: UNKNOWN, Attending Provider: Yinka Shoemaker Other Providers: Diana Girard MD ; Scott Singleton MD ; [employer], Insurance ; Chinmay England MD
--- NOTE | 2017-12-01 11:05 | P.PNGS ---
Subjective Interval history: Resting in bed; daughter at bedside Decided to go ahead and proceed for dx lap possible ex lap tomorrow Physical Exam Vital signs: Vital Signs 11/30/17 12:00 11/30/17 15:00 11/30/17 16:00 Temperature 98.3 F 97.8 F Pulse Rate 85 75 82 Respiratory Rate 18 18 Blood Pressure 132/78 133/81 Pulse Oximetry 11/30/17 19:00 11/30/17 19:57 11/30/17 20:00 Temperature 97.6 F Pulse Rate 92 H 93 H 90 Respiratory Rate 20 Blood Pressure 121/71 Pulse Oximetry 97 11/30/17 21:00 11/30/17 22:00 11/30/17 23:00 Temperature Pulse Rate 100 H 92 H 96 H Respiratory Rate Blood Pressure Pulse Oximetry 11/30/17 23:45 12/01/17 00:00 12/01/17 01:00 Temperature 97.9 F Pulse Rate 102 H 96 H 102 H Respiratory Rate 18 Blood Pressure 139/80 Pulse Oximetry 98 12/01/17 02:00 12/01/17 03:00 12/01/17 04:00 Temperature 98.4 F Pulse Rate 106 H 105 H 106 H Respiratory Rate 18 Blood Pressure 131/68 Pulse Oximetry 96 12/01/17 05:00 12/01/17 06:00 12/01/17 07:00 Temperature Pulse Rate 106 H 107 H 106 H Respiratory Rate Blood Pressure Pulse Oximetry 12/01/17 08:00 Temperature 98.2 F Pulse Rate 113 H Respiratory Rate 18 Blood Pressure 131/69 Pulse Oximetry Intake & Output 11/30/17 12/01/17 12/01/17 18:59 06:59 18:59 Intake Total 1240 / 1240 1255 / 1255 Output Total 250 / 250 Balance 1240 / 1240 1005 / 1005 Weight 57.6 kg Intake: IV 1000 / 1000 1015 / 1015 KCl Inj 30 MEQ In NS Inj 1,000 1000 / 1000 1015 / 1015 ML @ 84 mls/hr IV.CONT .Q12H5M [facility] Rx#:[id number] Oral 240 / 240 240 / 240 Output: Urine 250 / 250 Other: # Voids 4 Date of Last Bowel Movement 11/30/17 11/30/17 11/30/17 # Bowel Movements 2 Narrative: Alert and awake Abd: soft non tender Assessment and Plan - Assessment (1) SBO (small bowel obstruction) Code(s): K56.609 - Unspecified intestinal obstruction, unspecified as to partial versus complete obstruction Status: Acute Plan: 77 year old female with ovarian cancer; recurrent small bowel obstructions; RUE DVT on OAC -Plan for OR tomorrow -Obtain consents -Hold Lovenox -NPO after MN -IVF -OOB as tolerated -Had discussed with patient as well as daughter at bedside - Attending Attestation I CERTIFY AND ATTEST THAT I EXAMINED THE PATIENT IN THEIR ROOM. SWITCHING OPERATOR DOCUMENTED OUR VISIT AN ENTERED ORDERS IN THE EMR UNDER MY DIRECT SUPERVISION.. CARE PLAN REVIEWED WITH PATIENT AND STAFF. CORINNE MCGREGOR MD FACS
[2017-12-01] MEDS: Enoxaparin Inj 40 MG/0.4 ML Syringe SQ SCH (16:54)
[2017-12-01] MEDS: Morphine Inj 4 MG/ML Vial IV.PUSH PRN ×2 (16:58→21:50)
[2017-12-01] MEDS: Dextrose 5%/NaCl 0.45% Inj 1,000 ML IV.CONT SCH (18:04)
[2017-12-02] MEDS ORDERED: Metoprolol Tartrate 25 MG Tablet PO ONE (02:01)
[2017-12-02] MEDS ORDERED: Chlorhexidine Gluconate 2% 1 Pack (2 Cloths) TOPICAL ONE (02:01)
[2017-12-02] MEDS ORDERED: Sodium Chlor 0.9% Inj 500 ML IV.SIG SCH (03:00)
[2017-12-02] MEDS: Levothyroxine 50 MCG Tablet PO SCH (05:07)
[2017-12-02] MEDS: Dextrose 5%/NaCl 0.45% Inj 1,000 ML IV.CONT SCH ×3 (05:08→18:26)
--- NOTE | 2017-12-02 07:40 | P.PN ---
Subjective Interval history: no new c/o, no n/v, some flatus/bm, ngt removed over the weekend Physical Exam Vital signs: Vital Signs 12/01/17 08:00 12/01/17 09:00 12/01/17 10:00 Temperature 98.2 F Pulse Rate 106 H 122 H 122 H Respiratory Rate 18 Blood Pressure 131/69 Pulse Oximetry 12/01/17 11:00 12/01/17 12:00 12/01/17 13:11 Temperature 98.4 F Pulse Rate 113 H 98 H 92 H Respiratory Rate 18 Blood Pressure 121/60 Pulse Oximetry 12/01/17 14:00 12/01/17 15:00 12/01/17 16:00 Temperature 98.1 F Pulse Rate 86 97 H 90 Respiratory Rate 18 Blood Pressure 130/79 Pulse Oximetry 12/01/17 17:00 12/01/17 18:00 12/01/17 19:00 Temperature Pulse Rate 88 84 91 H Respiratory Rate Blood Pressure Pulse Oximetry 12/01/17 20:00 12/01/17 21:00 12/01/17 22:00 Temperature 97.6 F Pulse Rate 101 H 88 98 H Respiratory Rate 20 Blood Pressure 139/81 Pulse Oximetry 93 L 12/01/17 23:00 12/02/17 00:00 12/02/17 01:00 Temperature 97.5 F L Pulse Rate 90 90 92 H Respiratory Rate 18 Blood Pressure 103/65 Pulse Oximetry 92 L 12/02/17 02:00 12/02/17 03:00 12/02/17 04:00 Temperature 97.4 F L Pulse Rate 92 H 95 H 97 H Respiratory Rate 20 Blood Pressure 114/69 Pulse Oximetry 92 L 12/02/17 05:00 12/02/17 06:00 Temperature Pulse Rate 96 H 96 H Respiratory Rate Blood Pressure Pulse Oximetry Intake & Output 12/01/17 12/02/17 12/02/17 18:59 06:59 18:59 Intake Total 1600 / 1600 1240 / 1240 Output Total 600 / 600 1500 / 1500 Balance 1000 / 1000 -260 / -260 Weight 56.9 kg Intake: IV 1000 / 1000 1000 / 1000 D5W/1/2 NS Inj 1,000 ML @ 84 1000 / 1000 1000 / 1000 mls/hr IV.CONT .[id number] [facility] Rx# :[id number] Oral 600 / 600 240 / 240 Output: Urine 600 / 600 1500 / 1500 Other: # Voids 3 Date of Last Bowel Movement 12/01/17 # Bowel Movements 2 # Incontinent Bowel Movements 1 - Constitutional no acute distress - Routine Abdominal Exam Present: soft (hypoactive bs) - Routine Neurological Exam Present: alert Results - Labs CBC & Chem 7: 11/29/17 05:56 11/30/17 04:06 - Procedures None Assessment and Plan - Plan HD#6 Recurrent ovarian cancer SBO, clinical improvement with ngt, bowel rest however, at least 3 recent episodes of psbo/sbo requiring intervention for general surgery evaluation via laparoscopy/exploration today q&a, she understands findings and plan of care CPM
[2017-12-02] MEDS: Metoprolol Tartrate 50 MG Tablet PO SCH (09:04)
--- NOTE | 2017-12-02 11:23 | P.PN ---
Subjective Interval history: Follow-up small bowel obstruction November 28, 2017-patient seen and examined still n.p.o. with NG tube in place, denies any significant abdominal pain today. No nausea. November 29, 2017-patient seen and examined, denies any significant abdominal pain. No acute event overnight. November 30, 2017-patient seen and examined, NGT is clamped and patient denies any nausea or abdominal pain. Afebrile December 01, 2017-patient seen and examined, NG tube was removed yesterday and tolerated liquid diet and currently on full liquid now. Denies any abdominal pain. No nausea and vomiting. Looking forward going home today December 02, 2017-patient seen and examined in the presence of her daughter, currently n.p.o. pending ex lap today. Denies any abdominal pain. Physical Exam Vital signs: Vital Signs 12/01/17 12:00 12/01/17 13:11 12/01/17 14:00 Temperature 98.4 F Pulse Rate 98 H 92 H 86 Respiratory Rate 18 Blood Pressure 121/60 Pulse Oximetry 12/01/17 15:00 12/01/17 16:00 12/01/17 17:00 Temperature 98.1 F Pulse Rate 97 H 90 88 Respiratory Rate 18 Blood Pressure 130/79 Pulse Oximetry 12/01/17 18:00 12/01/17 19:00 12/01/17 20:00 Temperature 97.6 F Pulse Rate 84 91 H 101 H Respiratory Rate 20 Blood Pressure 139/81 Pulse Oximetry 93 L 12/01/17 21:00 12/01/17 22:00 12/01/17 23:00 Temperature Pulse Rate 88 98 H 90 Respiratory Rate Blood Pressure Pulse Oximetry 12/02/17 00:00 12/02/17 01:00 12/02/17 02:00 Temperature 97.5 F L Pulse Rate 90 92 H 92 H Respiratory Rate 18 Blood Pressure 103/65 Pulse Oximetry 92 L 12/02/17 03:00 12/02/17 04:00 12/02/17 05:00 Temperature 97.4 F L Pulse Rate 95 H 97 H 96 H Respiratory Rate 20 Blood Pressure 114/69 Pulse Oximetry 92 L 12/02/17 06:00 12/02/17 07:48 Temperature 97.4 F L Pulse Rate 96 H 98 H Respiratory Rate 16 Blood Pressure 121/75 Pulse Oximetry 95 Intake & Output 12/01/17 12/02/17 12/02/17 18:59 06:59 18:59 Intake Total 1600 / 1600 1240 / 1240 Output Total 600 / 600 1500 / 1500 Balance 1000 / 1000 -260 / -260 Weight 56.9 kg Intake: IV 1000 / 1000 1000 / 1000 D5W/1/2 NS Inj 1,000 ML @ 84 1000 / 1000 1000 / 1000 mls/hr IV.CONT .[id number] [facility] Rx# :[id number] Oral 600 / 600 240 / 240 Output: Urine 600 / 600 1500 / 1500 Other: # Voids 3 Date of Last Bowel Movement 12/01/17 # Bowel Movements 2 # Incontinent Bowel Movements 1 Narrative: GENERAL: NAD SKIN: Warm and dry. HEAD: Normocephalic. EYES: No scleral icterus. No injection or drainage. NECK: Supple, trachea midline. No JVD or lymphadenopathy. CARDIOVASCULAR: Regular rate and rhythm without murmurs, gallops, or rubs. RESPIRATORY: Breath sounds equal bilaterally. No accessory muscle use. GASTROINTESTINAL: Abdomen soft, non-tender, nondistended. MUSCULOSKELETAL: No cyanosis, or edema. BACK: Nontender without obvious deformity. No CVA tenderness. Results - Labs CBC & Chem 7: 11/29/17 05:56 11/30/17 04:06 Assessment and Plan - Assessment (1) SBO (small bowel obstruction) Code(s): K56.609 - Unspecified intestinal obstruction, unspecified as to partial versus complete obstruction Status: Acute - Plan 77-year-old female with Partial small bowel obstruction-resolved Appreciate input from [employer] [facility] as general surgery NG tube was discontinued November 30, 2017 Plan for diagnostic ex lap today December 02, 2017 by general surgery Continue morphine for pain control Anxiety Ativan 0.5 mg IV every 6 hours ordered Hypertension Continue Lopressor Hypothyroidism Continue Synthroid Peripheral neuropathy Induced by chemotherapy Continue home meds Right upper extremity DVT Eliquis on hold DVT prophylaxis Resume Eliquis
[2017-12-02] MEDS ORDERED: Bupivacaine/Epinephrine Inj 0.25% 50 ML Vial ONE (12:35)
[2017-12-02] MEDS ORDERED: ceFAZolin 2 GM Premix Inj 2 GM/50 ML PIGGYBACK IV.SIG ONE (12:37)
[2017-12-02] MEDS ORDERED: Labetalol HCl Inj 100 MG/20 ML Vial IV.CONT ONE (13:40)
[2017-12-02] MEDS ORDERED: Esmolol Bolus Inj 100 MG/10 ML Vial IV.PUSH ONE (13:40)
[2017-12-02] MEDS ORDERED: Phenylephrine/NS 1000 MCG/10ML Syringe IV.PUSH ONE (13:40)
[2017-12-02] MEDS ORDERED: Succinylcholine Inj 100 MG/5 ML Syringe IV.PUSH ONE (13:40)
[2017-12-02] MEDS ORDERED: Lidocaine PF 1% Inj 5 ML Syringe INFILTRATN ONE (13:40)
[2017-12-02] MEDS ORDERED: Sugammadex Inj 200 MG/2 ML Vial IV.PUSH ONE (14:54)
[2017-12-02] MEDS ORDERED: Methylene Blue Inj 100 MG/10 ML Vial TOPICAL ONE (15:45)
[2017-12-02] MEDS ORDERED: *morphine SULFATE 4 MG/ML PERIprocedure ONLY ONE (17:40)
[2017-12-02] MEDS ORDERED: fentaNYL Citrate Inj 100 MCG/2 ML Ampul ONE ×2 (18:06)
--- NOTE | 2017-12-02 19:58 | P.OP ---
- Preoperative Diagnosis (1) SBO (small bowel obstruction) - Postoperative Diagnosis (1) SBO (small bowel obstruction) Date of procedure: 12/02/17 Procedure: dx lap, lap reginald, lap sb bypass, bladder repair Anesthesia: GETA Surgeon: Chinmay England MD Estimated blood loss (mL): 150 Pathology: none sent Operation and Findings: malignant sb obstruction, pelvic adhesions, no leak in bladder after repair
--- NOTE | 2017-12-02 20:59 | MP ---
cc: Chinmay England MD DATE OF OPERATION: 12/02/2017 PREOPERATIVE DIAGNOSES: 1. Malignant small-bowel obstruction. 2. Multiple intra-abdominal pelvic adhesions. POSTOPERATIVE DIAGNOSES: 1. Malignant small-bowel obstruction. 2. Multiple intra-abdominal pelvic adhesions. PROCEDURE PERFORMED: 1. Diagnostic laparoscopy. 2. Laparoscopic lysis of adhesions. 3. Laparoscopic small bowel bypass (enteroenterostomy) z98.0, 15002 4. Bladder repair. SURGEON: Chinmay England MD REFRIGERATION ENGINEERING TEACHER: See OR sheet. ANESTHESIA: GETA. FLUIDS: See anesthesia sheet. ESTIMATED BLOOD LOSS: 50 mL. DRAINS: A 7 Vincentian round Stan drain in pelvis. 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 FINDINGS: Several localized pelvic intra-abdominal adhesions, right lower and central quadrants. Small bowel attached to dome of bladder. INDICATIONS: The patient is a 77-year-old female who has metastatic ovarian cancer and a history of chemoradiation and presented with multiple small-bowel obstructions, initially treated nonoperatively. The patient failed conservative medical management. Therefore, a decision was made for operative repair and bypass. DETAILS OF PROCEDURE: The patient was taken to the operating suite and placed in supine position. She was prepped and draped in sterile fashion after induction of general endotracheal anesthesia. A preoperative timeout was done, stating correct patient, procedure and surgical site. We were all in agreement with this. Attention was first directed to the umbilicus where a small stab kate incision was made after injection of local anesthetic. The 5 mm Visiport Optiview trocar was placed intra-abdominally. The abdomen was insufflated to 15 mmHg pneumoperitoneum. On cursory inspection, there was no evidence of injury. There was noted to be several loops of dilated bowel and some right lower quadrant and lateral quadrant decompressed bowel. Three other trocars were placed, including a left lower quadrant 5 mm, a left mid quadrant 5 mm and a 12 mm right upper quadrant trocar. The patient was placed in reverse Trendelenburg and airplaned to the left. There were noted to be intra-abdominal adhesions, especially to the pelvic area. These were lysed and transected in order to mobilize the small bowel. Part of the bowel was intimately adhered to the dome of the bladder and with mobilization, a small perforation was noted in the bladder itself. The small bowel was noted to be of intimately adhered to the right lower inferior pelvis. This was mobilized until either end was identified. Due to the difficulty and significance of the adhesions in the right lower quadrant, a decision was made for a small bowel bypass. A hook was used to make 2 enterotomies in the small bowel at the antimesenteric border. An Endo-JAVI blue load was used to transect and create the [id number]-zynalul layer. Next, the stapler was fired in order to create a transverse and a closed the common enterotomy this was closed with a running 3-0 Vicryl, followed by 3-0 silk suture for Lembert sutures. The was bowel noted to be significantly decompressed at this time and communicated well. The small-bowel obstruction area and the anastomosis were noted to be relatively close to the terminal ileum and the distal portion of the bowel. Next, suction irrigation was done. Surgicel was placed for improved hemostasis. The bladder was repaired with a 3-0 Vicryl intracorporeal suture done in a running locking manner, followed by a 3-0 Vicryl running suture in 2 layers. Methylene blue was instilled through the Ledezma and no blue was noted to extravasate through the repair. The abdomen was noted to be hemostatic. The rest of the bowel was relatively mobile except for areas close to where the adhesions were intimately stuck. Next, the abdomen was desufflated of pneumoperitoneum after a drain, 10 Vincentian, was placed in the pelvic area close the anastomosis and out the left lower quadrant 5 mm trocar site. The 12 mm trocar site was closed with a 0 Vicryl. The ports were closed with 4-0 Monocryl. Local anesthetic was injected. Sterile dressings including Mastisol and Steri-Strips were placed. The patient tolerated the procedure well. There were no intraoperative complications. All lap, needle and instrument counts were correct at the end of the procedure. The patient was extubated and taken stable to the PACU. MD SHIRLEY Singleton/endy , 08:05 PM , 08:17 PM PADMINI
[2017-12-02] MEDS: Morphine Inj 4 MG/ML Vial IV.PUSH PRN (23:03)
[2017-12-03] MEDS ORDERED: Metoprolol Tartrate 50 MG Tablet PO ONE (00:51)
[2017-12-03 01:42] LABS: Baso % (Auto) 0.3 % (0.0-2.0); Eos % (Auto) 0.1 % (0.0-4.0); Hemoglobin 12.2 gm/dL (11.6-15.3); Lymph # (Auto) 0.4 th/mm3 (1.0-4.8); Lymph % (Auto) 4.8 % (9.0-44.0); Mean Corpuscular Hemoglobin 31.2 pg (27.0-34.0); Mean Corpuscular Volume 94.7 fL (80.0-100.0); Mean Platelet Volume 7.5 fL (7.0-11.0); Mono # (Auto) 0.5 th/mm3 (0.0-0.9); Mono % (Auto) 5.6 % (0.0-8.0); Neut # (Auto) 7.2 th/mm3 (1.8-7.7); Neut % (Auto) 89.2 % (16.0-70.0); Platelet Count 387 th/mm3 (150-450); Red Blood Count 3.91 mil/mm3 (4.00-5.30); Red Cell Distribution Width 15.1 % (11.6-17.2)
[2017-12-03] MEDS: Dextrose 5%/NaCl 0.45% Inj 1,000 ML IV.CONT SCH ×2 (02:01→11:58)
[2017-12-03 02:06] LABS: Calcium 7.4 mg/dL (8.5-10.1); Carbon Dioxide 20.4 meq/L (21.0-32.0); Potassium 3.5 meq/L (3.5-5.1)
[2017-12-03 02:21] LABS: Total Protein 5.8 g/dL (6.4-8.2)
[2017-12-03 02:25] LABS: Lymphocytes 3 % (9-44); Metamyelocytes 4 % (0-1); Monocytes 4 % (0-8); Platelet Estimate Normal (Normal); Platelet Morphology Normal (Normal); Toxic Vacuolation Present
[2017-12-03 02:26] LABS: Burr Cells 1+
[2017-12-03 02:27] LABS: Acanthocytes Occ
[2017-12-03] MEDS ORDERED: Vancomycin Inj 1,000 MG in Sodium Chlor 0.9% Inj 250 ML IV.SIG ONE (02:37)
[2017-12-03] MEDS ORDERED: Vancomycin Consult Pharmacy OTHER PRN (02:37)
[2017-12-03] MEDS: Sod Chloride 0.9% Inj 1,000 ML IV.SIG SCH ×2 (03:18→04:37)
[2017-12-03] MEDS ORDERED: Vancomycin Inj 1,500 MG in Sodium Chlor 0.9% Inj 500 ML IV.SIG ONE (04:00)
[2017-12-03] MEDS: Levothyroxine 50 MCG Tablet PO SCH (05:36)
[2017-12-03] MEDS: Metoprolol Tartrate 50 MG Tablet PO SCH (08:29)
--- NOTE | 2017-12-03 08:45 | P.PNONC ---
Subjective Interval history: POD #1 s/p laparoscopic lysis of adhesions, small bowel bypass and bladder repair patient is resting in bed, Dr. England at bedside reviewing surgery findings patient has no complaints at this time Ok for clear liquid diet per general surgery once cleared by surgery and discharged, will follow up in acquisitions librarian/onc clinic to discuss IV chemotherapy Objective Vital Signs/Intake & Output: Vital Signs 12/02/17 09:00 12/02/17 10:00 12/02/17 17:09 Temperature 97.3 F L Pulse Rate 81 86 102 H Respiratory Rate 20 Blood Pressure 141/65 H Pulse Oximetry 91 L 12/02/17 17:15 12/02/17 17:30 12/02/17 17:45 Temperature Pulse Rate 103 H 106 H 109 H Respiratory Rate 22 22 22 Blood Pressure 130/68 134/70 130/61 Pulse Oximetry 92 L 92 L 92 L 12/02/17 18:00 12/02/17 18:15 12/02/17 18:30 Temperature 97.5 F L Pulse Rate 111 H 115 H 115 H Respiratory Rate 24 21 20 Blood Pressure 135/65 145/67 H 133/59 L Pulse Oximetry 94 L 94 L 95 12/02/17 18:52 12/02/17 20:23 12/02/17 20:45 Temperature 97.6 F 99.2 F Pulse Rate 118 H 119 H 119 H Respiratory Rate 18 20 Blood Pressure 122/69 142/76 H Pulse Oximetry 100 99 12/02/17 21:06 12/02/17 22:01 12/02/17 23:02 Temperature Pulse Rate 121 H 128 H 136 H Respiratory Rate Blood Pressure Pulse Oximetry 12/02/17 23:51 12/03/17 00:00 12/03/17 01:02 Temperature 100.6 F H Pulse Rate 140 H 136 H 140 H Respiratory Rate 18 Blood Pressure 119/68 Pulse Oximetry 94 L 12/03/17 02:02 12/03/17 03:00 12/03/17 04:00 Temperature 97 F L Pulse Rate 123 H 114 H 102 H Respiratory Rate 16 Blood Pressure 104/53 L Pulse Oximetry 95 12/03/17 04:01 12/03/17 05:33 12/03/17 06:00 Temperature Pulse Rate 103 H 98 H 89 Respiratory Rate Blood Pressure Pulse Oximetry Intake & Output 12/02/17 12/03/17 12/03/17 18:59 06:59 18:59 Intake Total 4000 / 4000 1365 / 1365 Output Total 450 / 450 350 / 350 Balance 3550 / 3550 1015 / 1015 Weight 56.7 kg Intake: IV 1000 / 1000 1215 / 1215 Maxipime Inj 2,000 MG In NS Inj 110 / 110 100 ML @ 200 mls/hr IV.SIG Q8H [facility] Rx#:[id number] LR 1000 mL Inj 1,000 ML @ 30 1000 / 1000 mls/hr IV.SIG .Q24H [facility] Rx#: [id number] NS Inj 1,000 ML @ Wide Open IV. 1000 / 1000 SIG BOLUS [facility] Rx#:[id number] Flagyl 500 MG Inj 100 ML @ 100 105 / 105 mls/hr IV.SIG Q8H [facility] Rx#: [id number] Oral 150 / 150 Anesthesia Amount 3000 / 3000 Output: Estimated Blood Loss 200 / 200 Urine Amount (Catheter) 250 / 250 350 / 350 Indwelling Urethral Catheter 250 / 250 350 / 350 Other: Date of Last Bowel Movement 12/01/17 # Bowel Movements 0 Result Diagrams: 12/03/17 01:27 12/03/17 01:27 Laboratory Results: Laboratory Results - last 24 hr 12/02/17 12/02/17 12/03/17 12:40 12:40 01:27 WBC 8.0 RBC 3.91 L Hgb 12.2 Hct 37.0 MCV 94.7 MCH 31.2 MCHC 33.0 RDW 15.1 Plt Count 387 MPV 7.5 Prelim Diff (Auto) Slide review pending Neut % (Auto) 89.2 H Lymph % (Auto) 4.8 L [place] % (Auto) 5.6 Eos % (Auto) 0.1 Baso % (Auto) 0.3 Neut # (Auto) 7.2 Lymph # (Auto) 0.4 L [place] # (Auto) 0.5 Eos # (Auto) 0.0 Baso # (Auto) 0.0 WBC Differential Manual diff final Seg Neuts % (Manual) 55 Band Neuts % (Manual) 34 H Lymphocytes % (Manual) 3 L Monocytes % (Manual) 4 Metamyelocytes % (Man) 4 H Abs Neuts (Manual) 7.4 Differential Comment . Toxic Vacuolation Present H Platelet Estimate Normal Platelet Morphology Normal [place] Cells 1+ H Acanthocytes (Spur) Occ H Keratocytes Occ H Sodium Potassium Chloride Carbon Dioxide Anion Gap BUN Creatinine Estimated GFR Random Glucose Lactic Acid Calcium Prot Corrected Calcium Magnesium Total Protein Blood Type A Positive Antibody Screen Positive H Ab Screen Tube Method Negative Antibody Identification Non-Specific Agglutinin Crossmatch See Detail MTS Gel Crossmatch See Detail 12/03/17 12/03/17 12/03/17 01:27 01:27 01:27 WBC RBC Hgb Hct MCV MCH MCHC RDW Plt Count MPV Prelim Diff (Auto) Neut % (Auto) Lymph % (Auto) [place] % (Auto) Eos % (Auto) Baso % (Auto) Neut # (Auto) Lymph # (Auto) [place] # (Auto) Eos # (Auto) Baso # (Auto) WBC Differential Seg Neuts % (Manual) Band Neuts % (Manual) Lymphocytes % (Manual) Monocytes % (Manual) Metamyelocytes % (Man) Abs Neuts (Manual) Differential Comment Toxic Vacuolation Platelet Estimate Platelet Morphology [place] Cells Acanthocytes (Spur) Keratocytes Sodium 137 Potassium 3.5 Chloride 102 Carbon Dioxide 20.4 L Anion Gap 15 BUN 4 L Creatinine 0.92 Estimated GFR 59 L Random Glucose 170 H Lactic Acid 4.1 H* Calcium 7.4 L* Prot Corrected Calcium 8.1 L Magnesium 0.6 L Total Protein 5.8 L D Blood Type Antibody Screen Ab Screen Tube Method Antibody Identification Crossmatch MTS Gel Crossmatch 12/03/17 04:44 WBC RBC Hgb Hct MCV MCH MCHC RDW Plt Count MPV Prelim Diff (Auto) Neut % (Auto) Lymph % (Auto) [place] % (Auto) Eos % (Auto) Baso % (Auto) Neut # (Auto) Lymph # (Auto) [place] # (Auto) Eos # (Auto) Baso # (Auto) WBC Differential Seg Neuts % (Manual) Band Neuts % (Manual) Lymphocytes % (Manual) Monocytes % (Manual) Metamyelocytes % (Man) Abs Neuts (Manual) Differential Comment Toxic Vacuolation Platelet Estimate Platelet Morphology [place] Cells Acanthocytes (Spur) Keratocytes Sodium Potassium Chloride Carbon Dioxide Anion Gap BUN Creatinine Estimated GFR Random Glucose Lactic Acid 3.8 H Calcium Prot Corrected Calcium Magnesium Total Protein Blood Type Antibody Screen Ab Screen Tube Method Antibody Identification Crossmatch MTS Gel Crossmatch Medications: Active Medications Generic Name Dose Route Start Last Admin Trade Name Freq PRN Reason Stop Dose Admin Acetaminophen 650 mg 11/27/17 13:52 12/03/17 00:58 Tylenol PO 650 mg Q4H PRN Administration Temp > 100.4 Duloxetine HCl 60 mg 11/28/17 09:00 12/03/17 08:27 Cymbalta PO 60 mg BID [facility] Administration Dextrose/Sodium Chloride 1,000 mls @ 84 mls/hr 11/30/17 10:46 12/03/17 02:01 D5w/1/2 Ns Inj IV.CONT Not Given .[id number] [facility] Sodium Chloride 1,000 mls @ 0 mls/hr 12/03/17 02:45 12/03/17 04:37 Ns Inj IV.SIG 12/04/17 02:46 999 mls/hr BOLUS [facility] Administration Wide Open Cefepime HCl 2,000 mg/ Sodium 100 mls @ 200 mls/hr 12/03/17 03:00 12/03/17 05 :35 Chloride IV.SIG Infused Q8H [facility] Infusion Metronidazole/Sodium Chloride 100 mls @ 100 mls/hr 12/03/17 03:00 12/03/17 04 :33 Flagyl 500 Mg Inj IV.SIG Infused Q8H [facility] Infusion Levothyroxine Sodium 50 mcg 11/28/17 06:00 12/03/17 05:36 Synthroid PO 50 mcg DAILY@0600 [facility] Administration Lorazepam 0.5 mg 11/27/17 13:55 12/01/17 21:50 Ativan Inj IV.PUSH 0.5 mg Q6H PRN Administration ANXIETY Metoprolol Tartrate 50 mg 11/28/17 09:00 12/03/17 08:29 Lopressor PO Not Given DAILY [facility] Morphine Sulfate 2 mg 11/27/17 13:55 12/02/17 23:03 Morphine Inj IV.PUSH 2 mg Q4H PRN Administration PAIN SCALE 6 TO 10 Ondansetron HCl 4 mg 11/27/17 13:52 12/01/17 21:50 Zofran Inj IV.PUSH 4 mg Q6H PRN Administration NAUSEA OR VOMITING Sodium Chloride 2 ml 11/27/17 09:36 11/27/17 10:31 Ns Flush IV.FLUSH 2 ml PRN PRN Administration FLUSH AFTER USING IV ACCESS Objective Remarks: GENERAL: Well-nourished, well-developed patient. SKIN: Warm and dry. HEAD: Normocephalic. EYES: No scleral icterus. No injection or drainage. CARDIOVASCULAR: Regular rate and rhythm without murmurs. RESPIRATORY: Breath sounds equal bilaterally. No accessory muscle use. GASTROINTESTINAL: Abdomen soft, non-tender, nondistended. drain to LLQ EXTREMITIES: teds and scds MUSCULOSKELETAL: Adequate muscle tone. NEUROLOGICAL: No obvious focal deficit. Awake, alert, and oriented x3. PSYCHIATRIC: Appropriate mood and affect; insight and judgment normal. Assessment/Plan - Plan POD #1 discharge per general surgery once discharged and cleared by general surgery will follow up in acquisitions librarian/onc clinic for discussion of IV chemotherapy clear liquids today per Dr. England
--- NOTE | 2017-12-03 13:06 | P.PNGS ---
Subjective Patient reports: no new complaints, feels better (c/o drainage around bibi ) Physical Exam Vital signs: Vital Signs 12/02/17 17:09 12/02/17 17:15 12/02/17 17:30 Temperature 97.3 F L Pulse Rate 102 H 103 H 106 H Respiratory Rate 20 22 22 Blood Pressure 141/65 H 130/68 134/70 Pulse Oximetry 91 L 92 L 92 L 12/02/17 17:45 12/02/17 18:00 12/02/17 18:15 Temperature Pulse Rate 109 H 111 H 115 H Respiratory Rate 22 24 21 Blood Pressure 130/61 135/65 145/67 H Pulse Oximetry 92 L 94 L 94 L 12/02/17 18:30 12/02/17 18:52 12/02/17 20:23 Temperature 97.5 F L 97.6 F Pulse Rate 115 H 118 H 119 H Respiratory Rate 20 18 Blood Pressure 133/59 L 122/69 Pulse Oximetry 95 100 12/02/17 20:45 12/02/17 21:06 12/02/17 22:01 Temperature 99.2 F Pulse Rate 119 H 121 H 128 H Respiratory Rate 20 Blood Pressure 142/76 H Pulse Oximetry 99 12/02/17 23:02 12/02/17 23:51 12/03/17 00:00 Temperature 100.6 F H Pulse Rate 136 H 140 H 136 H Respiratory Rate 18 Blood Pressure 119/68 Pulse Oximetry 94 L 12/03/17 01:02 12/03/17 02:02 12/03/17 03:00 Temperature Pulse Rate 140 H 123 H 114 H Respiratory Rate Blood Pressure Pulse Oximetry 12/03/17 04:00 12/03/17 04:01 12/03/17 05:33 Temperature 97 F L Pulse Rate 102 H 103 H 98 H Respiratory Rate 16 Blood Pressure 104/53 L Pulse Oximetry 95 12/03/17 06:00 12/03/17 07:00 12/03/17 08:00 Temperature 98.8 F Pulse Rate 89 86 89 Respiratory Rate 16 Blood Pressure 88/52 L Pulse Oximetry 98 12/03/17 09:00 12/03/17 10:00 12/03/17 12:00 Temperature 98 F Pulse Rate 83 85 88 Respiratory Rate 16 Blood Pressure 95/56 L Pulse Oximetry 98 Intake & Output 12/02/17 12/03/17 12/03/17 18:59 06:59 18:59 Intake Total 5000 / 5000 1365 / 1365 715 / 715 Output Total 450 / 450 350 / 350 Balance 4550 / 4550 1015 / 1015 715 / 715 Weight 56.7 kg Intake: IV 1999 1215 / 1215 715 / 715 D5W/1/2 NS Inj 1,000 ML @ 84 1000 / 1000 mls/hr IV.CONT .[id number] [facility] Rx# :[id number] Maxipime Inj 2,000 MG In NS Inj 110 / 110 100 / 100 100 ML @ 200 mls/hr IV.SIG Q8H [facility] Rx#:[id number] LR 1000 mL Inj 1,000 ML @ 30 1000 / 1000 mls/hr IV.SIG .Q24H [facility] Rx#: [id number] NS Inj 1,000 ML @ Wide Open IV. 1000 / 1000 SIG BOLUS [facility] Rx#:[id number] Vancomycin Inj 1,500 MG In NS 515 / 515 Inj 500 ML @ 250 mls/hr IV.SIG ONCE ONE Rx#:[id number] Flagyl 500 MG Inj 100 ML @ 100 105 / 105 mls/hr IV.SIG Q8H [facility] Rx#: [id number] Oral 150 / 150 Anesthesia Amount 3000 / 3000 Output: Estimated Blood Loss 200 / 200 Urine Amount (Catheter) 250 / 250 350 / 350 Indwelling Urethral Catheter 250 / 250 350 / 350 Other: Date of Last Bowel Movement 12/01/17 12/01/17 # Bowel Movements 0 - Constitutional no acute distress - Routine Respiratory Exam Present: CTA bilaterally - Routine Cardiovascular Exam Present: RRR - Routine Abdominal Exam Present: soft (incisional tenderness, bibi serosang, incisions c/d/i) - Urinary Catheter Management Indwelling Urethral Catheter Cath placed during this visit: yes Reason for continuing: Other continuation reason Insertion date: 12/02/17 Insertion time: 13:30 Assessment and Plan - Assessment (1) SBO (small bowel obstruction) Code(s): K56.609 - Unspecified intestinal obstruction, unspecified as to partial versus complete obstruction Status: Acute Plan: 77 year old female with ovarian cancer; recurrent small bowel obstructions; RUE DVT on OAC -POD 1 Dx lap lap reginald, sb bypass - advance to clears - pain control - encourage oob -IS Abx ppx bibi sxn - KEEP scott do not remove for 10-14 days
--- NOTE | 2017-12-03 13:23 | ECG ---
Date Performed: 12/02/2017 Time Performed: 12:53:05 PTAGE: 77 years EKG: Sinus rhythm LOW QRS VOLTAGE IN PRECORDIAL LEADS BORDERLINE ECG PREVIOUS TRACING : 05/19/2015 15.09 DOCTOR: Roddy Woods Interpretating Date/Time 12/03/2017 13:22:04
--- NOTE | 2017-12-03 15:50 | P.PN ---
Subjective Interval history: patient tolerating clears liquids, no nausea or vomiting some abdominla fullness, no flatus yet Physical Exam Vital signs: Vital Signs 12/02/17 17:09 12/02/17 17:15 12/02/17 17:30 Temperature 97.3 F L Pulse Rate 102 H 103 H 106 H Respiratory Rate 20 22 22 Blood Pressure 141/65 H 130/68 134/70 Pulse Oximetry 91 L 92 L 92 L 12/02/17 17:45 12/02/17 18:00 12/02/17 18:15 Temperature Pulse Rate 109 H 111 H 115 H Respiratory Rate 22 24 21 Blood Pressure 130/61 135/65 145/67 H Pulse Oximetry 92 L 94 L 94 L 12/02/17 18:30 12/02/17 18:52 12/02/17 20:23 Temperature 97.5 F L 97.6 F Pulse Rate 115 H 118 H 119 H Respiratory Rate 20 18 Blood Pressure 133/59 L 122/69 Pulse Oximetry 95 100 12/02/17 20:45 12/02/17 21:06 12/02/17 22:01 Temperature 99.2 F Pulse Rate 119 H 121 H 128 H Respiratory Rate 20 Blood Pressure 142/76 H Pulse Oximetry 99 12/02/17 23:02 12/02/17 23:51 12/03/17 00:00 Temperature 100.6 F H Pulse Rate 136 H 140 H 136 H Respiratory Rate 18 Blood Pressure 119/68 Pulse Oximetry 94 L 12/03/17 01:02 12/03/17 02:02 12/03/17 03:00 Temperature Pulse Rate 140 H 123 H 114 H Respiratory Rate Blood Pressure Pulse Oximetry 12/03/17 04:00 12/03/17 04:01 12/03/17 05:33 Temperature 97 F L Pulse Rate 102 H 103 H 98 H Respiratory Rate 16 Blood Pressure 104/53 L Pulse Oximetry 95 12/03/17 06:00 12/03/17 07:00 12/03/17 08:00 Temperature 98.8 F Pulse Rate 89 86 89 Respiratory Rate 16 Blood Pressure 88/52 L Pulse Oximetry 98 12/03/17 09:00 12/03/17 10:00 12/03/17 12:00 Temperature 98 F Pulse Rate 83 85 88 Respiratory Rate 16 Blood Pressure 95/56 L Pulse Oximetry 98 Intake & Output 12/02/17 12/03/17 12/03/17 18:59 06:59 18:59 Intake Total 5000 / 5000 1365 / 1365 815 / 815 Output Total 450 / 450 350 / 350 Balance 4550 / 4550 1015 / 1015 815 / 815 Weight 56.7 kg Intake: IV 1999 / 1999 1215 / 1215 815 / 815 D5W/1/2 NS Inj 1,000 ML @ 84 1000 / 1000 mls/hr IV.CONT .[id number] [facility] Rx# :[id number] Maxipime Inj 2,000 MG In NS Inj 110 / 110 100 / 100 100 ML @ 200 mls/hr IV.SIG Q8H [facility] Rx#:[id number] LR 1000 mL Inj 1,000 ML @ 30 1000 / 1000 mls/hr IV.SIG .Q24H [facility] Rx#: [id number] NS Inj 1,000 ML @ Wide Open IV. 1000 / 1000 SIG BOLUS [facility] Rx#:[id number] Vancomycin Inj 1,500 MG In NS 515 / 515 Inj 500 ML @ 250 mls/hr IV.SIG ONCE ONE Rx#:[id number] Flagyl 500 MG Inj 100 ML @ 100 105 / 105 100 / 100 mls/hr IV.SIG Q8H [facility] Rx#: [id number] Oral 150 / 150 Anesthesia Amount 3000 / 3000 Output: Estimated Blood Loss 200 / 200 Urine Amount (Catheter) 250 / 250 350 / 350 Indwelling Urethral Catheter 250 / 250 350 / 350 Other: Date of Last Bowel Movement 12/01/17 12/01/17 # Bowel Movements 0 Narrative: GENERAL: NAD SKIN: Warm and dry. HEAD: Normocephalic. EYES: No scleral icterus. No injection or drainage. NECK: Supple, trachea midline. No JVD or lymphadenopathy. CARDIOVASCULAR: Regular rate and rhythm without murmurs, gallops, or rubs. RESPIRATORY: Breath sounds equal bilaterally. No accessory muscle use. GASTROINTESTINAL: Abdomen soft,, slightly distended, + few3 bowel sounds, post op drain in place scott catheter in place MUSCULOSKELETAL: No cyanosis, or edema. - Urinary Catheter Management Indwelling Urethral Catheter Cath placed during this visit: yes Reason for continuing: Other continuation reason Insertion date: 12/02/17 Insertion time: 13:30 Results - Labs CBC & Chem 7: 12/03/17 01:27 12/03/17 01:27 Laboratory Results - last 24 hr 12/03/17 12/03/17 12/03/17 01:27 01:27 01:27 WBC 8.0 RBC 3.91 L Hgb 12.2 Hct 37.0 MCV 94.7 MCH 31.2 MCHC 33.0 RDW 15.1 Plt Count 387 MPV 7.5 Prelim Diff (Auto) Slide review pending Neut % (Auto) 89.2 H Lymph % (Auto) 4.8 L [place] % (Auto) 5.6 Eos % (Auto) 0.1 Baso % (Auto) 0.3 Neut # (Auto) 7.2 Lymph # (Auto) 0.4 L [place] # (Auto) 0.5 Eos # (Auto) 0.0 Baso # (Auto) 0.0 WBC Differential Manual diff final Seg Neuts % (Manual) 55 Band Neuts % (Manual) 34 H Lymphocytes % (Manual) 3 L Monocytes % (Manual) 4 Metamyelocytes % (Man) 4 H Abs Neuts (Manual) 7.4 Differential Comment . Toxic Vacuolation Present H Platelet Estimate Normal Platelet Morphology Normal [place] Cells 1+ H Acanthocytes (Spur) Occ H Keratocytes Occ H Sodium 137 Potassium 3.5 Chloride 102 Carbon Dioxide 20.4 L Anion Gap 15 BUN 4 L Creatinine 0.92 Estimated GFR 59 L Random Glucose 170 H Lactic Acid 4.1 H* Calcium 7.4 L* Prot Corrected Calcium 8.1 L Magnesium Total Protein 5.8 L D 12/03/17 12/03/17 12/03/17 01:27 04:44 10:20 WBC RBC Hgb Hct MCV MCH MCHC RDW Plt Count MPV Prelim Diff (Auto) Neut % (Auto) Lymph % (Auto) [place] % (Auto) Eos % (Auto) Baso % (Auto) Neut # (Auto) Lymph # (Auto) [place] # (Auto) Eos # (Auto) Baso # (Auto) WBC Differential Seg Neuts % (Manual) Band Neuts % (Manual) Lymphocytes % (Manual) Monocytes % (Manual) Metamyelocytes % (Man) Abs Neuts (Manual) Differential Comment Toxic Vacuolation Platelet Estimate Platelet Morphology [place] Cells Acanthocytes (Spur) Keratocytes Sodium Potassium Chloride Carbon Dioxide Anion Gap BUN Creatinine Estimated GFR Random Glucose Lactic Acid 3.8 H 2.5 H Calcium Prot Corrected Calcium Magnesium 0.6 L Total Protein Assessment and Plan - Assessment (1) SBO (small bowel obstruction) Code(s): K56.609 - Unspecified intestinal obstruction, unspecified as to partial versus complete obstruction Status: Acute - Plan 77-year-old female with Partial small bowel obstruction--POD 1 Dx lap lap reginald, sb bypass - advance to clears - pain control - encourage oob -IS bibi sxn Appreciate input from [employer] [employer] as general surgery Anxiety Ativan 0.5 mg IV every 6 hours ordered Hypertension Continue Lopressor Hypothyroidism Continue Synthroid Peripheral neuropathy Induced by chemotherapy Continue home meds Right upper extremity DVT Eliquis DVT prophylaxis Resume Eliquis
[2017-12-03] MEDS: Enoxaparin Inj 40 MG/0.4 ML Syringe SQ SCH (16:24)
[2017-12-04] MEDS: Dextrose 5%/NaCl 0.45% Inj 1,000 ML IV.CONT SCH ×2 (02:05→12:55)
[2017-12-04] MEDS: Levothyroxine 50 MCG Tablet PO SCH (05:29)
--- NOTE | 2017-12-04 07:32 | P.PNONC ---
Subjective Interval history: POD #2 patient resting in bed no complaints denies any n/v taking in clear liquids was OOB to chair for short time yesterday mild upper abdominal pain, controlled with medication Objective Vital Signs/Intake & Output: Vital Signs 12/03/17 08:00 12/03/17 09:00 12/03/17 10:00 Temperature 98.8 F Pulse Rate 89 83 85 Respiratory Rate 16 Blood Pressure 88/52 L Pulse Oximetry 98 12/03/17 11:00 12/03/17 12:00 12/03/17 13:00 Temperature 98 F Pulse Rate 86 84 86 Respiratory Rate 16 Blood Pressure 95/56 L Pulse Oximetry 98 12/03/17 14:00 12/03/17 15:00 12/03/17 16:00 Temperature 97.9 F Pulse Rate 88 90 94 H Respiratory Rate 18 Blood Pressure 105/71 Pulse Oximetry 93 L 12/03/17 17:00 12/03/17 18:00 12/03/17 20:00 Temperature 97.6 F Pulse Rate 98 H 96 H 105 H Respiratory Rate 18 Blood Pressure 130/71 Pulse Oximetry 95 12/04/17 00:00 12/04/17 04:00 Temperature 98.0 F 98.5 F Pulse Rate 105 H 106 H Respiratory Rate 18 18 Blood Pressure 129/75 140/71 Pulse Oximetry 95 94 L Intake & Output 12/03/17 12/04/17 12/04/17 18:59 06:59 18:59 Intake Total 1295 / 1295 1200 / 1200 Output Total 375 / 375 Balance 920 / 920 1200 / 1200 Weight 56.7 kg Intake: IV 815 / 815 1200 / 1200 D5W/1/2 NS Inj 1,000 ML @ 84 1000 / 1000 mls/hr IV.CONT .[id number] [facility] Rx# :[id number] Maxipime Inj 2,000 MG In NS Inj 100 / 100 100 / 100 100 ML @ 200 mls/hr IV.SIG Q8H [facility] Rx#:[id number] Vancomycin Inj 1,500 MG In NS 515 / 515 Inj 500 ML @ 250 mls/hr IV.SIG ONCE ONE Rx#:[id number] Flagyl 500 MG Inj 100 ML @ 100 100 / 100 100 / 100 mls/hr IV.SIG Q8H [facility] Rx#: [id number] Oral 480 / 480 Output: Urine 375 / 375 Other: Date of Last Bowel Movement 12/01/17 12/01/17 Result Diagrams: 12/03/17 01:27 12/03/17 01:27 Laboratory Results: Laboratory Results - last 24 hr 12/03/17 10:20 Lactic Acid 2.5 H Medications: Active Medications Generic Name Dose Route Start Last Admin Trade Name Freq PRN Reason Stop Dose Admin Acetaminophen 650 mg 11/27/17 13:52 12/03/17 00:58 Tylenol PO 650 mg Q4H PRN Administration Temp > 100.4 Duloxetine HCl 60 mg 11/28/17 09:00 12/03/17 21:00 Cymbalta PO 60 mg BID [facility] Administration Enoxaparin Sodium 40 mg 12/03/17 16:00 12/03/17 16:24 Lovenox Inj SQ 40 mg DAILY@1600 [facility] Administration Dextrose/Sodium Chloride 1,000 mls @ 84 mls/hr 11/30/17 10:46 12/04/17 02:05 D5w/1/2 Ns Inj IV.CONT 84 mls/hr .[id number] [facility] Administration Cefepime HCl 2,000 mg/ Sodium 100 mls @ 200 mls/hr 12/03/17 03:00 12/04/17 02 :07 Chloride IV.SIG 200 mls/hr Q8H [facility] Administration Metronidazole/Sodium Chloride 100 mls @ 100 mls/hr 12/03/17 03:00 12/04/17 02 :12 Flagyl 500 Mg Inj IV.SIG 100 mls/hr Q8H [facility] Administration Levothyroxine Sodium 50 mcg 11/28/17 06:00 12/04/17 05:29 Synthroid PO 50 mcg DAILY@0600 [facility] Administration Lorazepam 0.5 mg 11/27/17 13:55 12/04/17 05:29 Ativan Inj IV.PUSH 0.5 mg Q6H PRN Administration ANXIETY Metoprolol Tartrate 50 mg 11/28/17 09:00 12/03/17 08:29 Lopressor PO Not Given DAILY [facility] Morphine Sulfate 2 mg 11/27/17 13:55 12/02/17 23:03 Morphine Inj IV.PUSH 2 mg Q4H PRN Administration PAIN SCALE 6 TO 10 Ondansetron HCl 4 mg 11/27/17 13:52 12/01/17 21:50 Zofran Inj IV.PUSH 4 mg Q6H PRN Administration NAUSEA OR VOMITING Sodium Chloride 2 ml 11/27/17 09:36 11/27/17 10:31 Ns Flush IV.FLUSH 2 ml PRN PRN Administration FLUSH AFTER USING IV ACCESS Objective Remarks: GENERAL: Well-nourished, well-developed patient. SKIN: Warm and dry. HEAD: Normocephalic. EYES: No scleral icterus. No injection or drainage. CARDIOVASCULAR: Regular rate and rhythm without murmurs. RESPIRATORY: Breath sounds equal bilaterally. No accessory muscle use. GASTROINTESTINAL: Abdomen, SS are intact, BIJAL drain EXTREMITIES: teds and scds MUSCULOSKELETAL: Adequate muscle tone. NEUROLOGICAL: No obvious focal deficit. Awake, alert, and oriented x3. PSYCHIATRIC: Appropriate mood and affect; insight and judgment normal. Assessment/Plan - Plan POD #1 discharge per general surgery once discharged and cleared by general surgery will follow up in general maintenance helper/onc clinic for discussion of IV chemotherapy clear liquids today per Dr. England POD #2 12/04/17 advance diet per general surgery encourage OOB will follow up general maintenance helper/onc clinic once discharged and cleared by general surgery
[2017-12-04] MEDS: Metoprolol Tartrate 50 MG Tablet PO SCH (08:56)
[2017-12-04] MEDS: Vancomycin Inj 1,000 MG in Sodium Chlor 0.9% Inj 250 ML IV.SIG SCH (08:56)
--- NOTE | 2017-12-04 14:27 | P.PN ---
Subjective Interval history: no nausea or vominting tolerating liquids + flatus Physical Exam Vital signs: Vital Signs 12/03/17 15:00 12/03/17 16:00 12/03/17 17:00 Temperature 97.9 F Pulse Rate 90 94 H 98 H Respiratory Rate 18 Blood Pressure 105/71 Pulse Oximetry 93 L 12/03/17 18:00 12/03/17 20:00 12/04/17 00:00 Temperature 97.6 F 98.0 F Pulse Rate 96 H 105 H 105 H Respiratory Rate 18 18 Blood Pressure 130/71 129/75 Pulse Oximetry 95 95 12/04/17 04:00 12/04/17 08:00 12/04/17 09:00 Temperature 98.5 F 98.6 F Pulse Rate 106 H 115 H 116 H Respiratory Rate 18 18 Blood Pressure 140/71 126/71 Pulse Oximetry 94 L 12/04/17 10:00 12/04/17 11:00 12/04/17 12:00 Temperature Pulse Rate 112 H 119 H 111 H Respiratory Rate Blood Pressure Pulse Oximetry 12/04/17 12:49 Temperature 98.1 F Pulse Rate Respiratory Rate 18 Blood Pressure 156/80 H Pulse Oximetry 97 Intake & Output 12/03/17 12/04/17 12/04/17 18:59 06:59 18:59 Intake Total 1295 / 1295 2400 / 2400 250 / 250 Output Total 375 / 375 Balance 920 / 920 2400 / 2400 250 / 250 Weight 56.7 kg Intake: IV 815 / 815 2400 / 2400 250 / 250 D5W/1/2 NS Inj 1,000 ML @ 84 2000 / 2000 mls/hr IV.CONT .[id number] [facility] Rx# :[id number] Maxipime Inj 2,000 MG In NS Inj 100 / 100 200 / 200 100 ML @ 200 mls/hr IV.SIG Q8H [facility] Rx#:[id number] Vancomycin Inj 1,000 MG In NS 250 / 250 Inj 250 ML @ 250 mls/hr IV.SIG Q24H [facility] Rx#:[id number] Vancomycin Inj 1,500 MG In NS 515 / 515 Inj 500 ML @ 250 mls/hr IV.SIG ONCE ONE Rx#:[id number] Flagyl 500 MG Inj 100 ML @ 100 100 / 100 200 / 200 mls/hr IV.SIG Q8H [facility] Rx#: [id number] Oral 480 / 480 Output: Urine 375 / 375 Other: Date of Last Bowel Movement 12/01/17 12/01/17 Narrative: GENERAL: NAD SKIN: Warm and dry. HEAD: Normocephalic. EYES: No scleral icterus. No injection or drainage. NECK: Supple, trachea midline. No JVD or lymphadenopathy. CARDIOVASCULAR: Regular rate and rhythm without murmurs, gallops, or rubs. RESPIRATORY: Breath sounds equal bilaterally. No accessory muscle use. GASTROINTESTINAL: Abdomen soft,, + few3 bowel sounds, post op drain in place scott catheter in place MUSCULOSKELETAL: No cyanosis, or edema. - Urinary Catheter Management Indwelling Urethral Catheter Cath placed during this visit: yes Reason for continuing: Hourly intake/output Insertion date: 12/02/17 Insertion time: 13:30 Results - Labs CBC & Chem 7: 12/03/17 01:27 12/03/17 01:27 Microbiology 12/03/17 04:51 Blood - Other Aerobic Blood Culture - Preliminary No growth in 1 day 12/03/17 04:51 Blood - Other Anaerobic Blood Culture - Preliminary No growth in 1 day 12/03/17 04:44 Blood - Other Aerobic Blood Culture - Preliminary No growth in 1 day 12/03/17 04:44 Blood - Other Anaerobic Blood Culture - Preliminary No growth in 1 day Assessment and Plan - Assessment (1) SBO (small bowel obstruction) Code(s): K56.609 - Unspecified intestinal obstruction, unspecified as to partial versus complete obstruction Status: Acute - Plan 77-year-old female with Partial small bowel obstruction--POD 1 Dx lap lap reginald, sb bypass - tolerating clears- defer to [facility]- for advance diet - pain control - encourage oob -IS bibi sxn Appreciate input from [facility] as general surgery -on Cef + flagyl Anxiety Ativan 0.5 mg IV every 6 hours ordered Hypertension Continue Lopressor Hypothyroidism Continue Synthroid Peripheral neuropathy Induced by chemotherapy Continue home meds Right upper extremity DVT Eliquis DVT prophylaxis on Eliquis
[2017-12-04] MEDS ORDERED: Aluminum/Magnesium/Simethacone Susp 30 ML UDC PO PRN (15:16)
[2017-12-04] MEDS: Enoxaparin Inj 40 MG/0.4 ML Syringe SQ SCH (15:33)
--- NOTE | 2017-12-04 18:15 | P.PNGS ---
Subjective Patient reports: feels better, pain is less, no flatus Physical Exam Vital signs: Vital Signs 12/03/17 20:00 12/04/17 00:00 12/04/17 04:00 Temperature 97.6 F 98.0 F 98.5 F Pulse Rate 105 H 105 H 106 H Respiratory Rate 18 18 18 Blood Pressure 130/71 129/75 140/71 Pulse Oximetry 95 95 94 L 12/04/17 08:00 12/04/17 09:00 12/04/17 10:00 Temperature 98.6 F Pulse Rate 115 H 116 H 112 H Respiratory Rate 18 Blood Pressure 126/71 Pulse Oximetry 12/04/17 11:00 12/04/17 12:00 12/04/17 12:49 Temperature 98.1 F Pulse Rate 119 H 111 H Respiratory Rate 18 Blood Pressure 156/80 H Pulse Oximetry 97 12/04/17 16:00 Temperature 98.3 F Pulse Rate 90 Respiratory Rate 18 Blood Pressure 140/65 Pulse Oximetry Intake & Output 12/03/17 12/04/17 12/04/17 18:59 06:59 18:59 Intake Total 1295 / 1295 2400 / 2400 890 / 890 Output Total 375 / 375 700 / 700 Balance 920 / 920 2400 / 2400 190 / 190 Weight 56.7 kg Intake: IV 815 / 815 2400 / 2400 250 / 250 D5W/1/2 NS Inj 1,000 ML @ 84 2000 / 2000 mls/hr IV.CONT .[id number] [facility] Rx# :[id number] Maxipime Inj 2,000 MG In NS Inj 100 / 100 200 / 200 100 ML @ 200 mls/hr IV.SIG Q8H [facility] Rx#:[id number] Vancomycin Inj 1,000 MG In NS 250 / 250 Inj 250 ML @ 250 mls/hr IV.SIG Q24H [facility] Rx#:[id number] Vancomycin Inj 1,500 MG In NS 515 / 515 Inj 500 ML @ 250 mls/hr IV.SIG ONCE ONE Rx#:[id number] Flagyl 500 MG Inj 100 ML @ 100 100 / 100 200 / 200 mls/hr IV.SIG Q8H [facility] Rx#: [id number] Oral 480 / 480 640 / 640 Output: Urine 375 / 375 700 / 700 Other: Date of Last Bowel Movement 12/01/17 12/01/17 - Constitutional no acute distress - Routine Respiratory Exam Present: CTA bilaterally - Routine Cardiovascular Exam Present: RRR - Routine Abdominal Exam Present: soft (mild ttp left side, incisions c/d/i) - Urinary Catheter Management Indwelling Urethral Catheter Cath placed during this visit: yes Reason for continuing: Hourly intake/output Insertion date: 12/02/17 Insertion time: 13:30 Assessment and Plan - Assessment (1) SBO (small bowel obstruction) Code(s): K56.609 - Unspecified intestinal obstruction, unspecified as to partial versus complete obstruction Status: Acute Plan: 77 year old female with ovarian cancer; recurrent small bowel obstructions; RUE DVT on OAC -POD 2 Dx lap lap reginald, sb bypass - advance to full liq - pain control - encourage oob -IS Abx ppx bibi sxn lovenox for dvt ppx - KEEP scott do not remove for 10-14 days
[2017-12-05] MEDS: Dextrose 5%/NaCl 0.45% Inj 1,000 ML IV.CONT SCH (00:21)
[2017-12-05] MEDS: Levothyroxine 50 MCG Tablet PO SCH (05:40)
--- NOTE | 2017-12-05 09:21 | P.PN ---
Subjective Interval history: up in the chair already states did pass some flatus tolerating clear liquids no complains of pain Physical Exam Vital signs: Vital Signs 12/04/17 10:00 12/04/17 11:00 12/04/17 12:00 Temperature Pulse Rate 112 H 119 H 111 H Respiratory Rate Blood Pressure Pulse Oximetry 12/04/17 12:49 12/04/17 16:00 12/04/17 20:00 Temperature 98.1 F 98.3 F 98.8 F Pulse Rate 90 99 H Respiratory Rate 18 18 18 Blood Pressure 156/80 H 140/65 159/76 H Pulse Oximetry 97 95 12/05/17 00:00 12/05/17 04:00 Temperature 98.0 F 97.9 F Pulse Rate 99 H 103 H Respiratory Rate 16 16 Blood Pressure 146/83 H 144/83 H Pulse Oximetry 96 95 Intake & Output 12/04/17 12/05/17 12/05/17 18:59 06:59 18:59 Intake Total 990 / 990 1007 / 1007 Output Total 700 / 700 300 / 300 Balance 290 / 290 707 / 707 Weight 64.8 kg Intake: IV 350 / 350 647 / 647 D5W/1/2 NS Inj 1,000 ML @ 42 347 / 347 mls/hr IV.CONT .[id number] [facility] Rx# :[id number] Maxipime Inj 2,000 MG In NS Inj 100 / 100 100 / 100 100 ML @ 200 mls/hr IV.SIG Q12H [facility] Rx#:[id number] Vancomycin Inj 1,000 MG In NS 250 / 250 Inj 250 ML @ 250 mls/hr IV.SIG Q24H [facility] Rx#:[id number] Flagyl 500 MG Inj 100 ML @ 100 200 / 200 mls/hr IV.SIG Q8H [facility] Rx#: [id number] Oral 640 / 640 360 / 360 Output: Urine 700 / 700 300 / 300 Other: Date of Last Bowel Movement 12/01/17 # Bowel Movements 0 Narrative: GENERAL: NAD SKIN: Warm and dry. HEAD: Normocephalic. EYES: No scleral icterus. No injection or drainage. NECK: Supple, trachea midline. No JVD or lymphadenopathy. CARDIOVASCULAR: Regular rate and rhythm RESPIRATORY: Breath sounds equal bilaterally. No accessory muscle use. GASTROINTESTINAL: Abdomen soft,, + few3 bowel sounds, post op drain in place scott catheter in place MUSCULOSKELETAL: No cyanosis, or edema. - Urinary Catheter Management Indwelling Urethral Catheter Cath placed during this visit: yes Reason for continuing: Hourly intake/output Insertion date: 12/02/17 Insertion time: 13:30 Results - Labs CBC & Chem 7: 12/03/17 01:27 12/05/17 05:57 Laboratory Results - last 24 hr 12/02/17 12/05/17 12:40 05:57 Creatinine 0.79 Estimated GFR 70 L Crossmatch See Detail MTS Gel Crossmatch See Detail Microbiology 12/03/17 04:51 Blood - Other Aerobic Blood Culture - Preliminary No growth in 1 day 12/03/17 04:51 Blood - Other Anaerobic Blood Culture - Preliminary No growth in 1 day 12/03/17 04:44 Blood - Other Aerobic Blood Culture - Preliminary No growth in 1 day 12/03/17 04:44 Blood - Other Anaerobic Blood Culture - Preliminary No growth in 1 day Assessment and Plan - Assessment (1) SBO (small bowel obstruction) Code(s): K56.609 - Unspecified intestinal obstruction, unspecified as to partial versus complete obstruction Status: Acute - Plan 77-year-old female with Partial small bowel obstruction--S/P lap lap reginald, sb bypass - tolerating clears- defer to [facility]- for advance diet - pain control - encourage oob -IS - bibi sxn - Appreciate input from [facility] as general surgery -on Cef + flagyl Anxiety Ativan 0.5 mg IV every 6 hours ordered Hypertension Continue Lopressor Hypothyroidism Continue Synthroid Peripheral neuropathy Induced by chemotherapy Continue home meds Right upper extremity DVT Eliquis DVT prophylaxis on Eliquis CM consult for - home healthy care- going home with scott and possibly BIBI drain d/w daughter- OP ff up with Dr. Girard as OP to initiate chemotherapy - OP ff up with PCP_ Dr. Hatch
[2017-12-05] MEDS: Vancomycin Inj 1,000 MG in Sodium Chlor 0.9% Inj 250 ML IV.SIG SCH (09:52)
[2017-12-05] MEDS: Metoprolol Tartrate 50 MG Tablet PO SCH (09:52)
--- NOTE | 2017-12-05 13:33 | P.PNGS ---
Subjective Patient reports: no new complaints, pain is less, flatus Physical Exam Vital signs: Vital Signs 12/04/17 16:00 12/04/17 20:00 12/05/17 00:00 Temperature 98.3 F 98.8 F 98.0 F Pulse Rate 90 99 H 99 H Respiratory Rate 18 18 16 Blood Pressure 140/65 159/76 H 146/83 H Pulse Oximetry 95 96 12/05/17 04:00 12/05/17 08:00 12/05/17 12:00 Temperature 97.9 F 98.3 F 98.1 F Pulse Rate 103 H 76 80 Respiratory Rate 16 18 20 Blood Pressure 144/83 H 144/76 H 136/73 Pulse Oximetry 95 94 L 96 Intake & Output 12/04/17 12/05/17 12/05/17 18:59 06:59 18:59 Intake Total 990 / 990 1007 / 1007 Output Total 700 / 700 300 / 300 Balance 290 / 290 707 / 707 Weight 64.8 kg Intake: IV 350 / 350 647 / 647 D5W/1/2 NS Inj 1,000 ML @ 42 347 / 347 mls/hr IV.CONT .[id number] [facility] Rx# :[id number] Maxipime Inj 2,000 MG In NS Inj 100 / 100 100 / 100 100 ML @ 200 mls/hr IV.SIG Q12H [facility] Rx#:[id number] Vancomycin Inj 1,000 MG In NS 250 / 250 Inj 250 ML @ 250 mls/hr IV.SIG Q24H [facility] Rx#:[id number] Flagyl 500 MG Inj 100 ML @ 100 200 / 200 mls/hr IV.SIG Q8H [facility] Rx#: [id number] Oral 640 / 640 360 / 360 Output: Urine 700 / 700 300 / 300 Other: Date of Last Bowel Movement 12/01/17 # Bowel Movements 0 - Routine Respiratory Exam Present: CTA bilaterally - Routine Cardiovascular Exam Present: RRR - Routine Abdominal Exam Present: soft (incisional tenderness, bibi brownish serous) - Urinary Catheter Management Indwelling Urethral Catheter Cath placed during this visit: yes Reason for continuing: Hourly intake/output Insertion date: 12/02/17 Insertion time: 13:30 Assessment and Plan - Assessment (1) SBO (small bowel obstruction) Code(s): K56.609 - Unspecified intestinal obstruction, unspecified as to partial versus complete obstruction Status: Acute Plan: 77 year old female with ovarian cancer; recurrent small bowel obstructions; RUE DVT on OAC -POD 3 Dx lap lap reginald, sb bypass - advance to soft diet - pain control - encourage oob -IS bibi sxn - will plan to d/c prior to d/c home lovenox - KEEP scott do not remove for 10-14 days, will consider cysto prior to scott removal - Dr. Forbes covering over the weekend possible d/c friday or friday
--- NOTE | 2017-12-05 15:56 | P.PN ---
Subjective Interval history: No new c/o. She reports irritation and a sense of needing to void from indwelling scott catheter. Small flatus/bm, no n/v Physical Exam Vital signs: Vital Signs 12/04/17 16:00 12/04/17 20:00 12/05/17 00:00 Temperature 98.3 F 98.8 F 98.0 F Pulse Rate 90 99 H 99 H Respiratory Rate 18 18 16 Blood Pressure 140/65 159/76 H 146/83 H Pulse Oximetry 95 96 12/05/17 04:00 12/05/17 08:00 12/05/17 09:00 Temperature 97.9 F 98.3 F Pulse Rate 103 H 76 104 H Respiratory Rate 16 18 Blood Pressure 144/83 H 144/76 H Pulse Oximetry 95 94 L 12/05/17 10:00 12/05/17 11:00 12/05/17 12:00 Temperature 98.1 F Pulse Rate 102 H 102 H 80 Respiratory Rate 20 Blood Pressure 136/73 Pulse Oximetry 96 12/05/17 13:00 12/05/17 14:00 Temperature Pulse Rate 98 H 93 H Respiratory Rate Blood Pressure Pulse Oximetry Intake & Output 12/04/17 12/05/17 12/05/17 18:59 06:59 18:59 Intake Total 990 / 990 1007 / 1007 Output Total 700 / 700 300 / 300 Balance 290 / 290 707 / 707 Weight 64.8 kg Intake: IV 350 / 350 647 / 647 D5W/1/2 NS Inj 1,000 ML @ 42 347 / 347 mls/hr IV.CONT .[id number] [facility] Rx# :[id number] Maxipime Inj 2,000 MG In NS Inj 100 / 100 100 / 100 100 ML @ 200 mls/hr IV.SIG Q12H [facility] Rx#:[id number] Vancomycin Inj 1,000 MG In NS 250 / 250 Inj 250 ML @ 250 mls/hr IV.SIG Q24H [facility] Rx#:[id number] Flagyl 500 MG Inj 100 ML @ 100 200 / 200 mls/hr IV.SIG Q8H [facility] Rx#: [id number] Oral 640 / 640 360 / 360 Output: Urine 700 / 700 300 / 300 Other: Date of Last Bowel Movement 12/01/17 # Bowel Movements 0 - Constitutional no acute distress - Routine Abdominal Exam Present: soft (clean, dry) - Routine Neurological Exam Present: alert, oriented X3 (oob in chair) - Routine Psychiatric Exam Present: normal affect - Urinary Catheter Management Indwelling Urethral Catheter Cath placed during this visit: yes Reason for continuing: Hourly intake/output Insertion date: 12/02/17 Insertion time: 13:30 Results - Labs CBC & Chem 7: 12/03/17 01:27 12/05/17 05:57 Laboratory Results - last 24 hr 12/02/17 12/05/17 12:40 05:57 Creatinine 0.79 Estimated GFR 70 L Crossmatch See Detail MTS Gel Crossmatch See Detail Microbiology 12/03/17 04:51 Blood - Other Aerobic Blood Culture - Preliminary No growth in 2 days 12/03/17 04:51 Blood - Other Anaerobic Blood Culture - Preliminary No growth in 2 days 12/03/17 04:44 Blood - Other Aerobic Blood Culture - Preliminary No growth in 2 days 12/03/17 04:44 Blood - Other Anaerobic Blood Culture - Preliminary No growth in 2 days Assessment and Plan - Plan POD#3 Recurrent ovarian cancer s/p surgery with Dr. England Doing well in early post-op period Some early, subtle bowel activity CPM, increase oob activity, spirometry. q&a, she understands findings and plan of care
[2017-12-05] MEDS: Enoxaparin Inj 40 MG/0.4 ML Syringe SQ SCH (17:44)
[2017-12-06] MEDS: Morphine Inj 4 MG/ML Vial IV.PUSH PRN (00:13)
[2017-12-06] MEDS: Dextrose 5%/NaCl 0.45% Inj 1,000 ML IV.CONT SCH ×2 (00:17→22:12)
[2017-12-06 06:31] LABS: Calcium 7.3 mg/dL (8.5-10.1); Carbon Dioxide 22.7 meq/L (21.0-32.0)
[2017-12-06 06:41] LABS: Potassium 2.8 meq/L (3.5-5.1)
[2017-12-06] MEDS: Levothyroxine 50 MCG Tablet PO SCH (06:43)
[2017-12-06] MEDS ORDERED: Potassium Chloride 25 MEQ Effervescent Tablet PO ONE (06:51)
[2017-12-06] MEDS: Potassium Chlor 20 mEq Premix 20 MEQ/100 ML PIGGYBACK IV.SIG SCH ×2 (08:15→10:15)
[2017-12-06] MEDS ORDERED: Pharmacy Ordered Lab Info OTHER ONE (08:45)
[2017-12-06] MEDS: Metoprolol Tartrate 50 MG Tablet PO SCH (10:21)
--- NOTE | 2017-12-06 15:30 | P.PN ---
Subjective Interval history: taking po better up in chair very interactive states had a small BM last eveining no nausea or vomiting, no pain Physical Exam Vital signs: Vital Signs 12/05/17 16:00 12/05/17 20:10 12/05/17 20:39 Temperature 98.3 F 99.2 F Pulse Rate 90 98 H 99 H Respiratory Rate 20 20 Blood Pressure 141/65 H 128/59 L Pulse Oximetry 94 L 12/06/17 00:00 12/06/17 00:09 12/06/17 00:15 Temperature 98.3 F Pulse Rate 101 H 97 H Respiratory Rate 20 16 Blood Pressure 126/67 Pulse Oximetry 97 12/06/17 01:00 12/06/17 04:08 12/06/17 04:26 Temperature 98.1 F Pulse Rate 94 H 95 H Respiratory Rate 16 18 Blood Pressure 124/65 Pulse Oximetry 97 12/06/17 08:00 12/06/17 12:00 Temperature 98.3 F 97.9 F Pulse Rate 98 H 102 H Respiratory Rate 18 18 Blood Pressure 128/71 142/81 H Pulse Oximetry 97 96 Intake & Output 12/05/17 12/06/17 12/06/17 18:59 06:59 18:59 Intake Total 590 / 590 1400 / 1400 200 / 200 Output Total 980 / 980 30 / 30 Balance -390 / -390 1370 / 1370 200 / 200 Weight 65.9 kg Intake: IV 350 / 350 1400 / 1400 200 / 200 D5W/1/2 NS Inj 1,000 ML @ 42 1000 / 1000 mls/hr IV.CONT .[id number] [facility] Rx# :[id number] Maxipime Inj 2,000 MG In NS Inj 200 / 200 100 ML @ 200 mls/hr IV.SIG Q12H [facility] Rx#:[id number] KCl 20 mEq Premix Inj 20 meq In 200 / 200 100 ml @ 50 mls/hr IV.SIG Q2H [facility] Rx#:[id number] Vancomycin Inj 1,000 MG In NS 250 / 250 Inj 250 ML @ 250 mls/hr IV.SIG Q24H [facility] Rx#:[id number] Flagyl 500 MG Inj 100 ML @ 100 100 / 100 200 / 200 mls/hr IV.SIG Q8H [facility] Rx#: [id number] Oral 240 / 240 Output: Urine Amount (Catheter) 750 / 750 Indwelling Urethral Catheter 750 / 750 Wound Drainage 230 / 230 30 / 30 # 1 Abdomen 230 / 230 30 / 30 Other: Date of Last Bowel Movement 12/01/17 12/01/17 Narrative: GENERAL: NAD SKIN: Warm and dry. HEAD: Normocephalic. EYES: No scleral icterus. No injection or drainage. NECK: Supple, trachea midline. No JVD or lymphadenopathy. CARDIOVASCULAR: Regular rate and rhythm RESPIRATORY: Breath sounds equal bilaterally. No accessory muscle use. GASTROINTESTINAL: Abdomen soft,, + bowel sounds, post op drain in place scott catheter in place MUSCULOSKELETAL: No cyanosis, or edema. - Urinary Catheter Management Indwelling Urethral Catheter Cath placed during this visit: yes Reason for continuing: Hourly intake/output Insertion date: 12/02/17 Insertion time: 13:30 Results - Labs CBC & Chem 7: 12/03/17 01:27 12/06/17 17:05 Laboratory Results - last 24 hr 12/02/17 12/06/17 12:40 05:38 Sodium 139 Potassium 2.8 L* Chloride 106 Carbon Dioxide 22.7 Anion Gap 10 BUN 13 Creatinine 0.81 Estimated GFR 68 L Random Glucose 115 H Calcium 7.3 L* Prot Corrected Calcium 8.5 Total Protein 5.0 L D Rout Panel Path Interp Microbiology 12/03/17 04:51 Blood - Other Aerobic Blood Culture - Preliminary No growth in 3 days 12/03/17 04:51 Blood - Other Anaerobic Blood Culture - Preliminary No growth in 3 days 12/03/17 04:44 Blood - Other Aerobic Blood Culture - Preliminary No growth in 3 days 12/03/17 04:44 Blood - Other Anaerobic Blood Culture - Preliminary No growth in 3 days Assessment and Plan - Assessment (1) SBO (small bowel obstruction) Code(s): K56.609 - Unspecified intestinal obstruction, unspecified as to partial versus complete obstruction Status: Acute - Plan 77-year-old female with Partial small bowel obstruction--S/P lap lap reginald, sb bypass - toleratingadvance diet - pain control - encourage oob -IS - bibi sxn - [facility]/Gyne oncology ff -on Cef + flagyl Hypokalemia- 2.7 - replace now - recheck this pm Anxiety Ativan 0.5 mg IV every 6 hours ordered Hypertension Continue Lopressor Hypothyroidism Continue Synthroid Peripheral neuropathy Induced by chemotherapy Continue home meds Right upper extremity DVT Eliquis DVT prophylaxis on Eliquis CM consult for - home healthy care- going home with sonia and possibly BIBI drain d/w daughter- OP ff up with Dr. Girard as OP to initiate chemotherapy - OP ff up with PCP_ Dr. Hatch
[2017-12-06] MEDS: Enoxaparin Inj 40 MG/0.4 ML Syringe SQ SCH (15:59)
[2017-12-06 18:20] LABS: Calcium 7.3 mg/dL (8.5-10.1); Potassium 4.1 meq/L (3.5-5.1)
[2017-12-06 18:34] LABS: Total Protein 5.1 g/dL (6.4-8.2)
--- NOTE | 2017-12-06 18:35 | P.PN ---
Subjective Interval history: Feels better; tolerating diet Tiny BM, no flatus, however Physical Exam Vital signs: Vital Signs 12/05/17 20:10 12/05/17 20:39 12/06/17 00:00 Temperature 99.2 F 98.3 F Pulse Rate 98 H 99 H 101 H Respiratory Rate 20 20 Blood Pressure 128/59 L 126/67 Pulse Oximetry 94 L 97 12/06/17 00:09 12/06/17 00:15 12/06/17 01:00 Temperature Pulse Rate 97 H Respiratory Rate 16 16 Blood Pressure Pulse Oximetry 12/06/17 04:08 12/06/17 04:26 12/06/17 08:00 Temperature 98.1 F 98.3 F Pulse Rate 94 H 95 H 98 H Respiratory Rate 18 18 Blood Pressure 124/65 128/71 Pulse Oximetry 97 97 12/06/17 12:00 Temperature 97.9 F Pulse Rate 102 H Respiratory Rate 18 Blood Pressure 142/81 H Pulse Oximetry 96 Intake & Output 12/05/17 12/06/17 12/06/17 18:59 06:59 18:59 Intake Total 590 / 590 1400 / 1400 400 / 400 Output Total 980 / 980 30 / 30 Balance -390 / -390 1370 / 1370 400 / 400 Weight 65.9 kg Intake: IV 350 / 350 1400 / 1400 400 / 400 D5W/1/2 NS Inj 1,000 ML @ 42 1000 / 1000 mls/hr IV.CONT .[id number] [facility] Rx# :[id number] Maxipime Inj 2,000 MG In NS Inj 200 / 200 100 / 100 100 ML @ 200 mls/hr IV.SIG Q12H [facility] Rx#:[id number] KCl 20 mEq Premix Inj 20 meq In 200 / 200 100 ml @ 50 mls/hr IV.SIG Q2H [facility] Rx#:[id number] Vancomycin Inj 1,000 MG In NS 250 / 250 Inj 250 ML @ 250 mls/hr IV.SIG Q24H [facility] Rx#:[id number] Flagyl 500 MG Inj 100 ML @ 100 100 / 100 200 / 200 100 / 100 mls/hr IV.SIG Q8H [facility] Rx#: [id number] Oral 240 / 240 Output: Urine Amount (Catheter) 750 / 750 Indwelling Urethral Catheter 750 / 750 Wound Drainage 230 / 230 30 / 30 # 1 Abdomen 230 / 230 30 / 30 Other: Date of Last Bowel Movement 12/01/17 12/01/17 - Constitutional no acute distress - Routine Respiratory Exam Present: CTA bilaterally - Routine Abdominal Exam Present: soft, normoactive bowel sounds, drain (greenish output, 260 ml/24hrs) - Urinary Catheter Management Indwelling Urethral Catheter Cath placed during this visit: yes Reason for continuing: Hourly intake/output Insertion date: 12/02/17 Insertion time: 13:30 Results - Labs CBC & Chem 7: 12/03/17 01:27 12/06/17 17:05 Laboratory Results - last 24 hr 12/06/17 12/06/17 05:38 17:05 Sodium 139 139 Potassium 2.8 L* 4.1 D Chloride 106 107 Carbon Dioxide 22.7 24.0 Anion Gap 10 8 BUN 13 12 Creatinine 0.81 0.82 Estimated GFR 68 L 67 L Random Glucose 115 H 111 H Calcium 7.3 L* 7.3 L* Prot Corrected Calcium 8.5 Magnesium 1.0 L Total Protein 5.0 L D Microbiology 12/03/17 04:51 Blood - Other Aerobic Blood Culture - Preliminary No growth in 3 days 12/03/17 04:51 Blood - Other Anaerobic Blood Culture - Preliminary No growth in 3 days 12/03/17 04:44 Blood - Other Aerobic Blood Culture - Preliminary No growth in 3 days 12/03/17 04:44 Blood - Other Anaerobic Blood Culture - Preliminary No growth in 3 days Assessment and Plan - Assessment (1) SBO (small bowel obstruction) Code(s): K56.609 - Unspecified intestinal obstruction, unspecified as to partial versus complete obstruction Status: Acute - Plan Partial small bowel obstruction likely due to metastatic disease, relieved by laparoscopic bypass procedure. Tolerating PO's now; clinically much improved. BIJAL output increased and with greenish tinge. Will discuss with Dr. England; will need to keep drain when she goes home in all likelihood. Discussed Condition With: Patient Nurse - Attending Attestation I attest that I had a [id number] encounter with the patient on the same day, and personally performed and documented my assessment and findings in the medical record. The following services were provided during this hospital visit: Chart data review, vital sign assessments/reviewing monitor data Review of consultation notes if present Medication orders/review and/or management Ordering and/or reviewing lab tests Ordering and/or interpreting/reviewing x-rays and/or diagnostic studies Care of the patient and discussion of the patient with the care team Documentation time To help prompt me to consider important information that might be impacting today's encounter and assessment, Information from prior notes written by myself or my colleagues may have been "brought forward/copy and pasted" into today's note.
[2017-12-07] MEDS: Levothyroxine 50 MCG Tablet PO SCH (05:21)
[2017-12-07 08:06] LABS: Baso % (Auto) 0.4 % (0.0-2.0); Eos # (Auto) 0.3 th/mm3 (0.0-0.4); Eos % (Auto) 3.1 % (0.0-4.0); Hemoglobin 9.8 gm/dL (11.6-15.3); Lymph % (Auto) 11.4 % (9.0-44.0); Mean Corpuscular HGB Conc 33.7 % (32.0-36.0); Mean Corpuscular Hemoglobin 31.2 pg (27.0-34.0); Mean Corpuscular Volume 92.5 fL (80.0-100.0); Mean Platelet Volume 7.3 fL (7.0-11.0); Mono # (Auto) 1.4 th/mm3 (0.0-0.9); Mono % (Auto) 15.7 % (0.0-8.0); Neut # (Auto) 6.1 th/mm3 (1.8-7.7); Neut % (Auto) 69.4 % (16.0-70.0); Platelet Count 311 th/mm3 (150-450); Red Blood Count 3.14 mil/mm3 (4.00-5.30); Red Cell Distribution Width 15.3 % (11.6-17.2); White Blood Count 8.8 th/mm3 (4.0-11.0)
[2017-12-07] MEDS: Metoprolol Tartrate 50 MG Tablet PO SCH (10:00)
--- NOTE | 2017-12-07 11:46 | P.PN ---
Subjective Interval history: no complains had a BM not much appetitie- but patient is sure that when hshe gets home she would eat better no pain complains at all misses her 3 cats and 2 dosgs and 2 fish tanks Physical Exam Vital signs: Vital Signs 12/06/17 12:00 12/06/17 16:00 12/06/17 19:00 Temperature 97.9 F 97.8 F Pulse Rate 102 H 85 92 H Respiratory Rate 18 16 Blood Pressure 142/81 H 123/71 Pulse Oximetry 96 98 12/06/17 20:00 12/06/17 23:00 12/07/17 00:00 Temperature 98.2 F 98.5 F Pulse Rate 100 H 94 H 95 H Respiratory Rate 18 16 Blood Pressure 132/72 125/73 Pulse Oximetry 96 96 12/07/17 04:00 12/07/17 08:00 Temperature 98.2 F 98.6 F Pulse Rate 94 H 94 H Respiratory Rate 15 16 Blood Pressure 138/79 143/85 H Pulse Oximetry 94 L 98 Intake & Output 12/06/17 12/07/17 12/07/17 18:59 06:59 18:59 Intake Total 1200 / 1200 1080 / 1080 Output Total 825 / 825 640 / 640 Balance 375 / 375 440 / 440 Weight 66.3 kg Intake: IV 400 / 400 600 / 600 D5W/1/2 NS Inj 1,000 ML @ 42 300 / 300 mls/hr IV.CONT .[id number] [facility] Rx# :[id number] Maxipime Inj 2,000 MG In NS Inj 100 / 100 100 / 100 100 ML @ 200 mls/hr IV.SIG Q12H [facility] Rx#:[id number] KCl 20 mEq Premix Inj 20 meq In 200 / 200 100 ml @ 50 mls/hr IV.SIG Q2H [facility] Rx#:[id number] Flagyl 500 MG Inj 100 ML @ 100 100 / 100 200 / 200 mls/hr IV.SIG Q8H [facility] Rx#: [id number] Oral 800 / 800 480 / 480 Output: Urine Amount (Catheter) 725 / 725 600 / 600 Indwelling Urethral Catheter 725 / 725 600 / 600 Wound Drainage 100 / 100 40 / 40 # 1 Abdomen 100 / 100 40 / 40 Other: Date of Last Bowel Movement 12/01/17 12/01/17 12/01/17 Narrative: GENERAL: NAD SKIN: Warm and dry. HEAD: Normocephalic. EYES: No scleral icterus. No injection or drainage. NECK: Supple, trachea midline. No JVD or lymphadenopathy. CARDIOVASCULAR: Regular rate and rhythm RESPIRATORY: Breath sounds equal bilaterally. No accessory muscle use. GASTROINTESTINAL: Abdomen soft,, + bowel sounds, post op drain in place scott catheter in place MUSCULOSKELETAL: No cyanosis, or edema. - Urinary Catheter Management Indwelling Urethral Catheter Cath placed during this visit: yes Reason for continuing: Hourly intake/output Insertion date: 12/02/17 Insertion time: 13:30 Results - Labs CBC & Chem 7: 12/07/17 07:31 12/07/17 07:31 Laboratory Results - last 24 hr 12/06/17 12/07/17 12/07/17 17:05 07:31 07:31 WBC 8.8 RBC 3.14 L Hgb 9.8 L Hct 29.0 L MCV 92.5 MCH 31.2 MCHC 33.7 RDW 15.3 Plt Count 311 MPV 7.3 Neut % (Auto) 69.4 Lymph % (Auto) 11.4 [place] % (Auto) 15.7 H Eos % (Auto) 3.1 Baso % (Auto) 0.4 Neut # (Auto) 6.1 Lymph # (Auto) 1.0 [place] # (Auto) 1.4 H Eos # (Auto) 0.3 Baso # (Auto) 0.0 WBC Differential . Differential Comment Auto diff final Sodium 139 Potassium 4.1 D Chloride 107 Carbon Dioxide 24.0 Anion Gap 8 BUN 12 Creatinine 0.82 0.71 Estimated GFR 67 L 80 L Random Glucose 111 H Calcium 7.3 L* Prot Corrected Calcium 8.4 L Magnesium 1.0 L Total Protein 5.1 L Microbiology 12/03/17 04:51 Blood - Other Aerobic Blood Culture - Preliminary No growth in 4 days 12/03/17 04:51 Blood - Other Anaerobic Blood Culture - Preliminary No growth in 4 days 12/03/17 04:44 Blood - Other Aerobic Blood Culture - Preliminary No growth in 4 days 12/03/17 04:44 Blood - Other Anaerobic Blood Culture - Preliminary No growth in 4 days Assessment and Plan - Assessment (1) SBO (small bowel obstruction) Code(s): K56.609 - Unspecified intestinal obstruction, unspecified as to partial versus complete obstruction Status: Acute - Plan 77-year-old female with Partial small bowel obstruction--S/P lap lap reginald, sb bypass - toleratingadvance diet - pain control - encourage oob -IS - bibi sxn - GS/Gyne oncology ff -on Cef + flagyl Hypokalemia- 2.7- improved Anxiety- calm a Hypertension Continue Lopressor Hypothyroidism Continue Synthroid Peripheral neuropathy Induced by chemotherapy Continue home meds Right upper extremity DVT Eliquis DVT prophylaxis on Eliquis CM consult for - home healthy care- going home with sonia and possibly BIBI drain d/w daughter- OP ff up with Dr. Girard as OP to initiate chemotherapy - OP ff up with PCP_ Dr. Hatch CM cnsulted for home health care
--- NOTE | 2017-12-07 11:47 | P.DCO ---
- Physical Therapy Order: Evaluate and treat, Improve ambulation, Strength and gait training - Home Health Nursing Order: Medical education, Wound care and dressing changes, Ledezma catheter maintenance - Home Health Aide Order: To assist in: faucets assembler and meal prep - Case Management Consult Yes - Certification I have seen patient Brenda Diop on 12/07/17. My clinical findings support the need for the requested home health care services because: Deconditioned with increased weakness, Need for psychosocial assistance, Infection with risk of complications I certify that my clinical findings support that this patient is homebound because: Post-op weakness
[2017-12-07] MEDS: Enoxaparin Inj 40 MG/0.4 ML Syringe SQ SCH (15:47)
--- NOTE | 2017-12-07 17:29 | P.PNGS ---
Subjective Patient reports: no new complaints ( DAILY PROGRESS NOTE FOR SURGICAL ATTENDING, DR. JOHNY ISBELL ) Physical Exam Vital signs: Vital Signs 12/06/17 19:00 12/06/17 20:00 12/06/17 23:00 Temperature 98.2 F Pulse Rate 92 H 100 H 94 H Respiratory Rate 18 Blood Pressure 132/72 Pulse Oximetry 96 12/07/17 00:00 12/07/17 04:00 12/07/17 08:00 Temperature 98.5 F 98.2 F 98.6 F Pulse Rate 95 H 94 H 94 H Respiratory Rate 16 15 16 Blood Pressure 125/73 138/79 143/85 H Pulse Oximetry 96 94 L 98 12/07/17 12:00 12/07/17 16:04 Temperature 98.5 F 98.2 F Pulse Rate 98 H 96 H Respiratory Rate 18 20 Blood Pressure 128/79 147/81 H Pulse Oximetry 99 94 L Intake & Output 12/06/17 12/07/17 12/07/17 18:59 06:59 18:59 Intake Total 1200 / 1200 1080 / 1080 100 / 100 Output Total 825 / 825 640 / 640 Balance 375 / 375 440 / 440 100 / 100 Weight 66.3 kg Intake: IV 400 / 400 600 / 600 100 / 100 D5W/1/2 NS Inj 1,000 ML @ 42 300 / 300 mls/hr IV.CONT .[id number] [facility] Rx# :[id number] Maxipime Inj 2,000 MG In NS Inj 100 / 100 100 / 100 100 ML @ 200 mls/hr IV.SIG Q12H [facility] Rx#:[id number] KCl 20 mEq Premix Inj 20 meq In 200 / 200 100 ml @ 50 mls/hr IV.SIG Q2H [facility] Rx#:[id number] Flagyl 500 MG Inj 100 ML @ 100 100 / 100 200 / 200 100 / 100 mls/hr IV.SIG Q8H [facility] Rx#: [id number] Oral 800 / 800 480 / 480 Output: Urine Amount (Catheter) 725 / 725 600 / 600 Indwelling Urethral Catheter 725 / 725 600 / 600 Wound Drainage 100 / 100 40 / 40 # 1 Abdomen 100 / 100 40 / 40 Other: Date of Last Bowel Movement 12/01/17 12/01/17 12/01/17 Narrative: Patient sitting up in bed Comfortable Scott in place Abdomen soft Excited to be discharged tomorrow - Urinary Catheter Management Indwelling Urethral Catheter Cath placed during this visit: yes Reason for continuing: Hourly intake/output Insertion date: 12/02/17 Insertion time: 13:30 Assessment and Plan - Assessment (1) SBO (small bowel obstruction) Code(s): K56.609 - Unspecified intestinal obstruction, unspecified as to partial versus complete obstruction Status: Acute Plan: 77 year old female with ovarian cancer; recurrent small bowel obstructions; RUE DVT on OAC -POD Dx lap lap reginald, sb bypass -Tolerating diet - pain control - encourage oob -IS j - KEEP scott do not remove for 10-14 days, will consider cysto prior to scott removal -DC Friday - Attending Attestation NOTE FOR SURGICAL ATTENDING, DR. JOHNY ISBELL I attest that I had a [id number] encounter with the patient on the same day, and personally performed and documented my assessment and findings in the medical record. The following services were provided during this hospital visit: Chart data review, vital sign assessments/reviewing monitor data Review of consultations notes if present. Medication orders/review and/or management Ordering and/or reviewing lab tests Ordering and/or interpreting/reviewing x-rays and/or diagnostic studies Care of the patient and discussion of the patient with the care team Documentation time To help prompt me to consider important information that might be impacting today's encounter and assessment, Information from prior notes written by myself or my colleagues may have been "brought forward/copy and pasted" into today's note.
[2017-12-07] MEDS: Morphine Inj 4 MG/ML Vial IV.PUSH PRN ×2 (17:58→22:09)
[2017-12-07 19:42] LABS: Amorphous Sediment,Urine Rare /hpf; Bacteria,Urine Many /hpf; Bilirubin,Urine Moderate (Negative); Clarity,Urine Turbid (Clear); Color,Urine Amber (Yellw/Straw); Glucose,Urine (UA) 50 mg/dL (Negative); Leukocyte Esterase,Urine Moderate (Negative); Mucus,Urine Few /lpf (Occasional); Nitrite,Urine Negative (Negative); Specific Gravity,Urine 1.011 (1.002-1.035); Squamous Epithelial Cell,Urine 1 /hpf (0-5); Urobilinogen,Urine 4 or Greater mg/dL (Less than 2)
[2017-12-07 19:48] LABS: Ictotest,Urine Positive (Negative)
[2017-12-07] MEDS: Dextrose 5%/NaCl 0.45% Inj 1,000 ML IV.CONT SCH ×2 (19:54→21:35)
[2017-12-08] MEDS: Levothyroxine 50 MCG Tablet PO SCH (05:44)
--- NOTE | 2017-12-08 07:57 | P.PNONC ---
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 swaging machine adjuster/onc progress note patient resting in bed no complaints feels ready to go home today states taking little pain medication eating loose stool Objective Vital Signs/Intake & Output: Vital Signs 12/07/17 08:00 12/07/17 12:00 12/07/17 16:00 Temperature 98.6 F 98.5 F Pulse Rate 94 H 98 H 94 H Respiratory Rate 16 18 Blood Pressure 143/85 H 128/79 Pulse Oximetry 98 99 12/07/17 16:04 12/07/17 20:00 12/08/17 00:00 Temperature 98.2 F 98.8 F 98.7 F Pulse Rate 96 H 84 87 Respiratory Rate 20 18 16 Blood Pressure 147/81 H 127/67 123/74 Pulse Oximetry 94 L 97 95 12/08/17 04:00 12/08/17 07:30 12/08/17 07:41 Temperature 98.5 F Pulse Rate 91 H 91 H Respiratory Rate 18 20 Blood Pressure 137/77 Pulse Oximetry 96 Intake & Output 12/07/17 12/08/17 12/08/17 18:59 06:59 18:59 Intake Total 900 / 900 1640 / 1640 Output Total 1005 / 1005 302 / 302 Balance -105 / -105 1338 / 1338 Weight 65.7 kg Intake: IV 100 / 100 1400 / 1400 D5W/1/2 NS Inj 1,000 ML @ 42 1000 / 1000 mls/hr IV.CONT .[id number] [facility] Rx# :[id number] Maxipime Inj 2,000 MG In NS Inj 200 / 200 100 ML @ 200 mls/hr IV.SIG Q12H [facility] Rx#:[id number] Flagyl 500 MG Inj 100 ML @ 100 100 / 100 200 / 200 mls/hr IV.SIG Q8H [facility] Rx#: [id number] Oral 800 / 800 240 / 240 Output: Urine 1000 / 1000 300 / 300 Wound Drainage 5 / 5 2 / 2 # 1 Abdomen 5 / 5 2 / 2 Other: Date of Last Bowel Movement 12/01/17 12/08/17 # Bowel Movements 1 # Incontinent Bowel Movements 1 Result Diagrams: 12/07/17 07:31 12/07/17 07:31 Laboratory Results: Laboratory Results - last 24 hr 12/07/17 12/07/17 12/07/17 07:31 07:31 07:31 WBC 8.8 RBC 3.14 L Hgb 9.8 L Hct 29.0 L MCV 92.5 MCH 31.2 MCHC 33.7 RDW 15.3 Plt Count 311 MPV 7.3 Neut % (Auto) 69.4 Lymph % (Auto) 11.4 [place] % (Auto) 15.7 H Eos % (Auto) 3.1 Baso % (Auto) 0.4 Neut # (Auto) 6.1 Lymph # (Auto) 1.0 [place] # (Auto) 1.4 H Eos # (Auto) 0.3 Baso # (Auto) 0.0 WBC Differential . Differential Comment Auto diff final Potassium 3.6 Creatinine 0.71 Estimated GFR 80 L Urine Color Urine Clarity Urine pH Ur Specific [place] Urine Protein Urine Glucose (UA) Urine Ketones Urine Occult Blood Urine Nitrate Urine Bilirubin Urine Ictotest Urine Urobilinogen Ur Leukocyte Esterase Urine RBC Urine WBC Urine WBC Clumps Ur Squamous Epith Cells Amorphous Sediment Urine Bacteria Urine Mucus Urine Yeast Ur Yeast w Hyphae Micro UA Comment Ur Microscopic Review Urine Culture Comments 12/07/17 18:15 WBC RBC Hgb Hct MCV MCH MCHC RDW Plt Count MPV Neut % (Auto) Lymph % (Auto) [place] % (Auto) Eos % (Auto) Baso % (Auto) Neut # (Auto) Lymph # (Auto) [place] # (Auto) Eos # (Auto) Baso # (Auto) WBC Differential Differential Comment Potassium Creatinine Estimated GFR Urine Color Bernice Urine Clarity Turbid H Urine pH 6.0 Ur Specific [place] 1.011 Urine Protein 100 H Urine Glucose (UA) 50 Urine Ketones Negative Urine Occult Blood Large H Urine Nitrate Negative Urine Bilirubin Moderate H Urine Ictotest Positive H Urine Urobilinogen 4 or greater Ur Leukocyte Esterase Moderate H Urine RBC 23 H Urine WBC 4 Urine WBC Clumps Rare H Ur Squamous Epith Cells 1 Amorphous Sediment Rare H Urine Bacteria Many H Urine Mucus Few H Urine Yeast Moderate H Ur Yeast w Hyphae Rare H Micro UA Comment Culture indicated Ur Microscopic Review Not Reportable Urine Culture Comments Culture indicated Culture Results: Microbiology 12/03/17 04:51 Aerobic Blood Culture - Preliminary Blood - Other No growth in 4 days Anaerobic Blood Culture - Preliminary No growth in 4 days 12/03/17 04:44 Aerobic Blood Culture - Preliminary Blood - Other No growth in 4 days Anaerobic Blood Culture - Preliminary No growth in 4 days Medications: Active Medications Generic Name Dose Route Start Last Admin Trade Name Freq PRN Reason Stop Dose Admin Acetaminophen 650 mg 11/27/17 13:52 12/03/17 00:58 Tylenol PO 650 mg Q4H PRN Administration Temp > 100.4 Al Hydrox/Mg Hydrox/Simethicone 30 ml 12/04/17 15:16 12/04/17 15:51 Mag-Al Plus Susp Liq PO 30 ml PCHS PRN Administration HEARTBURN Duloxetine HCl 60 mg 11/28/17 09:00 12/07/17 20:59 Cymbalta PO 60 mg BID [facility] Administration Enoxaparin Sodium 40 mg 12/03/17 16:00 12/07/17 15:47 Lovenox Inj SQ 40 mg DAILY@1600 [facility] Administration Metronidazole/Sodium Chloride 100 mls @ 100 mls/hr 12/03/17 03:00 12/08/17 03 :05 Flagyl 500 Mg Inj IV.SIG Infused Q8H [facility] Infusion Cefepime HCl 2,000 mg/ Sodium 100 mls @ 200 mls/hr 12/04/17 15:00 12/08/17 03 :39 Chloride IV.SIG Infused Q12H [facility] Infusion Dextrose/Sodium Chloride 1,000 mls @ 42 mls/hr 12/04/17 22:00 12/07/17 21:35 D5w/1/2 Ns Inj IV.CONT Not Given .[id number] [facility] Levothyroxine Sodium 50 mcg 11/28/17 06:00 12/08/17 05:44 Synthroid PO 50 mcg DAILY@0600 [facility] Administration Lorazepam 0.5 mg 11/27/17 13:55 12/07/17 23:43 Ativan Inj IV.PUSH 0.5 mg Q6H PRN Administration ANXIETY Metoprolol Tartrate 50 mg 11/28/17 09:00 12/07/17 10:00 Lopressor PO 50 mg DAILY [facility] Administration Morphine Sulfate 2 mg 11/27/17 13:55 12/07/17 22:09 Morphine Inj IV.PUSH 2 mg Q4H PRN Administration PAIN SCALE 6 TO 10 Ondansetron HCl 4 mg 11/27/17 13:52 12/01/17 21:50 Zofran Inj IV.PUSH 4 mg Q6H PRN Administration NAUSEA OR VOMITING Pantoprazole Sodium 40 mg 12/04/17 15:30 12/07/17 10:00 Protonix PO 40 mg DAILY [facility] Administration Potassium Chloride 10 meq 12/07/17 14:15 12/07/17 15:50 Klor-Con 10 PO 10 meq DAILY [facility] Administration Sodium Chloride 2 ml 11/27/17 09:36 11/27/17 10:31 Ns Flush IV.FLUSH 2 ml PRN PRN Administration FLUSH AFTER USING IV ACCESS Objective Remarks: GENERAL: Well-nourished, well-developed patient. SKIN: Warm and dry. HEAD: Normocephalic. EYES: No scleral icterus. No injection or drainage. CARDIOVASCULAR: Regular rate and rhythm RESPIRATORY: No accessory muscle use. GASTROINTESTINAL: Abdomen soft, non-tender, nondistended. BIJAL drain, SS are C/D/I EXTREMITIES: teds and scds MUSCULOSKELETAL: Adequate muscle tone. NEUROLOGICAL: No obvious focal deficit. Awake, alert, and oriented x3. PSYCHIATRIC: Appropriate mood and affect; insight and judgment normal. Assessment/Plan - Plan POD #1 discharge per general surgery once discharged and cleared by general surgery will follow up in bullet swaging machine adjuster/onc clinic for discussion of IV chemotherapy clear liquids today per Dr. England POD #2 12/04/17 advance diet per general surgery encourage OOB will follow up bullet swaging machine adjuster/onc clinic once discharged and cleared by general surgery 12/08/17 patient to be discharged home today with HH will follow up in bullet swaging machine adjuster/onc clinic as outpt once cleared by general surgery will discuss IV chemotherapy options at follow up appt will be discharged with hiram Ledezma/[facility] general surgery
[2017-12-08] MEDS: Metoprolol Tartrate 50 MG Tablet PO SCH (08:36)
--- NOTE | 2017-12-08 10:41 | P.PNGS ---
Subjective Patient reports: no new complaints (feels better, afebrile, ), flatus, bowel movement Physical Exam Vital signs: Vital Signs 12/07/17 12:00 12/07/17 16:00 12/07/17 16:04 Temperature 98.5 F 98.2 F Pulse Rate 98 H 94 H 96 H Respiratory Rate 18 20 Blood Pressure 128/79 147/81 H Pulse Oximetry 99 94 L 12/07/17 20:00 12/08/17 00:00 12/08/17 04:00 Temperature 98.8 F 98.7 F 98.5 F Pulse Rate 84 87 91 H Respiratory Rate 18 16 18 Blood Pressure 127/67 123/74 137/77 Pulse Oximetry 97 95 96 12/08/17 07:30 12/08/17 07:41 12/08/17 08:37 Temperature 98.1 F Pulse Rate 91 H 98 H Respiratory Rate 20 18 Blood Pressure 156/85 H Pulse Oximetry 98 Intake & Output 12/07/17 12/08/17 12/08/17 18:59 06:59 18:59 Intake Total 900 / 900 1640 / 1640 Output Total 1005 / 1005 302 / 302 Balance -105 / -105 1338 / 1338 Weight 65.7 kg Intake: IV 100 / 100 1400 / 1400 D5W/1/2 NS Inj 1,000 ML @ 42 1000 / 1000 mls/hr IV.CONT .[id number] [facility] Rx# :[id number] Maxipime Inj 2,000 MG In NS Inj 200 / 200 100 ML @ 200 mls/hr IV.SIG Q12H [facility] Rx#:[id number] Flagyl 500 MG Inj 100 ML @ 100 100 / 100 200 / 200 mls/hr IV.SIG Q8H [facility] Rx#: [id number] Oral 800 / 800 240 / 240 Output: Urine 1000 / 1000 300 / 300 Wound Drainage 5 / 5 2 / 2 # 1 Abdomen 5 / 5 2 / 2 Other: Date of Last Bowel Movement 12/01/17 12/08/17 12/08/17 # Bowel Movements 1 # Incontinent Bowel Movements 1 - Routine Respiratory Exam Present: CTA bilaterally - Routine Cardiovascular Exam Present: RRR - Routine Abdominal Exam Present: soft (well healing incisions bibi dark, scott yellow) - Urinary Catheter Management Indwelling Urethral Catheter Cath placed during this visit: yes Reason for continuing: Other continuation reason Insertion date: 12/02/17 Insertion time: 13:30 Assessment and Plan - Assessment (1) SBO (small bowel obstruction) Code(s): K56.609 - Unspecified intestinal obstruction, unspecified as to partial versus complete obstruction Status: Acute Plan: 77 year old female with ovarian cancer; recurrent small bowel obstructions; RUE DVT on OAC -s/p Dx lap lap reginald, sb bypass -Tolerating diet - pain control - encourage oob -IS j - KEEP scott do not remove for 10-14 days, d/c today with [facility] f/u 1 week bibi drain care
--- NOTE | 2017-12-08 11:00 | P.DCO ---
- Physical Therapy Order: Evaluate and treat - Home Health Nursing Order: Medical education, Signs/symptoms of disease process, Wound care and dressing changes, Nursing assessment with vital signs, Ledezma catheter maintenance - Certification I have seen patient Brenda Diop on 12/08/17. My clinical findings support the need for the requested home health care services because: Limited ability to care for self, Need for psychosocial assistance, Infection with risk of complications I certify that my clinical findings support that this patient is homebound because: Post-op weakness
--- NOTE | 2017-12-08 11:06 | P.PN ---
Subjective Interval history: awake and alert tolerating po no pain complains looking forward to going home Physical Exam Vital signs: Vital Signs 12/07/17 12:00 12/07/17 16:00 12/07/17 16:04 Temperature 98.5 F 98.2 F Pulse Rate 98 H 94 H 96 H Respiratory Rate 18 20 Blood Pressure 128/79 147/81 H Pulse Oximetry 99 94 L 12/07/17 20:00 12/08/17 00:00 12/08/17 04:00 Temperature 98.8 F 98.7 F 98.5 F Pulse Rate 84 87 91 H Respiratory Rate 18 16 18 Blood Pressure 127/67 123/74 137/77 Pulse Oximetry 97 95 96 12/08/17 07:30 12/08/17 07:41 12/08/17 08:37 Temperature 98.1 F Pulse Rate 91 H 98 H Respiratory Rate 20 18 Blood Pressure 156/85 H Pulse Oximetry 98 12/08/17 11:02 Temperature Pulse Rate 78 Respiratory Rate Blood Pressure Pulse Oximetry Intake & Output 12/07/17 12/08/17 12/08/17 18:59 06:59 18:59 Intake Total 900 / 900 1640 / 1640 Output Total 1005 / 1005 302 / 302 Balance -105 / -105 1338 / 1338 Weight 65.7 kg Intake: IV 100 / 100 1400 / 1400 D5W/1/2 NS Inj 1,000 ML @ 42 1000 / 1000 mls/hr IV.CONT .[id number] [facility] Rx# :[id number] Maxipime Inj 2,000 MG In NS Inj 200 / 200 100 ML @ 200 mls/hr IV.SIG Q12H [facility] Rx#:[id number] Flagyl 500 MG Inj 100 ML @ 100 100 / 100 200 / 200 mls/hr IV.SIG Q8H [facility] Rx#: [id number] Oral 800 / 800 240 / 240 Output: Urine 1000 / 1000 300 / 300 Wound Drainage 5 / 5 2 / 2 # 1 Abdomen 5 / 5 2 / 2 Other: Date of Last Bowel Movement 12/01/17 12/08/17 12/08/17 # Bowel Movements 1 # Incontinent Bowel Movements 1 Narrative: Patient sitting up in bed Comfortable anicteric lungs- no rales abdomen- BIBI drain in palce good bowel sounds extremiteis no edema Scott in place - Urinary Catheter Management Indwelling Urethral Catheter Cath placed during this visit: yes Reason for continuing: Other continuation reason Insertion date: 12/02/17 Insertion time: 13:30 Results - Labs CBC & Chem 7: 12/07/17 07:31 12/07/17 07:31 Laboratory Results - last 24 hr 12/07/17 12/07/17 07:31 18:15 Potassium 3.6 Urine Color Bernice Urine Clarity Turbid H Urine pH 6.0 Ur Specific [place] 1.011 Urine Protein 100 H Urine Glucose (UA) 50 Urine Ketones Negative Urine Occult Blood Large H Urine Nitrate Negative Urine Bilirubin Moderate H Urine Ictotest Positive H Urine Urobilinogen 4 or greater Ur Leukocyte Esterase Moderate H Urine RBC 23 H Urine WBC 4 Urine WBC Clumps Rare H Ur Squamous Epith Cells 1 Amorphous Sediment Rare H Urine Bacteria Many H Urine Mucus Few H Urine Yeast Moderate H Ur Yeast w Hyphae Rare H Micro UA Comment Culture indicated Ur Microscopic Review Not Reportable Urine Culture Comments Culture indicated Microbiology 12/03/17 04:51 Blood - Other Aerobic Blood Culture - Final No growth in 5 days 12/03/17 04:51 Blood - Other Anaerobic Blood Culture - Final No growth in 5 days 12/03/17 04:44 Blood - Other Aerobic Blood Culture - Final No growth in 5 days 12/03/17 04:44 Blood - Other Anaerobic Blood Culture - Final No growth in 5 days Assessment and Plan - Assessment (1) SBO (small bowel obstruction) Code(s): K56.609 - Unspecified intestinal obstruction, unspecified as to partial versus complete obstruction Status: Acute - Plan 77-year-old female with Partial small bowel obstruction--S/P lap lap reginald, sb bypass - toleratingadvance diet - pain control - encourage oob -IS - bibi sxn - GS/Gyne oncology ff -on Cef + flagyl - DC on po Coipr-/flagyl - keep scott on DC Hypokalemia- 2.7- improved Anxiety- calm a Hypertension Continue Lopressor Hypothyroidism Continue Synthroid Peripheral neuropathy Induced by chemotherapy Continue home meds Right upper extremity DVT Eliquis DVT prophylaxis on Eliquis CM consult for - home healthy care- going home with scott and possibly BIBI drain d/w daughter- OP ff up with Dr. Girard as OP to initiate chemotherapy - OP ff up with PCP_ Dr. Hatch CM [facility]
--- NOTE | 2017-12-08 11:22 | P.DS ---
Date of admission: 11/27/17 12:50 Primary care physician: UNKNOWN Anticipated date of discharge: 12/08/17 Brief History from admission: 77-year-old female with a history of hypertension, hypothyroidism, neuropathy, ovarian cancer. She presents to the ER today with her third episode of partial small bowel obstruction in the last 3 weeks. Onset was as it was previously, she experienced abdominal pain with nausea vomiting and an increase of peristalsis inducing diarrhea followed by silence, increased pain and bloating of her abdomen. She is currently undergoing updated staging of her ovarian cancer with metastases. She was treated for ovarian cancer a few years ago and had ongoing chemotherapy, but she decided to give chemotherapy a break in for a while had no issues with her cancer. There is a recent PET scan which results I have not reviewed but it has been indicated to me that the cancer may be worsening and that the bowel obstruction may be related to this. She is currently nauseous from the NG tube which was placed, she admits to anxiety and requesting anxiety medication via IV. She denies any chest pain, shortness of breath, swelling. She denies any headaches, cough, or other symptoms of an upper respiratory infection. DS: Diagnosis - Discharge Diagnosis (1) SBO (small bowel obstruction) Status: Acute DS: Medications - Discharge Medications Prescriptions: ciprofloxacin HCl 500 mg PO Q12H 5 Days #20 tab metronidazole [Flagyl] 500 mg PO TID 5 Days #30 tab potassium chloride [Klor-Con 10] 10 meq PO DAILY 5 Days #5 tab DS: Summary Hospital Course: 77-year-old female with Partial small bowel obstruction--S/P lap lap reginald, sb bypass - toleratingadvance diet - pain control - encourage oob -IS - bibi sxn - GS/Gyne oncology ff -on Cef + flagyl - DC on po Coipr-/flagyl - keep scott on DC Hypokalemia- 2.7- improved Anxiety- calm a Hypertension Continue Lopressor Hypothyroidism Continue Synthroid Peripheral neuropathy Induced by chemotherapy Continue home meds Right upper extremity DVT Eliquis DVT prophylaxis on Eliquis CM consult for - home healthy care- going home with scott and possibly BIBI drain d/w daughter- OP ff up with Dr. Girard as OP to initiate chemotherapy - OP ff up with PCP_ Dr. Hatch CM cnsulted for home health shelter today - Time Spent with Patient Total time spent providing and/or coordinating discharge services: Greater than 30 minutes - Quality: VTE Deep Vein Thrombosis/Pulmonary Embolism Present on Admission: No Exam Vital signs: Vital Signs 12/07/17 12:00 12/07/17 16:00 12/07/17 16:04 Temperature 98.5 F 98.2 F Pulse Rate 98 H 94 H 96 H Respiratory Rate 18 20 Blood Pressure 128/79 147/81 H Pulse Oximetry 99 94 L 12/07/17 20:00 12/08/17 00:00 12/08/17 04:00 Temperature 98.8 F 98.7 F 98.5 F Pulse Rate 84 87 91 H Respiratory Rate 18 16 18 Blood Pressure 127/67 123/74 137/77 Pulse Oximetry 97 95 96 12/08/17 07:30 12/08/17 07:41 12/08/17 08:37 Temperature 98.1 F Pulse Rate 91 H 98 H Respiratory Rate 20 18 Blood Pressure 156/85 H Pulse Oximetry 98 12/08/17 11:02 Temperature Pulse Rate 78 Respiratory Rate Blood Pressure Pulse Oximetry Intake & Output 12/07/17 12/08/17 12/08/17 18:59 06:59 18:59 Intake Total 900 / 900 1640 / 1640 Output Total 1005 / 1005 302 / 302 Balance -105 / -105 1338 / 1338 Weight 65.7 kg Intake: IV 100 / 100 1400 / 1400 D5W/1/2 NS Inj 1,000 ML @ 42 1000 / 1000 mls/hr IV.CONT .[id number] [facility] Rx# :[id number] Maxipime Inj 2,000 MG In NS Inj 200 / 200 100 ML @ 200 mls/hr IV.SIG Q12H [facility] Rx#:[id number] Flagyl 500 MG Inj 100 ML @ 100 100 / 100 200 / 200 mls/hr IV.SIG Q8H [facility] Rx#: [id number] Oral 800 / 800 240 / 240 Output: Urine 1000 / 1000 300 / 300 Wound Drainage 5 / 5 2 / 2 # 1 Abdomen 5 / 5 2 / 2 Other: Date of Last Bowel Movement 12/01/17 12/08/17 12/08/17 # Bowel Movements 1 # Incontinent Bowel Movements 1 Results Procedures completed during hospitalization: 12/02 dx lap, lap reginald, lap sb bypass, bladder repair Labs on day of discharge: Labs from last 24 hours 12/07/17 12/07/17 18:15 07:31 Potassium 3.6 Urine Color Bernice Urine Clarity Turbid H Urine pH 6.0 Ur Specific [place] 1.011 Urine Protein 100 H Urine Glucose (UA) 50 Urine Ketones Negative Urine Occult Blood Large H Urine Nitrate Negative Urine Bilirubin Moderate H Urine Ictotest Positive H Urine Urobilinogen 4 or greater Ur Leukocyte Esterase Moderate H Urine RBC 23 H Urine WBC 4 Urine WBC Clumps Rare H Ur Squamous Epith Cells 1 Amorphous Sediment Rare H Urine Bacteria Many H Urine Mucus Few H Urine Yeast Moderate H Ur Yeast w Hyphae Rare H Micro UA Comment Culture indicated Ur Microscopic Review Not Reportable Urine Culture Comments Culture indicated - Impressions ITS Impressions Chest X-Ray 11/27/17 09:36 CONCLUSION: Cardiomegaly. No acute pulmonary disease. Abdomen X-Ray 11/28/17 00:00 CONCLUSION: Small bowel dilatation consistent with ileus or obstruction unchanged from the prior study. Followup examination is recommended if clinically indicated. Nasogastric tube as above Discharge Plan - Discharge Disposition Patient Disposition: /Home Health Service - Discharge Condition Condition: Good - Discharge Order Discharge Orders: Discharge Order (Routine); Ordered 12/08/17 Ordered By: Nabeel Farias - Discharge Details Anticipated Discharge Date: 12/08/17 - Physicians Team Primary Care Provider: UNKNOWN, Attending Provider: Nabeel Farias Other Providers: Diana Girard MD ; Scott Singleton MD ; [employer] ; Chinmay England MD
== END 2017-12-08 14:01 | disposition home health service (06) ==
LOC: NEPC 09:02 → NEDA 12:50 → HCIS 17:14 → HCIN 12-02 10:42
PROVIDERS: ADMIT Internal Medicine; ATTEND Internal Medicine

== ENCOUNTER 2017-12-12 12:03 | Inpatient (IN) ==
[2017-12-12] MEDS ORDERED: Diatrizoate Meglumine 30% Inj 300 ML Bottle (for RAD DIAG) I-URETHRAL ONE (12:04)
[2017-12-12 14:52] LABS: Baso % (Auto) 0.2 % (0.0-2.0); Eos # (Auto) 0.1 th/mm3 (0.0-0.4); Eos % (Auto) 0.8 % (0.0-4.0); Hematocrit 27.7 % (35.0-46.0); Hemoglobin 10.2 gm/dL (11.6-15.3); Lymph # (Auto) 1.3 th/mm3 (1.0-4.8); Lymph % (Auto) 9.5 % (9.0-44.0); Mean Corpuscular Hemoglobin 33.7 pg (27.0-34.0); Mean Corpuscular Volume 91.1 fL (80.0-100.0); Mono % (Auto) 7.5 % (0.0-8.0); Neut # (Auto) 11.4 th/mm3 (1.8-7.7); Platelet Count 532 th/mm3 (150-450); Red Blood Count 3.04 mil/mm3 (4.00-5.30); Red Cell Distribution Width 15.3 % (11.6-17.2); White Blood Count 13.9 th/mm3 (4.0-11.0)
[2017-12-12 15:07] LABS: Alanine Aminotransferase 15 U/L (10-53); Albumin 2.3 g/dL (3.4-5.0); Anion Gap 11 meq/L (5-15); Aspartate Aminotransferase 19 U/L (15-37); Blood Urea Nitrogen 27 mg/dL (7-18); Calcium 8.1 mg/dL (8.5-10.1); Carbon Dioxide 24.2 meq/L (21.0-32.0); Chloride 100 meq/L (98-107); Glomerular Filtration Rate 38 mL/min (>89); Glucose,Random 90 mg/dL (74-106); Potassium 4.1 meq/L (3.5-5.1); Sodium 135 meq/L (136-145)
[2017-12-12 15:11] LABS: Alkaline Phosphatase 113 U/L (45-117); Total Protein 6.7 g/dL (6.4-8.2); Troponin I 0.05 ng/mL (0.02-0.05)
--- NOTE | 2017-12-12 15:22 | XR ---
EXAM DATE: 12/12/2017 2:55 PM EDT AGE/SEX: 77 years / Female INDICATIONS: . Short of breath. CLINICAL DATA: This is the patient's initial encounter. Patient reports that signs and symptoms have been present for 1 day and indicates a pain score of 0/10. MEDICAL/SURGICAL HISTORY: Hypertension. None. COMPARISON: [facility] [place], CHEST 1V SINGLE AP, 11/27/2017. . FINDINGS: The heart is at the upper limits of normal in size. There are small bilateral effusions. There are at electatic changes in the lung bases. The visualized bony structures demonstrate degenerative changes in the right shoulder but are otherwi se intact. CONCLUSION: Small bilateral pleural effusions. These are new compared to previous of 11/27/2017. Electronically signed by: Herberth Moscoso MD 12/12/2017 3:21 PM EDT
--- NOTE | 2017-12-12 16:09 | ED ---
HPI General Chief complaint: Recheck/Abnormal Lab/Rx Stated complaint: edema Time Seen by Provider: 12/12/17 14:03 Source: patient, family and other Mode of arrival: ambulatory Limitations: no limitations History of Present Illness HPI narrative: Patient is a 77-year-old female, past medical history significant for metastatic cancer, previous recurrent small bowel obstruction status post resection, who presents with complaint of lower extremity swelling and increased dyspnea from baseline. She states that this has been present since she was discharged from the hospital. No fever nor chills. She states she is otherwise feeling well. She has not complained of any new abdominal pain or chest pain. She was seen by Dr. England, general surgeon, in clinic who was concerned about the operative repair and the possibility of a bile leak for which she was sent here. Location: lower extremity Radiation: non-radiation Severity: mild Treatments prior to arrival: none Related Data Home Medications Medication Instructions Recorded Confirmed duloxetine [Cymbalta] 60 mg PO BID 10/07/17 11/12/17 oxycodone-acetaminophen 1 tab PO Q4HR PRN 10/17/17 11/12/17 apixaban [Eliquis] 5 mg PO BID 11/12/17 11/12/17 fluticasone [Flonase Allergy 2 spray INTRANASAL DAILY PRN 11/12/17 11/12/17 Relief] levothyroxine [Levoxyl] 50 mcg PO DAILY 11/12/17 11/12/17 metoprolol tartrate 50 mg PO DAILY 11/12/17 11/12/17 niraparib [Zejula] 100 mg PO QPM 11/12/17 11/12/17 ondansetron [Zofran ODT] 8 mg PO TID PRN 11/12/17 11/12/17 temazepam [Restoril] 15 mg PO HS 11/12/17 11/12/17 Previous Rx's Medication Instructions Recorded ciprofloxacin HCl 500 mg PO Q12H 5 Days #20 tab 12/08/17 metronidazole [Flagyl] 500 mg PO TID 5 Days #30 tab 12/08/17 potassium chloride [Klor-Con 10] 10 meq PO DAILY 5 Days #5 tab 12/08/17 Allergies Allergy/AdvReac Type Severity Reaction Status Date / Time No Known Allergies Allergy Verified 10/25/17 08:36 Review of Systems ROS: all other systems reviewed are negative [facility]LY [facility] Medical History Medical History Port catheter in place (Acute) Hypertension (Chronic) Neuropathic pain of both legs (Chronic) Hypothyroidism (Chronic) Hx of hysterectomy (Acute) Cancer (Acute) Encounter for diagnostic procedure (Acute) Surgical History Surgical History History of back surgery (Chronic) H/O hysterectomy with unilateral oophorectomy (Acute) Family History Family History Other Heart attack Stomach cancer Social History Social History Substance History: No History of Abuse Second Hand Smoke Exposure: No Smoking Status: Never smoker How Often Do You Have a Drink Containing Alcohol: Monthly or less Recent Travel in [facility] within the Last 8 Weeks: No Recent Out of Country Travel within the Last 8 Weeks: No Immunization History Tetanus Immunization: <5 Years Hx Influenza Vaccine This Season: No Exam Narrative Exam Narrative: GENERAL: Well-appearing female in no acute distress SKIN: Focused skin assessment warm/dry. No rashes. HEAD: Atraumatic. Normocephalic. EYES: Pupils equal and round. No scleral icterus. No injection or drainage. ENT: No nasal bleeding or discharge. Mucous membranes pink and moist. NECK: Trachea midline. No JVD. CARDIOVASCULAR: Regular rate and rhythm. No murmur appreciated. Intact and equal peripheral pulses. RESPIRATORY: No accessory muscle use. Clear to auscultation. Breath sounds equal bilaterally. GASTROINTESTINAL: Abdomen soft, appropriately tender on palpation, nondistended. Hepatic and splenic margins not palpable. Ledezma catheter is in place with dark sediment is drainage. MUSCULOSKELETAL: No obvious deformities. No clubbing. No cyanosis. Bilateral lower extremity pitting edema. NEUROLOGICAL: Awake and alert. No obvious cranial nerve deficits. Motor grossly within normal limits. Normal speech. PSYCHIATRIC: Appropriate mood and affect; insight and judgment normal. Course Initial Documented Vital Signs Temperature 99 F 12/12/17 12:10 Pulse Rate 105 H 12/12/17 12:10 Respiratory Rate 14 12/12/17 12:10 Blood Pressure 118/93 H 12/12/17 12:10 Pulse Oximetry 95 12/12/17 12:10 Last Documented Vital Signs Temperature 99 F 12/12/17 12:10 Pulse Rate 103 H 12/12/17 16:20 Respiratory Rate 18 12/12/17 16:20 Blood Pressure 151/81 H 12/12/17 16:20 Pulse Oximetry 95 12/12/17 14:34 Medical Decision Making MDM Narrative Medical decision making narrative: Patient is a 77-year-old female, with recent surgery, who presents with bilateral lower extremity edema since she was discharged. She was sent here by Dr. England, her surgeon. She otherwise appears well and has been hemodynamically stable. Imaging reveals a leak in the small bowel as well as the bladder with the BIJAL drain to be going into the bladder. I spoke extensively with Dr. England, her surgeon, whom stated that he was going to call the urologist and asked that they put in the consult order for him, and additionally asked me to order Zosyn and Diflucan in addition to consulting the medicine team for admission. I spoke with the resident service, admitting team at this time, whom agreed to the admission. I also informed the patient's daughter on the phone and answered all of her questions at this time. Medical Screen Exam Complete: Yes Emergency Medical Condition: Yes Differential Diagnosis Differential Diagnosis: Differential diagnosis includes but is not limited to acute kidney injury, protein malnutrition, anemia. Medical Records Medical records reviewed: Yes I reviewed the patient's medical records. Lab Data Lab results reviewed: Yes I reviewed the patient's lab results. Lab results narrative: Slight leukocytosis. Result diagrams: 12/12/17 14:35 12/12/17 14:35 Lab Results 12/12/17 12/12/17 12/12/17 Range/Units 14:35 14:35 14:35 WBC 13.9 H (4.0-11.0) th/mm3 RBC 3.04 L (4.00-5.30) mil/mm3 Hgb 10.2 L (11.6-15.3) gm/dL Hct 27.7 L (35.0-46.0) % MCV 91.1 (80.0-100.0) fL MCH 33.7 (27.0-34.0) pg MCHC 37.0 H (32.0-36.0) % RDW 15.3 (11.6-17.2) % Plt Count 532 H D (150-450) th/mm3 MPV 7.0 (7.0-11.0) fL Prelim Diff (Auto) Slide review pending Neut % (Auto) 82.0 H (16.0-70.0) % Lymph % (Auto) 9.5 (9.0-44.0) % [place] % (Auto) 7.5 (0.0-8.0) % Eos % (Auto) 0.8 (0.0-4.0) % Baso % (Auto) 0.2 (0.0-2.0) % Neut # (Auto) 11.4 H (1.8-7.7) th/mm3 Lymph # (Auto) 1.3 (1.0-4.8) th/mm3 [place] # (Auto) 1.0 H (0.0-0.9) th/mm3 Eos # (Auto) 0.1 (0.0-0.4) th/mm3 Baso # (Auto) 0.0 (0.0-0.2) th/mm3 WBC Differential . Diff Scan Auto diff confirmed Differential Comment . Sodium 135 L (136-145) meq/L Potassium 4.1 (3.5-5.1) meq/L Chloride 100 (98-107) meq/L Carbon Dioxide 24.2 (21.0-32.0) meq/L Anion Gap 11 (5-15) meq/L BUN 27 H (7-18) mg/dL Creatinine 1.36 H (0.50-1.00) mg/dL Estimated GFR 38 L (>89) mL/min Random Glucose 90 (74-106) mg/dL Calcium 8.1 L (8.5-10.1) mg/dL Total Bilirubin 0.5 (0.2-1.0) mg/dL AST 19 (15-37) U/L ALT 15 (10-53) U/L Alkaline Phosphatase 113 (45-117) U/L Troponin I 0.05 (0.02-0.05) ng/mL B-Natriuretic Peptide 157 H (0-100) pg/mL Total Protein 6.7 D (6.4-8.2) g/dL Albumin 2.3 L (3.4-5.0) g/dL Urine Color (Yellw/Straw) Urine Clarity (Clear) Urine pH (5.0-8.5) Ur Specific [place] (1.002-1.035) Urine Protein (Neg-Trace) mg/dL Urine Glucose (UA) (Negative) mg/dL Urine Ketones (Negative) mg/dL Urine Occult Blood (Negative) Urine Nitrate (Negative) Urine Bilirubin (Negative) Urine Ictotest (Negative) Urine Urobilinogen (Less than 2) mg/dL Ur Leukocyte Esterase (Negative) Urine RBC (0-3) /hpf Urine WBC (0-5) /hpf Amorphous Sediment (None) /hpf Urine Yeast (None) /hpf Micro UA Comment Ur Microscopic Review Urine Culture Comments 12/12/17 Range/Units 17:15 WBC (4.0-11.0) th/mm3 RBC (4.00-5.30) mil/mm3 Hgb (11.6-15.3) gm/dL Hct (35.0-46.0) % MCV (80.0-100.0) fL MCH (27.0-34.0) pg MCHC (32.0-36.0) % RDW (11.6-17.2) % Plt Count (150-450) th/mm3 MPV (7.0-11.0) fL Prelim Diff (Auto) Neut % (Auto) (16.0-70.0) % Lymph % (Auto) (9.0-44.0) % [place] % (Auto) (0.0-8.0) % Eos % (Auto) (0.0-4.0) % Baso % (Auto) (0.0-2.0) % Neut # (Auto) (1.8-7.7) th/mm3 Lymph # (Auto) (1.0-4.8) th/mm3 [place] # (Auto) (0.0-0.9) th/mm3 Eos # (Auto) (0.0-0.4) th/mm3 Baso # (Auto) (0.0-0.2) th/mm3 WBC Differential Diff Scan Differential Comment Sodium (136-145) meq/L Potassium (3.5-5.1) meq/L Chloride (98-107) meq/L Carbon Dioxide (21.0-32.0) meq/L Anion Gap (5-15) meq/L BUN (7-18) mg/dL Creatinine (0.50-1.00) mg/dL Estimated GFR (>89) mL/min Random Glucose (74-106) mg/dL Calcium (8.5-10.1) mg/dL Total Bilirubin (0.2-1.0) mg/dL AST (15-37) U/L ALT (10-53) U/L Alkaline Phosphatase (45-117) U/L Troponin I (0.02-0.05) ng/mL B-Natriuretic Peptide (0-100) pg/mL Total Protein (6.4-8.2) g/dL Albumin (3.4-5.0) g/dL Urine Color Yellow (Yellw/Straw) Urine Clarity Turbid H (Clear) Urine pH 5.0 (5.0-8.5) Ur Specific [place] 1.039 H (1.002-1.035) Urine Protein 100 H (Neg-Trace) mg/dL Urine Glucose (UA) Negative (Negative) mg/dL Urine Ketones Negative (Negative) mg/dL Urine Occult Blood Large H (Negative) Urine Nitrate Negative (Negative) Urine Bilirubin Small H (Negative) Urine Ictotest Positive H (Negative) Urine Urobilinogen Less than 2 (Less than 2) mg/dL Ur Leukocyte Esterase Small H (Negative) Urine RBC 4 H (0-3) /hpf Urine WBC 5 (0-5) /hpf Amorphous Sediment Rare H (None) /hpf Urine Yeast Occasional H (None) /hpf Micro UA Comment Culture not ind Ur Microscopic Review Not Reportable Urine Culture Comments Culture not ind Imaging Data Attestation: I personally reviewed and interpreted this imaging study as follows : Radiologist's impression: Chest X-Ray 12/12/17 14:25 CONCLUSION: Small bilateral pleural effusions. These are new compared to previous of 2017. Cystogram 12/12/17 14:36 CONCLUSION: Findings indicating urinary bladder leak. There is intraperitoneal leakage of contrast as well as extension of contrast into the lumen of the distal small bowel indicating small bowel leak or fistula. Drainage catheter extends through the defect in the urinary bladder wall into the bladder lumen. Abdomen/Pelvis CT 12/12/17 15:20 CONCLUSION: 1. Intraperitoneal urinary bladder leak/rupture at the superior wall. Adjacent irregularly shaped contrast collection and extension of contrast into the distal small bowel in the area of recent surgery indicating small bowel leak/ fistula. Drainage catheter is seen within the extraluminal contrast collection and extends through the defect in the urinary bladder wall, into the urinary bladder lumen and is looped in the bladder lumen. 2. Bilateral pleural effusions are new right greater than left. Right lower lobe pulmonary atelectasis versus consolidation. 3. Findings were discussed with Dr. Mckeon. Discharge Plan Discharge Disposition Patient Disposition: 30 Still Patient Discharge Condition Condition: Stable Discharge Details Diagnosis: Post-operative state Physicians Team ED Provider: Genevieve Mckeon Primary Care Provider: NON STAFF,PROVIDER Attending Provider: Filiberto Clemens Other Providers: Remi Bowles ; [facility] ; Chinmay England Discharge Interventions Interventions: Vital Signs Last Done: 12/12/17 16:20 Status ED Status: Admitted Patient
--- NOTE | 2017-12-12 17:01 | CT ---
EXAM DATE: 12/12/2017 4:17 PM EDT AGE/SEX: 77 years / Female INDICATIONS: Abdominal pain, distention. CLINICAL DATA: This is the patient's initial encounter. Patient reports that signs and symptoms have been present for 4 - 6 days and indicates a pain score of 7/10. MEDICAL/SURGICAL HISTORY: Hypertension. Carcinoma, ovarian. SBO. Hysterectomy. Bowel resectio n. ORAL CONTRAST: No oral contrast ingested. RADIATION DOSE: 6.64 CTDI (mGy) COMPARISON: [facility] – [place], CT ABDOMEN & PELVIS W CONTRAST, 11/12/2017. . TECHNIQUE: Multiple contiguous axial images were obtained through the abdomen and pelvis following b olus infusion of 50 ml Visipaque 320 (iodixanol) nonionic water-soluble contrast as a single exam d ose. No oral contrast ingested. Using automated exposure control and adjustment of the mA and/or kV according to patient size, radiation dose was kept as low as reasonably achievable to obtain optimal diagnostic quality images. DICOM format image data is available electronically for review and compar francisco. FINDINGS: Lower Lungs: Bilateral pleural effusions right greater than left. Right lower lobe atelectasis versus consolidation. Liver: 1 cm cyst in the right lobe of the liver unchanged. Spleen: Homogeneous density without enlargement. Pancreas: Unremarkable without mass or calcification. Kidneys: Normal in size and shape. No evidence of mass or hydronephrosis. Adrenal Glands: Unremarkable. Aorta: Diameter within normal limits. Scan was performed after cystogram. Contrast extends from the urinary bladder through a defect in the superior wall of the urinary bladder into the peritoneal cavity and into the distal small bowel. Yvrose gical suture line is seen in the region of the small bowel in this area. Findings indicate intraperit harris bladder rupture/leak. Findings also indicate fistula between the small bowel in the area of yvrose manuel to the extra luminal peritoneal fluid collection. Drainage catheter is also seen within the peritoneal contrast/ collection and extends through the def ect in the urinary bladder wall and loops within the urinary bladder lumen. No evidence of bowel dila tation. CONCLUSION: 1. Intraperitoneal urinary bladder leak/rupture at the superior wall. Adjacent irregularly shaped co ntrast collection and extension of contrast into the distal small bowel in the area of recent surgery indicating small bowel leak/fistula. Drainage catheter is seen within the extraluminal contrast nereyda ection and extends through the defect in the urinary bladder wall, into the urinary bladder lumen and is looped in the bladder lumen. 2. Bilateral pleural effusions are new right greater than left. Right lower lobe pulmonary atelectas is versus consolidation. 3. Findings were discussed with Dr. Mckeon. Electronically signed by: Naga Kelly MD 12/12/2017 4:59 PM EDT
[2017-12-12] MEDS ORDERED: Piperacil/Tazo 4.5 GM Premix 4.5 GM/100 ML BAG IV.SIG ONE (17:03)
--- NOTE | 2017-12-12 17:32 | FL ---
EXAM DATE: 12/12/2017 4:26 PM EDT AGE/SEX: 77 years / Female INDICATIONS: Post bowel surgery, bladder leak. Urinary tract infection. CLINICAL DATA: This is the patient's subsequent encounter. Patient reports that signs and symptoms h ave been present for 1 day and indicates a pain score of 1/10. MEDICAL/SURGICAL HISTORY: Hypertension. . Bowel resection. Carcinoma, ovarian. Carcinoma, uteri ne. Hysterectomy. COMPARISON: [facility], PELVIS AP ONLY, 07/13/2016. . FINDINGS: Preliminary film shows drainage catheter coiled in the midline pelvis. Ledezma catheter was in place. The bladder was filled in retrograde fashion. Contrast extends through a defect in the superior urina ry bladder wall indicating urinary bladder leak. Contrast also extends into the lumen of adjacent sma ll bowel. Drainage catheter extends through the superior urinary bladder wall defect and is coiled wi thin the urinary bladder. CONCLUSION: Findings indicating urinary bladder leak. There is intraperitoneal leakage of contrast as well as ext ension of contrast into the lumen of the distal small bowel indicating small bowel leak or fistula. D rainage catheter extends through the defect in the urinary bladder wall into the bladder lumen. Electronically signed by: Naga Kelly MD 12/12/2017 5:31 PM EDT
[2017-12-12 17:46] LABS: Amorphous Sediment,Urine Rare /hpf; Bilirubin,Urine Small (Negative); Clarity,Urine Turbid (Clear); Color,Urine Yellow (Yellw/Straw); Glucose,Urine (UA) Negative (Negative); Leukocyte Esterase,Urine Small (Negative); Nitrite,Urine Negative (Negative); Specific Gravity,Urine 1.039 (1.002-1.035)
--- NOTE | 2017-12-12 17:49 | P.HPFP ---
History of Present Illness Primary Care Physician: PROVIDER NON STAFF <Filiberto Clemens - 12/13/17 18:20> PROVIDER NON STAFF <Mary Mena - 12/12/17 17:49> History of Present Illness: Ms Diop is a 77yof here for admission on recommendation from Dr. England. Small bowel bypass and bladder repair early November. At follow-up with Dr. England today he was concerned with "what was in the bag" (Ledezma). Patient reports that the color in the bag has been darkening over the past few days. No odor noted. Patient also reports swelling in hands and feet. Appetite is improving since surgery, minimal RUQ abdominal pain worse with movement but no association with food. Denies nausea, vomiting, fevers, chills. Reports diarrhea , stable since her surgery. 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 HTN Hypothyroid Neuropathy, chemo related Meds: Levothyroxine Cymbalta Oxycodone Metoprolol Eliquis Sx: Hysterectomy salpingoopherectomy Bowel resection Back surgery FMH: Father stomach cancer Mom- [place] Social: EtOH- nothing since cancer diagnosis Tobacco never smoker Recreational drugs- none <Mary Mena - 12/12/17 19:11> - Diagnosis (1) Bladder injury (2) Injury of small intestine (3) JACQUELINE (acute kidney injury) (4) Ovarian cancer on right (5) Hypertension (6) Neuropathic pain of both legs (7) Hypothyroidism (8) Nutrition, metabolism, and development symptoms <Mary Mena 12/12/17 18:28> (1) Vesico-intestinal fistula (2) JACQUELINE (acute kidney injury) (3) Ovarian cancer on right (4) Hypertension (5) Neuropathic pain of both legs (6) Hypothyroidism (7) Nutrition, metabolism, and development symptoms <Filiberto Clemens - 12/13/17 18:20> Inpatient Certification: I certify that the inpatient services were ordered in accordance with Medicare regulations governing the order. This includes certification that hospital inpatient services are reasonable and necessary and in the case of services not specified as inpatient-only under 42 CFR 419.22(n), that they are appropriately provided as inpatient services in accordance to with the 2-midnight benchmark under 43 CFR 412.3(e) <Filiberto Clemens 12/13/17 18:20> I certify that the inpatient services were ordered in accordance with Medicare regulations governing the order. This includes certification that hospital inpatient services are reasonable and necessary and in the case of services not specified as inpatient-only under 42 CFR 419.22(n), that they are appropriately provided as inpatient services in accordance to with the 2-midnight benchmark under 43 CFR 412.3(e) <Mary Mena 12/12/17 17:49> Review of Systems Constitutional: Denies chills, Denies fatigue, Denies fever(s) <Mary Mena 12/12/17 19:11> Cardiovascular: Denies chest pain, Denies fainting <Mary Mena 12/12/17 19:11> Respiratory: Denies cough, Denies shortness of breath <Mary Mena 19:11> Gastrointestinal: Reports abdominal pain, Reports loose stools, Denies nausea, Denies vomiting <Mary Mena 12/12/17 19:11> Genitourinary: Denies blood in urine <Mary Mena 12/12/17 19:11> Comments: Patient has indwelling Ledezma <Mary Mena 12/12/17 19:11> PMFSH - History History Provided By: Patient, Family Member <Mary Mena 12/12/17 17:49> - Medical History Medical History: Medical History (Last Reviewed 12/12/17 @ 16:07 by Genevieve Mckeon MD) Port catheter in place (Acute) Hypertension (Chronic) Neuropathic pain of both legs (Chronic) Hypothyroidism (Chronic) Hx of hysterectomy (Acute) Cancer Encounter for diagnostic procedure <Filiberto Clemens - 12/13/17 18:20> Medical History (Last Reviewed 12/12/17 @ 16:07 by Genevieve Mckeon MD) Port catheter in place (Acute) Hypertension (Chronic) Neuropathic pain of both legs (Chronic) Hypothyroidism (Chronic) Hx of hysterectomy (Acute) Cancer Encounter for diagnostic procedure <Mary Mena 12/12/17 17:49> - Surgical History Surgical History: Surgical History (Last Reviewed 12/12/17 @ 16:07 by Genevieve Mckeon MD) History of back surgery (Chronic) H/O hysterectomy with unilateral oophorectomy <Filiberto Clemens - 12/13/17 18:20> Surgical History (Last Reviewed 12/12/17 @ 16:07 by Genevieve Mckeon MD) History of back surgery (Chronic) H/O hysterectomy with unilateral oophorectomy <Mary Mena 12/12/17 17:49> - Family History Family History: Family History (Last Reviewed 12/12/17 @ 16:07 by Genevieve Mckeon MD) Other Heart attack Stomach cancer <Filiberto Clemens 12/13/17 18:20> Family History (Last Reviewed 12/12/17 @ 16:07 by Genevieve Mckeon MD) Other Heart attack Stomach cancer <Mary Mena 12/12/17 17:49> - Tobacco History Second Hand Smoke Exposure: No <Mary Mena 12/12/17 17:49> Smoking Status: Never smoker <Mary Mena 12/12/17 17:49> - Alcohol History How Often Do You Have a Drink Containing Alcohol: Monthly or less <Mary Mena 12/12/17 17:49> - Substance Use History Substance History: No History of Abuse <Mary Mena 12/12/17 17:49> - Travel History Recent Travel in the [place] Within the Last 8 Weeks: No <Mary Mena 17:49> Recent Travel Out of the Country Within the Last 8 Weeks: No <Mary Mena 12/12/17 17:49> - Immunization History Tetanus Immunization: <5 Years <Mary Mena 12/12/17 17:49> Hx Influenza Vaccine This Season: No <Mary Mena 12/12/17 17:49> Medications and Allergies Allergies Allergy/AdvReac Type Severity Reaction Status Date / Time No Known Allergies Allergy Verified 10/25/17 08:36 <Filiberto Clemens 12/13/17 18:20> Home Medications Medication Instructions Recorded Confirmed Type duloxetine [Cymbalta] 60 mg PO DAILY 10/07/17 12/12/17 History oxycodone-acetaminophen 1 tab PO Q4HR PRN 10/17/17 12/12/17 History apixaban [Eliquis] 5 mg PO BID 08/15/18 09/14/18 History levothyroxine [Levoxyl] 50 mcg PO DAILY 11/12/17 12/12/17 History metoprolol tartrate 50 mg PO DAILY 11/12/17 12/12/17 History <Filiberto Clemens L - 12/13/17 18:20> Active Medications: Active Medications Acetaminophen (Tylenol) 650 mg PO Q6HR PRN PRN Reason: PAIN SCALE 1 TO 2 Hydrocodone Bitart/Acetaminophen (Delton 7.5/325) 1 tab PO Q4H PRN PRN Reason: PAIN SCALE 6 TO 10 Last Admin: 12/13/17 17:16 Dose: 1 tab Duloxetine HCl (Cymbalta) 60 mg PO DAILY [facility] Last Admin: 12/13/17 09:06 Dose: 60 mg Sodium Chloride (Ns Inj) 1,000 mls @ 94 mls/hr IV.CONT .[id number] [facility] Last Admin: 12/13/17 18:08 Dose: Not Given Fluconazole 200 mg/ Syringe/ (Bag) 100 mls @ 100 mls/hr IV.SIG Q24H [facility] Piperacillin/Tazobactam/Dextrose (Zosyn 3.375 Gm Premix) 50 mls @ 100 mls/hr IV.SIG Q6H [facility] Last Infusion: 12/13/17 18:08 Dose: Infused Levothyroxine Sodium (Synthroid) 50 mcg PO DAILY@0600 [facility] Last Admin: 12/13/17 07:32 Dose: Not Given Loperamide HCl (Imodium) 2 mg PO UNSCH PRN PRN Reason: DIARRHEA Metoprolol Tartrate (Lopressor) 50 mg PO DAILY [facility] Last Admin: 12/13/17 09:06 Dose: 50 mg Morphine Sulfate (Morphine Inj) 4 mg IV.PUSH Q3H PRN PRN Reason: BREAKTHROUGH PAIN Naloxone HCl (Narcan Inj) 0.4 mg IV.PUSH UNSCH PRN PRN Reason: SEE LABEL COMMENTS Ondansetron HCl (Zofran Odt) 4 mg PO Q4H PRN PRN Reason: NAUSEA Oxycodone/Acetaminophen (Percocet 5/325 Mg) 1 tab PO Q4HR PRN PRN Reason: PAIN SCALE 3 TO 5 Sodium Chloride (Ns Flush) 2 ml IV.FLUSH UNSCH PRN PRN Reason: FLUSH AFTER USING IV ACCESS Temazepam (Restoril) 15 mg PO HS [facility] Last Admin: 12/12/17 21:13 Dose: 15 mg <SarathFiliberto L - 12/13/17 18:20> Active Medications Fluconazole (Diflucan 100 Mg Premix Bag) 50 mls @ 50 mls/hr IV.SIG ONCE ONE Stop: 12/12/17 18:02 Sodium Chloride (Ns Flush) 2 ml IV.FLUSH UNSCH PRN PRN Reason: FLUSH AFTER USING IV ACCESS <Mary Mena E - 12/12/17 17:49> Exam Vital signs: Vital Signs 12/12/17 20:00 12/13/17 00:00 12/13/17 08:00 Temperature 97.3 F L 97.7 F 97.7 F Pulse Rate 113 H 91 H 109 H Respiratory Rate 18 17 20 Blood Pressure 125/74 112/70 171/83 H Pulse Oximetry 94 L 93 L 91 L 12/13/17 12:00 12/13/17 15:36 12/13/17 16:00 Temperature 99.0 F 98.7 F Pulse Rate 92 H 88 Respiratory Rate 20 20 Blood Pressure 142/77 H 158/63 H Pulse Oximetry 91 L 96 96 Intake & Output 12/12/17 12/13/17 12/13/17 18:59 06:59 18:59 Intake Total 150 / 150 1250 / 1250 1150 / 1150 Output Total 0 / 0 554 / 554 Balance 150 / 150 1250 / 1250 596 / 596 Weight 54.431 kg 54.4 kg Intake: IV 150 / 150 350 / 350 1150 / 1150 NS Inj 1,000 ML @ 94 mls/hr IV. 1000 / 1000 CONT .[id number] [facility] Rx#:[id number] Diflucan 100 mg Premix Bag 50 50 / 50 ML @ 50 mls/hr IV.SIG ONCE ONE Rx#:[id number] Diflucan 100 mg Premix Bag 300 150 / 150 MG In Bag/Syringe 1 EACH @ 75 mls/hr IV.SIG ONCE ONE Rx#: [id number] Zosyn 3.375 GM Premix 50 ML @ 50 / 50 100 mls/hr IV.SIG Q6H [facility] Rx#: [id number] Zosyn 4.5 GM Premix 4.5 gm In 100 / 100 200 / 200 100 / 100 100 ml @ 200 mls/hr IV.SIG Q6H [facility] Rx#:[id number] Oral 900 / 900 Output: Stool 4 / 4 Urine Amount (Catheter) 500 / 500 Indwelling Urethral Catheter 500 / 500 Wound Drainage 0 / 0 50 / 50 Left Abdomen 0 / 0 50 / 50 Other: # Voids 3 Date of Last Bowel Movement 12/12/17 12/13/17 # Bowel Movements 5 <SarathFiliberto So - 12/13/17 18:20> Vital Signs 12/12/17 12:10 12/12/17 14:24 12/12/17 14:34 Temperature 99 F Pulse Rate 105 H 98 H Respiratory Rate 14 18 Blood Pressure 118/93 H 143/66 H Pulse Oximetry 95 97 95 Intake & Output 12/11/17 12/12/17 12/12/17 18:59 06:59 18:59 Weight 54.431 kg <TrinaMary amezcua - 12/12/17 17:49> Narrative: GENERAL: Well appearing female lying in bed resting comfortably. No acute distress NECK: Supple, trachea midline. No JVD. CARDIOVASCULAR: Regular rate and rhythm without murmurs, gallops, or rubs. RESPIRATORY: Breath sounds equal bilaterally. No accessory muscle use. GASTROINTESTINAL: Abdomen soft, non-tender. Drain in place on left side of abdomen, no erythema or excess drainage surrounding the dressing. Multiple small bandages noted from the port sites from previous surgery. : Ledezma in place. Solid material in noted bag. Urine dark in color. MUSCULOSKELETAL: No cyanosis, or edema. BACK: No CVA tenderness. <TrinaMary E - 12/12/17 19:11> Results - Labs Result diagrams: 12/13/17 05:22 12/13/17 05:22 <SarathFiliberto So - 12/13/17 18:20> Abnormal lab results 12/13/17 12/13/17 Range/Units 05:22 05:22 RBC 3.01 L (4.00-5.30) mil/mm3 Hgb 9.4 L (11.6-15.3) gm/dL Hct 28.0 L (35.0-46.0) % Plt Count 476 H (150-450) th/mm3 MPV 6.8 L (7.0-11.0) fL Neut % (Auto) 76.7 H (16.0-70.0) % Burnett % (Auto) 9.0 H (0.0-8.0) % BUN 26 H (7-18) mg/dL Creatinine 1.14 H (0.50-1.00) mg/dL Estimated GFR 46 L (>89) mL/min Calcium 7.8 L (8.5-10.1) mg/dL Short CBC 12/13/17 Range/Units 05:22 WBC 8.0 (4.0-11.0) th/mm3 Hgb 9.4 L (11.6-15.3) gm/dL Hct 28.0 L (35.0-46.0) % Plt Count 476 H (150-450) th/mm3 BMP 12/13/17 05:22 Sodium 138 Potassium 4.1 Chloride 105 Carbon Dioxide 22.7 BUN 26 H Creatinine 1.14 H Calcium 7.8 L <Young,Filiberto L - 12/13/17 18:20> Abnormal lab results 12/12/17 12/12/17 12/12/17 Range/Units 14:35 14:35 14:35 WBC 13.9 H (4.0-11.0) th/mm3 RBC 3.04 L (4.00-5.30) mil/mm3 Hgb 10.2 L (11.6-15.3) gm/dL Hct 27.7 L (35.0-46.0) % MCHC 37.0 H (32.0-36.0) % Plt Count 532 H D (150-450) th/mm3 Neut % (Auto) 82.0 H (16.0-70.0) % Neut # (Auto) 11.4 H (1.8-7.7) th/mm3 Burnett # (Auto) 1.0 H (0.0-0.9) th/mm3 Sodium 135 L (136-145) meq/L BUN 27 H (7-18) mg/dL Creatinine 1.36 H (0.50-1.00) mg/dL Estimated GFR 38 L (>89) mL/min Calcium 8.1 L (8.5-10.1) mg/dL B-Natriuretic Peptide 157 H (0-100) pg/mL Albumin 2.3 L (3.4-5.0) g/dL Short CBC 12/12/17 Range/Units 14:35 WBC 13.9 H (4.0-11.0) th/mm3 Hgb 10.2 L (11.6-15.3) gm/dL Hct 27.7 L (35.0-46.0) % Plt Count 532 H D (150-450) th/mm3 BMP 12/12/17 14:35 Sodium 135 L Potassium 4.1 Chloride 100 Carbon Dioxide 24.2 BUN 27 H Creatinine 1.36 H Calcium 8.1 L Cardiac Enzymes 12/12/17 Range/Units 14:35 Troponin I 0.05 (0.02-0.05) ng/mL Liver Function 12/12/17 Range/Units 14:35 Total Bilirubin 0.5 (0.2-1.0) mg/dL AST 19 (15-37) U/L ALT 15 (10-53) U/L Alkaline Phosphatase 113 (45-117) U/L Albumin 2.3 L (3.4-5.0) g/dL <Mary Mena - 12/12/17 17:49> - Imaging Impressions Chest X-Ray 12/12/17 14:25 CONCLUSION: Small bilateral pleural effusions. These are new compared to previous of 2017. Cystogram 12/12/17 14:36 CONCLUSION: Findings indicating urinary bladder leak. There is intraperitoneal leakage of contrast as well as extension of contrast into the lumen of the distal small bowel indicating small bowel leak or fistula. Drainage catheter extends through the defect in the urinary bladder wall into the bladder lumen. Abdomen/Pelvis CT 12/12/17 15:20 CONCLUSION: 1. Intraperitoneal urinary bladder leak/rupture at the superior wall. Adjacent irregularly shaped contrast collection and extension of contrast into the distal small bowel in the area of recent surgery indicating small bowel leak/ fistula. Drainage catheter is seen within the extraluminal contrast collection and extends through the defect in the urinary bladder wall, into the urinary bladder lumen and is looped in the bladder lumen. 2. Bilateral pleural effusions are new right greater than left. Right lower lobe pulmonary atelectasis versus consolidation. 3. Findings were discussed with Dr. Mckeon. <Mary Mena - 12/12/17 17:49> Caprini VTE Risk Assessment Caprini VTE Risk Assessment: Moderate/High Risk (score >= 2) (Possible procedure , hold anticoagulation) <Mary Mena - 12/12/17 19:11> Caprini Risk Assessment Model: Point Value = 1 Point Value = 2 Point Value = 3 Point Value = 5 Age 41-60 Minor surgery BMI > 25 kg/m2 Swollen legs Varicose veins or History of unexplained or recurrent spontaneous Oral contraceptives or hormone replacement Sepsis (< 1 month) Serious lung disease, including pneumonia (< 1 month) Abnormal pulmonary function Acute myocardial infarction Congestive heart failure (< 1 month) History of inflammatory bowel disease Medical patient at bed rest Age 61-74 Arthroscopic surgery Major open surgery (> 45 min) Laparoscopic surgery (> 45 min) Malignancy Confined to bed (> 72 hours) Immobilizing plaster cast Central venous access Age >= 75 History of VTE Family history of VTE Factor V Leiden Prothrombin [id number] Lupus anticoagulant Anticardiolipin antibodies Elevated serum homocysteine Heparin-induced thrombocytopenia Other congenital or acquired thrombophilia Stroke (< 1 month) Elective arthroplasty Hip, pelvis, or leg fracture Acute spinal cord injury (< 1 month) <Filiberto Clemens 12/13/17 18:20> Point Value = 1 Point Value = 2 Point Value = 3 Point Value = 5 Age 41-60 Minor surgery BMI > 25 kg/m2 Swollen legs Varicose veins or History of unexplained or recurrent spontaneous Oral contraceptives or hormone replacement Sepsis (< 1 month) Serious lung disease, including pneumonia (< 1 month) Abnormal pulmonary function Acute myocardial infarction Congestive heart failure (< 1 month) History of inflammatory bowel disease Medical patient at bed rest Age 61-74 Arthroscopic surgery Major open surgery (> 45 min) Laparoscopic surgery (> 45 min) Malignancy Confined to bed (> 72 hours) Immobilizing plaster cast Central venous access Age >= 75 History of VTE Family history of VTE Factor V Leiden Prothrombin [id number] Lupus anticoagulant Anticardiolipin antibodies Elevated serum homocysteine Heparin-induced thrombocytopenia Other congenital or acquired thrombophilia Stroke (< 1 month) Elective arthroplasty Hip, pelvis, or leg fracture Acute spinal cord injury (< 1 month) <Mary Mena - 12/12/17 17:49> Prophylaxis Regimen: Total Risk Factor Score Risk Level Prophylaxis Regimen 0-1 Low Early ambulation 2 Moderate Order ONE of the following: *Sequential Compression Device (SCD) *Heparin 5000 units SQ BID 3-4 Higher Order ONE of the following medications: *Heparin 5000 units SQ TID *Enoxaparin/Lovenox 40 mg SQ daily (WT < 150 kg, CrCl > 30 mL/min) *Enoxaparin/Lovenox 30 mg SQ daily (WT < 150 kg, CrCl > 10-29 mL/min) *Enoxaparin/Lovenox 30 mg SQ BID (WT < 150 kg, CrCl > 30 mL/min) AND/OR *Sequential Compression Device (SCD) 5 or more Highest Order ONE of the following medications: *Heparin 5000 units SQ TID (Preferred with Epidurals) *Enoxaparin/Lovenox 40 mg SQ daily (WT < 150 kg, CrCl > 30 mL/min) *Enoxaparin/Lovenox 30 mg SQ daily (WT < 150 kg, CrCl > 10-29 mL/min) *Enoxaparin/Lovenox 30 mg SQ BID (WT < 150 kg, CrCl > 30 mL/min) AND *Sequential Compression Device (SCD) <Filiberto Clemens - 12/13/17 18:20> Total Risk Factor Score Risk Level Prophylaxis Regimen 0-1 Low Early ambulation 2 Moderate Order ONE of the following: *Sequential Compression Device (SCD) *Heparin 5000 units SQ BID 3-4 Higher Order ONE of the following medications: *Heparin 5000 units SQ TID *Enoxaparin/Lovenox 40 mg SQ daily (WT < 150 kg, CrCl > 30 mL/min) *Enoxaparin/Lovenox 30 mg SQ daily (WT < 150 kg, CrCl > 10-29 mL/min) *Enoxaparin/Lovenox 30 mg SQ BID (WT < 150 kg, CrCl > 30 mL/min) AND/OR *Sequential Compression Device (SCD) 5 or more Highest Order ONE of the following medications: *Heparin 5000 units SQ TID (Preferred with Epidurals) *Enoxaparin/Lovenox 40 mg SQ daily (WT < 150 kg, CrCl > 30 mL/min) *Enoxaparin/Lovenox 30 mg SQ daily (WT < 150 kg, CrCl > 10-29 mL/min) *Enoxaparin/Lovenox 30 mg SQ BID (WT < 150 kg, CrCl > 30 mL/min) AND *Sequential Compression Device (SCD) <Mary Mena E - 12/12/17 17:49> Assessment and Plan - Assessment (1) Bladder injury Code(s): S37.20XA - Unspecified injury of bladder, initial encounter Status: Acute Plan: Patient is status post small bowel bypass and bladder repair in early November Cystogram shows urinary bladder leak with intraperitoneal leakage of contrast and contrast into the distal small bowel. Drainage catheter is within the bladder lumen. -Urology consulted by Dr. England -Dr. Mckeon (ED) spoke with Dr. England for consultation -No plans for surgery at this time as patient had Eliquis this a.m. -At Dr. England's request IV fluconazole and Zosyn -Zosyn 4.5 mg every 6h -Fluconazole 800 mg today and then 400 mg q. 24 starting tomorrow (2) Injury of small intestine Code(s): S36.409A - Unspecified injury of unspecified part of small intestine, initial encounter Status: Acute Plan: Patient is status post small bowel bypass 12/02 -Dr. England consulted, appreciate recommendations -Treatment for possible intra-abdominal infection as above (3) JACQUELINE (acute kidney injury) Code(s): N17.9 - Acute kidney failure, unspecified Status: Acute Plan: Creatinine 1.36 on admission today. Baseline appears to be about 0.8 -Normal saline at maintenance 94 mL/h -Repeat BMP in a.m. -Avoid nephrotoxic agents as possible (4) Ovarian cancer on right Code(s): C56.1 - Malignant neoplasm of right ovary Status: Acute Plan: Currently undergoing oral chemotherapy Continue Percocet for pain Zofran as needed for nausea (5) Hypertension Code(s): I10 - Essential (primary) hypertension Status: Chronic Plan: Continue home metoprolol (6) Neuropathic pain of both legs Code(s): G57.91 - Unspecified mononeuropathy of right lower limb; G57.92 - Unspecified mononeuropathy of left lower limb Status: Chronic Plan: Continue on Cymbalta (7) Hypothyroidism Code(s): E03.9 - Hypothyroidism, unspecified Status: Chronic Plan: Continue home levothyroxine (8) Nutrition, metabolism, and development symptoms Code(s): R63.8 - Other symptoms and signs concerning food and fluid intake Status: Acute Plan: Fluids: Normal saline 94 mils per hour Diet: Full liquid diet pending surgical evaluation Electrolytes: Replete as necessary DVT prophylaxis: SCDs only <Mary Mena - 12/12/17 18:28> (1) Vesico-intestinal fistula Code(s): N32.1 - Vesicointestinal fistula Status: Acute (2) JACQUELINE (acute kidney injury) Code(s): N17.9 - Acute kidney failure, unspecified Status: Acute (3) Ovarian cancer on right Code(s): C56.1 - Malignant neoplasm of right ovary Status: Acute (4) Hypertension Code(s): I10 - Essential (primary) hypertension Status: Chronic (5) Neuropathic pain of both legs Code(s): G57.91 - Unspecified mononeuropathy of right lower limb; G57.92 - Unspecified mononeuropathy of left lower limb Status: Chronic (6) Hypothyroidism Code(s): E03.9 - Hypothyroidism, unspecified Status: Chronic (7) Nutrition, metabolism, and development symptoms Code(s): R63.8 - Other symptoms and signs concerning food and fluid intake Status: Acute <SarathFiliberto So - 12/13/17 18:20> - Assessment and Plan Discussed Condition With: Dr Boyle <Mary Mena - 12/12/17 19:11> - Attending Attestation The exam, history, and the medical decision-making described in the above note were completed with the assistance of the resident physician. I reviewed and agree with the findings presented. I was not able to see this patient on the day of admission (12/12/17) but saw her the next morning with the resident team and medical student. This patient with a history of metastatic ovarian cancer and recent small bowel obstruction is admitted for possible vesicoenteral fistula. She is relatively asymptomatic other than lower extremity edema and diarrhea. Her white count has trended down today and she is afebrile. General surgery and urology are consulted to help manage the fistula. <Filiberto Clemens So - 12/13/17 18:20> <Mary Mena E - Last Filed: 12/12/17 18:28> (5) Hypertension Qualifiers: Hypertension type: unspecified Qualified Code(s): I10 - Essential (primary) hypertension (7) Hypothyroidism Qualifiers: Hypothyroidism type: unspecified Qualified Code(s): E03.9 - Hypothyroidism, unspecified <Filiberto Clemens - Last Filed: 12/13/17 18:20> (4) Hypertension Qualifiers: Hypertension type: unspecified Qualified Code(s): I10 - Essential (primary) hypertension (6) Hypothyroidism Qualifiers: Hypothyroidism type: unspecified Qualified Code(s): E03.9 - Hypothyroidism, unspecified <Mary Mena E - Last Filed: 12/12/17 18:28> (5) Hypertension Qualifiers: Hypertension type: unspecified Qualified Code(s): I10 - Essential (primary) hypertension (7) Hypothyroidism Qualifiers: Hypothyroidism type: unspecified Qualified Code(s): E03.9 - Hypothyroidism, unspecified <Filiberto Clemens - Last Filed: 12/13/17 18:20> (4) Hypertension Qualifiers: Hypertension type: unspecified Qualified Code(s): I10 - Essential (primary) hypertension (6) Hypothyroidism Qualifiers: Hypothyroidism type: unspecified Qualified Code(s): E03.9 - Hypothyroidism, unspecified
[2017-12-12 17:53] LABS: Ictotest,Urine Positive (Negative)
--- NOTE | 2017-12-12 20:47 | MB ---
cc: Chinmay England MD DATE: 12/12/2017 CHIEF COMPLAINT: Swelling, abdominal pain. HISTORY OF PRESENT ILLNESS: The patient is a 77-year-old female who presents with a history of recurrent metastatic ovarian cancer. The patient has multiple medical issues and had recently presented with a small-bowel obstruction requiring diagnostic laparoscopy, laparoscopic small bowel bypass, lysis of adhesions and a bladder repair. The patient was recently discharged with Ledezma and a BIJAL drain in place with having improvement in tolerating diet; however, the patient was seen with complaints of increased swelling and a change in color from her of Ledezma output and BIJAL drain. She denies any fevers or chills and has very minimal 2/10 abdominal pain with no nausea or vomiting and, again, no fevers. The patient presented after being sent to the emergency department with leukocytosis of 13.[address] scan showing extravasation via a cystogram in the bladder and small bowel and noted to be a communication. Therefore, surgery was consulted. PAST MEDICAL HISTORY: Hypertension, neuropathic pain, hypothyroidism, metastatic ovarian cancer. PAST SURGICAL HISTORY: Hysterectomy, back surgery, diagnostic laparoscopy, laparoscopic lysis of adhesions with small bowel bypass and bladder repair. MEDICATIONS: See EMR, Eliquis. ALLERGIES: NO KNOWN DRUG ALLERGIES. SOCIAL HISTORY: Denies smoking, ETOH or IVDA. FAMILY HISTORY: Denies diabetes or hypertension. REVIEW OF SYSTEMS: A 12-point review of systems done and otherwise negative except as for above. GENERAL: The patient denies fevers. HEENT: Denies eye pain or ear pain. NECK: Denies swelling or pain. LUNGS: Denies cough or wheeze. HEART: Denies palpitations or chest pain. ABDOMEN: Complains of mild abdominal pain. Denies vomiting. GENITOURINARY: Ledezma catheter. ENDOCRINE: Denies polyuria or polydipsia. INTEGUMENT: Denies any masses. Complains of edema. EXTREMITIES: Complains of edema. NEUROLOGIC: Denies numbness or tingling. Complains of chronic pain. PHYSICAL EXAMINATION: GENERAL: The patient is in no acute distress. VITAL SIGNS: Temperature 99.2, pulse 95, respirations 18, blood pressure 143/66, saturation 97%. HEENT: Pupils equal, round and reactive. NECK: Supple. Trachea midline. LUNGS: Bilateral expansion, clear, decreased bibasilar breath sounds. HEART: S1, S2 regular. ABDOMEN: Soft. Healing surgical incisions. No signs of cellulitis. No peritoneal signs. BIJAL drain in place. GENITOURINARY: Ledezma in place. EXTREMITIES: 2+ pitting edema in all extremities. NEUROLOGIC: GCS 15 with 5/5 motor in all extremities. PSYCHIATRIC: Appropriate mood, appropriate insight. LABORATORY AND DIAGNOSTIC DATA: WBC 13.9, hemoglobin 10.2, hematocrit 27.7, platelets 532. Sodium 135, potassium 4.1, chloride 100, BUN 27, creatinine 1.3, glucose 90, bilirubin 0.5, AST 19, ALT 15. BNP 57. Albumin 2.3. CT reviewed by myself shows intraperitoneal urinary catheter leak of superior wall, contrast collection extending to distal small bowel area adjacent to surgery, small bowel fistula leak, catheter seen extraluminally, contrast collection extending to defect of bladder, bilateral pleural effusions. ASSESSMENT: The patient is a 77-year-old female who presents with history of stage IV metastatic cancer, history of chemotherapy, history of Eliquis, multiple medical issues, now presents with a bladder leak, small bowel leak, controlled fistula. PLAN: After a full workup, the patient with the above-noted issues. At this point, the patient needs IV fluids, n.p.o., pain control. Recommend a consultation to urology. We will discuss with Dr. Bowles. The patient will likely need operative intervention. We will delay intervention until the patient has had time to be off Eliquis. We will coordinate with urology. We will continue to monitor closely. Discussed with the patient in detail. MD SHIRLEY Singleton/endy , 05:25 PM , 05:38 PM
[2017-12-12] MEDS ORDERED: FLUCONAZOLE IV.SIG ONE (21:00)
[2017-12-12] MEDS: Temazepam 15 MG Capsule PO SCH (21:13)
[2017-12-12] MEDS: Sod Chloride 0.9% Inj 1,000 ML IV.CONT SCH (21:13)
[2017-12-12] MEDS ORDERED: Naloxone Inj 0.4 MG/ML Vial IV.PUSH PRN (21:36)
[2017-12-12] MEDS ORDERED: Acetaminophen 325 MG Tablet PO PRN (21:36)
[2017-12-12] MEDS ORDERED: Morphine Inj 4 MG/ML Vial IV.PUSH PRN (21:36)
[2017-12-12] MEDS: Piperacil/Tazo 4.5 GM Premix 4.5 GM/100 ML BAG IV.SIG SCH (23:00)
[2017-12-13] MEDS: Levothyroxine 50 MCG Tablet PO SCH ×2 (04:33→07:32)
[2017-12-13] MEDS: Piperacil/Tazo 4.5 GM Premix 4.5 GM/100 ML BAG IV.SIG SCH ×2 (04:33→10:53)
[2017-12-13 05:53] LABS: Baso % (Auto) 0.3 % (0.0-2.0); Eos # (Auto) 0.1 th/mm3 (0.0-0.4); Eos % (Auto) 1.5 % (0.0-4.0); Hemoglobin 9.4 gm/dL (11.6-15.3); Lymph % (Auto) 12.5 % (9.0-44.0); Mean Corpuscular HGB Conc 33.7 % (32.0-36.0); Mean Corpuscular Hemoglobin 31.3 pg (27.0-34.0); Mean Corpuscular Volume 92.7 fL (80.0-100.0); Mean Platelet Volume 6.8 fL (7.0-11.0); Mono # (Auto) 0.7 th/mm3 (0.0-0.9); Neut # (Auto) 6.2 th/mm3 (1.8-7.7); Neut % (Auto) 76.7 % (16.0-70.0); Platelet Count 476 th/mm3 (150-450); Red Blood Count 3.01 mil/mm3 (4.00-5.30); Red Cell Distribution Width 15.5 % (11.6-17.2)
[2017-12-13 06:17] LABS: Calcium 7.8 mg/dL (8.5-10.1); Carbon Dioxide 22.7 meq/L (21.0-32.0); Potassium 4.1 meq/L (3.5-5.1)
[2017-12-13] MEDS: Metoprolol Tartrate 50 MG Tablet PO SCH (09:06)
[2017-12-13] MEDS ORDERED: Loperamide 2 MG Capsule PO ONE (09:07)
[2017-12-13] MEDS ORDERED: Loperamide 2 MG Capsule PO PRN (09:07)
[2017-12-13] MEDS: Sod Chloride 0.9% Inj 1,000 ML IV.CONT SCH ×3 (09:07→18:08)
--- NOTE | 2017-12-13 09:37 | P.PNFP ---
Subjective Interval history: Patient seen by resident team and medical student this morning. She is lying in bed, comfortable. Her only complaint this morning is diarrhea and lower extremity edema bilaterally. Diarrhea is at baseline since her surgery. Edema is somewhat worse and she reports is new. No chest pain or shortness of breath. No abdominal pain. No nausea and vomiting overnight. No fevers or chills. White count trended to normal. Results - Labs Result diagrams: 12/13/17 05:22 12/13/17 05:22 Abnormal lab results 12/12/17 12/12/17 12/12/17 Range/Units 14:35 14:35 14:35 WBC 13.9 H (4.0-11.0) th/mm3 RBC 3.04 L (4.00-5.30) mil/mm3 Hgb 10.2 L (11.6-15.3) gm/dL Hct 27.7 L (35.0-46.0) % MCHC 37.0 H (32.0-36.0) % Plt Count 532 H D (150-450) th/mm3 MPV (7.0-11.0) fL Neut % (Auto) 82.0 H (16.0-70.0) % [place] % (Auto) (0.0-8.0) % Neut # (Auto) 11.4 H (1.8-7.7) th/mm3 [place] # (Auto) 1.0 H (0.0-0.9) th/mm3 Sodium 135 L (136-145) meq/L BUN 27 H (7-18) mg/dL Creatinine 1.36 H (0.50-1.00) mg/dL Estimated GFR 38 L (>89) mL/min Calcium 8.1 L (8.5-10.1) mg/dL B-Natriuretic Peptide 157 H (0-100) pg/mL Albumin 2.3 L (3.4-5.0) g/dL Urine Clarity (Clear) Ur Specific [place] (1.002-1.035) Urine Protein (Neg-Trace) mg/dL Urine Occult Blood (Negative) Urine Bilirubin (Negative) Urine Ictotest (Negative) Ur Leukocyte Esterase (Negative) Urine RBC (0-3) /hpf Amorphous Sediment (None) /hpf Urine Yeast (None) /hpf 12/12/17 12/13/1718 Range/Units 17:15 05:22 05:22 WBC (4.0-11.0) th/mm3 RBC 3.01 L (4.00-5.30) mil/mm3 Hgb 9.4 L (11.6-15.3) gm/dL Hct 28.0 L (35.0-46.0) % MCHC (32.0-36.0) % Plt Count 476 H (150-450) th/mm3 MPV 6.8 L (7.0-11.0) fL Neut % (Auto) 76.7 H (16.0-70.0) % [place] % (Auto) 9.0 H (0.0-8.0) % Neut # (Auto) (1.8-7.7) th/mm3 [place] # (Auto) (0.0-0.9) th/mm3 Sodium (136-145) meq/L BUN 26 H (7-18) mg/dL Creatinine 1.14 H (0.50-1.00) mg/dL Estimated GFR 46 L (>89) mL/min Calcium 7.8 L (8.5-10.1) mg/dL B-Natriuretic Peptide (0-100) pg/mL Albumin (3.4-5.0) g/dL Urine Clarity Turbid H (Clear) Ur Specific [place] 1.039 H (1.002-1.035) Urine Protein 100 H (Neg-Trace) mg/dL Urine Occult Blood Large H (Negative) Urine Bilirubin Small H (Negative) Urine Ictotest Positive H (Negative) Ur Leukocyte Esterase Small H (Negative) Urine RBC 4 H (0-3) /hpf Amorphous Sediment Rare H (None) /hpf Urine Yeast Occasional H (None) /hpf Short CBC 12/12/17 12/13/17 Range/Units 14:35 05:22 WBC 13.9 H 8.0 (4.0-11.0) th/mm3 Hgb 10.2 L 9.4 L (11.6-15.3) gm/dL Hct 27.7 L 28.0 L (35.0-46.0) % Plt Count 532 H D 476 H (150-450) th/mm3 BMP 12/12/17 12/13/17 14:35 05:22 Sodium 135 L 138 Potassium 4.1 4.1 Chloride 100 105 Carbon Dioxide 24.2 22.7 BUN 27 H 26 H Creatinine 1.36 H 1.14 H Calcium 8.1 L 7.8 L Cardiac Enzymes 12/12/17 Range/Units 14:35 Troponin I 0.05 (0.02-0.05) ng/mL Liver Function 12/12/17 Range/Units 14:35 Total Bilirubin 0.5 (0.2-1.0) mg/dL AST 19 (15-37) U/L ALT 15 (10-53) U/L Alkaline Phosphatase 113 (45-117) U/L Albumin 2.3 L (3.4-5.0) g/dL Urine 12/12/17 Range/Units 17:15 Urine Color Yellow (Yellw/Straw) Urine Clarity Turbid H (Clear) Urine pH 5.0 (5.0-8.5) Ur Specific [place] 1.039 H (1.002-1.035) Urine Protein 100 H (Neg-Trace) mg/dL Urine Glucose (UA) Negative (Negative) mg/dL - Imaging Impressions Chest X-Ray 12/12/17 14:25 CONCLUSION: Small bilateral pleural effusions. These are new compared to previous of 2017. Cystogram 12/12/17 14:36 CONCLUSION: Findings indicating urinary bladder leak. There is intraperitoneal leakage of contrast as well as extension of contrast into the lumen of the distal small bowel indicating small bowel leak or fistula. Drainage catheter extends through the defect in the urinary bladder wall into the bladder lumen. Abdomen/Pelvis CT 12/12/17 15:20 CONCLUSION: 1. Intraperitoneal urinary bladder leak/rupture at the superior wall. Adjacent irregularly shaped contrast collection and extension of contrast into the distal small bowel in the area of recent surgery indicating small bowel leak/ fistula. Drainage catheter is seen within the extraluminal contrast collection and extends through the defect in the urinary bladder wall, into the urinary bladder lumen and is looped in the bladder lumen. 2. Bilateral pleural effusions are new right greater than left. Right lower lobe pulmonary atelectasis versus consolidation. 3. Findings were discussed with Dr. Mckeon. Physical Exam Vital signs: Vital Signs 12/12/17 12:10 12/12/17 14:24 12/12/17 14:34 Temperature 99 F Pulse Rate 105 H 98 H Respiratory Rate 14 18 Blood Pressure 118/93 H 143/66 H Pulse Oximetry 95 97 95 12/12/17 16:20 12/12/17 20:00 12/13/17 00:00 Temperature 97.3 F L 97.7 F Pulse Rate 103 H 113 H 91 H Respiratory Rate 18 18 17 Blood Pressure 151/81 H 125/74 112/70 Pulse Oximetry 94 L 93 L 12/13/17 08:00 Temperature 97.7 F Pulse Rate 109 H Respiratory Rate 20 Blood Pressure 171/83 H Pulse Oximetry 91 L Intake & Output 12/12/17 12/13/17 12/13/17 18:59 06:59 18:59 Intake Total 150 / 150 1250 / 1250 1000 / 1000 Output Total 0 / 0 1 / 1 Balance 150 / 150 1250 / 1250 999 / 999 Weight 54.431 kg 54.4 kg Intake: IV 150 / 150 350 / 350 1000 / 1000 NS Inj 1,000 ML @ 94 mls/hr IV. 1000 / 1000 CONT .[id number] [facility] Rx#:[id number] Diflucan 100 mg Premix Bag 50 50 / 50 ML @ 50 mls/hr IV.SIG ONCE ONE Rx#:[id number] Diflucan 100 mg Premix Bag 300 150 / 150 MG In Bag/Syringe 1 EACH @ 75 mls/hr IV.SIG ONCE ONE Rx#: [id number] Zosyn 4.5 GM Premix 4.5 gm In 100 / 100 200 / 200 100 ml @ 200 mls/hr IV.SIG Q6H [facility] Rx#:[id number] Oral 900 / 900 Output: Stool 1 / 1 Wound Drainage 0 / 0 Left Abdomen 0 / 0 Other: # Voids 3 Date of Last Bowel Movement 12/12/17 12/13/17 # Bowel Movements 5 Narrative: General: Resting in bed, comfortable Skin: Very mild skin breakdown on right lower leg about 1 cm in diameter, multiple small ecchymosis on lower extremities HEENT: Normocephalic, no nasal discharge CV: RRR, no murmurs, rubs, or gallops Lungs: CTAB Abdomen: BIJAL drain in place, draining dark fluid. No pain with palpation. Normal bowel sounds. No distension. No rebound tenderness. 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 She had recent small bowel obstruction and required diagnostic laparoscopy. and small bowel bypass, along with adhesiolysis and bladder repair. She was discharged from her recent hospital admission with a Ledezma catheter and BIJAL drain in place. Ledezma drainage became darker. 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 Afebrile overnight, white count trended to normal. - Consult urology (Dr. Bowles) and surgery (Dr. England) - NPO in case of procedure, likely will need operative intervention - Hold Eliquis in anticipation of procedure (was on this for upper extremity clot/port clot per patient) - Monitor fluid status and electrolytes, replace as needed - Broad spectrum antibiotics - Add loperamide for diarrhea, check c.diff. Discontinue loperamide if c.diff positive. (2) JACQUELINE (acute kidney injury) Code(s): N17.9 - Acute kidney failure, unspecified Status: Acute Plan: Creatinine 1.36 on admission, 1.14 today. Baseline appears to be about 0.8 -Normal saline at maintenance 94 mL/h -Avoid nephrotoxic agents as much as possible -Lasix for lower extremity swelling (3) Ovarian cancer on right Code(s): C56.1 - Malignant neoplasm of right ovary Status: Acute Plan: History of metastatic ovarian cancer. Currently undergoing oral chemotherapy. Follows with functional consultant-oncology. - Continue Percocet for pain management - Zofran as needed for nausea (4) Hypertension Code(s): I10 - Essential (primary) hypertension Status: Chronic Plan: Continue home metoprolol (5) Neuropathic pain of both legs Code(s): G57.91 - Unspecified mononeuropathy of right lower limb; G57.92 - Unspecified mononeuropathy of left lower limb Status: Chronic Plan: Continue on Cymbalta (6) Hypothyroidism Code(s): E03.9 - Hypothyroidism, unspecified Status: Chronic Plan: Continue home levothyroxine (7) Nutrition, metabolism, and development symptoms Code(s): R63.8 - Other symptoms and signs concerning food and fluid intake Status: Acute Plan: Fluids: Normal saline 94 mls per hour Diet: NPO in case of procedure Electrolytes: Replete as necessary DVT prophylaxis: SCDs only, holding Eliquis (4) Hypertension Qualifiers: Hypertension type: unspecified Qualified Code(s): I10 - Essential (primary) hypertension (6) Hypothyroidism Qualifiers: Hypothyroidism type: unspecified Qualified Code(s): E03.9 - Hypothyroidism, unspecified
--- NOTE | 2017-12-13 13:22 | MB ---
cc: Elbert Bowlesn Edith DO DATE: 12/13/2017 HISTORY OF PRESENT ILLNESS: This is a pleasant 77-year-old female with a history of metastatic ovarian cancer, who underwent 2 cycles of chemotherapy in the past by Dr. Girard with a total abdominal hysterectomy and oophorectomy, bilateral salpingo-oophorectomy in the past. She was initially diagnosed in 2011. She recently underwent a laparoscopic procedure by Dr. Enlgand involving a bowel resection as well as a bladder injury, which was repaired at that time. The Ledezma was maintained, and she was recently seen in the office by Dr. England and noted some brown greenish type urine and decision was made to bring her to the hospital. She underwent a cystogram yesterday, which showed an bladder leak and a small bowel leak with a fistula. Drainage catheter was seen within the intraluminal collection. Extensive defect in the urinary bladder wall. She denies any fever or chills and notes bowel movements consisting of diarrhea at present. She denies any abdominal pain at the present time. MEDICAL HISTORY: Noted for metastatic ovarian cancer, hypertension, neuropathy, hypothyroidism. PAST SURGICAL HISTORY: Total abdominal hysterectomy, unilateral oophorectomy in the past by Dr. Girard. She has a history of back surgery and recent small-bowel resection with bladder repair. FAMILY HISTORY: Negative for heart disease and stomach cancer. SOCIAL HISTORY: She denies smoking, drinks occasionally. She denies any history of drug abuse. REVIEW OF SYSTEMS: She denies chest pain. She denies abdominal pain, notes diarrhea. She denies gait disturbances, bleeding disorders, heat or cold intolerance, skin lesions. Remaining review of systems are reviewed and are negative. PHYSICAL EXAMINATION: VITAL SIGNS: Temperature 97.7, heart rate 109, respiratory rate 20, 171/83 is her blood pressure, 91% on room air. GENERAL: She is a well-developed, well-nourished, 77-year-old female, in no acute distress. HEENT: Normocephalic, atraumatic. Pupils equal, round, reactive to light. Extraocular movements intact. NECK: Supple. HEART: Regular rate and rhythm. Breath sounds bilaterally. ABDOMEN: Soft, nontender, some distention is noted. Port sites dressings are in place. Ledezma is draining a brownish green material. BIJAL has minimal output which is a brown-type fluid. EXTREMITIES: 2-plus edema. NEUROLOGIC: Cranial nerves 2-12 are intact. LABORATORY DATA: White count is 8.0, hemoglobin 9.4, hematocrit 28.0, platelet count 476. Sodium 138, potassium 4.1, chloride 105, CO2 of 22.7, BUN of 26, creatinine 1.1, glucose is 86. Urinalysis shows nitrite negative. Small bilirubin, 4 red cells, 5 white cells. Again, imaging shows a small bowel fistula and an intraperitoneal bladder injury. ASSESSMENT: This is a 77-year-old female with metastatic ovarian cancer with evidence of an intraperitoneal bladder injury. The patient has been on Eliquis which is currently being held. Given the fact that the patient is currently stable, we can hold off on definitive repair for now but would recommend repair in the next 48 hours. This was discussed with Dr. England yesterday. We will follow closely any changes in the patient's condition which would indicate urgent need for exploratory laparotomy. We will proceed at that time. We will follow closely with you. Thank you for the consult and allowing me to participate in the care of this patient. DO Tripp Wan , 09:23 AM , 09:32 AM
[2017-12-13] MEDS: Piperacil/Tazo 3.375 GM Premix 50 ML IV.SIG SCH ×2 (17:16→22:55)
--- NOTE | 2017-12-13 18:07 | P.PNGS ---
Subjective Patient reports: no new complaints, feels better Physical Exam Vital signs: Vital Signs 12/12/17 20:00 12/13/17 00:00 12/13/17 08:00 Temperature 97.3 F L 97.7 F 97.7 F Pulse Rate 113 H 91 H 109 H Respiratory Rate 18 17 20 Blood Pressure 125/74 112/70 171/83 H Pulse Oximetry 94 L 93 L 91 L 12/13/17 12:00 12/13/17 15:36 12/13/17 16:00 Temperature 99.0 F 98.7 F Pulse Rate 92 H 88 Respiratory Rate 20 20 Blood Pressure 142/77 H 158/63 H Pulse Oximetry 91 L 96 96 Intake & Output 12/12/17 12/13/17 12/13/17 18:59 06:59 18:59 Intake Total 150 / 150 1250 / 1250 1100 / 1100 Output Total 0 / 0 504 / 504 Balance 150 / 150 1250 / 1250 596 / 596 Weight 54.431 kg 54.4 kg Intake: IV 150 / 150 350 / 350 1100 / 1100 NS Inj 1,000 ML @ 94 mls/hr IV. 1000 / 1000 CONT .[id number] [facility] Rx#:[id number] Diflucan 100 mg Premix Bag 50 50 / 50 ML @ 50 mls/hr IV.SIG ONCE ONE Rx#:[id number] Diflucan 100 mg Premix Bag 300 150 / 150 MG In Bag/Syringe 1 EACH @ 75 mls/hr IV.SIG ONCE ONE Rx#: [id number] Zosyn 4.5 GM Premix 4.5 gm In 100 / 100 200 / 200 100 / 100 100 ml @ 200 mls/hr IV.SIG Q6H [facility] Rx#:[id number] Oral 900 / 900 Output: Stool 4 / 4 Urine Amount (Catheter) 500 / 500 Indwelling Urethral Catheter 500 / 500 Wound Drainage 0 / 0 Left Abdomen 0 / 0 Other: # Voids 3 Date of Last Bowel Movement 12/12/17 12/13/17 # Bowel Movements 5 - Constitutional no acute distress - Routine Abdominal Exam Present: soft Comments: no peritonitis - Urinary Catheter Management Indwelling Urethral Catheter Cath placed during this visit: no Reason for continuing: Other continuation reason Assessment and Plan - Assessment (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 continue ABX ok for ice chips oob will likely need surgery this week
[2017-12-13] MEDS: FLUCONAZOLE IV.SIG SCH (20:36)
[2017-12-13] MEDS: Temazepam 15 MG Capsule PO SCH (20:36)
[2017-12-14 04:00] LABS: Hematocrit 31.5 % (35.0-46.0); Hemoglobin 10.4 gm/dL (11.6-15.3); Mean Corpuscular HGB Conc 32.9 % (32.0-36.0); Mean Corpuscular Hemoglobin 30.5 pg (27.0-34.0); Mean Corpuscular Volume 92.9 fL (80.0-100.0); Mean Platelet Volume 6.8 fL (7.0-11.0); Platelet Count 581 th/mm3 (150-450); Red Blood Count 3.39 mil/mm3 (4.00-5.30); Red Cell Distribution Width 15.9 % (11.6-17.2); White Blood Count 9.4 th/mm3 (4.0-11.0)
[2017-12-14] MEDS: Sod Chloride 0.9% Inj 1,000 ML IV.CONT SCH ×2 (04:07→17:40)
[2017-12-14] MEDS: Piperacil/Tazo 3.375 GM Premix 50 ML IV.SIG SCH ×4 (04:07→23:34)
[2017-12-14 04:24] LABS: Calcium 7.9 mg/dL (8.5-10.1); Carbon Dioxide 20.8 meq/L (21.0-32.0); Potassium 3.8 meq/L (3.5-5.1)
[2017-12-14] MEDS: Levothyroxine 50 MCG Tablet PO SCH (05:50)
[2017-12-14] MEDS: Metoprolol Tartrate 50 MG Tablet PO SCH (09:07)
--- NOTE | 2017-12-14 11:05 | P.PNFP ---
Subjective Interval history: Ms Diop had no acute events overnight. She is sitting in bedside chair with her daughter in the room this morning and has no complaints other than her legs are still swollen and have not gone down. She has been told by Sherry Butler, surgery, and Wilbur, urology, that surgery will be tomorrow. Denies CP, SOB, N/ V but still has some diarrhea which has been found to be C Diff negative, and abdominal pain. Her legs feel a little tense and LLE mildly TTP. <Juancho Shaw III H - 12/14/17 11:05> Results - Labs Result diagrams: 12/14/17 03:50 12/14/17 03:50 <Filiberto Clemens L - 12/14/17 18:24> Abnormal lab results 12/14/17 12/14/17 Range/Units 03:50 03:50 RBC 3.39 L (4.00-5.30) mil/mm3 Hgb 10.4 L (11.6-15.3) gm/dL Hct 31.5 L (35.0-46.0) % Plt Count 581 H (150-450) th/mm3 MPV 6.8 L (7.0-11.0) fL Carbon Dioxide 20.8 L (21.0-32.0) meq/L BUN 25 H (7-18) mg/dL Creatinine 1.25 H (0.50-1.00) mg/dL Estimated GFR 41 L (>89) mL/min Random Glucose 69 L (74-106) mg/dL Calcium 7.9 L (8.5-10.1) mg/dL Short CBC 12/14/17 Range/Units 03:50 WBC 9.4 (4.0-11.0) th/mm3 Hgb 10.4 L (11.6-15.3) gm/dL Hct 31.5 L (35.0-46.0) % Plt Count 581 H (150-450) th/mm3 BMP 12/14/17 03:50 Sodium 139 Potassium 3.8 Chloride 106 Carbon Dioxide 20.8 L BUN 25 H Creatinine 1.25 H Calcium 7.9 L <Filiberto Clemens L - 12/14/17 18:24> Abnormal lab results 12/14/17 12/14/17 Range/Units 03:50 03:50 RBC 3.39 L (4.00-5.30) mil/mm3 Hgb 10.4 L (11.6-15.3) gm/dL Hct 31.5 L (35.0-46.0) % Plt Count 581 H (150-450) th/mm3 MPV 6.8 L (7.0-11.0) fL Carbon Dioxide 20.8 L (21.0-32.0) meq/L BUN 25 H (7-18) mg/dL Creatinine 1.25 H (0.50-1.00) mg/dL Estimated GFR 41 L (>89) mL/min Random Glucose 69 L (74-106) mg/dL Calcium 7.9 L (8.5-10.1) mg/dL Short CBC 12/14/17 Range/Units 03:50 WBC 9.4 (4.0-11.0) th/mm3 Hgb 10.4 L (11.6-15.3) gm/dL Hct 31.5 L (35.0-46.0) % Plt Count 581 H (150-450) th/mm3 [facility] 12/14/17 03:50 Sodium 139 Potassium 3.8 Chloride 106 Carbon Dioxide 20.8 L BUN 25 H Creatinine 1.25 H Calcium 7.9 L <Rocioe IIIJuancho H - 12/14/17 11:05> Physical Exam Vital signs: Vital Signs 12/13/17 20:00 12/14/17 00:48 12/14/17 08:00 Temperature 97.9 F 97.5 F L 97.2 F L Pulse Rate 92 H 93 H 96 H Respiratory Rate 17 17 16 Blood Pressure 107/59 L 133/68 132/78 Pulse Oximetry 94 L 95 100 12/14/17 12:00 12/14/17 16:00 Temperature 98.1 F 97.9 F Pulse Rate 86 88 Respiratory Rate 16 18 Blood Pressure 116/53 L 129/76 Pulse Oximetry 97 71 L Intake & Output 12/13/17 12/14/17 12/14/17 18:59 06:59 18:59 Intake Total 1150 / 1150 1200 / 1200 1050 / 1050 Output Total 554 / 554 200 / 200 Balance 596 / 596 1000 / 1000 1050 / 1050 Weight 54.4 kg Intake: IV 1150 / 1150 1200 / 1200 1050 / 1050 NS Inj 1,000 ML @ 94 mls/hr IV. 1000 / 1000 1000 / 1000 1000 / 1000 CONT .[id number] [facility] Rx#:[id number] Diflucan 200 mg Premix Bag 200 100 / 100 MG In Bag/Syringe 1 EACH @ 100 mls/hr IV.SIG Q24H [facility] Rx#: [id number] Zosyn 3.375 GM Premix 50 ML @ 50 / 50 100 / 100 50 / 50 100 mls/hr IV.SIG Q6H [facility] Rx#: [id number] Zosyn 4.5 GM Premix 4.5 gm In 100 / 100 100 ml @ 200 mls/hr IV.SIG Q6H [facility] Rx#:[id number] Output: Stool 4 / 4 Urine Amount (Catheter) 500 / 500 200 / 200 Indwelling Urethral Catheter 500 / 500 200 / 200 Wound Drainage 50 / 50 Left Abdomen 50 / 50 Other: # Voids 4 Date of Last Bowel Movement 12/13/17 # Bowel Movements 4 <Filiberto Clemens L - 12/14/17 18:24> Vital Signs 12/13/17 12:00 12/13/17 15:36 12/13/17 16:00 Temperature 99.0 F 98.7 F Pulse Rate 92 H 88 Respiratory Rate 20 20 Blood Pressure 142/77 H 158/63 H Pulse Oximetry 91 L 96 96 12/13/17 18:18 12/13/17 20:00 12/14/17 00:48 Temperature 97.9 F 97.5 F L Pulse Rate 92 H 93 H Respiratory Rate 17 17 Blood Pressure 107/59 L 133/68 Pulse Oximetry 96 94 L 95 Intake & Output 12/13/17 12/14/17 12/14/17 18:59 06:59 18:59 Intake Total 1150 / 1150 1150 / 1150 Output Total 554 / 554 200 / 200 Balance 596 / 596 950 / 950 Weight 54.4 kg Intake: IV 1150 / 1150 1150 / 1150 NS Inj 1,000 ML @ 94 mls/hr IV. 1000 / 1000 1000 / 1000 CONT .[id number] [facility] Rx#:[id number] Diflucan 200 mg Premix Bag 200 100 / 100 MG In Bag/Syringe 1 EACH @ 100 mls/hr IV.SIG Q24H [facility] Rx#: [id number] Zosyn 3.375 GM Premix 50 ML @ 50 / 50 50 / 50 100 mls/hr IV.SIG Q6H [facility] Rx#: [id number] Zosyn 4.5 GM Premix 4.5 gm In 100 / 100 100 ml @ 200 mls/hr IV.SIG Q6H [facility] Rx#:[id number] Output: Stool 4 / 4 Urine Amount (Catheter) 500 / 500 200 / 200 Indwelling Urethral Catheter 500 / 500 200 / 200 Wound Drainage 50 / 50 Left Abdomen 50 / 50 Other: # Voids 4 Date of Last Bowel Movement 12/13/17 # Bowel Movements 4 <Juancho Shaw III - 12/14/17 11:05> Narrative: General: Sitting up in bedside chair, comfortable, NAD. Skin: Very mild skin breakdown on RLE below knee about 1 cm in diameter, multiple small ecchymosis on lower extremities. HEENT: Normocephalic, atraumatic. No nasal discharge. Trachea midline. EOMI. Mucous membranes slightly dry. CV: RRR, no murmurs, rubs, or gallops Lungs: CTAB. No increased WOB. Abdomen: BIJAL drain in place, draining dark fluid. No pain with palpation. Normal bowel sounds. No distension. No rebound tenderness. Ext: 2+ pitting edema up to the shins bilaterally Uro: Ledezma catheter in place, draining much clearer urine and much reduced sediment/fecal matter. Neuro: AOx3. non-focal. CN II-XII grossly intact. Moves all extremities spontaneously. 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 Status: Acute (2) JACQUELINE (acute kidney injury) Code(s): N17.9 - Acute kidney failure, unspecified Status: Acute (3) Ovarian cancer on right Code(s): C56.1 - Malignant neoplasm of right ovary Status: Acute (4) Hypertension Code(s): I10 - Essential (primary) hypertension Status: Chronic (5) Neuropathic pain of both legs Code(s): G57.91 - Unspecified mononeuropathy of right lower limb; G57.92 - Unspecified mononeuropathy of left lower limb Status: Chronic (6) Hypothyroidism Code(s): E03.9 - Hypothyroidism, unspecified Status: Chronic (7) Lower extremity edema Code(s): R60.0 - Localized edema Status: Acute (8) Nutrition, metabolism, and development symptoms Code(s): R63.8 - Other symptoms and signs concerning food and fluid intake Status: Acute <Filiberto Clemens - 12/14/17 18:24> (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 She had recent small bowel obstruction and required diagnostic laparoscopy. and small bowel bypass, along with adhesiolysis and bladder repair. She was discharged from her recent hospital admission with a Ledezma catheter and BIJAL drain in place. Ledezma drainage became darker. 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 Afebrile overnight, white count trended to normal. - Urology (Dr. Bowles) and surgery (Dr. England) consulted--plan for OR on 12/15 - NPO - Hold Eliquis in anticipation of procedure (was on this for upper extremity clot/port clot per patient) - Monitor fluid status and electrolytes, replace as needed (NS at 50 mls/hr) - Broad spectrum antibiotics --Zosyn 3.375 g IV q6h -- Diflucan 200 mg IV q24h - Loperamide 2 mg PRN for diarrhea - Cdiff negative (2) JACQUELINE (acute kidney injury) Code(s): N17.9 - Acute kidney failure, unspecified Status: Acute Plan: Creatinine 1.36 on admission, 1.25 today. Baseline appears to be about 0.8 -Normal saline at maintenance 50 mls/hr -Avoid nephrotoxic agents as much as possible -Holding Lasix -Ledezma indwelling (3) Ovarian cancer on right Code(s): C56.1 - Malignant neoplasm of right ovary Status: Acute Plan: History of metastatic ovarian cancer. Currently undergoing oral chemotherapy. 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 - Continue Percocet for pain management - Zofran as needed for nausea (4) Hypertension Code(s): I10 - Essential (primary) hypertension Status: Chronic Plan: Continue home metoprolol (5) Neuropathic pain of both legs Code(s): G57.91 - Unspecified mononeuropathy of right lower limb; G57.92 - Unspecified mononeuropathy of left lower limb Status: Chronic Plan: Continue on Cymbalta (6) Hypothyroidism Code(s): E03.9 - Hypothyroidism, unspecified Status: Chronic Plan: Continue home levothyroxine (7) Lower extremity edema Code(s): R60.0 - Localized edema Status: Acute Plan: -Daily weights to assess for fluid balance -SCDs and FERMIN hose for compression -Eucerin lotion 2x daily applied to LEs to keep skin hydrated -Elevate legs in recliner -Holding Lasix due to lungs dry, NPO and gentle IVF; will reconsider after surgery (8) Nutrition, metabolism, and development symptoms Code(s): R63.8 - Other symptoms and signs concerning food and fluid intake Status: Acute Plan: Fluids: Normal saline 80 mls per hour Diet: NPO in case of procedure Electrolytes: Replete as necessary DVT prophylaxis: SCDs, FERMIN hose, holding Eliquis <Juancho Shaw III - 12/14/17 15:05> - Assessment and Plan Discussed Condition With: pt DW Dr Clemens <Juancho Shaw III - 12/14/17 15:12> - Attending Attestation The exam, history, and the medical decision-making described in the above note were completed with the assistance of the resident physician. I reviewed and agree with the findings presented. 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 Planning for possible surgical intervention tomorrow. Urology and general surgery are on board. <Filiberto Clemens - 12/14/17 18:24> <Juancho Shaw III - Last Filed: 12/14/17 15:05> (4) Hypertension Qualifiers: Hypertension type: unspecified Qualified Code(s): I10 - Essential (primary) hypertension (6) Hypothyroidism Qualifiers: Hypothyroidism type: unspecified Qualified Code(s): E03.9 - Hypothyroidism, unspecified <Filiberto Clemens - Last Filed: 12/14/17 18:24> (4) Hypertension Qualifiers: Hypertension type: unspecified Qualified Code(s): I10 - Essential (primary) hypertension (6) Hypothyroidism Qualifiers: Hypothyroidism type: unspecified Qualified Code(s): E03.9 - Hypothyroidism, unspecified <Juancho Shaw III - Last Filed: 12/14/17 15:05> (4) Hypertension Qualifiers: Hypertension type: unspecified Qualified Code(s): I10 - Essential (primary) hypertension (6) Hypothyroidism Qualifiers: Hypothyroidism type: unspecified Qualified Code(s): E03.9 - Hypothyroidism, unspecified <Filiberto Clemens - Last Filed: 12/14/17 18:24> (4) Hypertension Qualifiers: Hypertension type: unspecified Qualified Code(s): I10 - Essential (primary) hypertension (6) Hypothyroidism Qualifiers: Hypothyroidism type: unspecified Qualified Code(s): E03.9 - Hypothyroidism, unspecified
--- NOTE | 2017-12-14 13:48 | P.PNURO ---
Subjective Patient symptoms today: Pt seen and examined. Feels well. No fever. Objective Vital Signs: Vital Signs 12/13/17 15:36 12/13/17 16:00 12/13/17 18:18 Temperature 98.7 F Pulse Rate 88 Respiratory Rate 20 Blood Pressure 158/63 H Pulse Oximetry 96 96 96 12/13/17 20:00 12/14/17 00:48 12/14/17 08:00 Temperature 97.9 F 97.5 F L 97.2 F L Pulse Rate 92 H 93 H 96 H Respiratory Rate 17 17 16 Blood Pressure 107/59 L 133/68 132/78 Pulse Oximetry 94 L 95 100 12/14/17 12:00 Temperature 98.1 F Pulse Rate 86 Respiratory Rate 16 Blood Pressure 116/53 L Pulse Oximetry 97 Intake & Output 12/13/17 12/14/17 12/14/17 18:59 06:59 18:59 Intake Total 1150 / 1150 1200 / 1200 50 / 50 Output Total 554 / 554 200 / 200 Balance 596 / 596 1000 / 1000 50 / 50 Weight 54.4 kg Intake: IV 1150 / 1150 1200 / 1200 50 / 50 NS Inj 1,000 ML @ 94 mls/hr IV. 1000 / 1000 1000 / 1000 CONT .[id number] [facility] Rx#:[id number] Diflucan 200 mg Premix Bag 200 100 / 100 MG In Bag/Syringe 1 EACH @ 100 mls/hr IV.SIG Q24H [facility] Rx#: [id number] Zosyn 3.375 GM Premix 50 ML @ 50 / 50 100 / 100 50 / 50 100 mls/hr IV.SIG Q6H [facility] Rx#: [id number] Zosyn 4.5 GM Premix 4.5 gm In 100 / 100 100 ml @ 200 mls/hr IV.SIG Q6H [facility] Rx#:[id number] Output: Stool 4 / 4 Urine Amount (Catheter) 500 / 500 200 / 200 Indwelling Urethral Catheter 500 / 500 200 / 200 Wound Drainage 50 / 50 Left Abdomen 50 / 50 Other: # Voids 4 Date of Last Bowel Movement 12/13/17 # Bowel Movements 4 Result Diagrams: 12/14/17 03:50 12/14/17 03:50 Medications and IVs: Active Medications Generic Name Dose Route Start Last Admin Trade Name Freq PRN Reason Stop Dose Admin Acetaminophen 650 mg 12/12/17 21:36 Tylenol PO Q6HR PRN PAIN SCALE 1 TO 2 Hydrocodone Bitart/Acetaminophen 1 tab 12/12/17 21:36 12/14/17 11:24 Wishek 7.5/325 PO 1 tab Q4H PRN Administration PAIN SCALE 6 TO 10 Artificial Tears 1 applicatio 12/14/17 11:00 12/14/17 11:24 Eucerin Cream TOPICAL Not Given BID [facility] Duloxetine HCl 60 mg 12/12/17 21:00 12/14/17 09:07 Cymbalta PO 60 mg DAILY [facility] Administration Sodium Chloride 1,000 mls @ 94 mls/hr 12/12/17 20:00 12/14/17 04:07 Ns Inj IV.CONT 94 mls/hr .[id number] [facility] Administration Fluconazole 200 mg/ Syringe/ 100 mls @ 100 mls/hr 12/13/17 20:00 12/13/17 21: 45 Bag IV.SIG Infused Q24H [facility] Infusion Piperacillin/Tazobactam/Dextrose 50 mls @ 100 mls/hr 12/13/17 17:00 12/14/17 12:40 Zosyn 3.375 Gm Premix IV.SIG Infused Q6H [facility] Infusion Levothyroxine Sodium 50 mcg 12/13/17 06:00 12/14/17 05:50 Synthroid PO 50 mcg DAILY@0600 [facility] Administration Loperamide HCl 2 mg 12/13/17 09:07 Imodium PO UNSCH PRN DIARRHEA Metoprolol Tartrate 50 mg 12/13/17 09:00 12/14/17 09:07 Lopressor PO 50 mg DAILY [facility] Administration Morphine Sulfate 4 mg 12/12/17 21:36 Morphine Inj IV.PUSH Q3H PRN BREAKTHROUGH PAIN Naloxone HCl 0.4 mg 12/12/17 21:36 Narcan Inj IV.PUSH UNSCH PRN SEE LABEL COMMENTS Ondansetron HCl 4 mg 12/12/17 19:07 Zofran Odt PO Q4H PRN NAUSEA Oxycodone/Acetaminophen 1 tab 12/12/17 18:01 Percocet 5/325 Mg PO Q4HR PRN PAIN SCALE 3 TO 5 Sodium Chloride 2 ml 12/12/17 14:23 Ns Flush IV.FLUSH UNSCH PRN FLUSH AFTER USING IV ACCESS Temazepam 15 mg 12/12/17 21:00 12/13/17 20:36 Restoril PO 15 mg HS [facility] Administration Objective Remarks: Abd:soft,nt,nd Ledezma: yellowish fluid Assessment and Plan - Plan 77 y.o female with 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 D/W Dr. England.
--- NOTE | 2017-12-14 17:33 | P.PN ---
Subjective Interval history: Patient feels remarkably well. Physical Exam Vital signs: Vital Signs 12/13/17 18:18 12/13/17 20:00 12/14/17 00:48 Temperature 97.9 F 97.5 F L Pulse Rate 92 H 93 H Respiratory Rate 17 17 Blood Pressure 107/59 L 133/68 Pulse Oximetry 96 94 L 95 12/14/17 08:00 12/14/17 12:00 Temperature 97.2 F L 98.1 F Pulse Rate 96 H 86 Respiratory Rate 16 16 Blood Pressure 132/78 116/53 L Pulse Oximetry 100 97 Intake & Output 12/13/17 12/14/17 12/14/17 18:59 06:59 18:59 Intake Total 1150 / 1150 1200 / 1200 50 / 50 Output Total 554 / 554 200 / 200 Balance 596 / 596 1000 / 1000 50 / 50 Weight 54.4 kg Intake: IV 1150 / 1150 1200 / 1200 50 / 50 NS Inj 1,000 ML @ 94 mls/hr IV. 1000 / 1000 1000 / 1000 CONT .[id number] [facility] Rx#:[id number] Diflucan 200 mg Premix Bag 200 100 / 100 MG In Bag/Syringe 1 EACH @ 100 mls/hr IV.SIG Q24H [facility] Rx#: [id number] Zosyn 3.375 GM Premix 50 ML @ 50 / 50 100 / 100 50 / 50 100 mls/hr IV.SIG Q6H [facility] Rx#: [id number] Zosyn 4.5 GM Premix 4.5 gm In 100 / 100 100 ml @ 200 mls/hr IV.SIG Q6H [facility] Rx#:[id number] Output: Stool 4 / 4 Urine Amount (Catheter) 500 / 500 200 / 200 Indwelling Urethral Catheter 500 / 500 200 / 200 Wound Drainage 50 / 50 Left Abdomen 50 / 50 Other: # Voids 4 Date of Last Bowel Movement 12/13/17 # Bowel Movements 4 - Routine Abdominal Exam Present: soft, normoactive bowel sounds, drain (Light green drainage) - Urinary Catheter Management Indwelling Urethral Catheter Cath placed during this visit: no Urethral indwelling: Yes Reason for continuing: Other continuation reason (Tumor on bladder with bladder oversew) Results - Labs CBC & Chem 7: 12/14/17 03:50 12/14/17 03:50 Laboratory Results - last 24 hr 12/14/17 12/14/17 03:50 03:50 WBC 9.4 RBC 3.39 L Hgb 10.4 L Hct 31.5 L MCV 92.9 MCH 30.5 MCHC 32.9 RDW 15.9 Plt Count 581 H MPV 6.8 L Sodium 139 Potassium 3.8 Chloride 106 Carbon Dioxide 20.8 L Anion Gap 12 BUN 25 H Creatinine 1.25 H Estimated GFR 41 L Random Glucose 69 L Calcium 7.9 L Assessment and Plan - Assessment (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 Robi Bowles; will reevaluate intestinal bypass segment as well. Patient may require ileostomy; she vocalized understanding of this when I explained to her today. - Attending Attestation I attest that I had a [id number] encounter with the patient on the same day, and personally performed and documented my assessment and findings in the medical record. The following services were provided during this hospital visit: Chart data review, vital sign assessments/reviewing monitor data Review of consultation notes if present Medication orders/review and/or management Ordering and/or reviewing lab tests Ordering and/or interpreting/reviewing x-rays and/or diagnostic studies Care of the patient and discussion of the patient with the care team Documentation time To help prompt me to consider important information that might be impacting today's encounter and assessment, Information from prior notes written by myself or my colleagues may have been "brought forward/copy and pasted" into today's note.
[2017-12-14] MEDS: FLUCONAZOLE IV.SIG SCH (21:34)
[2017-12-14] MEDS: Temazepam 15 MG Capsule PO SCH (21:35)
[2017-12-14] MEDS ORDERED: Metoprolol Tartrate 25 MG Tablet PO ONE (22:41)
[2017-12-14] MEDS ORDERED: Chlorhexidine Gluconate 2% 1 Pack (2 Cloths) TOPICAL ONE (22:41)
[2017-12-14] MEDS ORDERED: Sodium Chlor 0.9% Inj 500 ML IV.SIG SCH (23:00)
[2017-12-15] MEDS: Sod Chloride 0.9% Inj 1,000 ML IV.CONT SCH (01:03)
[2017-12-15] MEDS: Piperacil/Tazo 3.375 GM Premix 50 ML IV.SIG SCH ×4 (05:18→23:20)
[2017-12-15] MEDS: Levothyroxine 50 MCG Tablet PO SCH (05:19)
[2017-12-15 06:02] LABS: Baso # (Auto) 0.1 th/mm3 (0.0-0.2); Baso % (Auto) 1.4 % (0.0-2.0); Eos # (Auto) 0.4 th/mm3 (0.0-0.4); Eos % (Auto) 4.1 % (0.0-4.0); Hematocrit 27.6 % (35.0-46.0); Hemoglobin 9.2 gm/dL (11.6-15.3); Lymph # (Auto) 1.3 th/mm3 (1.0-4.8); Lymph % (Auto) 15.1 % (9.0-44.0); Mean Corpuscular HGB Conc 33.3 % (32.0-36.0); Mean Corpuscular Volume 92.9 fL (80.0-100.0); Mean Platelet Volume 6.8 fL (7.0-11.0); Mono # (Auto) 0.8 th/mm3 (0.0-0.9); Mono % (Auto) 9.3 % (0.0-8.0); Neut % (Auto) 70.1 % (16.0-70.0); Platelet Count 566 th/mm3 (150-450); Red Blood Count 2.97 mil/mm3 (4.00-5.30); Red Cell Distribution Width 15.5 % (11.6-17.2); White Blood Count 8.6 th/mm3 (4.0-11.0)
[2017-12-15 06:15] LABS: INR 1.3 Ratio; Prothrombin Time 13.4 sec (9.8-11.6)
[2017-12-15 06:33] LABS: Calcium 7.8 mg/dL (8.5-10.1); Carbon Dioxide 18.7 meq/L (21.0-32.0); Potassium 3.6 meq/L (3.5-5.1)
[2017-12-15] MEDS ORDERED: Dextrose 50% in Water 50 ML Vial IV.PUSH ONE (07:17)
[2017-12-15] MEDS ORDERED: Dextrose 50% in Water 50 ML Vial ONE (07:33)
[2017-12-15] MEDS: Metoprolol Tartrate 50 MG Tablet PO SCH ×2 (07:51→09:06)
[2017-12-15] MEDS ORDERED: Ketamine Inj 50 MG/5 ML Syringe IV.PUSH ONE (08:27)
--- NOTE | 2017-12-15 08:49 | P.PNFP ---
Subjective Interval history: Ms. Diop was seen on rounds morning. She reports no overnight events. She does endorse continued leg swelling, she does not believe this has improved. She denies any fevers, chills, nausea, vomiting, diarrhea, and shortness of breath. Nursing reports isolated low blood glucose of 42 this morning. Patient is asymptomatic. There are plans to take her to the OR this morning. <TrinaMary E - 12/15/17 08:49> Results - Labs Result diagrams: 12/15/17 05:15 12/15/17 05:15 <Filiberto Clemens - 12/15/17 17:30> Abnormal lab results 12/15/17 12/15/17 12/15/17 Range/Units 05:15 05:15 05:15 RBC 2.97 L (4.00-5.30) mil/mm3 Hgb 9.2 L (11.6-15.3) gm/dL Hct 27.6 L (35.0-46.0) % Plt Count 566 H (150-450) th/mm3 MPV 6.8 L (7.0-11.0) fL Neut % (Auto) 70.1 H (16.0-70.0) % [place] % (Auto) 9.3 H (0.0-8.0) % Eos % (Auto) 4.1 H (0.0-4.0) % PT 13.4 H (9.8-11.6) sec Chloride 110 H (98-107) meq/L Carbon Dioxide 18.7 L (21.0-32.0) meq/L BUN 22 H (7-18) mg/dL Creatinine 1.13 H (0.50-1.00) mg/dL Estimated GFR 47 L (>89) mL/min POC Glucose (68-110) mg/dl Random Glucose 42 L* (74-106) mg/dL Calcium 7.8 L (8.5-10.1) mg/dL MTS Gel Crossmatch 12/15/17 12/15/17 Range/Units 06:47 11:45 RBC (4.00-5.30) mil/mm3 Hgb (11.6-15.3) gm/dL Hct (35.0-46.0) % Plt Count (150-450) th/mm3 MPV (7.0-11.0) fL Neut % (Auto) (16.0-70.0) % [place] % (Auto) (0.0-8.0) % Eos % (Auto) (0.0-4.0) % PT (9.8-11.6) sec Chloride (98-107) meq/L Carbon Dioxide (21.0-32.0) meq/L BUN (7-18) mg/dL Creatinine (0.50-1.00) mg/dL Estimated GFR (>89) mL/min POC Glucose 51 L (68-110) mg/dl Random Glucose (74-106) mg/dL Calcium (8.5-10.1) mg/dL MTS Gel Crossmatch See Detail Short CBC 12/15/17 Range/Units 05:15 WBC 8.6 (4.0-11.0) th/mm3 Hgb 9.2 L (11.6-15.3) gm/dL Hct 27.6 L (35.0-46.0) % Plt Count 566 H (150-450) th/mm3 BMP 12/15/17 05:15 Sodium 141 Potassium 3.6 Chloride 110 H Carbon Dioxide 18.7 L BUN 22 H Creatinine 1.13 H Calcium 7.8 L <YoungFiliberto L - 12/15/17 17:30> Abnormal lab results 12/15/17 12/15/17 12/15/17 Range/Units 05:15 05:15 05:15 RBC 2.97 L (4.00-5.30) mil/mm3 Hgb 9.2 L (11.6-15.3) gm/dL Hct 27.6 L (35.0-46.0) % Plt Count 566 H (150-450) th/mm3 MPV 6.8 L (7.0-11.0) fL Neut % (Auto) 70.1 H (16.0-70.0) % [place] % (Auto) 9.3 H (0.0-8.0) % Eos % (Auto) 4.1 H (0.0-4.0) % PT 13.4 H (9.8-11.6) sec Chloride 110 H (98-107) meq/L Carbon Dioxide 18.7 L (21.0-32.0) meq/L BUN 22 H (7-18) mg/dL Creatinine 1.13 H (0.50-1.00) mg/dL Estimated GFR 47 L (>89) mL/min POC Glucose (68-110) mg/dl Random Glucose 42 L* (74-106) mg/dL Calcium 7.8 L (8.5-10.1) mg/dL 12/15/17 Range/Units 06:47 RBC (4.00-5.30) mil/mm3 Hgb (11.6-15.3) gm/dL Hct (35.0-46.0) % Plt Count (150-450) th/mm3 MPV (7.0-11.0) fL Neut % (Auto) (16.0-70.0) % [place] % (Auto) (0.0-8.0) % Eos % (Auto) (0.0-4.0) % PT (9.8-11.6) sec Chloride (98-107) meq/L Carbon Dioxide (21.0-32.0) meq/L BUN (7-18) mg/dL Creatinine (0.50-1.00) mg/dL Estimated GFR (>89) mL/min POC Glucose 51 L (68-110) mg/dl Random Glucose (74-106) mg/dL Calcium (8.5-10.1) mg/dL Short CBC 12/15/17 Range/Units 05:15 WBC 8.6 (4.0-11.0) th/mm3 Hgb 9.2 L (11.6-15.3) gm/dL Hct 27.6 L (35.0-46.0) % Plt Count 566 H (150-450) th/mm3 [facility] 12/15/17 05:15 Sodium 141 Potassium 3.6 Chloride 110 H Carbon Dioxide 18.7 L BUN 22 H Creatinine 1.13 H Calcium 7.8 L <Mary Mena - 12/15/17 08:49> Physical Exam Vital signs: Vital Signs 12/14/17 20:00 12/15/17 00:46 12/15/17 08:00 Temperature 97.7 F 97.7 F 97.2 F L Pulse Rate 80 79 103 H Respiratory Rate 16 18 18 Blood Pressure 122/60 123/57 L 161/81 H Pulse Oximetry 94 L 93 L 94 L 12/15/17 14:15 12/15/17 14:30 12/15/17 14:45 Temperature 97.4 F L Pulse Rate 85 85 84 Respiratory Rate 14 14 13 Blood Pressure 151/75 H 171/85 H 173/86 H Pulse Oximetry 100 100 100 12/15/17 15:00 Temperature Pulse Rate 85 Respiratory Rate 11 L Blood Pressure 158/85 H Pulse Oximetry 100 Intake & Output 12/14/17 12/15/17 12/15/17 18:59 06:59 18:59 Intake Total 1100 / 1100 1200 / 1200 3950 / 3950 Output Total 205 / 205 200 / 200 850 / 850 Balance 895 / 895 1000 / 1000 3100 / 3100 Weight 54.4 kg Intake: IV 1100 / 1100 1200 / 1200 1050 / 1050 D5W/Normal Saline Inj 1,000 ML 1000 / 1000 @ 94 mls/hr IV.CONT .[id number] [facility] Rx#:[id number] NS Inj 1,000 ML @ 94 mls/hr IV. 1000 / 1000 1000 / 1000 CONT .[id number] [facility] Rx#:[id number] Diflucan 200 mg Premix Bag 200 100 / 100 MG In Bag/Syringe 1 EACH @ 100 mls/hr IV.SIG Q24H [facility] Rx#: [id number] Zosyn 3.375 GM Premix 50 ML @ 100 / 100 100 / 100 50 / 50 100 mls/hr IV.SIG Q6H [facility] Rx#: [id number] Oral 0 / 0 Anesthesia Amount 2900 / 2900 Output: Urine 200 / 200 Estimated Blood Loss 300 / 300 Urine Amount (Catheter) 200 / 200 550 / 550 Indwelling Urethral Catheter 200 / 200 550 / 550 Stool Amount (Stoma) 0 / 0 Left Lower Abdomen 0 / 0 Wound Drainage 5 / 5 Left Abdomen 5 / 5 Other: # Voids 3 2 # Bowel Movements 1 2 <Filiberto Clemens L - 12/15/17 17:30> Vital Signs 12/14/17 12:00 12/14/17 16:00 12/14/17 20:00 Temperature 98.1 F 97.9 F 97.7 F Pulse Rate 86 88 80 Respiratory Rate 16 18 16 Blood Pressure 116/53 L 129/76 122/60 Pulse Oximetry 97 71 L 94 L 12/15/17 00:46 Temperature 97.7 F Pulse Rate 79 Respiratory Rate 18 Blood Pressure 123/57 L Pulse Oximetry 93 L Intake & Output 12/14/17 12/15/17 12/15/17 18:59 06:59 18:59 Intake Total 1100 / 1100 1200 / 1200 Output Total 205 / 205 200 / 200 Balance 895 / 895 1000 / 1000 Weight 54.4 kg Intake: IV 1100 / 1100 1200 / 1200 NS Inj 1,000 ML @ 94 mls/hr IV. 1000 / 1000 1000 / 1000 CONT .[id number] [facility] Rx#:[id number] Diflucan 200 mg Premix Bag 200 100 / 100 MG In Bag/Syringe 1 EACH @ 100 mls/hr IV.SIG Q24H [facility] Rx#: [id number] Zosyn 3.375 GM Premix 50 ML @ 100 / 100 100 / 100 100 mls/hr IV.SIG Q6H [facility] Rx#: [id number] Oral 0 / 0 Output: Urine 200 / 200 Urine Amount (Catheter) 200 / 200 Indwelling Urethral Catheter 200 / 200 Wound Drainage 5 / 5 Left Abdomen 5 / 5 Other: # Voids 3 2 # Bowel Movements 1 2 <Mary Mena - 12/15/17 08:49> Narrative: General: Sleeping in bed, Comfortable, no acute distress Skin: Very mild skin breakdown on RLE below knee about 1 cm in diameter stable from previous exams, multiple small ecchymosis on lower extremities. CV: RRR, no murmurs, rubs, or gallops Lungs: CTAB. No increased WOB. Abdomen: BIJAL drain in place on left side of abdomen, draining dark fluid. No pain with palpation. Normal bowel sounds. No rebound tenderness. Ext: Compression stockings in place. 2+ pitting edema up to mid can bilaterally Uro: Ledezma catheter in place, draining dark urine, decreased sediment. Neuro: AOx3. non-focal. CN II-XII grossly intact. Moves all extremities spontaneously. 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 Status: Acute (2) JCAQUELINE (acute kidney injury) Code(s): N17.9 - Acute kidney failure, unspecified Status: Acute (3) Ovarian cancer on right Code(s): C56.1 - Malignant neoplasm of right ovary Status: Acute (4) Hypertension Code(s): I10 - Essential (primary) hypertension Status: Chronic (5) Neuropathic pain of both legs Code(s): G57.91 - Unspecified mononeuropathy of right lower limb; G57.92 - Unspecified mononeuropathy of left lower limb Status: Chronic (6) Hypothyroidism Code(s): E03.9 - Hypothyroidism, unspecified Status: Chronic (7) Lower extremity edema Code(s): R60.0 - Localized edema Status: Acute (8) Nutrition, metabolism, and development symptoms Code(s): R63.8 - Other symptoms and signs concerning food and fluid intake Status: Acute <Filiberto Clemens So - 12/15/17 17:30> (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 She had recent small bowel obstruction and required diagnostic laparoscopy. and small bowel bypass, along with adhesiolysis and bladder repair. 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 Afebrile overnight, white count within normal limits - Urology (Dr. Bowles) and surgery (Dr. England) consulted--plan for OR today - NPO - Hold Eliquis in anticipation of procedure (was on this for upper extremity clot/port clot per patient) - Monitor fluid status and electrolytes, replace as needed (D5 normal saline at 94 mls/hr) - Broad spectrum antibiotics --Zosyn 3.375 g IV q6h -- Diflucan 200 mg IV q24h (renally dosed) - Loperamide 2 mg PRN for diarrhea - Cdiff negative (2) JACQUELINE (acute kidney injury) Code(s): N17.9 - Acute kidney failure, unspecified Status: Acute Plan: Creatinine 1.36 on admission, 1.13 today. Baseline appears to be about 0.8 -D5 normal saline at 94 mls per hour -Avoid nephrotoxic agents as much as possible -Ledezma indwelling (3) Ovarian cancer on right Code(s): C56.1 - Malignant neoplasm of right ovary Status: Acute Plan: History of metastatic ovarian cancer. Currently undergoing oral chemotherapy. 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 - Continue Percocet for pain management - Zofran as needed for nausea (4) Hypertension Code(s): I10 - Essential (primary) hypertension Status: Chronic Plan: Continue home metoprolol (5) Neuropathic pain of both legs Code(s): G57.91 - Unspecified mononeuropathy of right lower limb; G57.92 - Unspecified mononeuropathy of left lower limb Status: Chronic Plan: Continue on Cymbalta (6) Hypothyroidism Code(s): E03.9 - Hypothyroidism, unspecified Status: Chronic Plan: Continue home levothyroxine (7) Lower extremity edema Code(s): R60.0 - Localized edema Status: Acute Plan: -Daily weights to assess for fluid balance, patient's weight has been stable since admission -SCDs and FERMIN hose for compression -Eucerin lotion 2x daily applied to LEs to keep skin hydrated -Elevate legs in recliner -We will consider discontinuing or at least decreasing fluids after surgery once patient is able to resume oral intake (8) Nutrition, metabolism, and development symptoms Code(s): R63.8 - Other symptoms and signs concerning food and fluid intake Status: Acute Plan: Fluids: D5 normal saline 94 mls per hour Diet: NPO in anticipation of OR today. Single episode of asymptomatic hypoglycemia, patient was given single ampule of D5 and recovered blood sugars to within normal limits. Continue to monitor Electrolytes: Replete as necessary DVT prophylaxis: SCDs, FERMIN hose, holding Eliquis <Mary Mena - 12/15/17 08:33> - Assessment and Plan Discussed Condition With: Dr Clemens <Mary Mena - 12/15/17 08:49> - Attending Attestation The exam, history, and the medical decision-making described in the above note were completed with the assistance of the resident physician. I reviewed and agree with the findings presented. I attest that I had a [id number] encounter with the patient on the same day, and personally performed and documented my assessment and findings in the medical record. Discussed and evaluated patient with resident physician this morning. This morning she was resting in bed comfortably and not complaining of pain. Still continuing to have some lower extremity edema, but otherwise without complaints. Benign abdominal exam this morning. Patient at the time was pre-op, but at this time is now post-op after bladder repair and small bowel resection and ostomy formation in order to take down vesicoenteral fistula. Per report she is doing well post op. Will continue to follow her closely. <Filiberto Clemens - 12/15/17 17:30> <Mary Mena E - Last Filed: 12/15/17 08:33> (4) Hypertension Qualifiers: Hypertension type: unspecified Qualified Code(s): I10 - Essential (primary) hypertension (6) Hypothyroidism Qualifiers: Hypothyroidism type: unspecified Qualified Code(s): E03.9 - Hypothyroidism, unspecified <Filiberto Clemens - Last Filed: 12/15/17 17:30> (4) Hypertension Qualifiers: Hypertension type: unspecified Qualified Code(s): I10 - Essential (primary) hypertension (6) Hypothyroidism Qualifiers: Hypothyroidism type: unspecified Qualified Code(s): E03.9 - Hypothyroidism, unspecified <Mary Mena E - Last Filed: 12/15/17 08:33> (4) Hypertension Qualifiers: Hypertension type: unspecified Qualified Code(s): I10 - Essential (primary) hypertension (6) Hypothyroidism Qualifiers: Hypothyroidism type: unspecified Qualified Code(s): E03.9 - Hypothyroidism, unspecified <Filiberto Clemens - Last Filed: 12/15/17 17:30> (4) Hypertension Qualifiers: Hypertension type: unspecified Qualified Code(s): I10 - Essential (primary) hypertension (6) Hypothyroidism Qualifiers: Hypothyroidism type: unspecified Qualified Code(s): E03.9 - Hypothyroidism, unspecified
[2017-12-15] MEDS: Dextrose 5%/NaCl 0.9% Inj 1,000 ML IV.CONT SCH ×3 (09:06→18:47)
--- NOTE | 2017-12-15 10:46 | P.OP ---
- Preoperative Diagnosis (1) Intestinal fistula (2) SBO (small bowel obstruction) - Postoperative Diagnosis (1) SBO (small bowel obstruction) (2) Intestinal fistula Date of procedure: 12/23/17 Procedure: ex lap small bowel transection ileostomy bladder repair- [facility] Howard [facility] Surgeon: Chinmay England MD Estimated blood loss (mL): 30 Pathology: other (small bowel) Operation and Findings: stage 4 ovarian ca, small bowel fistula, bladder fistula, adhesion
[2017-12-15] MEDS ORDERED: Lidocaine PF 1% Inj 5 ML Syringe OTHER ONE (11:15)
[2017-12-15] MEDS ORDERED: Neostigmine Inj 5 MG/5 ML Syringe IV.PUSH ONE (11:15)
[2017-12-15] MEDS ORDERED: Glycopyrrolate Inj 1 MG/5 ML Syringe IV.PUSH ONE (11:15)
[2017-12-15] MEDS ORDERED: Phenylephrine/NS 1000 MCG/10ML Syringe IV.PUSH ONE (11:15)
[2017-12-15] MEDS ORDERED: Labetalol HCl Inj 100 MG/20 ML Vial IV.CONT ONE (11:15)
--- NOTE | 2017-12-15 13:54 | P.OP ---
- Preoperative Diagnosis (1) Vesico-intestinal fistula - Postoperative Diagnosis (1) Vesico-intestinal fistula Date of procedure: 12/15/17 Procedure: Urologic surgery procedures performed: Pelvic exploration and repair of bladder perforation. Indication for urologic procedures: Case of a 69-year-old female who had inadvertent bladder perforation involving the dome greater than 1 week ago during a laparoscopic general surgery procedure. Patient subsequent developed a vesicoenteric fistula and presents now for takedown of the fistula and creation of a ileostomy by general surgery. Urology was consulted to address the site of the previous bladder perforation with subsequent development of the vesicoenteric fistula. Urologic surgery procedures in detail: At the time of presentation to the operating room suite the general surgeon Dr. England had already made a midline incision and had mobilized the small bowel that was adherent to the dome of the bladder at the previous perforation site. A small defect within the dome of the bladder was noted on pelvic expiration. I assisted Dr. England to mobilize the small bowel and create a greater space within the pelvis to better assess the urinary bladder. The small perforation involving the dome measuring approximately 1 cm in size was closed in 2 layers with chromic suture. The inner most layer utilized 3-0 chromic and the outer layer utilized 2-0 chromic. The previously inserted Ledezma catheter was left indwelling. This completes the urologic surgery portion of combined procedures on this patient. Surgeon: Zbigniew Banegas MD
[2017-12-15] MEDS ORDERED: fentaNYL Citrate Inj 100 MCG/2 ML Ampul ONE (14:24)
[2017-12-15] MEDS: FLUCONAZOLE IV.SIG SCH (20:43)
[2017-12-15] MEDS: Temazepam 15 MG Capsule PO SCH (20:43)
--- NOTE | 2017-12-16 01:06 | MP ---
cc: Chinmay England MD DATE OF OPERATION: 12/15/2017 PREOPERATIVE DIAGNOSIS: Vesicointestinal fistula. POSTOPERATIVE DIAGNOSIS: Vesicointestinal fistula, metastatic ovarian cancer, history of small bowel obstruction. SURGEON: Chinmay England MD ELECTROMECHANICAL INSPECTOR: Dr. Vasquez ANESTHESIA: GETA. PROCEDURE PERFORMED: 1. Exploratory laparotomy. 2. Extensive lysis of adhesions, greater than 60 minutes. 3. Small bowel transection with end ileostomy. IV FLUIDS: See anesthesia sheet. ESTIMATED BLOOD LOSS: 30 mL DRAINS: A 10-Honduran BIJAL drain placed in pelvis. COMPLICATIONS: None. WOUND CLASSIFICATION: Contaminated. SPECIMENS: None. FINDINGS: Multiple interloop adhesions. Metastatic stage IV ovarian cancer, enteric vesicofistula. INDICATIONS FOR PROCEDURE: The patient is a 77-year-old female who has history of stage IV ovarian cancer. The patient presents with initial small bowel obstruction due to metastatic ovarian cancer. She underwent diagnostic laparoscopy and enteroenterostomy with bladder repair at that time. She returns due to anasarca and presence of vesicointestinal fistula. Decision was made for operative intervention. DETAILS OF PROCEDURE: The patient was taken to the operating suite, placed in the supine position. She was prepped and draped in the usual sterile fashion after induction of general endotracheal anesthesia. Brief timeout done for correct patient, procedure, and surgical site. We were all in agreement with this. Attention first directed to the midline lower umbilicus. A 15 blade was used to make a lower midline incision. Electric Bovie cautery was used to dissect through the subcutaneous tissues down through the anterior fascia, through the midline and the peritoneum was grasped. Metzenbaum scissors were used to incise this. Further extension down with electric Bovie electrocautery. The abdomen was entered. There was noted to be multiple adhesions to small bowel and also evidence of metastatic ovarian cancer causing further adhesions. Bovie cautery and Metzenbaum scissors were used and Kitner to dissect through the anterior abdominal adhesions to identify the small bowel. In the pelvis, the small bowel was noted. A Bookwalter retractor was then placed for self-retaining retraction. There was noted to be a BIJAL drain that transversed through fluid cavity and identification of an enterovesical fistula was noted. Suction irrigation done with several liters of normal saline. The small bowel was mobilized in order to identify proximal and distal loops. The small bowel breakdown was oversewn using a running 3-0 Vicryl, followed by interrupted Lembert sutures to approximate and close this. A point distally was noted to have healthy viable bowel. This was transected with Endo-JAVI blue load. This was going to be placed in the part of the bowel where we would fashion the end ileostomy. Attention directed to the bladder. There was noted to be a large defect relatively in the bladder. Dr. Howard with urology was present and participated in this operation and once the bladder was identified and cleaned of healthy edges, Dr. Howard took over and completed this portion of the operation with bladder repair. Refer to Dr. Howard's dictation for completion of this portion of the procedure. Next, the abdomen was irrigated with several liters of normal saline. The ileostomy site was identified, and an Allis was used to grasp the skin. A circular incision done around the skin in order to remove this and create a place for the end ileostomy. This was done with electric Bovie cautery down to the fascia. A cruciate incision was made in the anterior fascia. The rectus muscle was split and then the peritoneum was incised in order to again create a pathway for the small bowel and help facilitating the ileostomy. The small bowel was also run in its entirety, again noting adhesions in right lower quadrant, large mass also present within the mid abdomen. The drain, 10 Honduran, was obtained and put it through a separate stab kate incision to the right lower quadrant and secured with 2-0 nylon. This was placed in the pelvis. The abdomen was then closed using a running looped #1 PDS. Subcutaneous tissue then irrigated. Ranger placed and dressing placed. Next, a completion ileostomy was done. The small bowel looked healthy and viable. The 3-0 Vicryl were used to place in 4 quadrants in order to napaimute and do a Veronica ileostomy. 3-0 Vicryl was done radially in order to approximate the length of the skin, noted to be well placed in proximal and the ostomy appliance was then placed. Sterile dressing was placed. The patient tolerated the procedure well. There were no intraoperative complications. All lap and instrument counts were correct at the end of the procedure. The patient was extubated and taken stable to PACU. MD SHIRLEY Singleton/brianna , 09:19 PM , 09:34 PM [facility]
[2017-12-16] MEDS: Dextrose 5%/NaCl 0.9% Inj 1,000 ML IV.CONT SCH ×2 (04:57→15:24)
[2017-12-16] MEDS: Piperacil/Tazo 3.375 GM Premix 50 ML IV.SIG SCH ×4 (04:57→23:23)
[2017-12-16] MEDS: Levothyroxine 50 MCG Tablet PO SCH (05:00)
[2017-12-16 05:09] LABS: Hematocrit 26.6 % (35.0-46.0); Hemoglobin 9.1 gm/dL (11.6-15.3); Mean Corpuscular HGB Conc 34.2 % (32.0-36.0); Mean Corpuscular Hemoglobin 31.5 pg (27.0-34.0); Mean Corpuscular Volume 92.1 fL (80.0-100.0); Mean Platelet Volume 6.7 fL (7.0-11.0); Platelet Count 592 th/mm3 (150-450); Red Blood Count 2.89 mil/mm3 (4.00-5.30); Red Cell Distribution Width 16.2 % (11.6-17.2); White Blood Count 10.2 th/mm3 (4.0-11.0)
[2017-12-16 05:33] LABS: Calcium 7.2 mg/dL (8.5-10.1); Carbon Dioxide 21.1 meq/L (21.0-32.0); Potassium 3.9 meq/L (3.5-5.1)
[2017-12-16 06:03] LABS: Total Protein 5.4 g/dL (6.4-8.2)
[2017-12-16] MEDS: Metoprolol Tartrate 50 MG Tablet PO SCH (08:18)
--- NOTE | 2017-12-16 10:21 | P.PNFP ---
Subjective Interval history: Ms. Diop this morning. She is resting comfortably in bed. She is postop day 1 from exploratory lap, lysis of adhesions, ileostomy, small bowel resection , bladder repair. She denies any acute complaints. Reports minimal abdominal discomfort surrounding the surgical sites. She is still n.p.o. per surgical orders. She denies any nausea, vomiting, chest pain, shortness of breath, fevers, chills. She does report she feels weak in her upper extremities more than her lower extremities. <Mary Mena E - 12/16/17 10:21> Results - Labs Result diagrams: 12/16/17 04:50 12/16/17 04:50 <Filiberto Clemens - 12/16/17 21:52> Abnormal lab results 12/16/17 12/16/17 Range/Units 04:50 04:50 RBC 2.89 L (4.00-5.30) mil/mm3 Hgb 9.1 L (11.6-15.3) gm/dL Hct 26.6 L (35.0-46.0) % Plt Count 592 H (150-450) th/mm3 MPV 6.7 L (7.0-11.0) fL Chloride 109 H (98-107) meq/L Estimated GFR 64 L (>89) mL/min Random Glucose 193 H D (74-106) mg/dL Calcium 7.2 L* (8.5-10.1) mg/dL Prot Corrected Calcium 8.1 L (8.5-10.1) mg/dL Total Protein 5.4 L D (6.4-8.2) g/dL Short CBC 12/16/17 Range/Units 04:50 WBC 10.2 (4.0-11.0) th/mm3 Hgb 9.1 L (11.6-15.3) gm/dL Hct 26.6 L (35.0-46.0) % Plt Count 592 H (150-450) th/mm3 BMP 12/16/17 04:50 Sodium 142 Potassium 3.9 Chloride 109 H Carbon Dioxide 21.1 BUN 16 Creatinine 0.86 Calcium 7.2 L* <Filiberto Clemens - 12/16/17 21:52> Abnormal lab results 12/15/17 12/16/17 12/16/17 Range/Units 11:45 04:50 04:50 RBC 2.89 L (4.00-5.30) mil/mm3 Hgb 9.1 L (11.6-15.3) gm/dL Hct 26.6 L (35.0-46.0) % Plt Count 592 H (150-450) th/mm3 MPV 6.7 L (7.0-11.0) fL Chloride 109 H (98-107) meq/L Estimated GFR 64 L (>89) mL/min Random Glucose 193 H D (74-106) mg/dL Calcium 7.2 L* (8.5-10.1) mg/dL Prot Corrected Calcium 8.1 L (8.5-10.1) mg/dL Total Protein 5.4 L D (6.4-8.2) g/dL MTS Gel Crossmatch See Detail Short CBC 12/16/17 Range/Units 04:50 WBC 10.2 (4.0-11.0) th/mm3 Hgb 9.1 L (11.6-15.3) gm/dL Hct 26.6 L (35.0-46.0) % Plt Count 592 H (150-450) th/mm3 BMP 12/16/17 04:50 Sodium 142 Potassium 3.9 Chloride 109 H Carbon Dioxide 21.1 BUN 16 Creatinine 0.86 Calcium 7.2 L* <Mary Mena - 12/16/17 10:21> Physical Exam Vital signs: Vital Signs 12/16/17 00:00 12/16/17 04:00 12/16/17 08:00 Temperature 98.3 F 97.2 F L 97.7 F Pulse Rate 86 100 H 103 H Respiratory Rate 19 19 16 Blood Pressure 121/59 L 124/65 125/67 Pulse Oximetry 95 92 L 95 12/16/17 08:57 12/16/17 12:00 12/16/17 15:52 Temperature 97.7 F Pulse Rate 83 Respiratory Rate 18 16 18 Blood Pressure 124/66 Pulse Oximetry 96 12/16/17 16:00 12/16/17 20:00 Temperature 98.1 F 98.1 F Pulse Rate 86 89 Respiratory Rate 18 18 Blood Pressure 131/62 103/60 Pulse Oximetry 96 98 Intake & Output 12/16/17 12/16/17 12/17/17 06:59 18:59 06:59 Intake Total 1250 / 1250 2940 / 2940 Output Total 265 / 265 Balance 1220 / 1220 2675 / 2675 Intake: IV 1250 / 1250 2100 / 2100 D5W/Normal Saline Inj 1,000 ML 1000 / 1000 1000 / 1000 @ 94 mls/hr IV.CONT .[id number] [facility] Rx#:[id number] Diflucan 200 mg Premix Bag 200 100 / 100 MG In Bag/Syringe 1 EACH @ 100 mls/hr IV.SIG Q24H [facility] Rx#: [id number] Zosyn 3.375 GM Premix 50 ML @ 150 / 150 100 / 100 100 mls/hr IV.SIG Q6H [facility] Rx#: [id number] Oral 840 / 840 Output: Urine 100 / 100 Stool Amount (Stoma) 150 / 150 Left Lower Abdomen 150 / 150 Wound Drainage 30 15 / 15 Right Abdomen 30 15 15 <Filiberto Clemens L - 12/16/17 21:52> Vital Signs 12/15/17 14:10 12/15/17 14:15 12/15/17 14:30 Temperature 97.4 F L Pulse Rate 85 85 Respiratory Rate 14 14 Blood Pressure 151/75 H 171/85 H Pulse Oximetry 100 100 100 12/15/17 14:45 12/15/17 15:00 12/15/17 15:05 Temperature Pulse Rate 84 85 Respiratory Rate 13 11 L Blood Pressure 173/86 H 158/85 H Pulse Oximetry 100 100 98 12/15/17 15:15 12/15/17 15:30 12/15/17 16:00 Temperature 97.0 F L Pulse Rate 84 85 80 Respiratory Rate 13 13 19 Blood Pressure 171/86 H 152/78 H 149/83 H Pulse Oximetry 95 93 L 94 L 12/15/17 20:00 12/16/17 00:00 12/16/17 04:00 Temperature 97.5 F L 98.3 F 97.2 F L Pulse Rate 81 86 100 H Respiratory Rate 19 19 19 Blood Pressure 126/70 121/59 L 124/65 Pulse Oximetry 95 95 92 L Intake & Output 12/15/17 12/16/17 12/16/17 18:59 06:59 18:59 Intake Total 4950 / 4950 1250 / 1250 1000 / 1000 Output Total 1040 / 1040 30 / 30 Balance 3910 / 3910 1220 / 1220 1000 / 1000 Intake: IV 2050 / 0 1250 / 1250 1000 / 1000 D5W/Normal Saline Inj 1,000 ML 2000 / 2000 1000 / 1000 @ 94 mls/hr IV.CONT .[id number] [facility] Rx#:[id number] Diflucan 200 mg Premix Bag 200 100 / 100 MG In Bag/Syringe 1 EACH @ 100 mls/hr IV.SIG Q24H [facility] Rx#: [id number] Zosyn 3.375 GM Premix 50 ML @ 50 / 50 150 / 150 100 mls/hr IV.SIG Q6H [facility] Rx#: [id number] Anesthesia Amount 2900 / 2900 Output: Estimated Blood Loss 300 / 300 Urine Amount (Catheter) 700 / 700 Indwelling Urethral Catheter 700 / 700 Stool Amount (Stoma) 0 / 0 Left Lower Abdomen 0 / 0 Wound Drainage 40 / 40 30 / 30 Right Abdomen 40 / 40 30 / 30 <Mary Mena 12/16/17 10:21> Narrative: General: Resting comfortably in bed, visiting with her daughter. no acute distress Skin: Very mild skin breakdown on RLE below knee about 1 cm in diameter stable from previous exams, multiple small ecchymosis on lower extremities. CV: RRR, no murmurs, rubs, or gallops Lungs: CTAB. No increased WOB. Abdomen: Multiple surgical dressings in place and abdomen. Ileostomy in place on left side of abdomen. No surrounding leakage or erythema. BIJAL drain in place on right side of abdomen, draining bright red blood. Abdomen is nondistended, nontender to palpation. Ext: Compression stockings in place. 1+ pitting edema. Much improved from previous exams. Uro: Ledezma catheter in place, draining dark yellow urine, no sediment seen. Neuro: AOx3. non-focal. CN II-XII grossly intact. Moves all extremities spontaneously. 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 Status: Acute (2) Lower extremity edema Code(s): R60.0 - Localized edema Status: Acute (3) JACQUELINE (acute kidney injury) Code(s): N17.9 - Acute kidney failure, unspecified Status: Acute (4) Ovarian cancer on right Code(s): C56.1 - Malignant neoplasm of right ovary Status: Acute (5) Hypertension Code(s): I10 - Essential (primary) hypertension Status: Chronic (6) Neuropathic pain of both legs Code(s): G57.91 - Unspecified mononeuropathy of right lower limb; G57.92 - Unspecified mononeuropathy of left lower limb Status: Chronic (7) Hypothyroidism Code(s): E03.9 - Hypothyroidism, unspecified Status: Chronic (8) Nutrition, metabolism, and development symptoms Code(s): R63.8 - Other symptoms and signs concerning food and fluid intake Status: Acute <Filiberto Clemens L - 12/16/17 21:52> (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 She has remained afebrile and white count within normal limits. Surgery reports that she will likely be inpatient for the next week - Urology (Dr. Bowles) and surgery (Dr. England) following - NPO until cleared by surgery - Eliquis on hold - Monitor fluid status and electrolytes, replace as needed (D5 normal saline at 94 mls/hr) - Broad spectrum antibiotics --Zosyn 3.375 g IV q6h -- Diflucan 200 mg IV q24h (renally dosed) -Mildly hypocalcemic at 8.1, continue to monitor replete as necessary -PT ordered to help with patient's perceived weakness - Loperamide 2 mg PRN for diarrhea - Cdiff negative History: Has recurrent metastatic ovarian cancer. She had recent small bowel obstruction and required diagnostic laparoscopy. and small bowel bypass, along with adhesiolysis and bladder repair. 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 (2) Lower extremity edema Code(s): R60.0 - Localized edema Status: Acute Plan: Improving -Daily weights to assess for fluid balance, patient's weight has been stable since admission -SCDs and FERMIN hose for compression -Eucerin lotion 2x daily applied to LEs to keep skin hydrated -Elevate legs in recliner -Continue fluids while patient is n.p.o., will consider decreasing fluid level once patient is able to resume oral intake (3) JACQUELINE (acute kidney injury) Code(s): N17.9 - Acute kidney failure, unspecified Status: Acute Plan: Resolved -D5 normal saline at 94 mls per hour -Avoid nephrotoxic agents as much as possible -Ledezma indwelling (4) Ovarian cancer on right Code(s): C56.1 - Malignant neoplasm of right ovary Status: Acute Plan: History of metastatic ovarian cancer. Currently undergoing oral chemotherapy. Follows with [employer]-[facility]. - Continue Percocet for pain management - Zofran as needed for nausea (5) Hypertension Code(s): I10 - Essential (primary) hypertension Status: Chronic Plan: Continue home metoprolol (6) Neuropathic pain of both legs Code(s): G57.91 - Unspecified mononeuropathy of right lower limb; G57.92 - Unspecified mononeuropathy of left lower limb Status: Chronic Plan: Continue on Cymbalta (7) Hypothyroidism Code(s): E03.9 - Hypothyroidism, unspecified Status: Chronic Plan: Continue home levothyroxine (8) Nutrition, metabolism, and development symptoms Code(s): R63.8 - Other symptoms and signs concerning food and fluid intake Status: Acute Plan: Fluids: D5 normal saline 94 mls per hour Diet: NPO until cleared by surgery. Patient mildly hyperglycemic today. We will continue to monitor and consider switching fluid type. Electrolytes: Replete as necessary. Monitor hypocalcemia DVT prophylaxis: SCDs, FERMIN hose, holding Eliquis <Mary Mena E - 12/16/17 10:10> - Assessment and Plan Discussed Condition With: Sherry Shaw and Sarath <Mary Mena - 12/16/17 10:21> - Attending Attestation The exam, history, and the medical decision-making described in the above note were completed with the assistance of the resident physician. I reviewed and agree with the findings presented. I attest that I had a [id number] encounter with the patient on the same day, and personally performed and documented my assessment and findings in the medical record. Patient sitting up in chair this morning and comfortable, reports no significant abdominal pain except moderate pain right over the incisions, which appear to be without infection. BIJAL drain in place, dark sanguineous blood present. Ledezma catheter in and draining yellow urine. Abdominal exam is benign this morning without signs of peritonitis. Remains afebrile, white count normal. She is status post ex lap with bladder repair and small bowel resection with ileostomy, in order to take down a vesicoenteral fistula. She is NPO per surgery's orders at this time. <Filiberto Clemens - 12/16/17 21:52> <Mary Mena E - Last Filed: 12/16/17 10:10> (5) Hypertension Qualifiers: Hypertension type: unspecified Qualified Code(s): I10 - Essential (primary) hypertension (7) Hypothyroidism Qualifiers: Hypothyroidism type: unspecified Qualified Code(s): E03.9 - Hypothyroidism, unspecified <Filiberto Clemens - Last Filed: 12/16/17 21:52> (5) Hypertension Qualifiers: Hypertension type: unspecified Qualified Code(s): I10 - Essential (primary) hypertension (7) Hypothyroidism Qualifiers: Hypothyroidism type: unspecified Qualified Code(s): E03.9 - Hypothyroidism, unspecified <Mary Mena E - Last Filed: 12/16/17 10:10> (5) Hypertension Qualifiers: Hypertension type: unspecified Qualified Code(s): I10 - Essential (primary) hypertension (7) Hypothyroidism Qualifiers: Hypothyroidism type: unspecified Qualified Code(s): E03.9 - Hypothyroidism, unspecified <Filiberto Clemens L - Last Filed: 12/16/17 21:52> (5) Hypertension Qualifiers: Hypertension type: unspecified Qualified Code(s): I10 - Essential (primary) hypertension (7) Hypothyroidism Qualifiers: Hypothyroidism type: unspecified Qualified Code(s): E03.9 - Hypothyroidism, unspecified
--- NOTE | 2017-12-16 11:30 | P.PNURO ---
Subjective Patient symptoms today: Pt seen and examined. Urine is clear. Objective Vital Signs: Vital Signs 12/15/17 14:10 12/15/17 14:15 12/15/17 14:30 Temperature 97.4 F L Pulse Rate 85 85 Respiratory Rate 14 14 Blood Pressure 151/75 H 171/85 H Pulse Oximetry 100 100 100 12/15/17 14:45 12/15/17 15:00 12/15/17 15:05 Temperature Pulse Rate 84 85 Respiratory Rate 13 11 L Blood Pressure 173/86 H 158/85 H Pulse Oximetry 100 100 98 12/15/17 15:15 12/15/17 15:30 12/15/17 16:00 Temperature 97.0 F L Pulse Rate 84 85 80 Respiratory Rate 13 13 19 Blood Pressure 171/86 H 152/78 H 149/83 H Pulse Oximetry 95 93 L 94 L 12/15/17 20:00 12/16/17 00:00 12/16/17 04:00 Temperature 97.5 F L 98.3 F 97.2 F L Pulse Rate 81 86 100 H Respiratory Rate 19 19 19 Blood Pressure 126/70 121/59 L 124/65 Pulse Oximetry 95 95 92 L 12/16/17 08:57 Temperature Pulse Rate Respiratory Rate 18 Blood Pressure Pulse Oximetry Intake & Output 12/15/17 12/16/17 12/16/17 18:59 06:59 18:59 Intake Total 4950 / 4950 1250 / 1250 1050 / 1050 Output Total 1040 / 1040 30 / 30 Balance 3910 / 3910 1220 / 1220 1050 / 1050 Intake: IV 2050 / 2050 1250 / 1250 1050 / 1050 D5W/Normal Saline Inj 1,000 ML 2000 / 2000 1000 / 1000 @ 94 mls/hr IV.CONT .[id number] [facility] Rx#:[id number] Diflucan 200 mg Premix Bag 200 100 / 100 MG In Bag/Syringe 1 EACH @ 100 mls/hr IV.SIG Q24H [facility] Rx#: [id number] Zosyn 3.375 GM Premix 50 ML @ 50 / 50 150 / 150 50 / 50 100 mls/hr IV.SIG Q6H [facility] Rx#: [id number] Anesthesia Amount 2900 / 2900 Output: Estimated Blood Loss 300 / 300 Urine Amount (Catheter) 700 / 700 Indwelling Urethral Catheter 700 / 700 Stool Amount (Stoma) 0 / 0 Left Lower Abdomen 0 / 0 Wound Drainage 40 / 40 30 / 30 Right Abdomen 40 / 40 30 / 30 Result Diagrams: 12/16/17 04:50 12/16/17 04:50 Medications and IVs: Active Medications Generic Name Dose Route Start Last Admin Trade Name Freq PRN Reason Stop Dose Admin Acetaminophen 650 mg 12/12/17 21:36 Tylenol PO Q6HR PRN PAIN SCALE 1 TO 2 Hydrocodone Bitart/Acetaminophen 1 tab 12/12/17 21:36 12/16/17 08:27 [place] 7.5/325 PO 1 tab Q4H PRN Administration PAIN SCALE 6 TO 10 Artificial Tears 1 applicatio 12/14/17 11:00 12/16/17 08:18 Eucerin Cream TOPICAL 1 applicatio BID [facility] Administration Duloxetine HCl 60 mg 12/12/17 21:00 12/16/17 08:18 Cymbalta PO 60 mg DAILY [facility] Administration Fluconazole 200 mg/ Syringe/ 100 mls @ 100 mls/hr 12/13/17 20:00 12/15/17 21: 43 Bag IV.SIG Infused Q24H [facility] Infusion Piperacillin/Tazobactam/Dextrose 50 mls @ 100 mls/hr 12/13/17 17:00 12/16/17 10:46 Zosyn 3.375 Gm Premix IV.SIG Infused Q6H [facility] Infusion Dextrose/Sodium Chloride 1,000 mls @ 94 mls/hr 12/15/17 07:30 12/16/17 04:57 D5w/Normal Saline Inj IV.CONT 94 mls/hr .[id number] [facility] Administration Levothyroxine Sodium 50 mcg 12/13/17 06:00 12/16/17 05:00 Synthroid PO 50 mcg DAILY@0600 [facility] Administration Loperamide HCl 2 mg 12/13/17 09:07 Imodium PO UNSCH PRN DIARRHEA Metoprolol Tartrate 50 mg 12/13/17 09:00 12/16/17 08:18 Lopressor PO 50 mg DAILY [facility] Administration Miscellaneous Information 1 each 12/15/17 17:01 Misc Nursing Information OTHER 12/16/17 17:01 UNSCH PRN SEE LABEL COMMENTS Morphine Sulfate 4 mg 12/12/17 21:36 Morphine Inj IV.PUSH Q3H PRN BREAKTHROUGH PAIN Naloxone HCl 0.4 mg 12/12/17 21:36 Narcan Inj IV.PUSH UNSCH PRN SEE LABEL COMMENTS Ondansetron HCl 4 mg 12/12/17 19:07 Zofran Odt PO Q4H PRN NAUSEA Oxycodone/Acetaminophen 1 tab 12/12/17 18:01 Percocet 5/325 Mg PO Q4HR PRN PAIN SCALE 3 TO 5 Sodium Chloride 2 ml 12/12/17 14:23 Ns Flush IV.FLUSH UNSCH PRN FLUSH AFTER USING IV ACCESS Temazepam 15 mg 12/12/17 21:00 12/15/17 20:43 Restoril PO 15 mg HS [facility] Administration Objective Remarks: Abd:soft,nt,nd Scott: yellowish fluid 12/16 bd:soft,nt,nd Scott: urine clear Assessment and Plan - Plan 77 y.o female with 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 D/W Dr. England. 12/16 Stable s/p bladder repair yesterday by Dr. Banegas Maintain scott for 10 days Perform cystogram at that time prior to removing scott catheter.
--- NOTE | 2017-12-16 15:48 | P.PNGS ---
Subjective Patient reports: no new complaints, pain is less, no flatus Physical Exam Vital signs: Vital Signs 12/15/17 16:00 12/15/17 20:00 12/16/17 00:00 Temperature 97.0 F L 97.5 F L 98.3 F Pulse Rate 80 81 86 Respiratory Rate 19 19 19 Blood Pressure 149/83 H 126/70 121/59 L Pulse Oximetry 94 L 95 95 12/16/17 04:00 12/16/17 08:00 12/16/17 08:57 Temperature 97.2 F L 97.7 F Pulse Rate 100 H 103 H Respiratory Rate 19 16 18 Blood Pressure 124/65 125/67 Pulse Oximetry 92 L 95 12/16/17 12:00 Temperature 97.7 F Pulse Rate 83 Respiratory Rate 16 Blood Pressure 124/66 Pulse Oximetry 96 Intake & Output 12/15/17 12/16/17 12/16/17 18:59 06:59 18:59 Intake Total 4950 / 4950 1250 / 1250 2049 Output Total 1040 / 1040 30 / 30 165 / 165 Balance 3910 / 3910 1220 / 1220 1885 / 1885 Intake: IV 2049 1250 / 1250 2049 / 2049 D5W/Normal Saline Inj 1,000 ML 2000 / 2000 1000 / 1000 1000 / 1000 @ 94 mls/hr IV.CONT .[id number] [facility] Rx#:[id number] Diflucan 200 mg Premix Bag 200 100 / 100 MG In Bag/Syringe 1 EACH @ 100 mls/hr IV.SIG Q24H [facility] Rx#: [id number] Zosyn 3.375 GM Premix 50 ML @ 50 / 50 150 / 150 50 / 50 100 mls/hr IV.SIG Q6H [facility] Rx#: [id number] Anesthesia Amount 2900 / 2900 Output: Estimated Blood Loss 300 / 300 Urine Amount (Catheter) 700 / 700 Indwelling Urethral Catheter 700 / 700 Stool Amount (Stoma) 0 / 0 150 / 150 Left Lower Abdomen 0 / 0 150 / 150 Wound Drainage 40 / 40 30 / 30 15 / 15 Right Abdomen 40 / 40 30 / 30 15 15 - Routine Cardiovascular Exam Present: RRR - Routine Abdominal Exam Present: soft (incisional tenderness jefferson in place, ileostomy pink with output) - Urinary Catheter Management Indwelling Urethral Catheter Cath placed during this visit: no Urethral indwelling: Yes Reason for continuing: Other continuation reason Assessment and Plan - Assessment (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
--- NOTE | 2017-12-16 18:39 | P.PNWCN ---
Wound Care Nurse Consult Description: Consult for New Ostomy Teaching of end ileostomy per ARTUR Jackson Communicated with: Patient Javier, JAM Recommendation: Change ostomy appliance on left side abdomen every 3-5 days and PRN for leaks Empty pouch when 1/3-1/2 full of effluent to avoid spontaneous lifting of wafer Additional information: Patient seen on for ostomy assessment and teaching with return demonstration. Bowel Diversion Stoma - Bowel Stoma Left Lower Abdomen Stoma Appearance: Protruding, Round (red with mucus and functioning) Collection Device: Two-piece Drainage Description: Liquid, Green Wafer Size: 1 3/4 Moldable 45mm
[2017-12-16] MEDS: Temazepam 15 MG Capsule PO SCH (20:50)
[2017-12-17] MEDS: Dextrose 5%/NaCl 0.9% Inj 1,000 ML IV.CONT SCH (04:41)
[2017-12-17] MEDS: Piperacil/Tazo 3.375 GM Premix 50 ML IV.SIG SCH ×4 (04:42→22:31)
[2017-12-17] MEDS: Levothyroxine 50 MCG Tablet PO SCH (06:35)
[2017-12-17 07:17] LABS: Hematocrit 22.4 % (35.0-46.0); Hemoglobin 7.6 gm/dL (11.6-15.3); Mean Corpuscular HGB Conc 33.9 % (32.0-36.0); Mean Corpuscular Hemoglobin 31.3 pg (27.0-34.0); Mean Corpuscular Volume 92.2 fL (80.0-100.0); Mean Platelet Volume 6.8 fL (7.0-11.0); Platelet Count 495 th/mm3 (150-450); Red Blood Count 2.42 mil/mm3 (4.00-5.30); Red Cell Distribution Width 16.3 % (11.6-17.2); White Blood Count 8.5 th/mm3 (4.0-11.0)
[2017-12-17 07:53] LABS: Calcium 6.9 mg/dL (8.5-10.1); Carbon Dioxide 22.8 meq/L (21.0-32.0); Potassium 3.3 meq/L (3.5-5.1)
[2017-12-17 08:05] LABS: Total Protein 5.3 g/dL (6.4-8.2)
[2017-12-17] MEDS: Metoprolol Tartrate 50 MG Tablet PO SCH (08:44)
--- NOTE | 2017-12-17 10:03 | P.PNURO ---
Subjective Patient symptoms today: Pt feels well. No complaints. Objective Vital Signs: Vital Signs 12/16/17 12:00 12/16/17 15:52 12/16/17 16:00 Temperature 97.7 F 98.1 F Pulse Rate 83 86 Respiratory Rate 18 Blood Pressure 124/66 131/62 Pulse Oximetry 96 96 12/16/17 20:00 12/17/17 00:00 12/17/17 08:00 Temperature 98.1 F 98.6 F 92.1 F L Pulse Rate 89 71 90 Respiratory Rate 18 20 Blood Pressure 103/60 117/64 119/64 Pulse Oximetry 98 98 91 L Intake & Output 12/16/17 12/17/17 12/17/17 18:59 06:59 18:59 Intake Total 2940 / 2940 1200 / 1200 Output Total 265 / 265 80 / 80 Balance 2675 / 2675 1120 / 1120 Intake: IV 2100 / 2100 1200 / 1200 D5W/Normal Saline Inj 1,000 ML 1000 / 1000 1000 / 1000 @ 94 mls/hr IV.CONT .[id number] [facility] Rx#:[id number] Diflucan 200 mg Premix Bag 100 100 / 100 ML @ 100 mls/hr IV.SIG Q24H [facility] Rx#:[id number] Zosyn 3.375 GM Premix 50 ML @ 100 / 100 100 / 100 100 mls/hr IV.SIG Q6H [facility] Rx#: [id number] Oral 840 / 840 Output: Urine 100 / 100 Stool Amount (Stoma) 150 / 150 Left Lower Abdomen 150 / 150 Wound Drainage 15 / 15 80 / 80 Right Abdomen 15 / 15 80 / 80 Result Diagrams: 12/17/17 06:35 12/17/17 06:35 Medications and IVs: Active Medications Generic Name Dose Route Start Last Admin Trade Name Freq PRN Reason Stop Dose Admin Acetaminophen 650 mg 12/12/17 21:36 Tylenol PO Q6HR PRN PAIN SCALE 1 TO 2 Hydrocodone Bitart/Acetaminophen 1 tab 12/12/17 21:36 12/17/17 04:43 [place] 7.5/325 PO 1 tab Q4H PRN Administration PAIN SCALE 6 TO 10 Artificial Tears 1 applicatio 12/14/17 11:00 12/17/17 08:46 Eucerin Cream TOPICAL 1 applicatio BID [facility] Administration Duloxetine HCl 60 mg 12/12/17 21:00 12/17/17 08:44 Cymbalta PO 60 mg DAILY [facility] Administration Piperacillin/Tazobactam/Dextrose 50 mls @ 100 mls/hr 12/13/17 17:00 12/17/17 05:15 Zosyn 3.375 Gm Premix IV.SIG Infused Q6H [facility] Infusion Dextrose/Sodium Chloride 1,000 mls @ 50 mls/hr 12/15/17 07:30 12/17/17 04:41 D5w/Normal Saline Inj IV.CONT 94 mls/hr .Q20H [facility] Administration Fluconazole 100 mls @ 100 mls/hr 12/16/17 20:00 12/16/17 21:50 Diflucan 200 Mg Premix Bag IV.SIG Infused Q24H [facility] Infusion Levothyroxine Sodium 50 mcg 12/13/17 06:00 12/17/17 06:35 Synthroid PO 50 mcg DAILY@0600 [facility] Administration Loperamide HCl 2 mg 12/13/17 09:07 Imodium PO UNSCH PRN DIARRHEA Metoprolol Tartrate 50 mg 12/13/17 09:00 12/17/17 08:44 Lopressor PO 50 mg DAILY [facility] Administration Morphine Sulfate 4 mg 12/12/17 21:36 Morphine Inj IV.PUSH Q3H PRN BREAKTHROUGH PAIN Naloxone HCl 0.4 mg 12/12/17 21:36 Narcan Inj IV.PUSH UNSCH PRN SEE LABEL COMMENTS Ondansetron HCl 4 mg 12/12/17 19:07 Zofran Odt PO Q4H PRN NAUSEA Oxycodone/Acetaminophen 1 tab 12/12/17 18:01 Percocet 5/325 Mg PO Q4HR PRN PAIN SCALE 3 TO 5 Sodium Chloride 2 ml 12/12/17 14:23 Ns Flush IV.FLUSH UNSCH PRN FLUSH AFTER USING IV ACCESS Temazepam 15 mg 12/12/17 21:00 12/16/17 20:50 Restoril PO 15 mg HS [facility] Administration Objective Remarks: Abd:soft,nt,nd Scott: yellowish fluid 12/16 abd:soft,nt,nd Scott: urine clear 12/17 abd:soft,nt,nd Scott: urine clear Ext: 2+ edema Assessment and Plan - Plan 77 y.o female with 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 D/W Dr. England. 12/16 Stable s/p bladder repair yesterday by Dr. Banegas Maintain scott for 10 days Perform cystogram at that time prior to removing scott catheter. 12/17 Stable s/p bladder repair by Dr. Banegas/Tomás Maintain scott for 10 days Perform cystogram at that time prior to removing scott catheter.
--- NOTE | 2017-12-17 11:05 | P.PNGS ---
Subjective Patient reports: feels better, tolerating liquids well Physical Exam Vital signs: Vital Signs 12/16/17 12:00 12/16/17 15:52 12/16/17 16:00 Temperature 97.7 F 98.1 F Pulse Rate 83 86 Respiratory Rate 18 Blood Pressure 124/66 131/62 Pulse Oximetry 96 96 12/16/17 20:00 12/17/17 00:00 12/17/17 08:00 Temperature 98.1 F 98.6 F 92.1 F L Pulse Rate 89 71 90 Respiratory Rate 20 Blood Pressure 103/60 117/64 119/64 Pulse Oximetry 98 98 91 L Intake & Output 12/16/17 12/17/17 12/17/17 18:59 06:59 18:59 Intake Total 2940 / 2940 1200 / 1200 Output Total 265 / 265 80 / 80 Balance 2675 / 2675 1120 / 1120 Intake: IV 2100 / 2100 1200 / 1200 D5W/Normal Saline Inj 1,000 ML 1000 / 1000 1000 / 1000 @ 94 mls/hr IV.CONT .[id number] [facility] Rx#:[id number] Diflucan 200 mg Premix Bag 100 100 / 100 ML @ 100 mls/hr IV.SIG Q24H [facility] Rx#:[id number] Zosyn 3.375 GM Premix 50 ML @ 100 / 100 100 / 100 100 mls/hr IV.SIG Q6H [facility] Rx#: [id number] Oral 840 / 840 Output: Urine 100 / 100 Stool Amount (Stoma) 150 / 150 Left Lower Abdomen 150 / 150 Wound Drainage 15 / 15 80 / 80 Right Abdomen 15 / 15 80 / 80 - Constitutional no acute distress - Routine Respiratory Exam Present: CTA bilaterally - Routine Cardiovascular Exam Present: RRR - Routine Abdominal Exam Present: soft (incision with jefferson, bibi serous, ostomy pink ) - Routine Extremities Exam Present: edema - Urinary Catheter Management Indwelling Urethral Catheter Cath placed during this visit: no Urethral indwelling: Yes Reason for continuing: Other continuation reason Assessment and Plan - Assessment (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
[2017-12-17 11:22] LABS: Hematocrit 24.1 % (35.0-46.0); Hemoglobin 8.2 gm/dL (11.6-15.3)
--- NOTE | 2017-12-17 11:30 | XR ---
EXAM DATE: 12/17/2017 11:27 AM EDT AGE/SEX: 77 years / Female INDICATIONS: Short of breath. CLINICAL DATA: This is the patient's subsequent encounter. Patient reports that signs and symptoms h ave been present for 2 days and indicates a pain score of 0/10. MEDICAL/SURGICAL HISTORY: Hypertension. Carcinoma, ovarian. Carcinoma, uterine. Hysterectomy. Bowel resection. COMPARISON: [facility] [place], CHEST 2V PA&LAT, 12/12/2017. . FINDINGS: Small bilateral pleural effusions slightly progressed since previous exam. Associated mild airspace d isease in the lung bases. Cardiomegaly mediastinal contours are within normal limits. Bony thorax is intact. CONCLUSION: 1. Subtle interval enlargement of small bilateral pleural effusions with associated airspace disease in the lower lobes. Electronically signed by: Alberto Martinez MD 12/17/2017 11:29 AM EDT
--- NOTE | 2017-12-17 11:53 | P.PNFP ---
Subjective Interval history: Pt is doing much better this morning. Still has abdominal incisional pain but not as bad as before. She feels better in general and has been tolerating a liquid diet. She was oob to a chair yesterday for a short period of time. She would like to have more PT done but has been working on arm exercises because she noticed that her arms were becoming weak from reduced use. She states that two days ago, her legs were swollen and painful but have improved, especially now that her nurse is keeping them elevated. <Nevin Moreno U - 12/17/17 14:56> Results - Labs Result diagrams: 12/17/17 11:05 12/17/17 06:35 <Filiberto Clemens L - 12/17/17 15:25> Abnormal lab results 12/17/17 12/17/17 12/17/17 Range/Units 06:35 06:35 11:05 RBC 2.42 L (4.00-5.30) mil/mm3 Hgb 7.6 L (11.6-15.3) gm/dL Hct 22.4 L (35.0-46.0) % Plt Count 495 H (150-450) th/mm3 MPV 6.8 L (7.0-11.0) fL Potassium 3.3 L (3.5-5.1) meq/L Chloride 111 H (98-107) meq/L Estimated GFR 56 L (>89) mL/min Random Glucose 168 H (74-106) mg/dL Calcium 6.9 L* (8.5-10.1) mg/dL Prot Corrected Calcium 7.8 L (8.5-10.1) mg/dL Total Protein 5.3 L (6.4-8.2) g/dL Albumin 1.9 L (3.4-5.0) g/dL 12/17/17 Range/Units 11:05 RBC (4.00-5.30) mil/mm3 Hgb 8.2 L (11.6-15.3) gm/dL Hct 24.1 L (35.0-46.0) % Plt Count (150-450) th/mm3 MPV (7.0-11.0) fL Potassium (3.5-5.1) meq/L Chloride (98-107) meq/L Estimated GFR (>89) mL/min Random Glucose (74-106) mg/dL Calcium (8.5-10.1) mg/dL Prot Corrected Calcium (8.5-10.1) mg/dL Total Protein (6.4-8.2) g/dL Albumin (3.4-5.0) g/dL Short CBC 12/17/17 12/17/17 Range/Units 06:35 11:05 WBC 8.5 (4.0-11.0) th/mm3 Hgb 7.6 L 8.2 L (11.6-15.3) gm/dL Hct 22.4 L 24.1 L (35.0-46.0) % Plt Count 495 H (150-450) th/mm3 BMP 12/17/17 06:35 Sodium 143 Potassium 3.3 L Chloride 111 H Carbon Dioxide 22.8 BUN 16 Creatinine 0.96 Calcium 6.9 L* Liver Function 12/17/17 Range/Units 11:05 Albumin 1.9 L (3.4-5.0) g/dL <Young,Filiberto L - 12/17/17 15:25> Abnormal lab results 12/17/17 12/17/17 12/17/17 Range/Units 06:35 06:35 11:05 RBC 2.42 L (4.00-5.30) mil/mm3 Hgb 7.6 L (11.6-15.3) gm/dL Hct 22.4 L (35.0-46.0) % Plt Count 495 H (150-450) th/mm3 MPV 6.8 L (7.0-11.0) fL Potassium 3.3 L (3.5-5.1) meq/L Chloride 111 H (98-107) meq/L Estimated GFR 56 L (>89) mL/min Random Glucose 168 H (74-106) mg/dL Calcium 6.9 L* (8.5-10.1) mg/dL Prot Corrected Calcium 7.8 L (8.5-10.1) mg/dL Total Protein 5.3 L (6.4-8.2) g/dL Albumin 1.9 L (3.4-5.0) g/dL 12/17/17 Range/Units 11:05 RBC (4.00-5.30) mil/mm3 Hgb 8.2 L (11.6-15.3) gm/dL Hct 24.1 L (35.0-46.0) % Plt Count (150-450) th/mm3 MPV (7.0-11.0) fL Potassium (3.5-5.1) meq/L Chloride (98-107) meq/L Estimated GFR (>89) mL/min Random Glucose (74-106) mg/dL Calcium (8.5-10.1) mg/dL Prot Corrected Calcium (8.5-10.1) mg/dL Total Protein (6.4-8.2) g/dL Albumin (3.4-5.0) g/dL Short CBC 12/17/17 12/17/17 Range/Units 06:35 11:05 WBC 8.5 (4.0-11.0) th/mm3 Hgb 7.6 L 8.2 L (11.6-15.3) gm/dL Hct 22.4 L 24.1 L (35.0-46.0) % Plt Count 495 H (150-450) th/mm3 BMP 12/17/17 06:35 Sodium 143 Potassium 3.3 L Chloride 111 H Carbon Dioxide 22.8 BUN 16 Creatinine 0.96 Calcium 6.9 L* Liver Function 12/17/17 Range/Units 11:05 Albumin 1.9 L (3.4-5.0) g/dL <Nevin Moreno U - 12/17/17 11:53> - Imaging Impressions Chest X-Ray 12/17/17 00:00 CONCLUSION: 1. Subtle interval enlargement of small bilateral pleural effusions with associated airspace disease in the lower lobes. <Filiberto Clemens - 12/17/17 15:25> Impressions Chest X-Ray 12/17/17 00:00 CONCLUSION: 1. Subtle interval enlargement of small bilateral pleural effusions with associated airspace disease in the lower lobes. <Nevin Moreno U - 12/17/17 14:56> Physical Exam Vital signs: Vital Signs 12/16/17 15:52 12/16/17 16:00 12/16/17 20:00 Temperature 98.1 F 98.1 F Pulse Rate 86 89 Respiratory Rate 18 18 18 Blood Pressure 131/62 103/60 Pulse Oximetry 96 98 12/17/17 00:00 12/17/17 08:00 12/17/17 12:00 Temperature 98.6 F 92.1 F L 97.6 F Pulse Rate 71 90 76 Respiratory Rate 17 20 22 Blood Pressure 117/64 119/64 125/58 L Pulse Oximetry 98 91 L 76 L Intake & Output 12/16/17 12/17/17 12/17/17 18:59 06:59 18:59 Intake Total 2940 / 2940 1200 / 1200 50 / 50 Output Total 265 / 265 80 / 80 1580 / 1580 Balance 2675 / 2675 1120 / 1120 -1530 / -1530 Weight 61.5 kg Intake: IV 2100 / 2100 1200 / 1200 50 / 50 D5W/Normal Saline Inj 1,000 ML 1000 / 1000 1000 / 1000 @ 94 mls/hr IV.CONT .[id number] [facility] Rx#:[id number] Diflucan 200 mg Premix Bag 100 100 / 100 ML @ 100 mls/hr IV.SIG Q24H [facility] Rx#:[id number] Zosyn 3.375 GM Premix 50 ML @ 100 / 100 100 / 100 50 / 50 100 mls/hr IV.SIG Q6H [facility] Rx#: [id number] Oral 840 / 840 Output: Urine 100 / 100 1450 / 1450 Stool Amount (Stoma) 150 / 150 Left Lower Abdomen 150 / 150 Wound Drainage 15 / 15 80 / 80 130 / 130 Right Abdomen 15 / 15 80 / 80 130 / 130 <Filiberto Clemens L - 12/17/17 15:25> Vital Signs 12/16/17 12:00 12/16/17 15:52 12/16/17 16:00 Temperature 97.7 F 98.1 F Pulse Rate 83 86 Respiratory Rate 16 18 18 Blood Pressure 124/66 131/62 Pulse Oximetry 96 96 12/16/17 20:00 12/17/17 00:00 12/17/17 08:00 Temperature 98.1 F 98.6 F 92.1 F L Pulse Rate 89 71 90 Respiratory Rate 18 17 20 Blood Pressure 103/60 117/64 119/64 Pulse Oximetry 98 98 91 L Intake & Output 12/16/17 12/17/1718 18:59 06:59 18:59 Intake Total 2940 / 2940 1200 / 1200 Output Total 265 / 265 80 / 80 Balance 2675 / 2675 1120 / 1120 Intake: IV 2100 / 2100 1200 / 1200 D5W/Normal Saline Inj 1,000 ML 1000 / 1000 1000 / 1000 @ 94 mls/hr IV.CONT .[id number] [facility] Rx#:[id number] Diflucan 200 mg Premix Bag 100 100 / 100 ML @ 100 mls/hr IV.SIG Q24H [facility] Rx#:[id number] Zosyn 3.375 GM Premix 50 ML @ 100 / 100 100 / 100 100 mls/hr IV.SIG Q6H [facility] Rx#: [id number] Oral 840 / 840 Output: Urine 100 / 100 Stool Amount (Stoma) 150 / 150 Left Lower Abdomen 150 / 150 Wound Drainage 80 / 80 Right Abdomen 15 80 / 80 <Nevin Moreno U - 12/17/17 14:56> Narrative: General: Resting comfortably in bed, no acute distress Skin: Very mild skin breakdown on RLE below knee about 1 cm in diameter stable from previous exams, multiple small ecchymosis on lower extremities. CV: RRR, no murmurs, rubs, or gallops Lungs: CTAB. No increased WOB. Abdomen: Multiple surgical dressings in place and abdomen. Ileostomy in place on left side of abdomen, draining greenish-brown fluid. No surrounding leakage or erythema. BIJAL drain in place on right side of abdomen, draining serosanguineous fluid Abdomen is nondistended, mildly uncomfortable to palpation. Ext: 1+ pitting edema, much improved from previous exams. Uro: Ledezma catheter in place, draining darkish yellow urine, no sediment seen. Neuro: AOx3. non-focal. CN II-XII grossly intact. Moves all extremities spontaneously. 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 Status: Acute (2) Lower extremity edema Code(s): R60.0 - Localized edema Status: Acute (3) Ovarian cancer on right Code(s): C56.1 - Malignant neoplasm of right ovary Status: Acute (4) Anemia Code(s): D64.9 - Anemia, unspecified Status: Acute (5) Hypertension Code(s): I10 - Essential (primary) hypertension Status: Chronic (6) Neuropathic pain of both legs Code(s): G57.91 - Unspecified mononeuropathy of right lower limb; G57.92 - Unspecified mononeuropathy of left lower limb Status: Chronic (7) Hypothyroidism Code(s): E03.9 - Hypothyroidism, unspecified Status: Chronic (8) Nutrition, metabolism, and development symptoms Code(s): R63.8 - Other symptoms and signs concerning food and fluid intake Status: Acute <Filiberto Clemens - 12/17/17 15:25> (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 She has remained afebrile and white count within normal limits. Surgery reports that she will likely be inpatient for the next week - Urology (Dr. Bowles) and surgery (Dr. England) following * Ledezma to remain in place for 10 days from 12/16; cystogram to be performed before Ledezma removal - Broad spectrum antibiotics --Zosyn 3.375 g IV q6h, completed 4 days with 16 doses -- Diflucan 200 mg IV q24h (renally dosed) - completed 1 day with 1 dose -PT ordered to help with patient's perceived weakness - Loperamide 2 mg PRN for diarrhea - Full liquid diet per surgery - Eliquis on hold due to anemia History: Has recurrent metastatic ovarian cancer. She had recent small bowel obstruction and required diagnostic laparoscopy. and small bowel bypass, along with adhesiolysis and bladder repair. 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 (2) Lower extremity edema Code(s): R60.0 - Localized edema Status: Acute Plan: Improving -Daily weights to assess for fluid balance, patient's weight has been stable since admission -SCDs and FERMIN hose for compression -Eucerin lotion 2x daily applied to LEs to keep skin hydrated -Elevate legs in recliner -Discontinue fluids today (3) Ovarian cancer on right Code(s): C56.1 - Malignant neoplasm of right ovary Status: Acute Plan: History of metastatic ovarian cancer. Currently undergoing oral chemotherapy. Follows with or manager-oncology. - Continue Percocet for pain management - Zofran as needed for nausea (4) Anemia Code(s): D64.9 - Anemia, unspecified Status: Acute Plan: -Drop in H/H noted from 9.2 to 7.6 after surgery -Repeat H/H at 11:05 this morning stable at 8.2/24.1 -Could be from acute blood loss during surgery or dilutional -Continue to monitor for now - monitor for hematoma (5) Hypertension Code(s): I10 - Essential (primary) hypertension Status: Chronic Plan: -Well-controlled -Continue home metoprolol (6) Neuropathic pain of both legs Code(s): G57.91 - Unspecified mononeuropathy of right lower limb; G57.92 - Unspecified mononeuropathy of left lower limb Status: Chronic Plan: -Continue home Cymbalta (7) Hypothyroidism Code(s): E03.9 - Hypothyroidism, unspecified Status: Chronic Plan: -Continue home Levothyroxine (8) Nutrition, metabolism, and development symptoms Code(s): R63.8 - Other symptoms and signs concerning food and fluid intake Status: Acute Plan: Fluids: oral fluids only Diet: Full liquids per surgery Electrolytes: Replete as necessary. Monitor hypocalcemia DVT prophylaxis: SCDs, FERMIN hose, holding Eliquis <Nevin Moreno - 12/17/17 14:57> - Assessment and Plan Discussed Condition With: Pt, pt's nurse, medicine team, attending Dr. Clemens <Nevin Moreno - 12/17/17 15:13> Discharge Planning: Pt would most likely remain in the hospital for the next week as she slowly improves and pain is controlled. She would require inpatient rehab services at a SNF to recover her strength and function. <Nevin Moreno 12/17/17 15:13> - Attending Attestation The exam, history, and the medical decision-making described in the above note were completed with the assistance of the resident physician. I reviewed and agree with the findings presented. I attest that I had a [id number] encounter with the patient on the same day, and personally performed and documented my assessment and findings in the medical record. Patient seen and examined with the resident team this morning. She reports minimal abdominal pain, just over the incisions only. Has ileostomy bag in place , and BIJAL drain. Drainage to the BIJAL drain is minimal this morning. Ledezma bag with clear yellow urine. Has some lower extremity edema. Reports no significant breathing difficulties. Feels her upper extremities getting weaker and eager to engage in more physical therapy. No other patient complaints this morning. <Filiberto Clemens So - 12/17/17 15:25> <TiffanieNevin U - Last Filed: 12/17/17 14:57> (4) Anemia Qualifiers: Anemia type: unspecified type Qualified Code(s): D64.9 - Anemia, unspecified (5) Hypertension Qualifiers: Hypertension type: unspecified Qualified Code(s): I10 - Essential (primary) hypertension (7) Hypothyroidism Qualifiers: Hypothyroidism type: unspecified Qualified Code(s): E03.9 - Hypothyroidism, unspecified <Filiberto Clemens So - Last Filed: 12/17/17 15:25> (4) Anemia Qualifiers: Anemia type: unspecified type Qualified Code(s): D64.9 - Anemia, unspecified (5) Hypertension Qualifiers: Hypertension type: unspecified Qualified Code(s): I10 - Essential (primary) hypertension (7) Hypothyroidism Qualifiers: Hypothyroidism type: unspecified Qualified Code(s): E03.9 - Hypothyroidism, unspecified <Nevin Moreno U - Last Filed: 12/17/17 14:57> (4) Anemia Qualifiers: Anemia type: unspecified type Qualified Code(s): D64.9 - Anemia, unspecified (5) Hypertension Qualifiers: Hypertension type: unspecified Qualified Code(s): I10 - Essential (primary) hypertension (7) Hypothyroidism Qualifiers: Hypothyroidism type: unspecified Qualified Code(s): E03.9 - Hypothyroidism, unspecified <Filiberto Clemens L - Last Filed: 12/17/17 15:25> (4) Anemia Qualifiers: Anemia type: unspecified type Qualified Code(s): D64.9 - Anemia, unspecified (5) Hypertension Qualifiers: Hypertension type: unspecified Qualified Code(s): I10 - Essential (primary) hypertension (7) Hypothyroidism Qualifiers: Hypothyroidism type: unspecified Qualified Code(s): E03.9 - Hypothyroidism, unspecified
--- NOTE | 2017-12-17 14:41 | P.PNWCN ---
Wound Care Nurse Consult Description: Consult for New Ostomy Teaching of end ileostomy per ARTUR Jackson Communicated with: Patient Javier, ARTUR Valdes Recommendation: Moldable pouching system using 1 3/4" wafer to be changed Q3D and PRN for leaks Empty pouch when 1/3-1/2 full of effluent, before bedtime, and first thing when waking up, to avoid spontaneous lifting of wafer Additional information: Patient seen on for ostomy teaching and reinforcement of teaching completed yesterday. Patient had difficulty recalling most of teaching yesterday. Patient showed no interest in learning how to remove and apply wafer and pouch today, which is a change of attitude from yesterday and states that she will learn later. It was explained to her that she would need to know how to empty and change appliance before going home. Patient stated that she would learn before she leaves. Patient states that she has neuropathy and has difficulty with her fingers however showed adequate strength with return demonstration yesterday. Patient was able to open and close pouch yesterday and today wanted nothing to do with the educational process, making jokes and brushing off the need to assist in appliance change. Incision - Incision Midline Abdomen Incision Assessment: Ongoing Incision Type: Incision Incision Description: Approximated, [place] Drainage Amount: None Drainage Odor: No Odor Incision Dressing Status: Changed Cover Dressing: Other (José Miguel changed today by television script writer and working properly with reinforcement of transparent film dressing) Bowel Diversion Stoma - Bowel Stoma Left Lower Abdomen Stoma Appearance: Oval, Protruding (Bright red stoma with intact mucocutaneous junction) Collection Device: Two-piece Drainage Description: Liquid, Brown Wafer Size: 1 3/4 Moldable 45mm Stoma Care: Pouch and Wafer Changed, Skin Care Rashida-Stomal Skin Appearance: Intact
[2017-12-17] MEDS: Temazepam 15 MG Capsule PO SCH (20:45)
[2017-12-18] MEDS: Piperacil/Tazo 3.375 GM Premix 50 ML IV.SIG SCH ×4 (04:16→23:17)
[2017-12-18] MEDS: Levothyroxine 50 MCG Tablet PO SCH (05:05)
[2017-12-18 07:40] LABS: Baso % (Auto) 0.3 % (0.0-2.0); Eos # (Auto) 0.1 th/mm3 (0.0-0.4); Eos % (Auto) 1.2 % (0.0-4.0); Hematocrit 27.3 % (35.0-46.0); Hemoglobin 9.2 gm/dL (11.6-15.3); Lymph # (Auto) 1.7 th/mm3 (1.0-4.8); Lymph % (Auto) 15.2 % (9.0-44.0); Mean Corpuscular HGB Conc 33.6 % (32.0-36.0); Mean Corpuscular Volume 92.1 fL (80.0-100.0); Mean Platelet Volume 6.9 fL (7.0-11.0); Mono # (Auto) 1.4 th/mm3 (0.0-0.9); Mono % (Auto) 12.2 % (0.0-8.0); Neut % (Auto) 71.1 % (16.0-70.0); Platelet Count 441 th/mm3 (150-450); Red Blood Count 2.96 mil/mm3 (4.00-5.30); Red Cell Distribution Width 16.1 % (11.6-17.2); White Blood Count 11.3 th/mm3 (4.0-11.0)
[2017-12-18 07:42] LABS: INR 1.1 Ratio; Prothrombin Time 11.5 sec (9.8-11.6)
[2017-12-18 07:54] LABS: Albumin 1.9 g/dL (3.4-5.0); Anion Gap 10 meq/L (5-15); Aspartate Aminotransferase 18 U/L (15-37); Blood Urea Nitrogen 14 mg/dL (7-18); Calcium 7.5 mg/dL (8.5-10.1); Carbon Dioxide 22.5 meq/L (21.0-32.0); Chloride 109 meq/L (98-107); Glomerular Filtration Rate 58 mL/min (>89); Glucose,Random 77 mg/dL (74-106); Potassium 3.2 meq/L (3.5-5.1); Sodium 141 meq/L (136-145)
[2017-12-18 07:57] LABS: Alanine Aminotransferase 15 U/L (10-53); Alkaline Phosphatase 103 U/L (45-117); Total Protein 5.6 g/dL (6.4-8.2)
[2017-12-18 08:33] LABS: Platelet Morphology Clumped (Normal)
[2017-12-18] MEDS: Metoprolol Tartrate 50 MG Tablet PO SCH (08:41)
--- NOTE | 2017-12-18 11:49 | P.PNGS ---
Subjective Patient reports: no new complaints, feels better, flatus (pain controlled, ostomy output) Physical Exam Vital signs: Vital Signs 12/17/17 12:00 12/17/17 15:04 12/17/17 15:29 Temperature 97.6 F 98.1 F Pulse Rate 76 86 Respiratory Rate 22 18 20 Blood Pressure 125/58 L 113/58 L Pulse Oximetry 76 L 94 L 12/17/17 15:56 12/17/17 20:00 12/17/17 20:43 Temperature 97.7 F Pulse Rate 95 H Respiratory Rate 18 Blood Pressure 119/58 L Pulse Oximetry 94 L 91 L 91 L 12/18/17 00:00 12/18/17 08:00 Temperature 97.1 F L 97.6 F Pulse Rate 80 75 Respiratory Rate 18 17 Blood Pressure 143/65 H 111/57 L Pulse Oximetry 92 L 91 L Intake & Output 12/17/17 12/18/17 12/18/17 18:59 06:59 18:59 Intake Total 500 / 500 200 / 200 Output Total 1580 / 1580 1870 / 1870 Balance -1080 / -1080 -1670 / -1670 Weight 61.5 kg 58.5 kg Intake: IV 500 / 500 200 / 200 D5W/Normal Saline Inj 1,000 ML 400 / 400 @ 50 mls/hr IV.CONT .Q20H [facility] Rx#:[id number] Diflucan 200 mg Premix Bag 100 100 / 100 ML @ 100 mls/hr IV.SIG Q24H [facility] Rx#:[id number] Zosyn 3.375 GM Premix 50 ML @ 100 / 100 100 / 100 100 mls/hr IV.SIG Q6H [facility] Rx#: [id number] Output: Urine 1450 / 1450 1200 / 1200 Stool 150 / 150 Stool Amount (Stoma) 250 / 250 Left Lower Abdomen 250 / 250 Wound Drainage 130 / 130 270 / 270 Right Abdomen 130 / 130 270 / 270 Other: Date of Last Bowel Movement 12/17/17 - Constitutional no acute distress - Routine Respiratory Exam Present: CTA bilaterally - Routine Cardiovascular Exam Present: RRR - Routine Abdominal Exam Present: soft (jefferson c/d/i, ostomy pink with liquid, bibi serous ) - Urinary Catheter Management Indwelling Urethral Catheter Cath placed during this visit: no Urethral indwelling: Yes Reason for continuing: Other continuation reason Results - Labs 12/18/17 07:17 12/18/17 07:17 Laboratory Results - last 24 hr 12/15/17 12/18/17 12/18/17 11:45 07:17 07:17 WBC 11.3 H RBC 2.96 L Hgb 9.2 L Hct 27.3 L MCV 92.1 MCH 31.0 MCHC 33.6 RDW 16.1 Plt Count 441 MPV 6.9 L Prelim Diff (Auto) Slide review pending Neut % (Auto) 71.1 H Lymph % (Auto) 15.2 Kerr % (Auto) 12.2 H Eos % (Auto) 1.2 Baso % (Auto) 0.3 Neut # (Auto) 8.0 H Lymph # (Auto) 1.7 Kerr # (Auto) 1.4 H Eos # (Auto) 0.1 Baso # (Auto) 0.0 WBC Differential . Diff Scan Auto diff confirmed Differential Comment . Platelet Estimate High H Platelet Morphology Clumped H PT 11.5 INR 1.1 Sodium Potassium Chloride Carbon Dioxide Anion Gap BUN Creatinine Estimated GFR Random Glucose Calcium Total Bilirubin AST ALT Alkaline Phosphatase Total Protein Albumin MTS Gel Crossmatch See Detail 12/18/17 07:17 WBC RBC Hgb Hct MCV MCH MCHC RDW Plt Count MPV Prelim Diff (Auto) Neut % (Auto) Lymph % (Auto) Kerr % (Auto) Eos % (Auto) Baso % (Auto) Neut # (Auto) Lymph # (Auto) Kerr # (Auto) Eos # (Auto) Baso # (Auto) WBC Differential Diff Scan Differential Comment Platelet Estimate Platelet Morphology PT INR Sodium 141 Potassium 3.2 L Chloride 109 H Carbon Dioxide 22.5 Anion Gap 10 BUN 14 Creatinine 0.94 Estimated GFR 58 L Random Glucose 77 Calcium 7.5 L Total Bilirubin 0.5 AST 18 ALT 15 Alkaline Phosphatase 103 Total Protein 5.6 L Albumin 1.9 L MTS Gel Crossmatch - Imaging Imaging: ITS Impressions Cystogram 12/12/17 14:36 CONCLUSION: Findings indicating urinary bladder leak. There is intraperitoneal leakage of contrast as well as extension of contrast into the lumen of the distal small bowel indicating small bowel leak or fistula. Drainage catheter extends through the defect in the urinary bladder wall into the bladder lumen. Abdomen/Pelvis CT 12/12/17 15:20 CONCLUSION: 1. Intraperitoneal urinary bladder leak/rupture at the superior wall. Adjacent irregularly shaped contrast collection and extension of contrast into the distal small bowel in the area of recent surgery indicating small bowel leak/ fistula. Drainage catheter is seen within the extraluminal contrast collection and extends through the defect in the urinary bladder wall, into the urinary bladder lumen and is looped in the bladder lumen. 2. Bilateral pleural effusions are new right greater than left. Right lower lobe pulmonary atelectasis versus consolidation. 3. Findings were discussed with Dr. Mckeon. Chest X-Ray 12/17/17 00:00 CONCLUSION: 1. Subtle interval enlargement of small bilateral pleural effusions with associated airspace disease in the lower lobes. 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
[2017-12-18] MEDS: Potassium Chloride 25 MEQ Effervescent Tablet PO SCH (14:01)
--- NOTE | 2017-12-18 16:15 | P.PNFP ---
Subjective Interval history: Ms Diop had no acute events overnight. She is awake, alert and oriented today and appears to be improving. Her Hgb is rebounding well enough that we can restart her Eliquis today and will watch her Hgb. We discussed options for discharge and pt would like to take it slow, but medically there is little we will do from this point. We spoke to her surgeon, Dr England, who believes she is stable for discharge to rehab or SNF tomorrow. She feels like the swelling in her legs is resolving well with exception of her feet; there is some swelling in the UEs bilaterally. She denies CP, SOB, N/V/D, and leg pain; however, there is some mild discomfort around her ostomy. <Juancho Shaw III H - 12/18/17 16:15> Results - Labs Result diagrams: 12/18/17 07:17 12/18/17 19:03 <Filiberto Clemens L - 12/18/17 21:44> Abnormal lab results 12/15/17 12/18/17 12/18/17 Range/Units 11:45 07:17 07:17 WBC 11.3 H (4.0-11.0) th/mm3 RBC 2.96 L (4.00-5.30) mil/mm3 Hgb 9.2 L (11.6-15.3) gm/dL Hct 27.3 L (35.0-46.0) % MPV 6.9 L (7.0-11.0) fL Neut % (Auto) 71.1 H (16.0-70.0) % [place] % (Auto) 12.2 H (0.0-8.0) % Neut # (Auto) 8.0 H (1.8-7.7) th/mm3 [place] # (Auto) 1.4 H (0.0-0.9) th/mm3 Platelet Estimate High H (Normal) Platelet Morphology Clumped H (Normal) Potassium 3.2 L (3.5-5.1) meq/L Chloride 109 H (98-107) meq/L Estimated GFR 58 L (>89) mL/min Calcium 7.5 L (8.5-10.1) mg/dL Total Protein 5.6 L (6.4-8.2) g/dL Albumin 1.9 L (3.4-5.0) g/dL MTS Gel Crossmatch See Detail 12/18/17 Range/Units 19:03 WBC (4.0-11.0) th/mm3 RBC (4.00-5.30) mil/mm3 Hgb (11.6-15.3) gm/dL Hct (35.0-46.0) % MPV (7.0-11.0) fL Neut % (Auto) (16.0-70.0) % [place] % (Auto) (0.0-8.0) % Neut # (Auto) (1.8-7.7) th/mm3 [place] # (Auto) (0.0-0.9) th/mm3 Platelet Estimate (Normal) Platelet Morphology (Normal) Potassium 3.4 L (3.5-5.1) meq/L Chloride (98-107) meq/L Estimated GFR (>89) mL/min Calcium (8.5-10.1) mg/dL Total Protein (6.4-8.2) g/dL Albumin (3.4-5.0) g/dL MTS Gel Crossmatch Short CBC 12/18/17 Range/Units 07:17 WBC 11.3 H (4.0-11.0) th/mm3 Hgb 9.2 L (11.6-15.3) gm/dL Hct 27.3 L (35.0-46.0) % Plt Count 441 (150-450) th/mm3 BMP 12/18/17 12/18/17 07:17 19:03 Sodium 141 Potassium 3.2 L 3.4 L Chloride 109 H Carbon Dioxide 22.5 BUN 14 Creatinine 0.94 Calcium 7.5 L Liver Function 12/18/17 Range/Units 07:17 Total Bilirubin 0.5 (0.2-1.0) mg/dL AST 18 (15-37) U/L ALT 15 (10-53) U/L Alkaline Phosphatase 103 (45-117) U/L Albumin 1.9 L (3.4-5.0) g/dL <Filiberto Clemens L - 12/18/17 21:44> Abnormal lab results 12/15/17 12/18/17 12/18/17 Range/Units 11:45 07:17 07:17 WBC 11.3 H (4.0-11.0) th/mm3 RBC 2.96 L (4.00-5.30) mil/mm3 Hgb 9.2 L (11.6-15.3) gm/dL Hct 27.3 L (35.0-46.0) % MPV 6.9 L (7.0-11.0) fL Neut % (Auto) 71.1 H (16.0-70.0) % [place] % (Auto) 12.2 H (0.0-8.0) % Neut # (Auto) 8.0 H (1.8-7.7) th/mm3 [place] # (Auto) 1.4 H (0.0-0.9) th/mm3 Platelet Estimate High H (Normal) Platelet Morphology Clumped H (Normal) Potassium 3.2 L (3.5-5.1) meq/L Chloride 109 H (98-107) meq/L Estimated GFR 58 L (>89) mL/min Calcium 7.5 L (8.5-10.1) mg/dL Total Protein 5.6 L (6.4-8.2) g/dL Albumin 1.9 L (3.4-5.0) g/dL MTS Gel Crossmatch See Detail Short CBC 12/18/17 Range/Units 07:17 WBC 11.3 H (4.0-11.0) th/mm3 Hgb 9.2 L (11.6-15.3) gm/dL Hct 27.3 L (35.0-46.0) % Plt Count 441 (150-450) th/mm3 BMP 12/18/17 07:17 Sodium 141 Potassium 3.2 L Chloride 109 H Carbon Dioxide 22.5 BUN 14 Creatinine 0.94 Calcium 7.5 L Liver Function 12/18/17 Range/Units 07:17 Total Bilirubin 0.5 (0.2-1.0) mg/dL AST 18 (15-37) U/L ALT 15 (10-53) U/L Alkaline Phosphatase 103 (45-117) U/L Albumin 1.9 L (3.4-5.0) g/dL <Colin IIIStepheny H - 12/18/17 16:15> Physical Exam Vital signs: Vital Signs 12/18/17 00:00 12/18/17 08:00 12/18/17 12:00 Temperature 97.1 F L 97.6 F 97.6 F Pulse Rate 80 75 76 Respiratory Rate 18 17 17 Blood Pressure 143/65 H 111/57 L 111/57 L Pulse Oximetry 92 L 91 L 93 L 12/18/17 16:00 12/18/17 18:19 12/18/17 20:00 Temperature 97.8 F 97.8 F Pulse Rate 95 H 103 H Respiratory Rate 17 18 Blood Pressure 101/57 L 99/68 L Pulse Oximetry 92 L 92 L 94 L Intake & Output 12/18/17 12/18/17 12/19/17 06:59 18:59 06:59 Intake Total 200 / 200 1540 / 1540 Output Total 1870 / 1870 850 / 850 230 / 230 Balance -1670 / -1670 690 / 690 -230 / -230 Weight 58.5 kg Intake: IV 200 / 200 100 / 100 Diflucan 200 mg Premix Bag 100 100 / 100 ML @ 100 mls/hr IV.SIG Q24H [facility] Rx#:[id number] Zosyn 3.375 GM Premix 50 ML @ 100 / 100 100 / 100 100 mls/hr IV.SIG Q6H [facility] Rx#: [id number] Oral 1440 / 1440 Output: Urine 1200 / 1200 600 / 600 Stool 150 / 150 250 / 250 Stool Amount (Stoma) 250 / 250 Left Lower Abdomen 250 / 250 Wound Drainage 270 / 270 230 / 230 Right Abdomen 270 / 270 230 / 230 Other: Date of Last Bowel Movement 12/17/17 <Filiberto Clemens L - 12/18/17 21:44> Vital Signs 12/17/17 20:00 12/17/17 20:43 12/18/17 00:00 Temperature 97.7 F 97.1 F L Pulse Rate 95 H 80 Respiratory Rate 18 18 Blood Pressure 119/58 L 143/65 H Pulse Oximetry 91 L 91 L 92 L 12/18/17 08:00 12/18/17 12:00 Temperature 97.6 F 97.6 F Pulse Rate 75 76 Respiratory Rate 17 17 Blood Pressure 111/57 L 111/57 L Pulse Oximetry 91 L 93 L Intake & Output 12/17/17 12/18/17 12/18/17 18:59 06:59 18:59 Intake Total 500 / 500 200 / 200 Output Total 1580 / 1580 1870 / 1870 Balance -1080 / -1080 -1670 / -1670 Weight 61.5 kg 58.5 kg Intake: IV 500 / 500 200 / 200 D5W/Normal Saline Inj 1,000 ML 400 / 400 @ 50 mls/hr IV.CONT .Q20H [facility] Rx#:[id number] Diflucan 200 mg Premix Bag 100 100 / 100 ML @ 100 mls/hr IV.SIG Q24H [facility] Rx#:[id number] Zosyn 3.375 GM Premix 50 ML @ 100 / 100 100 / 100 100 mls/hr IV.SIG Q6H [facility] Rx#: [id number] Output: Urine 1450 / 1450 1200 / 1200 Stool 150 / 150 Stool Amount (Stoma) 250 / 250 Left Lower Abdomen 250 / 250 Wound Drainage 130 / 130 270 / 270 Right Abdomen 130 / 130 270 / 270 Other: Date of Last Bowel Movement 12/17/17 <Juancho Shaw III - 12/18/17 16:15> Narrative: General: Resting comfortably in bed, no acute distress, on 2L NC. Skin: Very mild skin breakdown on RLE below knee about 1 cm in diameter stable from previous exams, multiple small ecchymosis on lower extremities. CV: RRR, no murmurs, rubs, or gallops Lungs: CTAB. No increased WOB. Abdomen: Multiple surgical dressings in place and abdomen. Ileostomy in place on left side of abdomen, draining greenish-brown fluid. No surrounding leakage or erythema. BIJAL drain in place on right side of abdomen, draining serosanguineous fluid, getting roller maker in color by the day. There is mild TTP at the 10 o'clock position around the ostomy without rebound or guarding. Abdomen is nondistended. Ext: 1+ pitting edema, much improved from previous exams. Uro: Ledezma catheter in place, draining yellow urine, no sediment seen. Neuro: AOx3. non-focal. CN II-XII grossly intact. Moves all extremities spontaneously. 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 Status: Acute (2) Lower extremity edema Code(s): R60.0 - Localized edema Status: Acute (3) Ovarian cancer on right Code(s): C56.1 - Malignant neoplasm of right ovary Status: Acute (4) Anemia Code(s): D64.9 - Anemia, unspecified Status: Acute (5) Hypertension Code(s): I10 - Essential (primary) hypertension Status: Chronic (6) Neuropathic pain of both legs Code(s): G57.91 - Unspecified mononeuropathy of right lower limb; G57.92 - Unspecified mononeuropathy of left lower limb Status: Chronic (7) Hypothyroidism Code(s): E03.9 - Hypothyroidism, unspecified Status: Chronic (8) Nutrition, metabolism, and development symptoms Code(s): R63.8 - Other symptoms and signs concerning food and fluid intake Status: Acute <Filiberto Clemens - 12/18/17 21:44> (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 She has remained afebrile and white count within normal limits. Dr England, gen surgery, is comfortable with pt discharging to rehab or SNF tomorrow - Urology (Dr. Bowles) and surgery (Dr. England) following * Ledezma to remain in place for 10 days from 12/16; cystogram to be performed before Ledezma removal - Broad spectrum antibiotics --Zosyn 3.375 g IV q6h, (12/13 - present, 20 doses) --Diflucan 200 mg IV q24h (renally dosed) (2 doses on 12/16 and 12/17) -PT ordered to help with patient's perceived weakness - Loperamide 2 mg PRN for diarrhea - Surgery advanced pt to soft diet - Restart Eliquis 5 mg BID; Hgb stable at 9.2 today History: Has recurrent metastatic ovarian cancer. She had recent small bowel obstruction and required diagnostic laparoscopy. and small bowel bypass, along with adhesiolysis and bladder repair. 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 (2) Lower extremity edema Code(s): R60.0 - Localized edema Status: Acute Plan: Improving -Daily weights to assess for fluid balance, patient's weight has been stable since admission -SCDs and FERMIN hose for compression -Eucerin lotion 2x daily applied to LEs to keep skin hydrated -Elevate legs in recliner -Lasix 20 mg BID -Check BMP in AM (3) Ovarian cancer on right Code(s): C56.1 - Malignant neoplasm of right ovary Status: Acute Plan: History of metastatic ovarian cancer. Currently undergoing oral chemotherapy. Follows with extension educator-oncology. - Continue Percocet for pain management - Zofran as needed for nausea (4) Anemia Code(s): D64.9 - Anemia, unspecified Status: Acute Plan: Resolving -Drop in H/H noted from 9.2 to 7.6 after surgery; Eliquis held; today Hgb rebounding to 9.2 and Eliquis restarted -Follow with daily CBC -Continue to monitor for now - monitor for hematoma (5) Hypertension Code(s): I10 - Essential (primary) hypertension Status: Chronic Plan: -Well-controlled -Continue home metoprolol (6) Neuropathic pain of both legs Code(s): G57.91 - Unspecified mononeuropathy of right lower limb; G57.92 - Unspecified mononeuropathy of left lower limb Status: Chronic Plan: -Continue home Cymbalta (7) Hypothyroidism Code(s): E03.9 - Hypothyroidism, unspecified Status: Chronic Plan: -Continue home Levothyroxine (8) Nutrition, metabolism, and development symptoms Code(s): R63.8 - Other symptoms and signs concerning food and fluid intake Status: Acute Plan: Fluids: oral fluids only Diet: Soft diet per surgery; Boost chocolate supplement Electrolytes: Replete as necessary. Monitor hypocalcemia DVT prophylaxis: SCDs, FERMIN hose, restart Eliquis 5 mg BID as above <Juancho Shaw III - 12/18/17 17:03> - Attending Attestation The exam, history, and the medical decision-making described in the above note were completed with the assistance of the resident physician. I reviewed and agree with the findings presented. I attest that I had a [id number] encounter with the patient on the same day, and personally performed and documented my assessment and findings in the medical record. Patient seen and examined with resident/medical student team this morning. She presented with vesicoenteral fistula and she is status post take down of that fistula, including small bowel resection, creation of ileostomy, and bladder repair. She reports she is doing well overall. Had some mild lower abdominal pain without signs of peritonitis. BIJAL drain still in place, fluid getting roller maker each day and minimal drainage this morning. Ledezma remains in place, with plan for removal on 12/26, likely as an outpatient, with cystogram to assess integrity of bladder. Will follow up with general surgery and urology as an outpatient, along with continuing chemotherapy and following with oncology for metastatic ovarian cancer. Plan for discharge to rehab or a [facility] facility, will coordinate with case management. <Filiberto Clemens - 12/18/17 21:44> <Juancho Shaw III H - Last Filed: 12/18/17 17:03> (4) Anemia Qualifiers: Anemia type: unspecified type Qualified Code(s): D64.9 - Anemia, unspecified (5) Hypertension Qualifiers: Hypertension type: unspecified Qualified Code(s): I10 - Essential (primary) hypertension (7) Hypothyroidism Qualifiers: Hypothyroidism type: unspecified Qualified Code(s): E03.9 - Hypothyroidism, unspecified <Filiberto Clemens - Last Filed: 12/18/17 21:44> (4) Anemia Qualifiers: Anemia type: unspecified type Qualified Code(s): D64.9 - Anemia, unspecified (5) Hypertension Qualifiers: Hypertension type: unspecified Qualified Code(s): I10 - Essential (primary) hypertension (7) Hypothyroidism Qualifiers: Hypothyroidism type: unspecified Qualified Code(s): E03.9 - Hypothyroidism, unspecified <Juancho Shaw III H - Last Filed: 12/18/17 17:03> (4) Anemia Qualifiers: Anemia type: unspecified type Qualified Code(s): D64.9 - Anemia, unspecified (5) Hypertension Qualifiers: Hypertension type: unspecified Qualified Code(s): I10 - Essential (primary) hypertension (7) Hypothyroidism Qualifiers: Hypothyroidism type: unspecified Qualified Code(s): E03.9 - Hypothyroidism, unspecified <Filiberto Clemens - Last Filed: 12/18/17 21:44> (4) Anemia Qualifiers: Anemia type: unspecified type Qualified Code(s): D64.9 - Anemia, unspecified (5) Hypertension Qualifiers: Hypertension type: unspecified Qualified Code(s): I10 - Essential (primary) hypertension (7) Hypothyroidism Qualifiers: Hypothyroidism type: unspecified Qualified Code(s): E03.9 - Hypothyroidism, unspecified
--- NOTE | 2017-12-18 16:54 | P.PNWCN ---
Wound Care Nurse Consult Description: Consult for New Ostomy Teaching of end ileostomy per ARTUR Jackson Communicated with: JAM Sparks to pass in report that patient should be emptying pouch with assistance MONICA Kaye who did not know patient had an ileostomy Patient was educated on the need to check stoma and pouch approximately every 2 hours while awake Recommendation: Moldable pouching system using 1 3/4" wafer to be changed Q3D and PRN for leaks Empty pouch when 1/3-1/2 full of effluent, before bedtime, and first thing when waking up, to avoid spontaneous lifting of wafer Additional information: Patient seen on for reinforcement of ostomy teaching and assessment Bowel Diversion Stoma - Bowel Stoma Left Lower Abdomen Stoma Appearance: Round (red, moist, functioning) Collection Device: Two-piece Drainage Description: Liquid, Green Wafer Size: 1 3/4 Moldable 45mm
[2017-12-18] MEDS: Furosemide 20 MG Tablet PO SCH (18:03)
[2017-12-18] MEDS: Temazepam 15 MG Capsule PO SCH (21:17)
[2017-12-19] MEDS: Piperacil/Tazo 3.375 GM Premix 50 ML IV.SIG SCH ×2 (04:15→14:52)
[2017-12-19] MEDS: Levothyroxine 50 MCG Tablet PO SCH ×2 (04:15→05:20)
[2017-12-19 05:12] LABS: Baso % (Auto) 0.3 % (0.0-2.0); Eos # (Auto) 0.3 th/mm3 (0.0-0.4); Eos % (Auto) 3.5 % (0.0-4.0); Hematocrit 24.5 % (35.0-46.0); Hemoglobin 8.3 gm/dL (11.6-15.3); Lymph # (Auto) 1.8 th/mm3 (1.0-4.8); Lymph % (Auto) 21.8 % (9.0-44.0); Mean Corpuscular HGB Conc 33.7 % (32.0-36.0); Mean Corpuscular Hemoglobin 31.2 pg (27.0-34.0); Mean Corpuscular Volume 92.5 fL (80.0-100.0); Mean Platelet Volume 6.7 fL (7.0-11.0); Mono # (Auto) 0.9 th/mm3 (0.0-0.9); Mono % (Auto) 11.1 % (0.0-8.0); Neut # (Auto) 5.4 th/mm3 (1.8-7.7); Neut % (Auto) 63.3 % (16.0-70.0); Platelet Count 438 th/mm3 (150-450); Red Blood Count 2.65 mil/mm3 (4.00-5.30); Red Cell Distribution Width 16.5 % (11.6-17.2); White Blood Count 8.5 th/mm3 (4.0-11.0)
[2017-12-19 05:22] LABS: Alanine Aminotransferase 14 U/L (10-53); Albumin 1.9 g/dL (3.4-5.0); Anion Gap 8 meq/L (5-15); Aspartate Aminotransferase 17 U/L (15-37); Blood Urea Nitrogen 11 mg/dL (7-18); Calcium 7.7 mg/dL (8.5-10.1); Carbon Dioxide 29.8 meq/L (21.0-32.0); Chloride 104 meq/L (98-107); Glomerular Filtration Rate 66 mL/min (>89); Glucose,Random 97 mg/dL (74-106); Potassium 3.2 meq/L (3.5-5.1); Sodium 142 meq/L (136-145)
[2017-12-19 05:24] LABS: Alkaline Phosphatase 109 U/L (45-117); Total Protein 5.6 g/dL (6.4-8.2)
[2017-12-19 05:31] LABS: Calcium 7.7 mg/dL (8.5-10.1); Total Protein 5.6 g/dL (6.4-8.2)
[2017-12-19 08:21] VITALS: RESP 17
[2017-12-19] MEDS: Metoprolol Tartrate 50 MG Tablet PO SCH (09:32)
[2017-12-19] MEDS: Potassium Chloride 25 MEQ Effervescent Tablet PO SCH (09:32)
[2017-12-19] MEDS: Furosemide 20 MG Tablet PO SCH ×2 (09:35→19:41)
--- NOTE | 2017-12-19 09:36 | P.PNURO ---
Subjective Patient symptoms today: Pt feels well. No complaints. Objective Vital Signs: Vital Signs 12/18/17 12:00 12/18/17 16:00 12/18/17 18:19 Temperature 97.6 F 97.8 F Pulse Rate 76 95 H Respiratory Rate 17 17 Blood Pressure 111/57 L 101/57 L Pulse Oximetry 93 L 92 L 92 L 12/18/17 20:00 12/18/17 21:15 12/19/17 00:38 Temperature 97.8 F 98.0 F Pulse Rate 103 H 92 H Respiratory Rate 18 18 Blood Pressure 99/68 L 123/57 L Pulse Oximetry 94 L 97 94 L 12/19/17 08:00 Temperature 98.0 F Pulse Rate 95 H Respiratory Rate 17 Blood Pressure 150/76 H Pulse Oximetry 93 L Intake & Output 12/18/17 12/19/17 12/19/17 18:59 06:59 18:59 Intake Total 1540 / 1540 440 / 440 Output Total 850 / 850 3160 / 3160 Balance 690 / 690 -2720 / -2720 Weight 58.5 kg Intake: IV 100 / 100 200 / 200 Diflucan 200 mg Premix Bag 100 100 / 100 ML @ 100 mls/hr IV.SIG Q24H [facility] Rx#:[id number] Zosyn 3.375 GM Premix 50 ML @ 100 / 100 100 / 100 100 mls/hr IV.SIG Q6H [facility] Rx#: [id number] Oral 1440 / 1440 240 / 240 Output: Urine 600 / 600 Stool 250 / 250 Urine Amount (Catheter) 1999 Indwelling Urethral Catheter 1999 Stool Amount (Stoma) 850 / 850 Left Lower Abdomen 850 / 850 Wound Drainage 310 / 310 Right Abdomen 310 / 310 Other: Date of Last Bowel Movement 12/18/17 Result Diagrams: 12/19/17 04:34 12/19/17 04:34 Medications and IVs: Active Medications Generic Name Dose Route Start Last Admin Trade Name Freq PRN Reason Stop Dose Admin Acetaminophen 650 mg 12/12/17 21:36 Tylenol PO Q6HR PRN PAIN SCALE 1 TO 2 Hydrocodone Bitart/Acetaminophen 1 tab 12/12/17 21:36 12/18/17 18:03 [place] 7.5/325 PO 1 tab Q4H PRN Administration PAIN SCALE 6 TO 10 Apixaban 5 mg 12/18/17 11:00 12/19/17 09:32 Eliquis PO 5 mg BID [facility] Administration Artificial Tears 1 applicatio 12/14/17 11:00 12/19/17 09:33 Eucerin Cream TOPICAL 1 applicatio BID [facility] Administration Duloxetine HCl 60 mg 12/12/17 21:00 12/19/17 09:32 Cymbalta PO 60 mg DAILY [facility] Administration Furosemide 20 mg 12/18/17 18:00 12/18/17 18:03 Lasix PO 20 mg BID@0900,1800 [facility] Administration Piperacillin/Tazobactam/Dextrose 50 mls @ 100 mls/hr 12/13/17 17:00 12/19/17 04:45 Zosyn 3.375 Gm Premix IV.SIG Infused Q6H [facility] Infusion Fluconazole 100 mls @ 100 mls/hr 12/16/17 20:00 12/18/17 22:18 Diflucan 200 Mg Premix Bag IV.SIG Infused Q24H [facility] Infusion Levothyroxine Sodium 50 mcg 12/13/17 06:00 12/19/17 05:20 Synthroid PO Not Given DAILY@0600 [facility] Loperamide HCl 2 mg 12/13/17 09:07 Imodium PO UNSCH PRN DIARRHEA Metoprolol Tartrate 50 mg 12/13/17 09:00 12/19/17 09:32 Lopressor PO 50 mg DAILY [facility] Administration Morphine Sulfate 4 mg 12/12/17 21:36 Morphine Inj IV.PUSH Q3H PRN BREAKTHROUGH PAIN Naloxone HCl 0.4 mg 12/12/17 21:36 Narcan Inj IV.PUSH UNSCH PRN SEE LABEL COMMENTS Ondansetron HCl 4 mg 12/12/17 19:07 Zofran Odt PO Q4H PRN NAUSEA Oxycodone/Acetaminophen 1 tab 12/12/17 18:01 Percocet 5/325 Mg PO Q4HR PRN PAIN SCALE 3 TO 5 Potassium Bicarb/Potassium Chloride 25 meq 12/18/17 11:00 12/19/17 09:32 K-Lyte Cl Eff PO 25 meq DAILY [facility] Administration Sodium Chloride 2 ml 12/12/17 14:23 Ns Flush IV.FLUSH UNSCH PRN FLUSH AFTER USING IV ACCESS Temazepam 15 mg 12/12/17 21:00 12/18/17 21:17 Restoril PO 15 mg HS [facility] Administration Objective Remarks: Abd:soft,nt,nd Scott: yellowish fluid 12/16 abd:soft,nt,nd Scott: urine clear 12/17 abd:soft,nt,nd Scott: urine clear Ext: 2+ edema 12/19 abd:soft,nt,nd Scott: urine clear Ext: 1+ edema Assessment and Plan - Plan 77 y.o female with 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 D/W Dr. England. 12/16 Stable s/p bladder repair yesterday by Dr. Banegas Maintain scott for 10 days Perform cystogram at that time prior to removing scott catheter. 12/17 Stable s/p bladder repair by Dr. Banegas/Tomás Maintain scott for 10 days Perform cystogram at that time prior to removing scott catheter. 12/19 Stable s/p bladder repair by Dr. Banegas/Tomás Maintain scott for 10 days Perform cystogram next as outpt.
--- NOTE | 2017-12-19 09:48 | P.DCO ---
- Physical Therapy Order: Evaluate and treat, Improve ambulation, Strength and gait training - Occupational Therapy Order: Evaluate and treat - Home Health Nursing Order: Wound care and dressing changes, Ledezma catheter maintenance Instructions: Education and help with ileostomy maintenance - Home Health Aide Order: To assist in: Bathing and personal care - Case Management Consult Yes - Certification I have seen patient Brenda Diop on 12/19/17. My clinical findings support the need for the requested home health care services because: Limited mobility due to disease progression, Deconditioned with increased weakness, High risk of falls I certify that my clinical findings support that this patient is homebound because: Post-op weakness, Unsteady gait/balance
--- NOTE | 2017-12-19 11:11 | P.PNFP ---
Subjective Interval history: Ms Diop was seen on rounds this morning. She reports no overnight events. She reports minimal abdominal discomfort surgical sites. She reports continued leg swelling that she does believe it has improved. She says she still feels weak when attempting to get out of bed. PT worked with her yesterday. she denies nausea, vomiting, shortness of breath. She reports that she feels ready to go home with home health and home PT. <Mary Mena E - 12/19/17 11:11> Results - Labs Result diagrams: 12/19/17 04:34 12/19/17 04:34 <Filiberto Clemens - 12/19/17 12:35> Abnormal lab results 12/18/17 12/19/17 12/19/17 Range/Units 19:03 04:34 04:34 RBC 2.65 L (4.00-5.30) mil/mm3 Hgb 8.3 L (11.6-15.3) gm/dL Hct 24.5 L (35.0-46.0) % MPV 6.7 L (7.0-11.0) fL [place] % (Auto) 11.1 H (0.0-8.0) % Potassium 3.4 L 3.2 L (3.5-5.1) meq/L Estimated GFR 66 L (>89) mL/min Calcium 7.7 L (8.5-10.1) mg/dL Total Protein 5.6 L (6.4-8.2) g/dL Albumin 1.9 L (3.4-5.0) g/dL 12/19/17 Range/Units 04:34 RBC (4.00-5.30) mil/mm3 Hgb (11.6-15.3) gm/dL Hct (35.0-46.0) % MPV (7.0-11.0) fL [place] % (Auto) (0.0-8.0) % Potassium (3.5-5.1) meq/L Estimated GFR (>89) mL/min Calcium 7.7 L (8.5-10.1) mg/dL Total Protein 5.6 L (6.4-8.2) g/dL Albumin (3.4-5.0) g/dL Short CBC 12/19/17 Range/Units 04:34 WBC 8.5 (4.0-11.0) th/mm3 Hgb 8.3 L (11.6-15.3) gm/dL Hct 24.5 L (35.0-46.0) % Plt Count 438 (150-450) th/mm3 BMP 12/18/17 12/19/17 12/19/17 19:03 04:34 04:34 Sodium 142 Potassium 3.4 L 3.2 L Chloride 104 Carbon Dioxide 29.8 BUN 11 Creatinine 0.84 Calcium 7.7 L 7.7 L Liver Function 12/19/17 Range/Units 04:34 Total Bilirubin 0.5 (0.2-1.0) mg/dL AST 17 (15-37) U/L ALT 14 (10-53) U/L Alkaline Phosphatase 109 (45-117) U/L Albumin 1.9 L (3.4-5.0) g/dL <Young,Filiberto L - 12/19/17 12:35> Abnormal lab results 12/18/17 12/19/17 12/19/17 Range/Units 19:03 04:34 04:34 RBC 2.65 L (4.00-5.30) mil/mm3 Hgb 8.3 L (11.6-15.3) gm/dL Hct 24.5 L (35.0-46.0) % MPV 6.7 L (7.0-11.0) fL [place] % (Auto) 11.1 H (0.0-8.0) % Potassium 3.4 L 3.2 L (3.5-5.1) meq/L Estimated GFR 66 L (>89) mL/min Calcium 7.7 L (8.5-10.1) mg/dL Total Protein 5.6 L (6.4-8.2) g/dL Albumin 1.9 L (3.4-5.0) g/dL 12/19/17 Range/Units 04:34 RBC (4.00-5.30) mil/mm3 Hgb (11.6-15.3) gm/dL Hct (35.0-46.0) % MPV (7.0-11.0) fL [place] % (Auto) (0.0-8.0) % Potassium (3.5-5.1) meq/L Estimated GFR (>89) mL/min Calcium 7.7 L (8.5-10.1) mg/dL Total Protein 5.6 L (6.4-8.2) g/dL Albumin (3.4-5.0) g/dL Short CBC 12/19/17 Range/Units 04:34 WBC 8.5 (4.0-11.0) th/mm3 Hgb 8.3 L (11.6-15.3) gm/dL Hct 24.5 L (35.0-46.0) % Plt Count 438 (150-450) th/mm3 BMP 12/18/17 12/19/17 12/19/17 19:03 04:34 04:34 Sodium 142 Potassium 3.4 L 3.2 L Chloride 104 Carbon Dioxide 29.8 BUN 11 Creatinine 0.84 Calcium 7.7 L 7.7 L Liver Function 12/19/17 Range/Units 04:34 Total Bilirubin 0.5 (0.2-1.0) mg/dL AST 17 (15-37) U/L ALT 14 (10-53) U/L Alkaline Phosphatase 109 (45-117) U/L Albumin 1.9 L (3.4-5.0) g/dL <Mary Mena - 12/19/17 11:11> Physical Exam Vital signs: Vital Signs 12/18/17 16:00 12/18/17 18:19 12/18/17 20:00 Temperature 97.8 F 97.8 F Pulse Rate 95 H 103 H Respiratory Rate 17 18 Blood Pressure 101/57 L 99/68 L Pulse Oximetry 92 L 92 L 94 L Pulse Oximetry [Exertion on Room Air] Pulse Oximetry [Resting on Room Air] Pulse Oximetry [Resting with Oxygen] 12/18/17 21:15 12/19/17 00:38 12/19/17 08:00 Temperature 98.0 F 98.0 F Pulse Rate 92 H 95 H Respiratory Rate 18 17 Blood Pressure 123/57 L 150/76 H Pulse Oximetry 97 94 L 93 L Pulse Oximetry [Exertion on Room Air] Pulse Oximetry [Resting on Room Air] Pulse Oximetry [Resting with Oxygen] 12/19/17 09:46 12/19/17 12:00 Temperature 98.0 F Pulse Rate 100 H Respiratory Rate 17 Blood Pressure 111/64 Pulse Oximetry 94 L Pulse Oximetry [Exertion on Room Air] 82 L Pulse Oximetry [Resting on Room Air] 90 L Pulse Oximetry [Resting with Oxygen] 95 Intake & Output 12/18/17 12/19/17 12/19/17 18:59 06:59 18:59 Intake Total 1540 / 1540 440 / 440 Output Total 850 / 850 3160 / 3160 Balance 690 / 690 -2720 / -2720 Weight 58.5 kg Intake: IV 100 / 100 200 / 200 Diflucan 200 mg Premix Bag 100 100 / 100 ML @ 100 mls/hr IV.SIG Q24H [facility] Rx#:[id number] Zosyn 3.375 GM Premix 50 ML @ 100 / 100 100 / 100 100 mls/hr IV.SIG Q6H [facility] Rx#: [id number] Oral 1440 / 1440 240 / 240 Output: Urine 600 / 600 Stool 250 / 250 Urine Amount (Catheter) 1999 Indwelling Urethral Catheter 1999 Stool Amount (Stoma) 850 / 850 Left Lower Abdomen 850 / 850 Wound Drainage 310 / 310 Right Abdomen 310 / 310 Other: Date of Last Bowel Movement 12/18/17 <Filiberto Clemens L - 12/19/17 12:35> Vital Signs 12/18/17 12:00 12/18/17 16:00 12/18/17 18:19 Temperature 97.6 F 97.8 F Pulse Rate 76 95 H Respiratory Rate 17 17 Blood Pressure 111/57 L 101/57 L Pulse Oximetry 93 L 92 L 92 L 12/18/17 20:00 12/18/17 21:15 12/19/17 00:38 Temperature 97.8 F 98.0 F Pulse Rate 103 H 92 H Respiratory Rate 18 18 Blood Pressure 99/68 L 123/57 L Pulse Oximetry 94 L 97 94 L 12/19/17 08:00 Temperature 98.0 F Pulse Rate 95 H Respiratory Rate 17 Blood Pressure 150/76 H Pulse Oximetry 93 L Intake & Output 12/18/17 12/19/17 12/19/17 18:59 06:59 18:59 Intake Total 1540 / 1540 440 / 440 Output Total 850 / 850 3160 / 3160 Balance 690 / 690 -2720 / -2720 Weight 58.5 kg Intake: IV 100 / 100 200 / 200 Diflucan 200 mg Premix Bag 100 100 / 100 ML @ 100 mls/hr IV.SIG Q24H [facility] Rx#:[id number] Zosyn 3.375 GM Premix 50 ML @ 100 / 100 100 / 100 100 mls/hr IV.SIG Q6H [facility] Rx#: [id number] Oral 1440 / 1440 240 / 240 Output: Urine 600 / 600 Stool 250 / 250 Urine Amount (Catheter) 1999 Indwelling Urethral Catheter 1999 Stool Amount (Stoma) 850 / 850 Left Lower Abdomen 850 / 850 Wound Drainage 310 / 310 Right Abdomen 310 / 310 Other: Date of Last Bowel Movement 12/18/17 <Mary Mena 12/19/17 11:11> Narrative: General: Sitting on the side of the bed, comfortable. No acute distress. Skin: Very mild skin breakdown on RLE below knee about 1 cm in diameter stable from previous exams, multiple small ecchymosis on lower extremities. CV: RRR, no murmurs, rubs, or gallops Lungs: CTAB. No increased WOB. Abdomen: Multiple surgical dressings in place and abdomen. Ileostomy in place on left side of abdomen, draining brown fluid. No surrounding leakage or erythema. BIJAL drain in place on right side of abdomen, draining serosanguineous fluid. Abdomen is non-tender nondistended. Ext: 1+ pitting edema, stable from previous exam. Uro: Ledezma catheter in place, draining light yellow urine, no sediment seen. Neuro: AOx3. non-focal. CN II-XII grossly intact. Moves all extremities spontaneously. 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 Status: Acute (2) Lower extremity edema Code(s): R60.0 - Localized edema Status: Acute (3) Ovarian cancer on right Code(s): C56.1 - Malignant neoplasm of right ovary Status: Acute (4) Anemia Code(s): D64.9 - Anemia, unspecified Status: Acute (5) Hypertension Code(s): I10 - Essential (primary) hypertension Status: Chronic (6) Neuropathic pain of both legs Code(s): G57.91 - Unspecified mononeuropathy of right lower limb; G57.92 - Unspecified mononeuropathy of left lower limb Status: Chronic (7) Hypothyroidism Code(s): E03.9 - Hypothyroidism, unspecified Status: Chronic (8) Nutrition, metabolism, and development symptoms Code(s): R63.8 - Other symptoms and signs concerning food and fluid intake Status: Acute <Filiberto Clemens - 12/19/17 12:35> (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 She has remained afebrile and white count within normal limits. Spoke with Dr. England and Dr. Bowles who are both comfortable with patient discharging and following up on outpatient basis. - Urology (Dr. Bowles) and surgery (Dr. England) following * Ledezma to remain in place for 10 days from 12/16; cystogram to be performed before Ledezma removal * Plans to follow-up with Dr. England on Friday * Follow up with Dr. Bowles -Per surgery recommendations patient to be discharged on 5 days of Augmentin -PT ordered to help with patient's perceived weakness, was sent home with home PT - Loperamide 2 mg PRN for diarrhea -Soft diet -Eliquis 5 mg twice daily History: Has recurrent metastatic ovarian cancer. She had recent small bowel obstruction and required diagnostic laparoscopy. and small bowel bypass, along with adhesiolysis and bladder repair. 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 (2) Lower extremity edema Code(s): R60.0 - Localized edema Status: Acute Plan: Improving -Daily weights to assess for fluid balance, patient's weight has been stable since admission -SCDs and FERMIN hose for compression -Eucerin lotion 2x daily applied to LEs to keep skin hydrated -Elevate legs in recliner -Lasix 20 mg BID, was sent home with Rx for Lasix and potassium replacement and an Rx for outpatient BMP (3) Ovarian cancer on right Code(s): C56.1 - Malignant neoplasm of right ovary Status: Acute Plan: History of metastatic ovarian cancer. Currently undergoing oral chemotherapy. Follows with obstetrician gynecologist-oncology. - Continue Percocet for pain management - Zofran as needed for nausea (4) Anemia Code(s): D64.9 - Anemia, unspecified Status: Acute Plan: Resolving -Drop in H/H noted from 9.2 to 7.6 after surgery; hemoglobin rebounding so Eliquis restarted -No evidence of hematoma, surgery okay with continuing Eliquis (5) Hypertension Code(s): I10 - Essential (primary) hypertension Status: Chronic Plan: -Well-controlled -Continue home metoprolol (6) Neuropathic pain of both legs Code(s): G57.91 - Unspecified mononeuropathy of right lower limb; G57.92 - Unspecified mononeuropathy of left lower limb Status: Chronic Plan: -Continue home Cymbalta (7) Hypothyroidism Code(s): E03.9 - Hypothyroidism, unspecified Status: Chronic Plan: -Continue home Levothyroxine (8) Nutrition, metabolism, and development symptoms Code(s): R63.8 - Other symptoms and signs concerning food and fluid intake Status: Acute Plan: Fluids: oral fluids only Diet: Soft diet per surgery; Boost chocolate supplement Electrolytes: Replete as necessary. DVT prophylaxis: SCDs, FERMIN joyae, restart Eliquis 5 mg BID as above <Mary Mena - 12/19/17 11:13> - Assessment and Plan Discussed Condition With: Dr Clemens <Mary Mena - 12/19/17 11:19> Discharge Planning: Discussed patient with Dr. England and Dr. Bowles both cleared patient for discharge with home health and close outpatient follow-up <Mary Mena 12/19/17 11:19> - Attending Attestation The exam, history, and the medical decision-making described in the above note were completed with the assistance of the resident physician. I reviewed and agree with the findings presented. I attest that I had a [id number] encounter with the patient on the same day, and personally performed and documented my assessment and findings in the medical record. Patient seen and examined with resident and medical student this morning. She reports she is doing well this morning. She is cleared from surgery and urology standpoint. She has follow up with them arranged. She also will follow up regarding ovarian cancer and chemotherapy. Discharge plans discussed at length with her. She will receive home health with PT when she leaves. Ledezma catheter to remain in place until she follows with urology. She remains hemodynamically stable. She is requiring O2 at home, which we will order. <Filiberto Clemens - 12/19/17 12:35> <Mary Mena E - Last Filed: 12/19/17 11:13> (4) Anemia Qualifiers: Anemia type: unspecified type Qualified Code(s): D64.9 - Anemia, unspecified (5) Hypertension Qualifiers: Hypertension type: unspecified Qualified Code(s): I10 - Essential (primary) hypertension (7) Hypothyroidism Qualifiers: Hypothyroidism type: unspecified Qualified Code(s): E03.9 - Hypothyroidism, unspecified <SarathFiliberto So - Last Filed: 12/19/17 12:35> (4) Anemia Qualifiers: Anemia type: unspecified type Qualified Code(s): D64.9 - Anemia, unspecified (5) Hypertension Qualifiers: Hypertension type: unspecified Qualified Code(s): I10 - Essential (primary) hypertension (7) Hypothyroidism Qualifiers: Hypothyroidism type: unspecified Qualified Code(s): E03.9 - Hypothyroidism, unspecified <TrinaMary E - Last Filed: 12/19/17 11:13> (4) Anemia Qualifiers: Anemia type: unspecified type Qualified Code(s): D64.9 - Anemia, unspecified (5) Hypertension Qualifiers: Hypertension type: unspecified Qualified Code(s): I10 - Essential (primary) hypertension (7) Hypothyroidism Qualifiers: Hypothyroidism type: unspecified Qualified Code(s): E03.9 - Hypothyroidism, unspecified <Filiberto Clemens - Last Filed: 12/19/17 12:35> (4) Anemia Qualifiers: Anemia type: unspecified type Qualified Code(s): D64.9 - Anemia, unspecified (5) Hypertension Qualifiers: Hypertension type: unspecified Qualified Code(s): I10 - Essential (primary) hypertension (7) Hypothyroidism Qualifiers: Hypothyroidism type: unspecified Qualified Code(s): E03.9 - Hypothyroidism, unspecified
--- NOTE | 2017-12-19 11:34 | P.PNGS ---
Subjective Patient reports: feels better, pain is less, tolerating a regular diet Physical Exam Vital signs: Vital Signs 12/18/17 12:00 12/18/17 16:00 12/18/17 18:19 Temperature 97.6 F 97.8 F Pulse Rate 76 95 H Respiratory Rate 17 17 Blood Pressure 111/57 L 101/57 L Pulse Oximetry 93 L 92 L 92 L 12/18/17 20:00 12/18/17 21:15 12/19/17 00:38 Temperature 97.8 F 98.0 F Pulse Rate 103 H 92 H Respiratory Rate 18 18 Blood Pressure 99/68 L 123/57 L Pulse Oximetry 94 L 97 94 L 12/19/17 08:00 Temperature 98.0 F Pulse Rate 95 H Respiratory Rate 17 Blood Pressure 150/76 H Pulse Oximetry 93 L Intake & Output 12/18/17 12/19/17 12/19/17 18:59 06:59 18:59 Intake Total 1540 / 1540 440 / 440 Output Total 850 / 850 3160 / 3160 Balance 690 / 690 -2720 / -2720 Weight 58.5 kg Intake: IV 100 / 100 200 / 200 Diflucan 200 mg Premix Bag 100 100 / 100 ML @ 100 mls/hr IV.SIG Q24H [facility] Rx#:[id number] Zosyn 3.375 GM Premix 50 ML @ 100 / 100 100 / 100 100 mls/hr IV.SIG Q6H [facility] Rx#: [id number] Oral 1440 / 1440 240 / 240 Output: Urine 600 / 600 Stool 250 / 250 Urine Amount (Catheter) 1999 Indwelling Urethral Catheter 1999 Stool Amount (Stoma) 850 / 850 Left Lower Abdomen 850 / 850 Wound Drainage 310 / 310 Right Abdomen 310 / 310 Other: Date of Last Bowel Movement 12/18/17 - Constitutional no acute distress - Routine Respiratory Exam Present: CTA bilaterally - Routine Cardiovascular Exam Present: RRR - Routine Abdominal Exam Present: soft (incision c/d/i, bibi serous, ostomy pink with stool) - Urinary Catheter Management Indwelling Urethral Catheter Cath placed during this visit: no Urethral indwelling: Yes Reason for continuing: Other continuation reason Results - Labs 12/19/17 04:34 12/19/17 04:34 Laboratory Results - last 24 hr 12/18/17 12/19/17 12/19/17 19:03 04:34 04:34 WBC 8.5 RBC 2.65 L Hgb 8.3 L Hct 24.5 L MCV 92.5 MCH 31.2 MCHC 33.7 RDW 16.5 Plt Count 438 MPV 6.7 L Neut % (Auto) 63.3 Lymph % (Auto) 21.8 [place] % (Auto) 11.1 H Eos % (Auto) 3.5 Baso % (Auto) 0.3 Neut # (Auto) 5.4 Lymph # (Auto) 1.8 [place] # (Auto) 0.9 Eos # (Auto) 0.3 Baso # (Auto) 0.0 WBC Differential . Differential Comment Auto diff final Sodium 142 Potassium 3.4 L 3.2 L Chloride 104 Carbon Dioxide 29.8 Anion Gap 8 BUN 11 Creatinine 0.84 Estimated GFR 66 L Random Glucose 97 Calcium 7.7 L Prot Corrected Calcium Total Bilirubin 0.5 AST 17 ALT 14 Alkaline Phosphatase 109 Total Protein 5.6 L Albumin 1.9 L Rashida-Renal Creatinine 12/19/17 12/19/17 04:34 09:44 WBC RBC Hgb Hct MCV MCH MCHC RDW Plt Count MPV Neut % (Auto) Lymph % (Auto) [place] % (Auto) Eos % (Auto) Baso % (Auto) Neut # (Auto) Lymph # (Auto) [place] # (Auto) Eos # (Auto) Baso # (Auto) WBC Differential Differential Comment Sodium Potassium Chloride Carbon Dioxide Anion Gap BUN Creatinine Estimated GFR Random Glucose Calcium 7.7 L Prot Corrected Calcium 8.6 D Total Bilirubin AST ALT Alkaline Phosphatase Total Protein 5.6 L Albumin Rashida-Renal Creatinine 11.57 - Imaging Imaging: ITS Impressions Cystogram 12/12/17 14:36 CONCLUSION: Findings indicating urinary bladder leak. There is intraperitoneal leakage of contrast as well as extension of contrast into the lumen of the distal small bowel indicating small bowel leak or fistula. Drainage catheter extends through the defect in the urinary bladder wall into the bladder lumen. Abdomen/Pelvis CT 12/12/17 15:20 CONCLUSION: 1. Intraperitoneal urinary bladder leak/rupture at the superior wall. Adjacent irregularly shaped contrast collection and extension of contrast into the distal small bowel in the area of recent surgery indicating small bowel leak/ fistula. Drainage catheter is seen within the extraluminal contrast collection and extends through the defect in the urinary bladder wall, into the urinary bladder lumen and is looped in the bladder lumen. 2. Bilateral pleural effusions are new right greater than left. Right lower lobe pulmonary atelectasis versus consolidation. 3. Findings were discussed with Dr. Mckeon. Chest X-Ray 12/17/17 00:00 CONCLUSION: 1. Subtle interval enlargement of small bilateral pleural effusions with associated airspace disease in the lower lobes. 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
--- NOTE | 2017-12-19 11:52 | P.PNWCN ---
Wound Care Nurse Consult Description: Consult for New Ostomy Teaching of end ileostomy per ARTUR Jackson Communicated with: JAM Bishop Recommendation: Moldable pouching system using 1 3/4" wafer to be changed Q3D and PRN for leaks Empty pouch when 1/3-1/2 full of effluent, before bedtime, and first thing when waking up, to avoid spontaneous lifting of wafer Additional information: Supplies ordered for patient to go home with at discharge. Kit sent to home via 2 day air mail [employer] to arrive by Friday12/23/17
--- NOTE | 2017-12-19 15:10 | P.DS ---
Date of admission: 12/12/17 17:23 Primary care physician: PROVIDER NON STAFF Brief History from admission: Ms Diop is a 77yof here for admission on recommendation from Dr. England. Small bowel bypass and bladder repair early November. At follow-up with Dr. England today he was concerned with "what was in the bag" (Ledezma). Patient reports that the color in the bag has been darkening over the past few days. No odor noted. Patient also reports swelling in hands and feet. Appetite is improving since surgery, minimal RUQ abdominal pain worse with movement but no association with food. Denies nausea, vomiting, fevers, chills. Reports diarrhea , stable since her surgery. 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 HTN Hypothyroid Neuropathy, chemo related Meds: Levothyroxine Cymbalta Oxycodone Metoprolol Eliquis Sx: Hysterectomy salpingoopherectomy Bowel resection Back surgery FMH: Father stomach cancer Mom- [place] Social: EtOH- nothing since cancer diagnosis Tobacco never smoker Recreational drugs- none DS: Diagnosis - Discharge Diagnosis (1) Vesico-intestinal fistula Status: Acute (2) Lower extremity edema Status: Acute (3) Ovarian cancer on right Status: Acute (4) Anemia Status: Acute (5) Hypertension Status: Chronic (6) Neuropathic pain of both legs Status: Chronic (7) Hypothyroidism Status: Chronic (8) Nutrition, metabolism, and development symptoms Status: Acute DS: Medications - Discharge Medications Prescriptions: amoxicillin-pot clavulanate [Augmentin] 1 tab PO BID 5 Days #10 tab furosemide 20 mg PO BID@0900,1800 21 Days #42 tab potassium bicarb and chloride 25 meq PO DAILY 21 Days #21 each DS: Summary Hospital Course: Ms Diop was admitted on 12/12 with vesico-intestinal fistula. The patient was very stable at the time with only symptom reported being leg swelling. She was admitted with consult to urology and general surgery, Dr. England who she was known to. She was started on empiric antibiotics for intra-abdominal infection. On 12/15 she was taken to the OR for exploratory lap, small bowel resection, ileostomy, bladder repair. The patient continued to recover well but did report some weakness. Patient started working with PT. patient remains afebrile, white count within normal limits during her stay. 12/19 patient reports that she feels comfortable going home with home health and home PT. General surgery and urology agreed that patient was safe to discharge with close outpatient follow-up. Patient discharged home with home health and home PT on 12/19. - Time Spent with Patient Total time spent providing and/or coordinating discharge services: Less than 30 minutes - Quality: VTE Deep Vein Thrombosis/Pulmonary Embolism Present on Admission: No Exam Vital signs: Vital Signs 12/18/17 16:00 12/18/17 18:19 12/18/17 20:00 Temperature 97.8 F 97.8 F Pulse Rate 95 H 103 H Respiratory Rate 17 18 Blood Pressure 101/57 L 99/68 L Pulse Oximetry 92 L 92 L 94 L Pulse Oximetry [Exertion on Room Air] Pulse Oximetry [Resting on Room Air] Pulse Oximetry [Resting with Oxygen] 12/18/17 21:15 12/19/17 00:38 12/19/17 08:00 Temperature 98.0 F 98.0 F Pulse Rate 92 H 95 H Respiratory Rate 18 17 Blood Pressure 123/57 L 150/76 H Pulse Oximetry 97 94 L 93 L Pulse Oximetry [Exertion on Room Air] Pulse Oximetry [Resting on Room Air] Pulse Oximetry [Resting with Oxygen] 12/19/17 09:46 12/19/17 12:00 Temperature 98.0 F Pulse Rate 100 H Respiratory Rate 17 Blood Pressure 111/64 Pulse Oximetry 94 L Pulse Oximetry [Exertion on Room Air] 82 L Pulse Oximetry [Resting on Room Air] 90 L Pulse Oximetry [Resting with Oxygen] 95 Intake & Output 12/18/17 12/19/17 12/19/17 18:59 06:59 18:59 Intake Total 1540 / 1540 440 / 440 Output Total 850 / 850 3160 / 3160 Balance 690 / 690 -2720 / -2720 Weight 58.5 kg Intake: IV 100 / 100 200 / 200 Diflucan 200 mg Premix Bag 100 100 / 100 ML @ 100 mls/hr IV.SIG Q24H MATTEO Rx#:[id number] Zosyn 3.375 GM Premix 50 ML @ 100 / 100 100 / 100 100 mls/hr IV.SIG Q6H MATTEO Rx#: [id number] Oral 1440 / 1440 240 / 240 Output: Urine 600 / 600 Stool 250 / 250 Urine Amount (Catheter) 1999 Indwelling Urethral Catheter 1999 Stool Amount (Stoma) 850 / 850 Left Lower Abdomen 850 / 850 Wound Drainage 310 / 310 Right Abdomen 310 / 310 Other: Date of Last Bowel Movement 12/18/17 Results Procedures completed during hospitalization: 12/15- bladder repair, exploratory laparotomy, lysis of adhesions, small bowel transection with end ileostomy Labs on day of discharge: Labs from last 24 hours 12/19/17 12/19/17 12/19/17 09:44 04:34 04:34 WBC RBC Hgb Hct MCV MCH MCHC RDW Plt Count MPV Neut % (Auto) Lymph % (Auto) [place] % (Auto) Eos % (Auto) Baso % (Auto) Neut # (Auto) Lymph # (Auto) [place] # (Auto) Eos # (Auto) Baso # (Auto) WBC Differential Differential Comment Sodium 142 Potassium 3.2 L Chloride 104 Carbon Dioxide 29.8 Anion Gap 8 BUN 11 Creatinine 0.84 Estimated GFR 66 L Random Glucose 97 Calcium 7.7 L 7.7 L Prot Corrected Calcium 8.6 D Total Bilirubin 0.5 AST 17 ALT 14 Alkaline Phosphatase 109 Total Protein 5.6 L 5.6 L Albumin 1.9 L Rashida-Renal Creatinine 11.57 12/19/17 12/18/17 04:34 19:03 WBC 8.5 RBC 2.65 L Hgb 8.3 L Hct 24.5 L MCV 92.5 MCH 31.2 MCHC 33.7 RDW 16.5 Plt Count 438 MPV 6.7 L Neut % (Auto) 63.3 Lymph % (Auto) 21.8 [place] % (Auto) 11.1 H Eos % (Auto) 3.5 Baso % (Auto) 0.3 Neut # (Auto) 5.4 Lymph # (Auto) 1.8 [place] # (Auto) 0.9 Eos # (Auto) 0.3 Baso # (Auto) 0.0 WBC Differential . Differential Comment Auto diff final Sodium Potassium 3.4 L Chloride Carbon Dioxide Anion Gap BUN Creatinine Estimated GFR Random Glucose Calcium Prot Corrected Calcium Total Bilirubin AST ALT Alkaline Phosphatase Total Protein Albumin Rashida-Renal Creatinine - Impressions ITS Impressions Cystogram 12/12/17 14:36 CONCLUSION: Findings indicating urinary bladder leak. There is intraperitoneal leakage of contrast as well as extension of contrast into the lumen of the distal small bowel indicating small bowel leak or fistula. Drainage catheter extends through the defect in the urinary bladder wall into the bladder lumen. Abdomen/Pelvis CT 12/12/17 15:20 CONCLUSION: 1. Intraperitoneal urinary bladder leak/rupture at the superior wall. Adjacent irregularly shaped contrast collection and extension of contrast into the distal small bowel in the area of recent surgery indicating small bowel leak/ fistula. Drainage catheter is seen within the extraluminal contrast collection and extends through the defect in the urinary bladder wall, into the urinary bladder lumen and is looped in the bladder lumen. 2. Bilateral pleural effusions are new right greater than left. Right lower lobe pulmonary atelectasis versus consolidation. 3. Findings were discussed with Dr. Mckeon. Chest X-Ray 12/17/17 00:00 CONCLUSION: 1. Subtle interval enlargement of small bilateral pleural effusions with associated airspace disease in the lower lobes. Discharge Plan - Discharge Disposition Patient Disposition: W/Home Health Service - Discharge Condition Condition: Stable - Discharge Order Discharge Orders: Discharge Order (Routine); Ordered 12/19/17 Ordered By: Mary Mena - Discharge Details Anticipated Discharge Date: 12/19/17 Discharge Comment: OK to d/c per urology and surgery one patient's BIJAL drain has been checked and patient has passed walk test - Physicians Team Primary Care Provider: NON STAFF,PROVIDER Attending Provider: Filiberto Clemens Other Providers: Chinmay England MD ; [facility] ; Remi Bowles DO ; [employer]
[2017-12-19 16:05] VITALS: BP 103/64; PULSE 98; TEMP 98.1; O2SAT 99
[2017-12-19] MEDS ORDERED: Piperacil/Tazo 4.5 GM Premix 4.5 GM/100 ML BAG IV.SIG SCH (21:00)
== END 2017-12-19 20:09 | disposition home health service (06) ==
LOC: NEPE 12:03 → NEDA 17:23 → N07 19:25
PROVIDERS: ADMIT Family Medicine; ATTEND Family Medicine

== ENCOUNTER 2018-01-15 12:08 | Inpatient (IN) ==
[2018-01-15 13:35] LABS: Baso # (Auto) 0.1 th/mm3 (0.0-0.2); Baso % (Auto) 0.7 % (0.0-2.0); Eos # (Auto) 0.2 th/mm3 (0.0-0.4); Eos % (Auto) 1.7 % (0.0-4.0); Hematocrit 36.2 % (35.0-46.0); Hemoglobin 12.1 gm/dL (11.6-15.3); Lymph # (Auto) 1.7 th/mm3 (1.0-4.8); Lymph % (Auto) 17.3 % (9.0-44.0); Mean Corpuscular HGB Conc 33.5 % (32.0-36.0); Mean Corpuscular Hemoglobin 30.9 pg (27.0-34.0); Mean Corpuscular Volume 92.3 fL (80.0-100.0); Mean Platelet Volume 7.4 fL (7.0-11.0); Mono # (Auto) 0.7 th/mm3 (0.0-0.9); Mono % (Auto) 6.8 % (0.0-8.0); Neut # (Auto) 7.4 th/mm3 (1.8-7.7); Neut % (Auto) 73.5 % (16.0-70.0); Platelet Count 439 th/mm3 (150-450); Red Blood Count 3.92 mil/mm3 (4.00-5.30); Red Cell Distribution Width 16.3 % (11.6-17.2); White Blood Count 10.1 th/mm3 (4.0-11.0)
[2018-01-15 13:49] LABS: Chloride 89 meq/L (98-107); Potassium 6.3 meq/L (3.5-5.1); Sodium 127 meq/L (136-145)
[2018-01-15 13:52] LABS: Calcium 9.9 mg/dL (8.5-10.1)
[2018-01-15 13:53] LABS: Albumin 3.4 g/dL (3.4-5.0); Anion Gap 10 meq/L (5-15); Blood Urea Nitrogen 110 mg/dL (7-18); Carbon Dioxide 28.2 meq/L (21.0-32.0); Glucose,Random 126 mg/dL (74-106)
--- NOTE | 2018-01-15 13:53 | XR ---
EXAM DATE: 01/15/2018 1:15 PM EDT AGE/SEX: 77 years / Female INDICATIONS: Shortness of breath. CLINICAL DATA: This is the patient's initial encounter. Patient reports that signs and symptoms have been present for 1 day and indicates a pain score of 0/10. MEDICAL/SURGICAL HISTORY: . Hypertension. Carcinoma, ovarian. Carcinoma, uterine. . Hysterect lexii. Bowel resection. COMPARISON: [facility] [place]BD[place] & PELVIS W CONTRAST, 12/12/2017. . FINDINGS: A single AP view of the chest demonstrates the lungs to be symmetrically aerated without evidence of mass, infiltrate or effusion. The cardiomediastinal contours are unremarkable. Osseous structures a re intact. CONCLUSION: Negative examination. Electronically signed by: Javier Diego MD 01/15/2018 1:52 PM EDT
[2018-01-15 13:56] LABS: Activated Partial Thrombo Time 32.8 sec (24.3-30.1); Alanine Aminotransferase 31 U/L (10-53); Aspartate Aminotransferase 30 U/L (15-37); Glomerular Filtration Rate 8 mL/min (>89); INR 1.4 Ratio; Prothrombin Time 13.7 sec (9.8-11.6)
[2018-01-15 13:58] LABS: Total Protein 8.8 g/dL (6.4-8.2)
[2018-01-15 13:59] LABS: Alkaline Phosphatase 223 U/L (45-117)
[2018-01-15] MEDS ORDERED: Sodium Chlor 0.9% Inj 500 ML IV.SIG SCH ×2 (14:00→15:00)
[2018-01-15 14:08] LABS: Creatine Kinase 26 U/L (26-192)
[2018-01-15] MEDS ORDERED: Sodium Polystyrene Sulfonate/Sorbitol Liq 15 GM/60 ML UDC PO ONE (14:12)
--- NOTE | 2018-01-15 14:51 | ED ---
HPI General Chief complaint: Weakness Stated complaint: low bp/sob Time Seen by Provider: 01/15/18 12:54 Source: patient Mode of arrival: ambulatory Limitations: no limitations History of Present Illness HPI narrative: Patient is a 77 year old female who comes in complaining of generalized weakness. She says for the past 2 days she has just felt increasingly tired and weak. She says her home health aide came yesterday and noticed that her blood pressure was low. She denies having any pains. She says she does feel little shortness of breath on exertion. She denies chest pain. She denies nausea or vomiting. She says she has been trying to eat and drink, but admits she probably is not doing enough of either. She denies any fever or chills. Severity is moderate. Related Data Home Medications Medication Instructions Recorded Confirmed duloxetine [Cymbalta] 60 mg PO DAILY 10/07/17 01/15/18 oxycodone-acetaminophen 1 tab PO Q4HR PRN 10/17/17 01/15/18 apixaban [Eliquis] 5 mg PO BID 11/12/17 01/15/18 levothyroxine [Levoxyl] 50 mcg PO DAILY 11/12/17 01/15/18 metoprolol tartrate 50 mg PO DAILY 11/12/17 01/15/18 Allergies Allergy/AdvReac Type Severity Reaction Status Date / Time No Known Allergies Allergy Verified 01/15/18 12:42 Review of Systems ROS: all other systems reviewed are negative Constitutional Denies chills, Denies fever(s) and Denies headache(s) ENT Denies dizziness Cardiovascular Denies chest pain and Reports dyspnea on exertion Respiratory Denies cough Gastrointestinal Denies abdominal pain, Denies nausea and Denies vomiting Musculoskeletal Denies myalgias and Denies arthralgias Integumentary/Breasts Denies sores and Denies wounds Neurologic Denies focal weakness, Denies numbness and Reports weakness PMFSH Medical History Medical History Port catheter in place (Acute) Hypertension (Chronic) Neuropathic pain of both legs (Chronic) Hypothyroidism (Chronic) Hx of hysterectomy (Acute) Cancer (Acute) Encounter for diagnostic procedure (Acute) Surgical History Surgical History History of back surgery (Chronic) H/O hysterectomy with unilateral oophorectomy (Acute) Family History Family History Other Heart attack Stomach cancer Social History Social History Substance History: No History of Abuse Second Hand Smoke Exposure: No Smoking Status: Never smoker How Often Do You Have a Drink Containing Alcohol: 4 or more times a week Recent Travel in [facility] within the Last 8 Weeks: No Recent Out of Country Travel within the Last 8 Weeks: No Immunization History Tetanus Immunization: <5 Years Exam Narrative Exam Narrative: GENERAL: Awake and alert, no acute distress. SKIN: Focused skin assessment warm/dry. No wounds or signs of infection. HEAD: Atraumatic. Normocephalic. EYES: Pupils equal and round. No scleral icterus. ENT: Mucous membranes pink and moist. NECK: Trachea midline. No JVD. CARDIOVASCULAR: Regular rate and rhythm. No murmur appreciated. RESPIRATORY: No accessory muscle use. Clear to auscultation. Breath sounds equal bilaterally. GASTROINTESTINAL: Abdomen soft, non-tender, nondistended. Colostomy in place and functioning. MUSCULOSKELETAL: No obvious deformities. No clubbing. No cyanosis. No edema. NEUROLOGICAL: Awake and alert. No obvious cranial nerve deficits. Motor grossly within normal limits. Normal speech. PSYCHIATRIC: Appropriate mood and affect; insight and judgment normal. Course Initial Documented Vital Signs Temperature 97.5 F L 01/15/18 12:35 Pulse Rate 60 01/15/18 12:35 Respiratory Rate 16 01/15/18 12:35 Blood Pressure 106/59 L 01/15/18 12:35 Pulse Oximetry 94 L 01/15/18 12:35 Last Documented Vital Signs Temperature 97.5 F L 01/15/18 12:35 Pulse Rate 85 01/15/18 14:32 Respiratory Rate 16 01/15/18 14:32 Blood Pressure 115/60 01/15/18 14:00 Pulse Oximetry 97 01/15/18 14:00 Medical Decision Making MDM Narrative Medical decision making narrative: Patient is a 77-year-old female who comes in complaining of generalized weakness. Exam shows no acute abnormalities. IV established, labs sent. Labs concerning for acute renal failure. Creatinine is 5.1. Potassium is 6.3. ECG shows no signs of peaked T waves or widening QRS. Patient given IV fluids. CT of the abdomen and pelvis ordered based on the fact the patient has had multiple surgeries recently. Given dextrose, insulin, albuterol, Kayexalate. She will be admitted for further management. Medical Screen Exam Complete: Yes Emergency Medical Condition: Yes Differential Diagnosis Differential Diagnosis: Infection versus dehydration versus electrolyte abnormality Medical Records Medical records reviewed: Yes I reviewed the patient's medical records. Lab Data Lab results reviewed: Yes I reviewed the patient's lab results. Result diagrams: 01/15/18 13:20 01/15/18 13:20 Lab Results 01/15/18 01/15/18 01/15/18 Range/Units 13:20 13:20 13:20 CBC w Diff Auto diff final WBC 10.1 (4.0-11.0) th/mm3 RBC 3.92 L (4.00-5.30) mil/mm3 Hgb 12.1 (11.6-15.3) gm/dL Hct 36.2 (35.0-46.0) % MCV 92.3 (80.0-100.0) fL MCH 30.9 (27.0-34.0) pg MCHC 33.5 (32.0-36.0) % RDW 16.3 (11.6-17.2) % Plt Count 439 (150-450) th/mm3 MPV 7.4 (7.0-11.0) fL Neut % (Auto) 73.5 H (16.0-70.0) % Lymph % (Auto) 17.3 (9.0-44.0) % [place] % (Auto) 6.8 (0.0-8.0) % Eos % (Auto) 1.7 (0.0-4.0) % Baso % (Auto) 0.7 (0.0-2.0) % Neut # (Auto) 7.4 (1.8-7.7) th/mm3 Lymph # (Auto) 1.7 (1.0-4.8) th/mm3 [place] # (Auto) 0.7 (0.0-0.9) th/mm3 Eos # (Auto) 0.2 (0.0-0.4) th/mm3 Baso # (Auto) 0.1 (0.0-0.2) th/mm3 WBC Differential . Differential Comment . PT 13.7 H (9.8-11.6) sec INR 1.4 Ratio APTT 32.8 H (24.3-30.1) sec Sodium 127 L (136-145) meq/L Potassium 6.3 H (3.5-5.1) meq/L Chloride 89 L (98-107) meq/L Carbon Dioxide 28.2 (21.0-32.0) meq/L Anion Gap 10 (5-15) meq/L BUN 110 H (7-18) mg/dL Creatinine 5.10 H (0.50-1.00) mg/dL Estimated GFR 8 L (>89) mL/min Random Glucose 126 H (74-106) mg/dL Calcium 9.9 (8.5-10.1) mg/dL Total Bilirubin 0.5 (0.2-1.0) mg/dL AST 30 (15-37) U/L ALT 31 (10-53) U/L Alkaline Phosphatase 223 H (45-117) U/L Total Creatine Kinase 26 (26-192) U/L Troponin I Less than 0.02 L (0.02-0.05) ng/mL Total Protein 8.8 H (6.4-8.2) g/dL Albumin 3.4 (3.4-5.0) g/dL Imaging Data Radiologist's impression: Chest X-Ray 01/15/18 13:15 CONCLUSION: Negative examination. ECG Data EKG Prior to Arrival: No Attestation: I personally reviewed and interpreted this ECG as follows: Interpretation: ECG shows normal sinus rhythm at a rate of 75, no ST elevation or depression, normal intervals Discharge Plan Physicians Team ED Provider: Tania Drake Primary Care Provider: Jamee Velasquez Rxs /Orders / Referrals /Forms Prescriptions: No Action duloxetine [Cymbalta] 30 mg Capsule,Delayed Release(Dr/Ec) 60 mg PO DAILY RF: 0 oxycodone-acetaminophen 5-325 mg Tablet 1 tab PO Q4HR PRN (Reason: Pain) RF: 0 levothyroxine [Levoxyl] 50 mcg Tablet 50 mcg PO DAILY RF: 0 metoprolol tartrate 50 mg Tablet 50 mg PO DAILY RF: 0 apixaban [Eliquis] 5 mg Tablet 5 mg PO BID RF: 0 Discharge Interventions Interventions: Vital Signs Last Done: 01/15/18 14:00 Status ED Status: With Doctor
--- NOTE | 2018-01-15 15:08 | CT ---
EXAM DATE: 01/15/2018 2:18 PM EDT AGE/SEX: 77 years / Female INDICATIONS: General weakness. Short of breath. Low blood pressure. CLINICAL DATA: This is the patient's initial encounter. Patient reports that signs and symptoms have been present for 3 days and indicates a pain score of 0/10. MEDICAL/SURGICAL HISTORY: Carcinoma, ovarian. Deep venous thrombosis. Hypertension. Hysterect lexii. Colon resection. Colostomy. Back surgery. RADIATION DOSE: 5.11 CTDI (mGy) COMPARISON: [facility] – [place]BD[place] & PELVIS W CONTRAST, 12/12/2017. . TECHNIQUE: Multiple contiguous axial images were obtained through the abdomen. Images were obtained using multiple row detector helical technique. Using automated exposure control and adjustment of the mA and/or kV according to patient size, radiation dose was kept as low as reasonably achievable to o btain optimal diagnostic quality images. DICOM format image data is available electronically for rev iew and comparison. FINDINGS: There is a lymph node in the pericardial fat anteriorly on image 1 measuring 7 mm in short axis dimen aleksandra. There are varicosities seen along the anterior abdominal wall extending superiorly from the pel vis. There is a low-density lesion in the posterior right lobe of the liver identified unchanged wyatt acteristic of a cyst. Kidneys, adrenals, spleen, pancreas unremarkable. Atherosclerotic calcification of the aorta and iliac vessels. A Ledezma catheter is noted in the urinary bladder which is decompress ed. There is a surgical drain in the pelvis. There is presacral edema. Diverticulosis of the sigmoid colon without diverticulitis. The free fluid noted on the prior study is no longer visualized.. Trace pericardial fluid. Left lower quadrant colostomy. Lung bases are clear. Review of bone windows demon strate degenerative changes of the spine and postsurgical changes throughout the lumbar spine. There is evidence of previous sacral insufficiency fractures with patchy sclerosis and lucency seen at the sacrum. CONCLUSION: 1. Surgical drain is noted just superior to the urinary bladder which is decompressed. 2. No drainable fluid collections are identified. 3. Diverticulosis. Electronically signed by: Bigg Porras MD 01/15/2018 3:07 PM EDT
[2018-01-15 15:19] LABS: Bilirubin,Urine Negative (Negative); Clarity,Urine Cloudy (Clear); Color,Urine Yellow (Yellw/Straw); Glucose,Urine (UA) 100 mg/dL (Negative); Leukocyte Esterase,Urine Large (Negative); Nitrite,Urine Positive (Negative); Specific Gravity,Urine 1.015 (1.002-1.035); Urobilinogen,Urine 0.2 mg/dL (Less than 2)
[2018-01-15 15:28] LABS: Bacteria,Urine Many /hpf; Mucus,Urine Rare /lpf (Occasional); Squamous Epithelial Cell,Urine 0-5 /hpf (0-5); WBC,Urine Innumerable /hpf (0-5)
[2018-01-15] MEDS ORDERED: Bisacodyl 10 MG Supp RECTAL PRN (15:49)
[2018-01-15] MEDS ORDERED: Acetaminophen 325 MG Tablet PO PRN (15:49)
--- NOTE | 2018-01-15 15:51 | P.HP ---
History of Present Illness Primary Care Physician: Jamee Velasquez MD Chief Complaint: Generalized weakness and low blood pressure at home History of Present Illness: This is a pleasant 77-year-old female patient with a known medical history of hypothyroidism, hypertension, history of blood clots on Eliquis who presented to the ED with complaints of generalized weakness and reportedly low blood pressure at home. Patient states over the past 2 days she is felt increasingly tired and weak especially with exertion. She states that her home health aide came in yesterday noticed that her blood pressure was on the lower end. She therefore presented to the ED for further evaluation. Patient presented with acute kidney injury with creatinine above 5.6 and GFR 8, this is significantly changed compared to previous hospital admission in November. 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 At that time she was seen by urologist Dr. Bowles, and a Ledezma catheter was placed, it was notated that patient was to follow-up in the office for a cystogram outpatient. Patient states she has seen Dr. Bowles in the office, no problems with her Ledezma catheter. She denies any changes to her urine or smell to her urine. She denies any dysuria. Patient states that she has had decreased p.o. intake with decreased appetite. - Diagnosis (1) JACQUELINE (acute kidney injury) Inpatient Certification: I certify that the inpatient services were ordered in accordance with Medicare regulations governing the order. This includes certification that hospital inpatient services are reasonable and necessary and in the case of services not specified as inpatient-only under 42 CFR 419.22(n), that they are appropriately provided as inpatient services in accordance to with the 2-midnight benchmark under 43 CFR 412.3(e) Estimated Total Length of Stay (Days): 3 Plans for Post Hospital Care: Not yet determined Review of Systems All other systems reviewed negative except as stated in HPI PMFSH - History History Provided By: Patient - Medical History Medical History: Medical History (Last Reviewed 01/15/18 @ 15:43 by Tania Lima) Port catheter in place (Acute) Hypertension (Chronic) Neuropathic pain of both legs (Chronic) Hypothyroidism (Chronic) Hx of hysterectomy (Acute) Cancer Encounter for diagnostic procedure - Surgical History Surgical History: Surgical History (Last Reviewed 01/15/18 @ 15:43 by Tania Lima) History of back surgery (Chronic) H/O hysterectomy with unilateral oophorectomy - Family History Family History: Family History (Last Reviewed 01/15/18 @ 15:43 by Tania Lima) Other Heart attack Stomach cancer - Social History I have reviewed the patient's Social History: Yes - Tobacco History Second Hand Smoke Exposure: No Smoking Status: Never smoker - Alcohol History How Often Do You Have a Drink Containing Alcohol: 4 or more times a week - Substance Use History Substance History: No History of Abuse - Travel History Recent Travel in the [facility] Within the Last 8 Weeks: No Recent Travel Out of the Country Within the Last 8 Weeks: No - Immunization History Tetanus Immunization: <5 Years Medications and Allergies Active Medications: Active Medications Sodium Chloride (Ns Inj) 500 mls @ 0 mls/hr IV.SIG BOLUS MATTEO Last Infusion: 01/15/18 14:16 Dose: Infused Sodium Chloride (Ns Inj) 500 mls @ 0 mls/hr IV.SIG BOLUS MATTEO Last Admin: 01/15/18 14:40 Dose: 500 mls/hr Ceftriaxone Sodium 1,000 mg/ (Sodium Chloride) 100 mls @ 200 mls/hr IV.SIG ONCE ONE Stop: 01/15/18 16:00 Allergies Allergy/AdvReac Type Severity Reaction Status Date / Time No Known Allergies Allergy Verified 01/15/18 12:42 Home Medications Medication Instructions Recorded Confirmed Type RX: duloxetine [Cymbalta] 60 mg PO DAILY 10/07/17 01/15/18 History RX: oxycodone-acetaminophen 1 tab PO Q4HR PRN 10/17/17 01/15/18 History RX: apixaban [Eliquis] 5 mg PO BID 11/12/17 01/15/18 History RX: levothyroxine [Levoxyl] 50 mcg PO DAILY 11/12/17 01/15/18 History RX: metoprolol tartrate 50 mg PO DAILY 11/12/17 01/15/18 History Exam Vital signs: Vital Signs 01/15/18 12:35 01/15/18 12:42 01/15/18 13:20 Temperature 97.5 F L Pulse Rate 60 76 72 Respiratory Rate 16 Blood Pressure 106/59 L Pulse Oximetry 94 L 96 97 01/15/18 14:00 01/15/18 14:32 01/15/18 14:45 Temperature Pulse Rate 70 85 74 Respiratory Rate 17 16 18 Blood Pressure 115/60 97/71 L Pulse Oximetry 97 Intake & Output 01/14/18 01/15/18 01/15/18 18:59 06:59 18:59 Intake Total 500 / 500 Balance 500 / 500 Weight 47.9 kg Intake: IV 500 / 500 NS Inj 500 ML @ Wide Open IV. 500 / 500 SIG BOLUS MATTEO Rx#:[id number] Narrative: GENERAL: Well-developed, well-nourished patient in NAD. SKIN: Warm and dry. No rash. HEAD: Normocephalic. Atraumatic. EYES: Pupils equal and round. No scleral icterus. No injection or drainage. ENT: No nasal bleeding or discharge. Mucous membranes pink and moist. NECK: Supple. Trachea midline. CARDIOVASCULAR: Regular rate and rhythm. S1, S2 noted. No murmur appreciated. RESPIRATORY: No accessory muscle use. Clear to auscultation. Breath sounds equal bilaterally. GASTROINTESTINAL: Abdomen soft, non-tender, nondistended. Normoactive bowel sounds x4. Ileostomy in place, bag sealed site clean dry and intact, as well as BIJAL drain right lower quadrant, with minimal serosanguineous fluid. : Ledezma catheter in place, clear yellow urine noted. MUSCULOSKELETAL: No obvious deformities. Extremities without clubbing, cyanosis , or edema. NEUROLOGICAL: Awake and alert. No obvious cranial nerve deficits. Motor grossly within normal limits. 5/5 muscle strength in bilateral upper and lower extremities. Normal speech. PSYCHIATRIC: Appropriate mood and affect; insight and judgment normal. Results - Labs CBC & Chem 7: 01/16/18 04:40 01/16/18 04:40 Labs: Laboratory Results - last 24 hr 01/15/18 01/15/18 01/15/18 13:20 13:20 13:20 CBC w Diff Auto diff final WBC 10.1 RBC 3.92 L Hgb 12.1 Hct 36.2 MCV 92.3 MCH 30.9 MCHC 33.5 RDW 16.3 Plt Count 439 MPV 7.4 Neut % (Auto) 73.5 H Lymph % (Auto) 17.3 Elk % (Auto) 6.8 Eos % (Auto) 1.7 Baso % (Auto) 0.7 Neut # (Auto) 7.4 Lymph # (Auto) 1.7 Elk # (Auto) 0.7 Eos # (Auto) 0.2 Baso # (Auto) 0.1 WBC Differential . Differential Comment . PT 13.7 H INR 1.4 APTT 32.8 H Sodium 127 L Potassium 6.3 H Chloride 89 L Carbon Dioxide 28.2 Anion Gap 10 BUN 110 H Creatinine 5.10 H Estimated GFR 8 L Random Glucose 126 H Calcium 9.9 Total Bilirubin 0.5 AST 30 ALT 31 Alkaline Phosphatase 223 H Total Creatine Kinase 26 Troponin I Less than 0.02 L Total Protein 8.8 H Albumin 3.4 Urine Color Urine Clarity Urine pH Ur Specific [place] Urine Protein Urine Glucose (UA) Urine Ketones Urine Occult Blood Urine Nitrate Urine Bilirubin Urine Urobilinogen Ur Leukocyte Esterase Urine RBC Urine WBC Urine WBC Clumps Ur Squamous Epith Cells Urine Bacteria Urine Mucus Micro UA Comment Ur Microscopic Review Urine Culture Comments 01/15/18 14:20 CBC w Diff WBC RBC Hgb Hct MCV MCH MCHC RDW Plt Count MPV Neut % (Auto) Lymph % (Auto) Elk % (Auto) Eos % (Auto) Baso % (Auto) Neut # (Auto) Lymph # (Auto) Elk # (Auto) Eos # (Auto) Baso # (Auto) WBC Differential Differential Comment PT INR APTT Sodium Potassium Chloride Carbon Dioxide Anion Gap BUN Creatinine Estimated GFR Random Glucose Calcium Total Bilirubin AST ALT Alkaline Phosphatase Total Creatine Kinase Troponin I Total Protein Albumin Urine Color Yellow Urine Clarity Cloudy H Urine pH 6.0 Ur Specific [place] 1.015 Urine Protein 30 H Urine Glucose (UA) 100 H Urine Ketones Negative Urine Occult Blood Large H Urine Nitrate Positive H Urine Bilirubin Negative Urine Urobilinogen 0.2 Ur Leukocyte Esterase Large H Urine RBC 4-15 H Urine WBC Innumerable H Urine WBC Clumps Few H Ur Squamous Epith Cells 0-5 Urine Bacteria Many H Urine Mucus Rare H Micro UA Comment Cath-culture ind Ur Microscopic Review Microscopic reviewed Urine Culture Comments Cath-cult indicated - Imaging Impressions Chest X-Ray 01/15/18 13:15 CONCLUSION: Negative examination. Abdomen/Pelvis CT 01/15/18 14:12 CONCLUSION: 1. Surgical drain is noted just superior to the urinary bladder which is decompressed. 2. No drainable fluid collections are identified. 3. Diverticulosis. Caprini VTE Risk Assessment Caprini VTE Risk Assessment: Moderate/High Risk (score >= 2) Caprini Risk Assessment Model: Point Value = 1 Point Value = 2 Point Value = 3 Point Value = 5 Age 41-60 Minor surgery BMI > 25 kg/m2 Swollen legs Varicose veins or History of unexplained or recurrent spontaneous Oral contraceptives or hormone replacement Sepsis (< 1 month) Serious lung disease, including pneumonia (< 1 month) Abnormal pulmonary function Acute myocardial infarction Congestive heart failure (< 1 month) History of inflammatory bowel disease Medical patient at bed rest Age 61-74 Arthroscopic surgery Major open surgery (> 45 min) Laparoscopic surgery (> 45 min) Malignancy Confined to bed (> 72 hours) Immobilizing plaster cast Central venous access Age >= 75 History of VTE Family history of VTE Factor V Leiden Prothrombin [id number] Lupus anticoagulant Anticardiolipin antibodies Elevated serum homocysteine Heparin-induced thrombocytopenia Other congenital or acquired thrombophilia Stroke (< 1 month) Elective arthroplasty Hip, pelvis, or leg fracture Acute spinal cord injury (< 1 month) Prophylaxis Regimen: Total Risk Factor Score Risk Level Prophylaxis Regimen 0-1 Low Early ambulation 2 Moderate Order ONE of the following: *Sequential Compression Device (SCD) *Heparin 5000 units SQ BID 3-4 Higher Order ONE of the following medications: *Heparin 5000 units SQ TID *Enoxaparin/Lovenox 40 mg SQ daily (WT < 150 kg, CrCl > 30 mL/min) *Enoxaparin/Lovenox 30 mg SQ daily (WT < 150 kg, CrCl > 10-29 mL/min) *Enoxaparin/Lovenox 30 mg SQ BID (WT < 150 kg, CrCl > 30 mL/min) AND/OR *Sequential Compression Device (SCD) 5 or more Highest Order ONE of the following medications: *Heparin 5000 units SQ TID (Preferred with Epidurals) *Enoxaparin/Lovenox 40 mg SQ daily (WT < 150 kg, CrCl > 30 mL/min) *Enoxaparin/Lovenox 30 mg SQ daily (WT < 150 kg, CrCl > 10-29 mL/min) *Enoxaparin/Lovenox 30 mg SQ BID (WT < 150 kg, CrCl > 30 mL/min) AND *Sequential Compression Device (SCD) Assessment and Plan - Assessment (1) JACQUELINE (acute kidney injury) Code(s): N17.9 - Acute kidney failure, unspecified Status: Acute - Plan This is a 77-year-old female patient with: Acute kidney injury History of vesico-intestinal fistula with chronic Ledezma catheter -Patient presented with creatinine 5.1/GFR 8/BUN 110, after review of records this is insignificantly elevated when compared to labs last month during hospitalization. -This could be secondary to dehydration. Will attempt IV fluid hydration. -Monitor BMP. Avoid nephrotoxins. -Spoke to Dr. Bowles personally and updated about patient's admission. He will evaluate later this evening. -Abdominal/pelvis CT done in ED and reviewed showing surgical drain is noted just superior to the urinary bladder which is decompressed. No drainable fluid collections are identified. Diverticulosis. No significant findings regarding patient's genitourinary system. -Will obtain US renal. Follow. -UA obtained and showing presence of nitrates, leukocyte esterase and WBCs. Monitor urine culture growth. ED started Ceftriaxone. Will continue. -Continue Ledezma catheter. Monitor intake and output. -Supportive care. Hyperkalemia suspect secondary to above -K 6.3 on presentation. Continue cardiac telemetry, monitor for any arrhythmias. -Was given IV insulin, Duonebs, Kayexalate and dextrose in ED. Will monitor response. Follow BMP. DVT prophylaxis: SCDs. Eliquis.
[2018-01-15] MEDS: Sod Chloride 0.9% Inj 1,000 ML IV.CONT SCH (16:11)
--- NOTE | 2018-01-15 16:59 | US ---
EXAM DATE: 01/15/2018 12:00 AM EDT AGE/SEX: 77 years / Female INDICATIONS: Increased lab values. CLINICAL DATA: This is the patient's initial encounter. Patient reports that signs and symptoms have been present for 1 day and indicates a pain score of 0/10. MEDICAL/SURGICAL HISTORY: Hypertension. Hypothyroidism. Cancer. Neuropathic pain of both legs. Port catheter in place. Hysterectomy. Back surgery. COMPARISON: No prior exams available for comparison. MEASUREMENTS: Right Kidney:__9.3 x 3.8 x 4.4 cm Left Kidney:__9.5 x 4.4 x 5.1 cm FINDINGS: Benign cyst in the liver Right Kidney: Increased echotexture. No mass or hydronephrosis. Left Kidney: Increased echotexture. No mass or hydronephrosis. Bladder: Ledezma catheter is present. Bladder decompressed. Other: None. CONCLUSION: 1. Both kidneys have increased echogenicity with cortical thinning consistent with chronic medical r enal disease. Ledezma catheter in place. No hydronephrosis. Electronically signed by: Roddy Paredes MD 01/15/2018 4:58 PM EDT
[2018-01-15] MEDS ORDERED: Sodium Chlor 0.9% Inj 250 ML IV.SIG ONE (21:00)
[2018-01-15 22:30] LABS: Calcium 8.9 mg/dL (8.5-10.1); Potassium 4.4 meq/L (3.5-5.1)
[2018-01-16] MEDS: Sod Chloride 0.9% Inj 1,000 ML IV.CONT SCH ×2 (01:07→15:42)
[2018-01-16 05:08] VITALS: RESP 18
[2018-01-16 05:51] LABS: Baso # (Auto) 0.1 th/mm3 (0.0-0.2); Baso % (Auto) 0.6 % (0.0-2.0); Eos # (Auto) 0.2 th/mm3 (0.0-0.4); Eos % (Auto) 1.9 % (0.0-4.0); Hematocrit 32.1 % (35.0-46.0); Hemoglobin 10.6 gm/dL (11.6-15.3); Lymph # (Auto) 1.3 th/mm3 (1.0-4.8); Lymph % (Auto) 13.6 % (9.0-44.0); Mean Corpuscular HGB Conc 32.9 % (32.0-36.0); Mean Corpuscular Hemoglobin 30.6 pg (27.0-34.0); Mean Platelet Volume 7.9 fL (7.0-11.0); Mono # (Auto) 0.8 th/mm3 (0.0-0.9); Mono % (Auto) 7.8 % (0.0-8.0); Neut # (Auto) 7.3 th/mm3 (1.8-7.7); Neut % (Auto) 76.1 % (16.0-70.0); Platelet Count 354 th/mm3 (150-450); Red Blood Count 3.45 mil/mm3 (4.00-5.30); Red Cell Distribution Width 16.4 % (11.6-17.2); White Blood Count 9.7 th/mm3 (4.0-11.0)
[2018-01-16] MEDS ORDERED: Levothyroxine 50 MCG Tablet PO SCH (06:00)
[2018-01-16 06:17] LABS: Potassium 4.6 meq/L (3.5-5.1)
[2018-01-16 06:21] LABS: Calcium 8.6 mg/dL (8.5-10.1); Carbon Dioxide 26.1 meq/L (21.0-32.0)
--- NOTE | 2018-01-16 08:05 | P.PNIM ---
Subjective Interval history: Follow-up acute kidney injury and hyperkalemia. Patient seen and examined, sitting on side of bed comfortable in no apparent distress. No acute events overnight. Feels much improved. Eating well without any abdominal pain, nausea , vomiting, diarrhea or dysuria. Labs improved overnight, creatinine still 2.9. Order for BMP outpatient and to follow up with PCP. Patient is stable and will be dcd home to follow up pcp and urologist. Physical Exam Vital signs: Vital Signs 01/15/18 12:35 01/15/18 12:42 01/15/18 13:20 Temperature 97.5 F L Pulse Rate 60 76 72 Respiratory Rate 16 Blood Pressure 106/59 L Pulse Oximetry 94 L 96 97 01/15/18 14:00 01/15/18 14:32 01/15/18 14:45 Temperature Pulse Rate 70 85 74 Respiratory Rate 17 16 18 Blood Pressure 115/60 97/71 L Pulse Oximetry 97 01/15/18 15:44 01/15/18 16:00 01/15/18 16:25 Temperature 97.7 F Pulse Rate 74 82 78 Respiratory Rate 16 22 17 Blood Pressure 98/67 L 97/51 L 94/60 L Pulse Oximetry 96 01/15/18 18:42 01/15/18 20:00 01/15/18 20:05 Temperature 96.2 F L Pulse Rate 91 H Respiratory Rate 20 Blood Pressure 125/58 L Pulse Oximetry 95 98 96 01/16/18 00:00 01/16/18 04:00 Temperature 97.5 F L 98.5 F Pulse Rate 97 H 107 H Respiratory Rate 20 18 Blood Pressure 106/51 L 106/54 L Pulse Oximetry 97 94 L Intake & Output 01/15/18 01/16/18 01/16/18 18:59 06:59 18:59 Intake Total 1100 / 1100 1590 / 1590 Output Total 1050 / 1050 Balance 1100 / 1100 540 / 540 Weight 47.9 kg 48 kg Intake: IV 1100 / 1100 1350 / 1350 NS Inj 1,000 ML @ 100 mls/hr IV 1000 / 1000 .CONT .Q10H MATTEO Rx#:[id number] NS Inj 250 ML @ As Directed IV. 250 / 250 SIG STAT ONE Rx#:[id number] NS Inj 500 ML @ Wide Open IV. 1000 / 1000 SIG BOLUS MATTEO Rx#:[id number] Rocephin Inj 1,000 MG In NS Inj 100 / 100 100 / 100 100 ML @ 200 mls/hr IV.SIG Q24H MATTEO Rx#:[id number] Oral 240 / 240 Output: Urine 350 / 350 Stool 400 / 400 Stool Amount (Stoma) 300 / 300 Left Lower Abdomen 300 / 300 Narrative: GENERAL: Well-developed, well-nourished patient in NAD. SKIN: Warm and dry. No rash. HEAD: Normocephalic. Atraumatic. EYES: Pupils equal and round. No scleral icterus. No injection or drainage. ENT: No nasal bleeding or discharge. Mucous membranes pink and moist. NECK: Supple. Trachea midline. CARDIOVASCULAR: Regular rate and rhythm. S1, S2 noted. No murmur appreciated. RESPIRATORY: No accessory muscle use. Clear to auscultation. Breath sounds equal bilaterally. GASTROINTESTINAL: Abdomen soft, non-tender, nondistended. Normoactive bowel sounds x4. Ileostomy in place, bag sealed site clean dry and intact. : Scott catheter in place, clear yellow urine noted. MUSCULOSKELETAL: No obvious deformities. Extremities without clubbing, cyanosis , or edema. NEUROLOGICAL: Awake and alert. No obvious cranial nerve deficits. Motor grossly within normal limits. 5/5 muscle strength in bilateral upper and lower extremities. Normal speech. PSYCHIATRIC: Appropriate mood and affect; insight and judgment normal. - Urinary Catheter Management Indwelling Urethral Catheter Cath placed during this visit: yes Reason for continuing: Terminally ill/Comfort care Insertion date: 01/11/18 Results - Labs CBC & Chem 7: 01/16/18 04:40 01/16/18 04:40 Laboratory Results - last 24 hr 01/15/18 01/15/18 01/15/18 13:20 13:20 13:20 CBC w Diff Auto diff final WBC 10.1 RBC 3.92 L Hgb 12.1 Hct 36.2 MCV 92.3 MCH 30.9 MCHC 33.5 RDW 16.3 Plt Count 439 MPV 7.4 Neut % (Auto) 73.5 H Lymph % (Auto) 17.3 [place] % (Auto) 6.8 Eos % (Auto) 1.7 Baso % (Auto) 0.7 Neut # (Auto) 7.4 Lymph # (Auto) 1.7 Craig # (Auto) 0.7 Eos # (Auto) 0.2 Baso # (Auto) 0.1 WBC Differential . Differential Comment . PT 13.7 H INR 1.4 APTT 32.8 H Sodium 127 L Potassium 6.3 H Chloride 89 L Carbon Dioxide 28.2 Anion Gap 10 BUN 110 H Creatinine 5.10 H Estimated GFR 8 L POC Glucose Random Glucose 126 H Calcium 9.9 Total Bilirubin 0.5 AST 30 ALT 31 Alkaline Phosphatase 223 H Total Creatine Kinase 26 Troponin I Less than 0.02 L Total Protein 8.8 H Albumin 3.4 Urine Color Urine Clarity Urine pH Ur Specific [place] Urine Protein Urine Glucose (UA) Urine Ketones Urine Occult Blood Urine Nitrate Urine Bilirubin Urine Urobilinogen Ur Leukocyte Esterase Urine RBC Urine WBC Urine WBC Clumps Ur Squamous Epith Cells Urine Bacteria Urine Mucus Micro UA Comment Ur Microscopic Review Urine Culture Comments 01/15/18 01/15/18 01/15/18 14:20 16:46 21:55 CBC w Diff WBC RBC Hgb Hct MCV MCH MCHC RDW Plt Count MPV Neut % (Auto) Lymph % (Auto) [place] % (Auto) Eos % (Auto) Baso % (Auto) Neut # (Auto) Lymph # (Auto) Craig # (Auto) Eos # (Auto) Baso # (Auto) WBC Differential Differential Comment PT INR APTT Sodium 134 L Potassium 4.4 D Chloride 97 L D Carbon Dioxide 27.0 Anion Gap 10 BUN 89 H Creatinine 3.70 H Estimated GFR 12 L POC Glucose 81 Random Glucose 113 H Calcium 8.9 D Total Bilirubin AST ALT Alkaline Phosphatase Total Creatine Kinase Troponin I Total Protein Albumin Urine Color Yellow Urine Clarity Cloudy H Urine pH 6.0 Ur Specific [place] 1.015 Urine Protein 30 H Urine Glucose (UA) 100 H Urine Ketones Negative Urine Occult Blood Large H Urine Nitrate Positive H Urine Bilirubin Negative Urine Urobilinogen 0.2 Ur Leukocyte Esterase Large H Urine RBC 4-15 H Urine WBC Innumerable H Urine WBC Clumps Few H Ur Squamous Epith Cells 0-5 Urine Bacteria Many H Urine Mucus Rare H Micro UA Comment Cath-culture ind Ur Microscopic Review Microscopic reviewed Urine Culture Comments Cath-cult indicated 01/16/18 01/16/18 04:40 04:40 CBC w Diff Auto diff final WBC 9.7 RBC 3.45 L Hgb 10.6 L Hct 32.1 L MCV 93.0 MCH 30.6 MCHC 32.9 RDW 16.4 Plt Count 354 MPV 7.9 Neut % (Auto) 76.1 H Lymph % (Auto) 13.6 Craig % (Auto) 7.8 Eos % (Auto) 1.9 Baso % (Auto) 0.6 Neut # (Auto) 7.3 Lymph # (Auto) 1.3 Craig # (Auto) 0.8 Eos # (Auto) 0.2 Baso # (Auto) 0.1 WBC Differential . Differential Comment . PT INR APTT Sodium 138 Potassium 4.6 Chloride 102 Carbon Dioxide 26.1 Anion Gap 10 BUN 82 H Creatinine 2.90 H Estimated GFR 16 L POC Glucose Random Glucose 93 Calcium 8.6 Total Bilirubin AST ALT Alkaline Phosphatase Total Creatine Kinase Troponin I Total Protein Albumin Urine Color Urine Clarity Urine pH Ur Specific [place] Urine Protein Urine Glucose (UA) Urine Ketones Urine Occult Blood Urine Nitrate Urine Bilirubin Urine Urobilinogen Ur Leukocyte Esterase Urine RBC Urine WBC Urine WBC Clumps Ur Squamous Epith Cells Urine Bacteria Urine Mucus Micro UA Comment Ur Microscopic Review Urine Culture Comments - Imaging Impressions Abdomen/Bladder Ultrasound 01/15/18 00:00 CONCLUSION: 1. Both kidneys have increased echogenicity with cortical thinning consistent with chronic medical renal disease. Scott catheter in place. No hydronephrosis. Chest X-Ray 01/15/18 13:15 CONCLUSION: Negative examination. Abdomen/Pelvis CT 01/15/18 14:12 CONCLUSION: 1. Surgical drain is noted just superior to the urinary bladder which is decompressed. 2. No drainable fluid collections are identified. 3. Diverticulosis. Assessment and Plan - Assessment (1) JACQUELINE (acute kidney injury) Code(s): N17.9 - Acute kidney failure, unspecified Status: Acute - Plan This is a 77-year-old female patient with: Acute kidney injury, improving History of vesico-intestinal fistula with chronic Scott catheter -Patient presented with creatinine 5.1/GFR 8/BUN 110, after review of records this is insignificantly elevated when compared to labs last month during hospitalization. This has improved overnight. -This could be secondary to dehydration. Continued on IV hydration overnight, much improved. Tolerating po intake well. -Monitor BMP outpatient with pcp and urology. Avoid nephrotoxins. -Spoke to Dr. Bowles personally and updated about patient's admission. Evaluated overnight. Appreciate input. -Abdominal/pelvis CT done in ED and reviewed showing surgical drain is noted just superior to the urinary bladder which is decompressed. No drainable fluid collections are identified. Diverticulosis. No significant findings regarding patient's genitourinary system. -Will obtain US renal. Follow. -UA obtained and showing presence of nitrates, leukocyte esterase and WBCs. Monitor urine culture growth. ED started Ceftriaxone. Started on cipro PO. -Continue Scott catheter. Follow up urology. Hyperkalemia suspect secondary to above. Improved. -K 6.3 on presentation. Now WNL. Continue cardiac telemetry, monitor for any arrhythmias. None overnight. -Was given IV insulin, Duonebs, Kayexalate and dextrose in ED. -Resolved. DVT prophylaxis: SCDs. Bain. DC home. Follow up pcp and urology. Continue scott. Ensure hydration. Complete abx as ordered. Continue home medications. Obtain BMP outpatient within 1 week. Diet and activity as tolerated. Return to ED if symptoms worsen or persist. Patient is stable at this time and agreeable to the plan.
[2018-01-16] MEDS ORDERED: Duloxetine 60 MG DR Capsule PO SCH (09:00)
[2018-01-16] MEDS ORDERED: Metoprolol Tartrate 50 MG Tablet PO SCH (09:00)
--- NOTE | 2018-01-16 09:58 | MB ---
cc: WilburElbertn Edith DO DATE: 01/15/2018 HISTORY OF PRESENT ILLNESS: This patient is a very pleasant 77-year-old female who has a history of metastatic ovarian cancer, stage IV. She underwent exploratory laparotomy in the past and initially there was a bladder injury, which was repaired. The repair did not hold and she was reoperated on in mid November. At that time, she had a bowel fistula as well as an intraperitoneal bladder injury. This was repaired, but on followup cystogram the bladder was noted to have a hole at the dome and she was leaking contrast fluid on the cystogram. She had an abdominal drain in, which I removed today at the bedside as it is not putting anything out and her urine has been clear. She denies any fever, chills or abdominal pain, but presented with weakness and dehydration today. On the last cystogram, her bladder appeared to be improving and we are going to maintain conservative treatment at this time with bladder drainage. PAST MEDICAL HISTORY: 1. Hypertension. 2. Metastatic ovarian cancer. 3. Chronic pain. PAST SURGICAL HISTORY: 1. Exploratory laparotomy. 2. Hysterectomy. 3. Oophorectomy. 4. Repair of the bladder. FAMILY HISTORY: Negative for heart disease and stomach cancer. SOCIAL HISTORY: She does occasionally drink, but denies smoking or using drugs. ALLERGIES AND MEDICATIONS: Please refer to the chart. PHYSICAL EXAMINATION: VITAL SIGNS: Today, temperature 97.5, heart rate 78, respiratory rate 17, 94/60 blood pressure. GENERAL: Thin 77-year-old female in no acute distress. HEENT: Normocephalic, atraumatic. Pupils equal, round, reactive to light. Extraocular movements intact. NECK: Supple. HEART: Regular rate and rhythm. LUNGS: Clear. ABDOMEN: Soft, nontender, nondistended. Ostomy is working well. BIJAL drain was removed, as it has not been putting out fluid. Ledezma catheter is in place draining clear urine. Normal female external genitalia. EXTREMITIES: Show no cyanosis, clubbing, or edema. NEUROLOGIC: Cranial nerves 2-12 are intact. LABORATORY DATA: White count 10.1, hemoglobin 12.1, hematocrit 36.2, platelet count of 439,000. Sodium 127, potassium 6.3, chloride 89, CO2 of 28.2, BUN of 110, creatinine 15.1, glucose of 126. Urinalysis with 4-15 white cells, few clumps, large leukocyte esterase, nitrite is positive. DIAGNOSTIC DATA: CAT scan demonstrated a surgical drain noted superior to urinary bladder, which was removed today. No drainable fluid collections are identified. Diverticulosis. Abdominal ultrasound showed both kidneys have increased echogenicity with cortical thinning consistent with chronic medical disease. Ledezma catheter in place. No hydronephrosis. ASSESSMENT: A 69-year-old female who presents with dehydration with history of metastatic ovarian cancer with intraperitoneal bladder injury. We will maintain Ledezma catheter, BIJAL drain removed at the bedside. Check urine culture results. Continue with IV fluid replacement. We will closely follow with you. Thank you for the consult and allowing me participate in the care of this patient. DO JAYCOB Wan/marcella , 05:38 PM , 05:46 PM
[2018-01-16 16:17] VITALS: BP 105/55; PULSE 92; TEMP 98.4; O2SAT 95
--- NOTE | 2018-01-16 17:43 | ECG ---
Date Performed: 01/15/2018 Time Performed: 13:29:18 PTAGE: 77 years EKG: Sinus rhythm LOW QRS VOLTAGE IN PRECORDIAL LEADS Since the previous tracing, no significant change noted BORDERLI NE ECG PREVIOUS TRACING : 12/02/2017 12.53 DOCTOR: Fernando Aguayo Interpretating Date/Time 01/16/2018 17:41:47
== END 2018-01-16 17:26 | disposition home or self-care (01) ==
LOC: PHED 12:08 → PHEDA 14:44 → PHEDH 15:01 → PH3 17:00
PROVIDERS: ADMIT Internal Medicine; ATTEND Internal Medicine